=== PATIENT | female | born 1935 | race Caucasian/White ===

== ENCOUNTER 2018-10-27 15:37 | Observation (INO) | payer OTHER ==
[2018-10-27 16:48] LABS: Absolute Lymphocytes (CBC) 2.1 K/uL (0.7-4.9); Absolute Monocytes 0.7 K/uL (0.1-1.3); Basophils % 1.2 % (0-1.3); Hematocrit 40.3 % (36.0-45.0); Lymphocytes % 25.4 % (15.3-44.8); MPV 8.6 fL (7.6-11.3); Monocytes % 8.1 % (3.3-12.3); RBC Red Blood Cell Count 4.39 M/uL (3.86-4.86)
[2018-10-27] MEDS ORDERED: ADENOSINE 6 MG/ 2ML VIAL IV ONE (16:48)
[2018-10-27] MEDS ORDERED: NA CHLORIDE 0.9% 500 ML ONE (16:48)
[2018-10-27 16:49] LABS: Protime INR 1.09
[2018-10-27 17:04] LABS: ALT/SGPT 14 U/L (12-78); AST/SGOT 15 U/L (15-37); Albumin 3.5 g/dL (3.4-5.0); Alkaline Phosphatase 99 U/L (45-117); BUN Blood Urea Nitrogen 15 mg/dL (7-18); Bicarbonate 25 mmol/L (21-32); Bilirubin Direct 0.1 mg/dL (0-0.2); Bilirubin Total 0.4 mg/dL (0.2-1.0); Glucose Level 107 mg/dL (74-106); Magnesium 1.9 mg/dL (1.8-2.4); NT PRO-BNP 5680 pg/mL (<450); Potassium 4.2 mmol/L (3.5-5.1); Protein, Total 7.4 g/dL (6.4-8.2); Sodium Level 141 mmol/L (136-145); Troponin (Emerg Dept Use Only) < 0.02 ng/mL (0.0-0.045)
--- NOTE | 2018-10-27 17:17 | RAD REPORT ---
EXAM DESCRIPTION: RAD - Chest Single View - 10/27/2018 4:55 pm CLINICAL HISTORY: Hypertension, shortness of breath COMPARISON: None. TECHNIQUE: AP portable chest image was obtained 1645 hours . FINDINGS: Prominent interstitial markings are present believed to be baseline fibrosis. No focal mas s or consolidation seen. No failure or volume overload. Granulomatous calcifications is seen in each hilum. Heart and vasculature are normal. No measurable pleural effusion and no pneumothorax. No acute bony abnormality seen. No acute aortic findings suspected. IMPRESSION: No focal pneumonia or acute process seen. Prominence of the interstitial markings favored to be baseline fibrosis.
--- NOTE | 2018-10-27 17:22 | ER ---
Nurse's Notes [facility] Name: Zaynab Cain Age: 83 yrs Sex: Female : 1935 Arrival Date: 10/27/2018 Time: 15:46 Bed 7 Private MD: Diagnosis: Palpitations;Supraventricular tachycardia Presentation: 10/27 15:55 Presenting complaint: Patient states: sent by PCP for high blood pressure. PCP told ss patient and her daughters since her blood pressure was high to come to the ER immediately as she may be at risk for a heart attack or stroke. Transition of care: patient was not received from another setting of care. Onset of symptoms was October 27, 2018. Risk Assessment: Do you want to hurt yourself or someone else? Patient reports no desire to harm self or others. Initial Sepsis Screen: Does the patient meet any 2 criteria? HR > 90 bpm. Does the patient have a suspected source of infection? No. Patient's initial sepsis screen is negative. Care prior to arrival: None. 15:55 Method Of Arrival: Wheelchair ss 15:55 Acuity: AILYN 3 ss 15:55 Acuity: AILYN 2 ss 16:01 Note Pt had shortness of breath this morning and self administered an albuterol ss treatment. Historical: - Allergies: 16:00 No Known Allergies; ss - PMHx: 16:00 Arthritis; Hypertension; ss - PSHx: 16:00 Hysterectomy; Bladder suspension; ss - Immunization history:: Adult Immunizations unknown. - Social history:: Smoking status: Patient/guardian denies using tobacco, but has a distant history of tobacco abuse. - Ebola Screening: : Patient denies exposure to infectious person No symptoms or risks identified at this time. Screenin:10 Abuse screen: Denies threats or abuse. Denies injuries from another. Nutritional sg screening: No deficits noted. Tuberculosis screening: Never had TB. Fall Risk None identified. Assessment: 16:10 General: Appears in no apparent distress. comfortable, well groomed, well developed, sg well nourished, Behavior is calm, cooperative, appropriate for age. Pain: Complains of pain in left subscapular area Quality of pain is described as aching. Neuro: Level of Consciousness is awake, alert, obeys commands, Oriented to person, place, time, situation, Speech is normal, Facial symmetry appears normal. Cardiovascular: Reports palpitations, Capillary refill is brisk in bilateral fingers Patient's skin is warm and dry. Chest pain is denied. Respiratory: Airway is patent Respiratory effort is even, unlabored, Respiratory pattern is regular, symmetrical, Denies cough, shortness of breath. GI: Abdomen is flat, non-distended, Bowel sounds present X 4 quads. : No signs and/or symptoms were reported regarding the genitourinary system. EENT: No signs and/or symptoms were reported regarding the EENT system. Derm: Skin is pale, Skin temperature is warm. Musculoskeletal: No signs and/or symptoms reported regarding the musculoskeletal system. 16:40 Reassessment: and Zack FILM COATER at bedside for administration of Adenosine IVP sg due to pt HR, pt family remains at the bedside at this time, will continue to monitor. 16:55 Reassessment: Patient appears in no apparent distress at this time. Patient and/or sg family updated on plan of care and expected duration. Pain level reassessed. Patient is alert, oriented x 3, equal unlabored respirations, skin warm/dry/pink. Patient denies pain at this time. Patient states feeling better. Cardiovascular: Capillary refill is brisk in bilateral fingers Patient's skin is warm and dry. Derm: Skin is pink, warm \T\ dry. 17:20 Reassessment: Patient appears in no apparent distress at this time. Patient and/or sg family updated on plan of care and expected duration. Pain level reassessed. Patient is alert, oriented x 3, equal unlabored respirations, skin warm/dry/pink. Patient denies pain at this time. Patient states feeling better. 18:20 Reassessment: Patient appears in no apparent distress at this time. Patient and/or sg family updated on plan of care and expected duration. Pain level reassessed. Patient is alert, oriented x 3, equal unlabored respirations, skin warm/dry/pink. reports pain in her Left Upper back at this time, awaiting new orders Patient states feeling better. 19:00 Reassessment: orders received for IVP pain medication, pt medicated see EMAR. sg Vital Signs: 16:00 BP 114 / 80; Pulse 155; Resp 21; Temp 98.0(TE); Pulse Ox 97% on R/A; Height 5 ft. 1 in. ss (154.94 cm); Pain 0/10; 16:54 BP 108 / 92; Pulse 81 MON; Resp 18 S; Pulse Ox 100% on 3 lpm NC; sg 17:18 BP 116 / 99; Pulse 86; Resp 17; Pulse Ox 100% on R/A; Pain 0/10; sg 18:15 BP 118 / 92; Pulse 81; Resp 17; Pulse Ox 97% on 2 lpm NC; tw2 19:00 BP 141 / 91; Pulse 69; Resp 22; Pulse Ox 100% on 2 lpm NC; tw2 16:54 Sinus Rhythm sg Vitals: 16:40 Cardiac Rhythm Assessment SVT. sg 16:55 Cardiac Rhythm Assessment Sinus rhythm. sg ED Course: 15:46 Patient arrived in ED. mr 15:59 Triage completed. ss 16:00 Arm band placed on right wrist. ss 16:02 Skylar Rod[facility]C [facility] kb 16:02 Shola Aelgre MD is Attending Physician. kb 16:10 Initial lab(s) drawn, by me, sent to lab. Inserted saline lock: 20 gauge in right sg antecubital area, using aseptic technique. Blood collected. 16:30 Patient has correct armband on for positive identification. Bed in low position. Call sg light in reach. Side rails up X2. radiation monitor on. Pulse ox on. NIBP on. Warm blanket given. Verbal reassurance given. Head of bed elevated. 16:43 EKG done, by archives technician. reviewed by Shola Alegre MD. at1 16:54 Lawrence Munoz, RN is Primary Nurse. sg 16:56 XRAY Chest (1 view) In Process Unspecified. EDMS 17:21 Mali Sanchez MD is Hospitalizing Provider. kb 18:48 No provider procedures requiring assistance completed. sg 19:06 Report given to MICHELLE Grayson and KimRN. tw2 19:27 Patient admitted, IV remains in place. ak1 Administered Medications: 16:40 Drug: Adenosine 6 mg Route: IVP; Site: right antecubital; sg 16:50 Follow up: Response: No adverse reaction tw2 16:40 Drug: NS 0.9% 500 ml Route: IV; Rate: bolus; Site: right antecubital; sg 19:28 Follow up: IV Status: Completed infusion ak1 16:57 Drug: Metoprolol 25 mg Route: PO; sg 19:28 Follow up: Response: No adverse reaction ak1 19:00 Drug: fentaNYL (PF) 25 mcg Route: IVP; Site: right antecubital; Outcome: 17:21 Decision to Hospitalize by Provider. kb 19:27 Condition: stable ak1 19:27 Instructed on the need for admit. 20:14 Patient left the ED. ak1 Signatures: Dispatcher [employer] EDMS Skylar Rodríguez, FILM COATER-C FILM COATER-CkLawrence Abdullahi, RN Gabriella Jerome mr Tatiana Collins RN RN Zara Olivera, tool grinder EKG Tat1 Renuka Beck RN RN ak1 Nazanin Pittman RN RN tw2
--- NOTE | 2018-10-27 17:22 | EDPHYS ---
Physician Documentation [facility] Name: Zaynab Cain Age: 83 yrs Sex: Female : 1935 Arrival Date: 10/27/2018 Time: 15:46 Bed 7 Private MD: ED Physician Shola Alegre HPI: 10/27 16:59 This 83 yrs old Female presents to ER via Wheelchair with complaints of kb Elevated heart rate. 16:59 The patient presents with a history of heart racing. Context: The symptoms occur at kb rest. Onset: The symptoms/episode began/occurred 2 day(s) ago. Duration: The patient or guardian reports multiple episodes, notices the racing heart feeling at night for the last 2 nights. . Modifying factors: The symptoms are aggravated by nothing. The symptoms are alleviated by nothing. Associated signs and symptoms: Pertinent positives: chest pain. Severity of symptoms: At their worst the symptoms were moderate in the emergency department the symptoms are unchanged. The patient has not experienced similar symptoms in the past. The patient has been recently seen by a physician: the patient's primary care provider, earlier today, with similar presenting complaints, and was sent to the [facility] Emergency Department for further evaluation. Historical: - Allergies: 16:00 No Known Allergies; ss - PMHx: 16:00 Arthritis; Hypertension; ss - PSHx: 16:00 Hysterectomy; Bladder suspension; ss - Immunization history:: Adult Immunizations unknown. - Social history:: Smoking status: Patient/guardian denies using tobacco, but has a distant history of tobacco abuse. - Ebola Screening: : Patient denies exposure to infectious person No symptoms or risks identified at this time. ROS: 16:56 Constitutional: Negative for fever, chills, and weight loss, ENT: Negative for injury, kb pain, and discharge, Neck: Negative for injury, pain, and swelling, Abdomen/GI: Negative for abdominal pain, nausea, vomiting, diarrhea, and constipation, Back: Negative for injury and pain, : Negative for injury, bleeding, discharge, and swelling, MS/Extremity: Negative for injury and deformity, Skin: Negative for injury, rash, and discoloration, Neuro: Negative for headache, weakness, numbness, tingling, and seizure. 16:56 Cardiovascular: Positive for chest pain, of the left lateral posterior chest, palpitations, Negative for chest pain, edema, orthopnea, paroxysmal nocturnal dyspnea. 16:56 Respiratory: Positive for shortness of breath. Exam: 16:56 Constitutional: This is a well developed, well nourished patient who is awake, alert, kb and in no acute distress. Head/Face: Normocephalic, atraumatic. ENT: Nares patent. No nasal discharge, no septal abnormalities noted. Tympanic membranes are normal and external auditory canals are clear. Oropharynx with no redness, swelling, or masses, exudates, or evidence of obstruction, uvula midline. Mucous membranes moist. Neck: Trachea midline, no thyromegaly or masses palpated, and no cervical lymphadenopathy. Supple, full range of motion without nuchal rigidity, or vertebral point tenderness. No Meningismus. Respiratory: Lungs have equal breath sounds bilaterally, clear to auscultation and percussion. No rales, rhonchi or wheezes noted. No increased work of breathing, no retractions or nasal flaring. Abdomen/GI: Soft, non-tender, with normal bowel sounds. No distension or tympany. No guarding or rebound. No evidence of tenderness throughout. Skin: Warm, dry with normal turgor. Normal color with no rashes, no lesions, and no evidence of cellulitis. MS/ Extremity: Pulses equal, no cyanosis. Neurovascular intact. Full, normal range of motion. Neuro: Awake and alert, GCS 15, oriented to person, place, time, and situation. Cranial nerves II-XII grossly intact. Motor strength 5/5 in all extremities. Sensory grossly intact. Cerebellar exam normal. Normal gait. 16:56 Chest/axilla: Inspection: normal, Palpation: tenderness, that is moderate, of the left lateral posterior chest, that totally reproduces the patient's complaints, Axilla: are normal. 16:56 Cardiovascular: Rate: tachycardic, actual rate is 155 bpm, Rhythm: normal, tachycardic, Pulses: no pulse deficits are appreciated, Heart sounds: normal, normal S1and S2. Vital Signs: 16:00 BP 114 / 80; Pulse 155; Resp 21; Temp 98.0(TE); Pulse Ox 97% on R/A; Height 5 ft. 1 in. ss (154.94 cm); Pain 0/10; 16:54 BP 108 / 92; Pulse 81 MON; Resp 18 S; Pulse Ox 100% on 3 lpm NC; sg 17:18 BP 116 / 99; Pulse 86; Resp 17; Pulse Ox 100% on R/A; Pain 0/10; sg 18:15 BP 118 / 92; Pulse 81; Resp 17; Pulse Ox 97% on 2 lpm NC; tw2 19:00 BP 141 / 91; Pulse 69; Resp 22; Pulse Ox 100% on 2 lpm NC; tw2 16:54 Sinus Rhythm sg MDM: 16:02 Patient medically screened. kb 16:55 Data reviewed: vital signs, nurses notes. Data interpreted: Pulse oximetry: on room air kb is 97 %. Interpretation: normal. ED course: HR returned to normal after adenosine 6mg IVP. Pt tolerated procedure well. No distress noted at this time. . 17:20 Counseling: I had a detailed discussion with the patient and/or guardian regarding: the kb historical points, exam findings, and any diagnostic results supporting the discharge/admit diagnosis, lab results, radiology results, the need for further work-up and treatment in the hospital. Physician consultation: Mali Sanchez MD was contacted at 17:20, regarding admission, to the telemetry unit. patient's condition, and will see patient in ED, shortly. 10/27 16:12 Order name: Basic Metabolic Panel; Complete Time: 17:06 kb 10/27 16:12 Order name: CBC with Diff; Complete Time: 17:00 kb 10/27 16:12 Order name: LFT's; Complete Time: 17:06 kb 10/27 16:12 Order name: Magnesium; Complete Time: 17:06 kb 10/27 16:12 Order name: NT PRO-BNP; Complete Time: 17:06 kb 10/27 16:12 Order name: PT-INR; Complete Time: 17:00 kb 10/27 16:12 Order name: Troponin (emerg Dept Use Only); Complete Time: 17:06 kb 10/27 16:12 Order name: XRAY Chest (1 view); Complete Time: 17:19 kb 10/27 16:34 Order name: TSH; Complete Time: 19:24 rn 10/27 16:34 Order name: T4 Free; Complete Time: 19:24 rn 10/27 16:12 Order name: EKG; Complete Time: 16:12 kb 10/27 16:12 Order name: Cardiac monitoring; Complete Time: 17:05 kb 10/27 16:12 Order name: EKG - Nurse/Tech; Complete Time: 17:05 kb 10/27 16:12 Order name: IV Saline Lock; Complete Time: 17:05 kb 10/27 16:12 Order name: Labs collected and sent; Complete Time: 17:05 kb 10/27 16:12 Order name: O2 Per Protocol; Complete Time: 17:05 kb 10/27 16:12 Order name: O2 Sat Monitoring; Complete Time: 17:06 kb 10/27 17:28 Order name: EKG Electrocardiogram EDMS Administered Medications: 16:40 Drug: Adenosine 6 mg Route: IVP; Site: right antecubital; sg 16:50 Follow up: Response: No adverse reaction tw2 16:40 Drug: NS 0.9% 500 ml Route: IV; Rate: bolus; Site: right antecubital; sg 19:28 Follow up: IV Status: Completed infusion ak1 16:57 Drug: Metoprolol 25 mg Route: PO; sg 19:28 Follow up: Response: No adverse reaction ak1 19:00 Drug: fentaNYL (PF) 25 mcg Route: IVP; Site: right antecubital; sg Disposition: 10/28 06:59 Co-signature as Attending Physician, Shola Alegre MD. rn Disposition: 10/27/18 17:21 Hospitalization ordered by Mali Sanchez for Observation. Preliminary diagnosis are Palpitations, Supraventricular tachycardia. - Bed requested for Telemetry/MedSurg (observation). - Status is Observation. ak1 - Condition is Stable. - Problem is new. - Symptoms are resolved. UTI on Admission? No Signatures: Dispatcher [employer] EDMS Skylar Rodríguez, BREAKER UP MACHINE OPERATOR-C BREAKER UP MACHINE OPERATOR-Ckb Lawrence Munoz RN Shola Banerjee MD MD rn Smirch, Shelby, RN RN ss Krenek, Amber, RN RN ak1 Nano Badillo RN RN df Wise, Tara RN tw2 Corrections: (The following items were deleted from the chart) 10/27 16:59 16:56 Cardiovascular: Positive for palpitations, Negative for chest pain, edema, kb orthopnea, paroxysmal nocturnal dyspnea, kb 18:20 17:21 Hospitalization Ordered by Mali Sanchez MD for Observation. Preliminary df diagnosis is Palpitations; Supraventricular tachycardia. Bed requested for Telemetry/MedSurg (observation). Status is Observation. Condition is Stable. Problem is new. Symptoms are resolved. UTI on Admission? No. kb 20:14 18:20 10/27/2018 17:21 Hospitalization Ordered by Mali Sanchez MD for Observation. ak1 Preliminary diagnosis is Palpitations; Supraventricular tachycardia. Bed requested for Telemetry/MedSurg (observation). Status is Observation. Condition is Stable. Problem is new. Symptoms are resolved. UTI on Admission? No. df
[2018-10-27] MEDS ORDERED: METOPROLOL TAR 25 MG TAB ONE (17:57)
[2018-10-27] MEDS ORDERED: NA CHLORIDE 0.9% 1,000 ML IV SCH (18:00)
[2018-10-27] MEDS ORDERED: FENTANYL CITR 100 MCG/2 ML ONE (19:11)
[2018-10-27 19:21] LABS: Thyroid Stimulating Hormone 3.08 uIU/mL (0.360-3.740)
[2018-10-27] MEDS ORDERED: METOPROLOL TAR 25 MG TAB PO ONE (21:09)
[2018-10-27 21:36] VITALS: BMI 19.9
[2018-10-27] MEDS ORDERED: ONDANSETRON 4 MG/2 ML VIAL IV PRN (22:10)
[2018-10-28] MEDS ORDERED: METHYLPREDNISOLONE 40 MG INJ IV ONE (00:19)
[2018-10-28] MEDS ORDERED: ALPRAZOLAM 0.25 MG TABLET PO PRN (02:32)
[2018-10-28 04:41] LABS: Absolute Lymphocytes (CBC) 0.7 K/uL (0.7-4.9); Absolute Monocytes 0.1 K/uL (0.1-1.3); Absolute Neutrophil 8.9 K/uL (1.8-8.0); Basophils % 0.6 % (0-1.3); Eosinophils % 0.1 % (0-4.4); Hematocrit 37.1 % (36.0-45.0); Lymphocytes % 6.7 % (15.3-44.8); MPV 8.7 fL (7.6-11.3); Monocytes % 1.4 % (3.3-12.3); RBC Red Blood Cell Count 3.99 M/uL (3.86-4.86)
[2018-10-28 04:51] LABS: Albumin 3.4 g/dL (3.4-5.0); Bilirubin Total 0.5 mg/dL (0.2-1.0); Magnesium 1.9 mg/dL (1.8-2.4); Phosphorus 3.6 mg/dL (2.5-4.9); Potassium 4.2 mmol/L (3.5-5.1); Protein, Total 6.9 g/dL (6.4-8.2)
[2018-10-28] MEDS: METOPROLOL TAR 25 MG TAB PO SCH ×2 (05:00→16:34)
[2018-10-28 05:52] LABS: Blood Morphology Comment NOTED (NOT SEEN); Burr Cells 1+; Ovalocytes 1+; Platelet Estimate ADEQ
[2018-10-28] MEDS ORDERED: APIXABAN 2.5 MG TABLET PO SCH (09:00)
[2018-10-28] MEDS ORDERED: ASPIRIN 81 MG CHEWABLE TABLET PO SCH (09:00)
--- NOTE | 2018-10-28 09:20 | P.HP ---
Certification for Inpatient Patient admitted to: Observation With expected LOS: <2 Midnights Patient will require the following post-hospital care: None Practitioner: I am a practitioner with admitting privileges, knowledge of patient current condition, hospital course, and medical plan of care. Services: Services provided to patient in accordance with Admission requirements found in Title 42 Section 412.3 of the Code of Federal Regulations Patient History Date of Service: 10/27/18 Reason for admission: SVT History of Present Illness: Patient is an 83-year-old female who came into the hospital with shortness of breath. Patient was tachycardic and found to have SVT. Patient was given adenosine in the ER. Patient converted to a sinus rhythm. Patient was admitted to the floor for further evaluation. Continue with low-dose beta-margarito. Allergies No Known Allergies Allergy (Verified 10/27/18 22:29) Home Medications: Aspirin 81 mg PO DAILY 10/27/18 - Past Medical/Surgical History Has patient received pneumonia vaccine in the past: No Diabetic: No -: Osteoarthritis -: HTN -: hysterectomy -: bladder suspension - Family History Father Family History: Reviewed- Non-Contributory - Social History Smoking Status: Former smoker Alcohol use: No CD- Drugs: No Caffeine use: Yes Place of Residence: Home Review of Systems 10-point ROS is otherwise unremarkable Physical Examination - Vital Signs Temperature: 97.7 F Blood Pressure: 135/68 Pulse: 71 Respirations: 18 Pulse Ox (%): 98 - Physical Exam General: Alert, In no apparent distress, Oriented x3 HEENT: Atraumatic, PERRLA, Mucous membr. moist/pink, EOMI, Sclerae nonicteric Neck: Supple, 2+ carotid pulse no bruit, No LAD, Without JVD or thyroid abnormality Respiratory: Clear to auscultation bilaterally, Normal air movement Cardiovascular: Regular rate/rhythm, Normal S1 S2, No murmurs Gastrointestinal: Normal bowel sounds, Soft and benign, Non-distended, No tenderness Musculoskeletal: No clubbing, No swelling, No tenderness Integumentary: No rashes Neurological: Normal gait, Normal speech, Normal strength at 5/5 x4 extr, Normal tone, Sensation intact, Cranial nerves 3-12 intact, Normal affect Lymphatics: No axilla or inguinal lymphadenopathy - Studies Laboratory Data (last 24 hrs) 10/27/18 16:30: PT 12.8 H, INR 1.09 10/27/18 16:30: WBC 8.1, Hgb 13.7, Hct 40.3, Plt Count 379 10/27/18 16:30: Sodium 141, Potassium 4.2, BUN 15, Creatinine 1.00, Glucose 107 H, Magnesium 1.9, Total Bilirubin 0.4, AST 15, ALT 14, Alkaline Phosphatase 99 Assessment & Plan - Problems (Diagnosis) (1) SVT (supraventricular tachycardia) Current Visit: Yes Status: Acute (2) History of hypertension Current Visit: Yes Status: Acute (3) Osteoarthritis Current Visit: Yes Status: Acute - Plan Plan: 1. Continue low-dose beta-margarito 2. Echocardiogram 3. Cardiology consultation 4. Thyroid studies 5. CT of the chest as patient has questionable fibrosis on x-ray continues to have complaints of dyspnea and wheezing 6. GI and DVT prophylaxis Discharge Plan: Home Plan to discharge in: 48 Hours - Advance Directives Does patient have a Living Will: Yes Does patient have a Durable POA for Healthcare: No - Code Status/Comfort Care Code Status Assessed: Yes Code Status: Full Code Critical Care: No Time Spent Managing PTS Care (In Minutes): 45
--- NOTE | 2018-10-28 09:26 | RAD REPORT ---
EXAM DESCRIPTION: CT - Chest For Pe Angio - 10/28/2018 9:03 am CLINICAL HISTORY: Dyspnea, left upper back pain COMPARISON: Chest film October 27, CT chest August 2013 TECHNIQUE: Dynamically enhanced 3 mm thick images of the chest were obtained during administration o f approximately 150mL Isovue 370 IV contrast. Coronal and oblique MIP reconstruction images were gene rated and reviewed. Exam utilizes a protocol to evaluate the pulmonary arterial tree. All CT scans are performed using dose optimization technique as appropriate and may include automated exposure control or mA/KV adjustment according to patient size. FINDINGS: No pulmonary emboli are identified. Aortic assessment is limited due to the lack of contrast. Aortic calcifications are present. No displ aced calcifications. No aortic aneurysm. No pericardial thickening or effusion. Heart size is normal. Fibrotic lung changes are present with scattered bulla and bleb formation. No acute consolidation. No pleural effusion or pleural thickening. Minimal nodularity is present along the fissure in the left midlung field. This is fractionally larger than on the 2014 study at the superior extent. Area of new nodularity is 10 x 4 mm (image 54/105). Bronchial wall thickening changes are present. Granulomatous calcifications are present at the left hilum. Chronic atelectasis or scarring changes are present in the medial right lung base. No mediastinal or hilar suspicious masses. No chest wall masses or abnormal axillary lymphadenopathy. Moderate-size hiatal hernia is present similar to comparison. IMPRESSION: No pulmonary emboli identified. 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 A 10 x 4 mm area of nodularity along the fissure mid le ft chest is probably all part of scarring. This is slightly more pronounced than 2014. A repeat CT chest study in 6 months could be performed to monitor this area for low likelihood of derek wth. Bronchial wall thickening is present. It is possible the patient could have a viral type infiltrate s uperimposed on the fibrosis.
--- NOTE | 2018-10-28 11:14 | CON ---
Reason For Consult: Heart racing. History Of Present Illness: Mrs. Cain is new to our area. We do not have any old records on her. She and her daughter are good history givers. They say that she has never been diagnosed with any heart rhythm problems before. She has COPD, rheumatoid arthritis, and her only medication she took a t home was aspirin. There is no history of diabetes, hypertension, dyslipidemia, stroke, myocardial infarction, vascular interventions. She does not use tobacco, alcohol, or illegal drugs. She has re cently moved to our area to be closer to family members to assist with her chronic health problems. When she came to the emergency room, she was in atrial flutter. Impression of the emergency room natasha torrez, which was based on the computer EKG, interpretation was that she had SVT, but it is clearly atrial flutter with 2:1 block, and this morning she is in sinus rhythm. The patient has no history of bleeding. She does not have frequent falls. No history of fall and fracture. Her chest x-ray sh ows interstitial pulmonary fibrosis. No old EKGs to compare. Laboratory Data: Reveals a normal hemoglobin, hematocrit, normal coagulation studies. Her creatinin e is 0.92. Physical Examination: Vital Signs: She is 109 pounds or about 49 kilos, 5 feet 2 inches. Her heart rate is 71, blood pres sure 135/68. She received metoprolol last night orally. No intravenous medications were given, and she is in sinu s rhythm now. All of her previous spells, which probably add up to 2 or 3 previous spells were self- limited after 15 to 20 minutes or so. General: She appears to be in no distress now. Lungs: Reveal diffuse Velcro type crackles. Heart: Regular rate and rhythm. No murmur. Abdomen: Soft. Extremities: She has very thick ankles, but I do not think it is edema. I think it is adipose tissu e. Distal pulses are palpable. Musculoskeletal: She has all of the joint findings in her hands of rheumatoid arthritis, also in the feet. Impression: My impression is the patient has paroxysmal atrial flutter. So far, the beta-margarito se em to have worked, I would recommend we continue it, and add Eliquis to the regimen because of her yael dy mass and age. Her Eliquis dose is 2.5 b.i.d. We will start that this morning at 9 a.m., and I be lieve later today if her echo does not look remarkable, she could be discharged taking metoprolol and Eliquis. Thank you very much for your kind referral of Mrs. Cain. I will follow her along with you. FRANK Voice ID: [id number] Report ID: [id number]
[2018-10-28 12:58] LABS: Urine Appearance CLEAR; Urine Bilirubin NEGATIVE (NEG); Urine Blood NEGATIVE (NEG); Urine Color YELLOW; Urine Glucose NEGATIVE (NEG); Urine Microscopic Reflex NO UMIC; Urine Protein NEGATIVE (NEG); Urine Specific Gravity >=1.030 (1.005-1.030); Urine Urobilinogen 0.2 mg/dL (0.2-1.0)
[2018-10-28 16:43] VITALS: TEMP 98.4
--- NOTE | 2018-10-28 18:19 | P.SSS ---
Patient History Date of Service: 10/28/18 Reason for admission: SVT History of Present Illness: Patient is an 83-year-old female who came into the hospital with shortness of breath. Patient was tachycardic and found to have SVT. Patient was given adenosine in the ER. Patient converted to a sinus rhythm. Patient was admitted to the floor for further evaluation. Continue with low-dose beta-margarito. Allergies No Known Allergies Allergy (Verified 10/27/18 22:29) Home Medications: Aspirin 81 mg PO DAILY 10/27/18 Albuterol Neb [Proventil 0.083% Neb Soln] 1 inh NEB Q4HP PRN 10/28/18 Apixaban [Eliquis *] 2.5 mg PO BID #60 tablet 10/28/18 Budesonide/Formoterol Fumarate [Symbicort 80-4.5 Mcg Inhaler] 1 puff IH BID #1 hfa.aer.ad 10/28/18 Metoprolol Tartrate [Lopressor*] 50 mg PO BID 6AM 6PM #60 tab 10/28/18 - Past Medical/Surgical History Has patient received pneumonia vaccine in the past: No Diabetic: No -: Osteoarthritis -: HTN -: hysterectomy -: bladder suspension - Social History Smoking Status: Former smoker Alcohol use: No CD- Drugs: No Caffeine use: Yes Place of Residence: Home Review of Systems 10-point ROS is otherwise unremarkable Physical Examination - Vital Signs Temperature: 98.4 F Blood Pressure: 106/62 Pulse: 60 Respirations: 18 Pulse Ox (%): 96 - Physical Exam General: Alert, In no apparent distress HEENT: Atraumatic, PERRLA, Mucous membr. moist/pink, EOMI, Sclerae nonicteric Neck: Supple, 2+ carotid pulse no bruit, No LAD, Without JVD or thyroid abnormality Respiratory: Clear to auscultation bilaterally, Normal air movement Cardiovascular: Regular rate/rhythm, Normal S1 S2 Gastrointestinal: Normal bowel sounds, No tenderness Musculoskeletal: No tenderness Integumentary: No rashes Neurological: Normal gait, Normal speech, Normal strength at 5/5 x4 extr, Normal tone, Normal affect Lymphatics: No axilla or inguinal lymphadenopathy - Diagnosis (Problem(s)) (1) Atrial flutter Current Visit: Yes Status: Acute Qualifiers: Atrial flutter type: typical Qualified Code(s): I48.3 - Typical atrial flutter (2) History of hypertension Current Visit: Yes Status: Chronic (3) Osteoarthritis Current Visit: Yes Status: Chronic Qualifiers: Osteoarthritis location: unspecified site Osteoarthritis type: primary Qualified Code(s): M19.91 - Primary osteoarthritis, unspecified site Treatment Summary: Overall during the hospital stay patient remained stable Patient was initially admitted to the hospital for palpitations and initially when seen in the ER and was having atrial flutter. In the ER patient was given edema seen initially as it was thought to be SVT. After which patient return back to sinus rhythm. Cardiology was consulted who recommended patient get an echocardiogram done here in the hospital. Patient had an echocardiogram done here in the hospital which was within normal limits. Patient then was recommend to be discharged home on a low-dose beta-margarito along with Eliquis. Patient's atrial flutter was most likely was related to her using albuterol inhaler recently vs intermittent atrial flutter. Patient was asked to follow up with primary care provider along with cardiology in about 1-2 days post discharge. - Disposition Disposition: ROUTINE DISCHARGE Condition: GOOD Patient Discharge Instructions: Please f.u with PCP and Cardiology in 1 to 2 week post discharge. New medication. Metoprolol 50mg BID. Eliquis 2.5mg BID. Symbicort 2puff Diet: Regular Activity: Ad josef
--- NOTE | 2018-10-28 18:21 | ECHO ---
HEIGHT: 5 ft 2 in WEIGHT: 109 lb 1.6 oz DATE OF STUDY: 10/28/[address]: Mali Sanchez MD 2-DIMENSIONAL: YES M.MODE: YES DOPPLER: YES COLOR FLOW: YES TDS: PORTABLE: DEFINITY: BUBBLE STUDY: DIAGNOSIS: ATRIAL FLUTTER CARDIAC HISTORY: CATHERIZATION: NO SURGERY: NO PROSTHETIC VALVE: NO PACEMAKER: NO MEASUREMENTS (cm) DIASTOLIC (NORMALS) SYSTOLIC (NORMALS) LVEF 40-45% 2 DIMENSIONAL ASSESSMENT: RIGHT ATRIUM: NORMAL LEFT ATRIUM: DILATED RIGHT VENTRICLE: NORMAL LEFT VENTRICLE: NORMAL TRICUSPID VALVE: NORMAL MITRAL VALVE: MITRAL ANNULAR CALCIFICATION PULMONIC VALVE: NORMAL AORTIC VALVE: NORMAL PERICARDIAL EFFUSION: NONE AORTIC ROOT: NORMAL LEFT VENTRICULAR WALL MOTION: SEPTAL HYPOKENESIS DOPPLER/COLOR FLOW: MILD MITRAL REGURGITATION AND TRICUSPID REGURGITATION. MILD PULMONARY HYPERTENSION. ESTIMATED RIGHT VENTRICULAR SYSTOLIC PRESSURE 40 mmHg. COMMENTS: MILDLY DEPRESSED LEFT VENTRICULAR EJECTION FRACTION WITH WALL MOTION ABNORMALITY. DILATED LEFT ATRIUM. MITRAL ANNULAR CALCIFICATION. MILD MITRAL REGURGITATION AND TRICUSPID REGURGITATION. MILD PULMONARY HYPERTENSION. NORMAL SINUS RHYTHM. TECHNOLOGIST: RAYMOND BOSWELL
[2018-10-28 22:20] VITALS: O2SAT 97
[2018-10-28 22:28] VITALS: BP 122/68
--- NOTE | 2018-10-30 10:25 | EKG ---
Test Date: 2018-10-27 Test Time: 16:54:56 [employer] Attendant: EVE MEASUREMENT RESULTS: Intervals: Rate: 84 WY: 174 QRSD: 98 QT: 404 QTc: 477 [place]: P: 80 WY: 174 QRS: -29 T: 50 INTERPRETIVE STATEMENTS: Normal sinus rhythm with sinus arrhythmia Right atrial enlargement Borderline ECG Compared to ECG 10/27/2018 16:22:15 Atrial abnormality now present Supraventricular tachycardia no longer present ST (T wave) deviation no longer present Electronically Signed On 10-27-18 21:14:16 CDT by Abdulkadir Walker
--- NOTE | 2018-10-30 10:25 | EKG ---
Test Date: 2018-10-27 Test Time: 16:22:15 Brand Coordinator: WILLIS MEASUREMENT RESULTS: Intervals: Rate: 153 [place]: QRSD: 98 QT: 344 QTc: 549 [place]: P: OK: QRS: -23 T: 89 INTERPRETIVE STATEMENTS: Atrial flutter with 2 to 1 conduction Abnormal ECG Compared to ECG 03/01/2016 11:30:30 Sinus rhythm no longer present Left anterior fascicular block no longer present ST (T wave) deviation still present Electronically Signed On 10-27-18 21:15:27 CDT by Abdulkadir Walker
--- NOTE | 2018-10-30 10:26 | EKG ---
Test Date: 2018-10-28 Test Time: 09:22:08 Ultrasonic Tester: WILLIS MEASUREMENT RESULTS: Intervals: Rate: 68 AL: 172 QRSD: 104 QT: 484 QTc: 514 [place]: P: 76 AL: 172 QRS: -8 T: -24 INTERPRETIVE STATEMENTS: Sinus rhythm Septal infarct, age undetermined Prolonged QT Abnormal ECG Compared to ECG 10/27/2018 16:54:56 Myocardial infarct finding now present Prolonged QT interval now present Electronically Signed On 10-28-18 12:38:28 CDT by Abdulkadir Walker
== END 2018-10-28 20:24 | disposition home or self-care (01) ==
LOC: ER 15:37 → ERHOLD 17:47 → 4TH 19:44
PROVIDERS: ADMIT Family Medicine; ATTEND Hospitalist
DX: I48.3 Typical atrial flutter (principal); I10 Essential (primary) hypertension; M19.91 Primary osteoarthritis, unspecified site; Z79.82 Long term (current) use of aspirin; Z87.891 Personal history of nicotine dependence
CPT/HCPCS: 96361; 93005 ×3; 93306; 85025 ×2; 80048; 36415; 83735 ×2; 84100; 85610; 80076; 84443; 81003; 84484; 84439; 80053; 83880; 71275; 71045; 96375; 96374; 99285; Q9967; J0153; J3010; J2920; G0378 ×2

== ENCOUNTER 2018-11-01 08:16 | Emergency (ER) | payer OTHER ==
[2018-11-01 09:08] LABS: Absolute Lymphocytes (CBC) 1.6 K/uL (0.7-4.9); Absolute Monocytes 0.7 K/uL (0.1-1.3); Absolute Neutrophil 5.3 K/uL (1.8-8.0); Basophils % 0.4 % (0-1.3); Eosinophils % 6.1 % (0-4.4); Hematocrit 41.3 % (36.0-45.0); Lymphocytes % 19.3 % (15.3-44.8); MPV 8.8 fL (7.6-11.3); Monocytes % 8.3 % (3.3-12.3); RBC Red Blood Cell Count 4.49 M/uL (3.86-4.86)
[2018-11-01 09:10] LABS: Protime INR 1.19
[2018-11-01 09:11] LABS: Urine Blood NEGATIVE (NEG); Urine Glucose NEGATIVE (NEG); Urine Protein 1+ (NEG)
[2018-11-01 09:19] LABS: Urine Bacteria <20 /HPF (<20); Urine Culture Reflex Order REFLEXED; Urine RBC <5 /HPF (NONE SEEN)
[2018-11-01 09:22] LABS: BUN Blood Urea Nitrogen 10 mg/dL (7-18); Bicarbonate 32 mmol/L (21-32); Glucose Level 91 mg/dL (74-106); Potassium 3.6 mmol/L (3.5-5.1); Sodium Level 141 mmol/L (136-145); Troponin (Emerg Dept Use Only) < 0.02 ng/mL (0.0-0.045)
--- NOTE | 2018-11-01 11:03 | RAD REPORT ---
EXAM DESCRIPTION: RAD - Chest Pa And Lat (2 Views) - 11/01/2018 9:02 am CLINICAL HISTORY: right chest wall pain Chest pain. COMPARISON: Chest Single View dated 10/27/2018; Chest For Pe Angio dated 10/28/2018 TECHNIQUE: PA and lateral views of the chest were obtained. FINDINGS: The lungs are hyperexpanded compatible with COPD. Blunting of both costophrenic angles is most compatible with pleural thickening. The heart is upper limit of normal in size. No fracture or a ggressive bony process. IMPRESSION: COPD without acute process identified.
--- NOTE | 2018-11-01 11:37 | ER ---
Nurse's Notes [facility] Name: Zaynab Cain Age: 83 yrs Sex: Female : 1935 Arrival Date: 11/01/2018 Time: 08:21 Bed 14 Private MD: Diagnosis: Chest pain, unspecified Presentation: 11/01 08:30 Transition of care: patient was not received from another setting of care. Onset of tw2 symptoms was November 01, 2018. Risk Assessment: Do you want to hurt yourself or someone else? Patient reports desire/thoughts of hurting themselves or someone else. Provider notified. Initial Sepsis Screen: Does the patient meet any 2 criteria? No. Patient's initial sepsis screen is negative. Does the patient have a suspected source of infection? No. Patient's initial sepsis screen is negative. Care prior to arrival: None. 08:30 Acuity: AILYN 3 tw2 08:30 Method Of Arrival: Ambulatory tw2 08:36 Presenting complaint: Patient states: since i left the hospital 2-3 days ago my upper tw2 right chest has been hurting and i feel like im wheezing, pts daughter states she has used her symbicort to help. Triage Assessment: 08:37 General: Appears in no apparent distress. Behavior is calm, cooperative, appropriate tw2 for age. Pain: Complains of pain in right lateral posterior chest and right breast. EENT: No signs and/or symptoms were reported regarding the EENT system. Neuro: Level of Consciousness is awake, alert, obeys commands, Oriented to person, place, situation. Cardiovascular: Reports shortness of breath, Heart tones S1 S2 Patient's skin is warm and dry. Respiratory: Airway is patent Respiratory effort is even, unlabored, Respiratory pattern is regular, symmetrical, Breath sounds are clear bilaterally. GI: No signs and/or symptoms were reported involving the gastrointestinal system. : No signs and/or symptoms were reported regarding the genitourinary system. Derm: No signs and/or symptoms reported regarding the dermatologic system. Musculoskeletal: Circulation, motion, and sensation intact. Range of motion: intact in all extremities, Tenderness present in right lateral posterior chest and right lateral anterior chest. Historical: - Allergies: 08:32 No Known Allergies; tw2 - Home Meds: 08:32 aspirin 81 mg Oral chew 1 tab once daily [Active]; spironolactone 50 mg Oral tab 1 tab tw2 once daily [Active]; 08:40 metoprolol tartrate 25 mg Oral tab 1 tab 2 times per day [Active]; warfarin 3 mg Oral tw2 tab 1 tab once daily [Active]; Symbicort 80-4.5 mcg/actuation inhalation HFAA 2 puffs 2 times per day [Active]; - PMHx: 08:32 Arthritis; Hypertension; tw2 - PSHx: 08:32 Hysterectomy; Bladder suspension; tw2 - Immunization history:: Adult Immunizations. - Social history:: Smoking status: . - Ebola Screening: : Patient denies travel to an Ebola-affected area in the 21 days before illness onset. - Family history:: not pertinent. - Hospitalizations: : The patient was recently seen at [facility]. Screenin:30 Abuse screen: Denies threats or abuse. Nutritional screening: No deficits noted. tw2 Tuberculosis screening: No symptoms or risk factors identified. Fall Risk Secondary diagnosis (15 points) impaired mobility. Assessment: 08:39 Reassessment: see triage assessment. tw2 09:49 Reassessment: Patient appears in no apparent distress at this time. No changes from tw2 previously documented assessment. Patient and/or family updated on plan of care and expected duration. Pain level reassessed. Patient is alert, oriented x 3, equal unlabored respirations, skin warm/dry/pink. 10:47 Reassessment: Patient appears in no apparent distress at this time. No changes from tw2 previously documented assessment. Patient and/or family updated on plan of care and expected duration. Pain level reassessed. Patient is alert, oriented x 3, equal unlabored respirations, skin warm/dry/pink. 11:48 Reassessment: Patient appears in no apparent distress at this time. No changes from tw2 previously documented assessment. Patient and/or family updated on plan of care and expected duration. Pain level reassessed. Patient is alert, oriented x 3, equal unlabored respirations, skin warm/dry/pink. Vital Signs: 08:38 BP 161 / 81; Pulse 64; Resp 17; Temp 97.7(TE); Pulse Ox 97% on R/A; Pain 6/10; tw2 09:49 BP 164 / 82; Pulse 78; Resp 17; Pulse Ox 96% on R/A; tw2 10:46 BP 149 / 71; Pulse 56; Resp 17; Pulse Ox 95% on R/A; tw2 11:46 BP 158 / 88; Pulse 76; Resp 17; Pulse Ox 97% on R/A; tw2 ED Course: 08:21 Patient arrived in ED. mr 08:26 Shola Alegre MD is Attending Physician. rn 08:26 Nazanin Pittman RN is Primary Nurse. tw2 08:30 Inserted saline lock: 22 gauge in left antecubital area, using aseptic technique. Blood tw2 collected. 08:31 Triage completed. tw2 08:31 Arm band placed on. tw2 08:31 Bed in low position. Call light in reach. Adult w/ patient. quality assurance monitor on. Pulse tw2 ox on. NIBP on. 09:00 XRAY Chest Pa And Lat (2 Views) In Process Unspecified. EDMS 11:47 No provider procedures requiring assistance completed. IV discontinued, intact, tw2 bleeding controlled, No redness/swelling at site. Pressure dressing applied. Administered Medications: No medications were administered Outcome: 11:37 Discharge ordered by . rn 11:48 Discharged to home ambulatory, with family. tw2 11:48 Condition: stable 11:48 Discharge instructions given to patient, family, Instructed on discharge instructions, follow up and referral plans. Demonstrated understanding of instructions, follow-up care. 11:48 Patient left the ED. tw2 Signatures: Dispatcher [employer] Gabriella Saleem mr Shola Alegre MD MD rn Nazanin Pittman RN RN tw2
--- NOTE | 2018-11-01 11:37 | EDPHYS ---
Physician Documentation [facility] Name: Zaynab Cain Age: 83 yrs Sex: Female : 1935 Arrival Date: 11/01/2018 Time: 08:21 Bed 14 Private MD: ED Physician Shola Alegre HPI: 11/01 08:45 This 83 yrs old Female presents to ER via Ambulatory with complaints of Flank rn Pain. 08:46 The pain does not radiate. rn 08:46 Onset: The symptoms/episode began/occurred 4 day(s) ago. Modifying factors: The rn symptoms are alleviated by nothing. the symptoms are aggravated by movement, palpation/percussion. Severity of pain: At its worst the pain was moderate in the emergency department the pain is unchanged. The patient has not experienced similar symptoms in the past. REports admitted recently for atrial flutter, was transferring more than normal while in hospital, uses walker, thinks may have strained right chest, hurts to move and touch right chest wall, no sob, no radiation, no hemoptysis.. Historical: - Allergies: 08:32 No Known Allergies; tw2 - Home Meds: 08:32 aspirin 81 mg Oral chew 1 tab once daily [Active]; spironolactone 50 mg Oral tab 1 tab tw2 once daily [Active]; 08:40 metoprolol tartrate 25 mg Oral tab 1 tab 2 times per day [Active]; warfarin 3 mg Oral tw2 tab 1 tab once daily [Active]; Symbicort 80-4.5 mcg/actuation inhalation HFAA 2 puffs 2 times per day [Active]; - PMHx: 08:32 Arthritis; Hypertension; tw2 - PSHx: 08:32 Hysterectomy; Bladder suspension; tw2 - Immunization history:: Adult Immunizations. - Social history:: Smoking status: . - Ebola Screening: : Patient denies travel to an Ebola-affected area in the 21 days before illness onset. - Family history:: not pertinent. - Hospitalizations: : The patient was recently seen at [facility]. ROS: 08:46 Constitutional: Negative for fever, chills, and weight loss, Eyes: Negative for injury, rn pain, redness, and discharge, Neck: Negative for injury, pain, and swelling, Cardiovascular: + right chest wall pain Respiratory: Negative for shortness of breath, wheezing Abdomen/GI: Negative for abdominal pain, nausea, vomiting, diarrhea, and constipation, Back: Negative for injury and pain, MS/Extremity: Negative for injury and deformity, Skin: Negative for injury, rash, and discoloration, Neuro: Negative for headache, weakness, numbness, tingling, and seizure. Exam: 08:46 Constitutional: This is a well developed, well nourished patient who is awake, alert, rn and in no acute distress. Head/Face: Normocephalic, atraumatic. ENT: MMM Chest/axilla: Normal chest wall appearance and motion. MIld tenderness right anterior/lateral chest wall without crepitus. No lesions are appreciated. Cardiovascular: Regular rate and rhythm with a normal S1 and S2. No gallops, murmurs, or rubs. No JVD. No pulse deficits. Respiratory: Lungs have equal breath sounds bilaterally, clear to auscultation and percussion. No rales, rhonchi or wheezes noted. No increased work of breathing, no retractions or nasal flaring. Abdomen/GI: soft, non-tender MS/ Extremity: Pulses equal, no cyanosis. Neurovascular intact. Full, normal range of motion. Equal circumference. Neuro: Awake and alert, GCS 15, oriented to person, place, time, and situation. Cranial nerves II-XII grossly intact. Motor strength 5/5 in all extremities. Sensory grossly intact. 09:14 ECG was reviewed by the Attending Physician. rn Vital Signs: 08:38 BP 161 / 81; Pulse 64; Resp 17; Temp 97.7(TE); Pulse Ox 97% on R/A; Pain 6/10; tw2 09:49 BP 164 / 82; Pulse 78; Resp 17; Pulse Ox 96% on R/A; tw2 10:46 BP 149 / 71; Pulse 56; Resp 17; Pulse Ox 95% on R/A; tw2 11:46 BP 158 / 88; Pulse 76; Resp 17; Pulse Ox 97% on R/A; tw2 MDM: 08:26 Patient medically screened. rn 11:24 Differential diagnosis: UTI, pleurisy, pleural effusion, early zoster, muscle strain of rn chest wall. 11:36 Data reviewed: vital signs, nurses notes, lab test result(s), EKG, radiologic studies, rn plain films, and as a result, I will discharge patient. Counseling: I had a detailed discussion with the patient and/or guardian regarding: the historical points, exam findings, and any diagnostic results supporting the discharge/admit diagnosis, lab results, radiology results, the need for outpatient follow up, to return to the emergency department if symptoms worsen or persist or if there are any questions or concerns that arise at home. Special discussion: I discussed with the patient/guardian in detail that at this point there is no indication for admission to the hospital. It is understood, however, that if the symptoms persist or worsen the patient needs to return immediately for re-evaluation. 11/01 08:44 Order name: CBC with Diff; Complete Time: 11: rn 11/01 08:44 Order name: Basic Metabolic Panel; Complete Time: 11: 11/01 08:44 Order name: Protime (+inr); Complete Time: 11: 11/01 08:44 Order name: Troponin (emerg Dept Use Only); Complete Time: 11: 11/01 08:46 Order name: Urine Microscopic Only; Complete Time: 11: rn 11/01 08:53 Order name: Urine Dipstick--Ancillary (enter results); Complete Time: 11:19 11/01 08:44 Order name: IV Start; Complete Time: 09:05 rn 11/01 08:44 Order name: XRAY Chest Pa And Lat (2 Views); Complete Time: 11:19 rn 11/01 08:44 Order name: EKG; Complete Time: 08:44 rn 11/01 08:44 Order name: EKG - Nurse/Tech; Complete Time: 08:46 rn 11/01 08:45 Order name: Urine Dipstick-Ancillary (obtain specimen); Complete Time: 08:51 rn 11/01 09:20 Order name: Urine Culture EDMS EC:14 Rate is 64 beats/min. Rhythm is regular. QRS [place] is Normal. AL interval is normal. QRS rn interval is normal. QT interval is normal. No Q waves. T waves are Inverted in leads II, III, aVF, V3. No ST changes noted. Clinical impression: NSR w/ Non-specific ST/T Changes. Interpreted by me. Administered Medications: No medications were administered Disposition: 11/01/18 11:37 Discharged to Home. Impression: Chest pain, unspecified. - Condition is Stable. - Discharge Instructions: Nonspecific Chest Pain, Chest Wall Pain, Warfarin Coagulopathy. - Medication Reconciliation Form, Thank You Letter, Antibiotic Education, Prescription Opioid Use form. - Follow up: Private Physician; When: As needed; Reason: Recheck today's complaints, Re-evaluation by your physician. - Problem is an ongoing problem. - Symptoms have improved. Signatures: Dispatcher [employer] EDMS Shola Alegre MD MD rn Wise, Tara, RN RN tw2 Corrections: (The following items were deleted from the chart) 11:48 11:37 11/01/2018 11:37 Discharged to Home. Impression: Chest pain, unspecified. tw2 Condition is Stable. Forms are Medication Reconciliation Form, Thank You Letter, Antibiotic Education, Prescription Opioid Use. Follow up: Private Physician; When: As needed; Reason: Recheck today's complaints, Re-evaluation by your physician. Problem is an ongoing problem. Symptoms have improved. rn
[2018-11-01 11:52] VITALS: TEMP 97.7
[2018-11-01 11:56] VITALS: BP 158/88; O2SAT 97
--- NOTE | 2018-11-02 12:28 | EKG ---
Test Date: 2018-11-01 Test Time: 08:45:09 Operational Assistant: MEASUREMENT RESULTS: Intervals: Rate: 64 TN: 166 QRSD: 94 QT: 444 QTc: 458 [place]: P: 72 TN: 166 QRS: 5 T: -39 INTERPRETIVE STATEMENTS: Normal sinus rhythm Anterior infarct, age undetermined T wave abnormality, consider inferior ischemia Abnormal ECG Compared to ECG 10/28/2018 09:22:08 T-wave abnormality now present Possible ischemia now present Prolonged QT interval no longer present Myocardial infarct finding still present Electronically Signed On 11-02-18 12:24:45 CDT by Pola Zacarias
== END 2018-11-01 11:48 | disposition home or self-care (01) ==
LOC: ER 08:16
DX: R07.9 Chest pain, unspecified (principal); R10.9 Unspecified abdominal pain; I10 Essential (primary) hypertension; Z79.01 Long term (current) use of anticoagulants; Z79.82 Long term (current) use of aspirin
CPT/HCPCS: 36415; 71046; 80048; 81003; 81015; 84484; 85025; 85610; 87086; 87088; 93005; 99284

== ENCOUNTER 2021-09-01 10:24 | Emergency (ER) | payer OTHER ==
--- OUTSIDE RECORDS SUMMARY | 2021-09-01 10:27 | XMS REPORT | Continuity of Care Document ---
:1935 Author Organization [facility] t Address [address] [place] [address] Care Team Providers Name Role Phone MAKEDA Primary Care Physician Unavailable Karen MARTINEZ Attending Clinician Unavailable Arik UREÑA Attending Clinician Unavailable Payers Payer Name Policy Type Policy Number Effective Date Expiration Date S robert [employer] MEDICARE [id number] 2015 2021 ADV 00:00:00 00:00:00 Problems This patient has no known problems. Allergies, Adverse Reactions, Alerts Allergy Allergy Status Severity Reaction(s) Onset Inactive Treating Comm ents Source Name Type Date Date Clinician promethmarisela DA Active SV 2018- [facility] zine 9-14 Clear 00:00: Esquivel 00 [facility] No Known DA Active U 0 [facility] Allergie 9-13 Clear s 00:00: Esquivel 00 [facility] NO KNOWN Drug Active [facility] Medications This patient has no known medications. Procedures This patient has no known procedures. Encounters Start End Encounter Admission Attending Care Care Encounter Source Date/Time Date/Time Type Type Clinicians Facility Department ID 2019-12-18 2019-12-18 Outpatient Mitchel MARTINEZ [facility] [id number] [facility] 10:10:01 23:59:00 NADIR [facility] 2019-12-18 2019-12-18 Outpatient Mitchel MARTINEZ [facility] [id number] [facility] 10:15:00 10:15:00 NADIR [id number] [facility] 2019-11-27 2019-11-27 Outpatient Mitchel UREÑA [facility] [id number] [facility] 10:00:00 10:00:00 MITRA [facility] 2019-11-27 2019-11-27 Outpatient Mitchel UREÑA [facility] [id number] [facility] 10:00:00 10:00:00 MITRA [facility] 2019-11-26 2019-11-26 Outpatient Mitchel UREÑA [facility] [id number] [facility] 09:30:00 09:30:00 [facility] 2019-11-26 2019-11-26 Outpatient Mitchel UREÑA [facility] [id number] Univers 08:15:00 08:15:00 [facility] 2019-11-26 2019-11-26 Outpatient Mitchel MARTINEZ [facility] [id number] Univers 08:00:00 08:00:00 NADIR [id number] [facility] Results Test Description Test Time Test Comments Results Result Comments Source PROTHROMBIN TIME 2019-05-03 06:36:00 Test Item Value Reference Range Interpretation Comme nts PROTHROMBIN TIME PATIENT 30.1 SECONDS 9.3-12.9 H (test code = PTP) INTERNATIONAL NORMAL RATIO 2.7 0.8-1.2 H TARGET INR BY (test code = INR) INDICATION Indication INR1. Prophylax is of venous thrombosis 2.0 - 3.0 (orthopedic s urgery), Prophylaxis of venous thrombosis (oth er than high-risk surgery), Ha atment of Deep Vein Thrombos is/Pulmonary Embolism, Preve ntion of systemic emboli sm - Tissue heart valves, Acute Myocardial Infarction (to prevent systemic emboli sm), Valvular heart disease, Atrial Fibrillation, B ileaflet mechanical va lve in aortic position.2. Mec hanical prosthetic valv es (high risk), 2.5 - 3.5 Pr esence of Lupus Anticoagulant o r Antiphospholipi d Antibodies, Prevention of systemic embolism - Acut e Myocardial Infarction (t o prevent recurrent infar ct). COMMENTS: INR X 10 DAYSPROTHROMBIN [id number] 09:06:00 Test Item Value Reference Range Interpretation Comments PROTHROMBIN TIME 36.1 SECONDS 9.3-12.9 H PATIENT (test code = PTP) INTERNATIONAL NORMAL 3.2 0.8-1.2 H TARGET RATIO (test code = INR BY IN DICATION INR) Indication INR1. Prophyl axis of venous thrombos is 2.0 - 3. 0 (orthopedic zhanna liane), Prophylaxis of venous thrombos is (other than hig h-risk surgery), Danni tment of Deep Vein Thrombosis/Pulm onary Embolism, Preve ntion of systemic emb olism - Tissue heart va lves, Acute Myocardia l Infarction (to prevent systemic embo lism), Valvular heart disease, Atri al Fibrillation, Bileaflet mecha nical valve in aortic position.2. Mec hanical prosthetic valv es (high risk), 2.5 - 3.5 Presence of Lupus Anticoagu lant or Antiphospholi pid Antibodies, Pre vention of systemic e mbolism - Acute Myocard ial Infarction (t o prevent recurre nt infarct). RENAL FUNCTION [id number] 07:50:00 Test Item Value Reference Range Interpretation Comments SODIUM (test code = NA) 136 mEq/L 134-147 N POTASSIUM (test code = 3.9 mEq/L 3.4-5.0 N K) CHLORIDE (test code = 105 mEq/L 100-108 N CL) CARBON DIOXIDE (test 26 mEq/L 21-33 N code = CO2) ANION GAP (test code = 9 0-20 N GAP) GLUCOSE (test code = 82 mg/dL 70-110 N GLU) BLOOD UREA NITROGEN 15 mg/dL 7-18 N (test code = BUN) GLOMERULAR FILTRATION 79.5 70-80 N Units of measure = RATE (test code = GFR) ml/mi n/1.73 m2 CREATININE (test code = 0.7 mg/dL 0.6-1.3 N CREAT) ALBUMIN (test code = 2.90 g/dL 3.4-5.0 L ALB) CALCIUM (test code = CA) 8.6 mg/dL 8.0-10.5 N PHOSPHOROUS (test code = 3.4 MG/DL 2.5-4.9 N PHOS) [id number] 07:50:00 Test Item Value Reference Range Interpretation Comments MAGNESIUM (test code = MAG) 1.70 mg/dL 1.8-2.4 L CBC W/AUTO [id number] 07:18:00 Test Item Value Reference Range Interpretation Comments WHITE BLOOD CELL (test code = 6.97 x10 3/uL 4.5-11.0 N WBC) RED BLOOD CELL (test code = 4.14 x10 6/uL 3.54-5.02 N RBC) HEMOGLOBIN (test code = HGB) 12.7 g/dL 11.0-15.0 N HEMATOCRIT (test code = HCT) 39.4 % 33.0-45.0 N MEAN CELL VOLUME (test code = 95.2 fL 81.0-99.0 N MCV) MEAN CELL HGB (test code = MCH) 30.7 pg 27.0-33.0 N MEAN CELL HGB CONCETRATION 32.2 g/dL 33.0-37.0 L (test code = MCHC) RED CELL DISTRIBUTION WIDTH CV 12.4 % 11.5-14.5 N (test code = RDW) RED CELL DISTRIBUTION WIDTH SD 43.2 fL 37.0-54.0 N (test code = RDW-SD) PLATELET COUNT (test code = 255 x10 3/uL 150-400 N PLT) MEAN PLATELET VOLUME (test code 10.2 fL 7.0-9.0 H = MPV) NEUTROPHIL % (test code = NT%) 61.6 % 56.0-77.0 N IMMATURE GRANULOCYTE % (test 0.4 % 0.0-2.0 N code = IG%) LYMPHOCYTE % (test code = LY%) 24.4 % 14.0-32.0 N MONOCYTE % (test code = MO%) 9.3 % 4.8-9.0 H EOSINOPHIL % (test code = EO%) 3.2 % 0.3-3.7 N BASOPHIL % (test code = BA%) 1.1 % 0.0-2.0 N NUCLEATED RBC % (test code = 0.0 % 0-0 N NRBC%) NEUTROPHIL # (test code = NT#) 4.29 x10 3/uL 2.0-7.6 N IMMATURE GRANULOCYTE # (test 0.03 x10 3/uL 0.00-0.03 N code = IG#) LYMPHOCYTE # (test code = LY#) 1.70 x10 3/uL 1.0-3.8 N MONOCYTE # (test code = MO#) 0.65 x10 3/uL 0.1-0.8 N EOSINOPHIL # (test code = EO#) 0.22 x10 3/uL 0.0-0.2 H BASOPHIL # (test code = BA#) 0.08 x10 3/uL 0.0-0.2 N NUCLEATED RBC # (test code = 0.00 x10 3/uL 0.0-0.1 N NRBC#) MANUAL DIFF REQUIRED (test code NO = MDIFF) - CT ABD PELVIS [id number] 15:24:00 Name: VALERIE SHAW [facility] : 1935 Age/S: 83 / F [address] [place] [address] Unit #: [id number] Loc: [facility] [id number] Phys: Greg Mercer MD Acct: [id number] Dis Date: Status: ADM IN PHONE #: [phone] Exam Date: 05/01/2019 1500 FAX #: [phone] Reason: L1 fracture EXAMS: CPTCODE: [id number] CT ABD PELVIS W/CONT [id number] PROCEDURE: CT ABDOMEN AND PELVIS WITH CONTRAST INDICATION: Patient fell. Severe back pain. L1 compression fracture. COMPARISON: No relevant priors available. TECHNIQUE: Helical imaging was performed diaphragm through the symphysis with multiplanar reconstructions. IV CONTRAST: 100 mL Isovue-300. GI CONTRAST: None CT imaging performed at this location utilizes radiation dose optimization techniques which include one or more of the following: - Automated exposure control -Adjustment of the mA and/or kV according to patient size -Use of iterative reconstruction technique CT Radiation Dose DLP 165.82 mGy-cm FINDINGS: LOWER CHEST: The lung bases are clear. LIVER: Normal. GALLBLADDER: Normal. No bile duct dilatation SPLEEN: Spleen is small with multiple calcified splenic granulomas. PANCREAS: Normal. ADRENALS: Normal. KIDNEYS: There are a few fluid attenuating cysts in each kidney. Largest of these is in the right kidney and measures 2.5 cm in diameter. Kidneys otherwise normal. No stones hydronephrosis or perinephric fluid. BOWEL: Moderate sigmoid diverticulosis. Moderately large fluid-filled hiatal hernia. Large and small bowel are otherwise normal. The appendix is not visualized. PERITONEUM: No free intraperitoneal air or fluid collections. Mesenteric vessels enhance normally. RETROPERITONEUM: Moderate amount of calcified plaque in a normal caliber abdominal aorta. IVC is normal. No adenopathy. PAGE 1 Signed Report (CONTINUED) Name: VALERIE SHAW [facility] : 1935 Age/S: 83 / F [address] [place] [address] Unit #: [id number] Loc: [facility] [address] Phys: Greg Mercer MD Acct: [id number] Dis Date: Status: ADM IN PHONE #: [phone] Exam Date: 05/01/2019 1500 FAX #: [phone] Reason: L1 fracture EXAMS: CPT CODE: [id number] CT ABD PELVIS W/CONT [id number] <Continued> PELVIS: A Malave catheter is in place and the bladder is empty. There is a 12 mm calcific opacity within the urinary bladder lumen consistent with a stone. No pelvic masses or fluid collections. MUSCULOSKELETAL: Approximately 10% compression of the L1 vertebral body. The bones are osteopenic. Skeletal structures otherwise intact. IMPRESSION: 1. Moderatesigmoid diverticulosis. 2. Moderately large fluid-filled hiatal hernia. 3. 12 mm urinary bladder stone. 4. Bilateral renal cysts. 5. 10% compression of the L1 vertebral body which will be further described on today's CT lumbar spine. END IMPRESSION [id number] at 1524 Reported and signed by: Elliot Walker M.D. CC: Charan Velasquez DO; Greg Mercer Technologist:Phyllis Duran RT(R)(CT) CTDI: DLP: Trnscb Date/Time: 05/01/2019 (1524) Timo Orig Print D/T: S: 05/01/2019 (1527) PAGE 2 Signed ReportRENAL FUNCTION [id number] 14:30:00 Test Item Value Reference Range Interpretation Comments SODIUM (test code = NA) 138 mEq/L 134-147 N POTASSIUM (test code = 4.2 mEq/L 3.4-5.0 N K) CHLORIDE (test code = 104 mEq/L 100-108 N CL) CARBON DIOXIDE (test 28 mEq/L 21-33 N code = CO2) ANION GAP (test code = 10 0-20 N GAP) GLUCOSE (test code = 90 mg/dL 70-110 N GLU) BLOOD UREA NITROGEN 17 mg/dL 7-18 N (test code = BUN) GLOMERULAR FILTRATION 79.5 70-80 N Units of measure = RATE (test code = GFR) ml/mi n/1.73 m2 CREATININE (test code = 0.7 mg/dL 0.6-1.3 N CREAT) ALBUMIN (test code = 3.00 g/dL 3.4-5.0 L ALB) CALCIUM (test code = CA) 8.4 mg/dL 8.0-10.5 N PHOSPHOROUS (test code = 3.3 MG/DL 2.5-4.9 N PHOS) RENAL FUNCTION [id number] 14:28:00 Test Item Value Reference Range Interpretation Comments SODIUM (test code = NA) 138 mEq/L 134-147 N POTASSIUM (test code = K) 4.2 mEq/L 3.4-5.0 N CHLORIDE (test code = CL) 104 mEq/L 100-108 N CARBON DIOXIDE (test code = CO2) 28 mEq/L 21-33 N ANION GAP (test code = GAP) 10 0-20 N GLUCOSE (test code = GLU) 90 mg/dL 70-110 N BLOOD UREA NITROGEN (test code = 17 mg/dL 7-18 N BUN) GLOMERULAR FILTRATION RATE (test 70-80 code = GFR) CREATININE (test code = CREAT) mg/dL 0.6-1.3 ALBUMIN (test code = ALB) g/dL 3.4-5.0 CALCIUM (test code = CA) 8.4 mg/dL 8.0-10.5 N PHOSPHOROUS (test code = PHOS) MG/DL 2.5-4.9
--- NOTE | 2021-09-01 12:06 | RAD REPORT ---
EXAM DESCRIPTION: CT - Head Brain Wo Cont - 09/01/2021 11:58 am CLINICAL HISTORY: CONFUSED COMPARISON: Head Brain Wo Cont dated 03/01/2016 TECHNIQUE: All CT scans are performed using dose optimization technique as appropriate and may inclu de automated exposure control or mA/KV adjustment according to patient size. FINDINGS: No intracranial hemorrhage, hydrocephalus or extra-axial fluid collection.No areas of brai n edema or evidence of midline shift. Sequela of remote appearing bilateral basal ganglia and de la rosa radiata infarcts. Remote appearing right posterior frontal lobe infarct. Cerebral atrophy. Chronic sm all vessel ischemic changes. The paranasal sinuses and mastoids are clear. The calvarium is intact. IMPRESSION: No acute intracranial abnormality. Remote lacunar and cortical infarcts. MRI is more se nsitive for acute infarct.
--- NOTE | 2021-09-01 12:48 | RAD REPORT ---
EXAM DESCRIPTION: RAD - Chest Single View - 09/01/2021 12:32 pm CLINICAL HISTORY: Altered mental status COMPARISON: Chest Pa And Lat (2 Views) dated 11/01/2018; Chest Single View dated 10/27/2018 FINDINGS: Lines: None. Lungs: No evidence of edema or pneumonia. Emphysema. Pleural: No significant pleural effusions or pneumothorax. Cardiac: The heart size is within normal limits. Atherosclerosis. Bones: No acute fractures. Other: IMPRESSION: No acute cardiopulmonary disease.
[2021-09-01 12:51] LABS: Urine Blood Negative (Negative); Urine Glucose Negative (Negative); Urine Protein Negative (Negative); Urine Specific Gravity 1.015 (1.005-1.030); Urine pH 5.5 (5.0-7.0)
[2021-09-01 13:30] LABS: Absolute Lymphocytes (CBC) 1.4 K/uL (0.7-4.9); Hematocrit 38.1 % (36.0-45.0); Lymphocytes % 18.4 % (15.3-44.8); RBC Red Blood Cell Count 3.98 M/uL (3.86-4.86)
[2021-09-01 13:52] LABS: Albumin 3.2 g/dL (3.4-5.0); Bilirubin Direct 0.2 mg/dL (0-0.2); Bilirubin Total 0.6 mg/dL (0.2-1.0); Protein, Total 6.9 g/dL (6.4-8.2); Troponin High Sensitivity 15.4 pg/mL (<58.9)
[2021-09-01] MEDS ORDERED: SMZ./TMP. 800/160 MG TABLET ONE (14:01)
--- NOTE | 2021-09-01 14:16 | EDPHYS ---
Physician Documentation [facility] Name: Zaynab Cain Age: 85 yrs Sex: Female : 1935 Arrival Date: 09/01/2021 Time: 10:27 Bed 8 Private MD: ED Physician Mike Fiore HPI: 09/01 17:56 This 85 yrs old Female presents to ER via Wheelchair with complaints of Altered Mental kdr Status. 17:56 The patient presents with confusion. Onset: The symptoms/episode began/occurred this kdr morning. Possible causes: CVA or TIA, sepsis, UTI, stroke. Associated signs and symptoms: The patient has no apparent associated signs or symptoms. Current symptoms: In the emergency department the patient's symptoms are unchanged from the initial presentation. Patient's baseline: Neuro: alert and fully oriented, Motor: no deficits, Ambulation: walks with assist only, Speech: normal for age, The patient has a previous history of TIA. When the patient has had prior UTIs she has presented this patient. The patient has not recently seen a physician. Historical: - Allergies: 10:58 No Known Allergies; vg1 - Home Meds: 10:58 metoprolol tartrate 25 mg Oral tab 1 tab 2 times per day [Active]; Symbicort 80-4.5 vg1 mcg/actuation inhalation HFAA 2 puffs 2 times per day [Active]; Eliquis oral [Active]; Hydrocodone-Acetaminophen Oral [Active]; Hydralazine Oral [Active]; Baclofen Oral [Active]; - PMHx: 10:58 Arthritis; Hypertension; TIA; vg1 - PSHx: 10:58 Hysterectomy; vg1 - Immunization history:: Client reports having NOT received the Covid vaccine. - Social history:: Smoking status: Patient/guardian denies using tobacco. ROS: 17:56 Constitutional: Negative for fever, chills, and weight loss, Eyes: Negative for injury, kdr pain, redness, and discharge, ENT: Negative for injury, pain, and discharge, Neck: Negative for injury, pain, and swelling, Cardiovascular: Negative for chest pain, palpitations, and edema, Respiratory: Negative for shortness of breath, cough, wheezing, and pleuritic chest pain, Abdomen/GI: Negative for abdominal pain, nausea, vomiting, diarrhea, and constipation, Back: Negative for injury and pain, : Negative for injury, bleeding, discharge, and swelling, MS/Extremity: Negative for injury and deformity, Skin: Negative for injury, rash, and discoloration, Psych: Negative for depression, anxiety, suicide ideation, homicidal ideation, and hallucinations, Allergy/Immunology: Negative for hives, rash, and allergies, Endocrine: Negative for neck swelling, polydipsia, polyuria, polyphagia, and marked weight changes, Hematologic/Lymphatic: Negative for swollen nodes, abnormal bleeding, and unusual bruising. 17:56 Neuro: Positive for altered mental status, Negative for dizziness, gait disturbance, hearing loss, loss of consciousness, seizure activity, speech changes, syncope, tinnitus, tremor, visual changes, weakness, acute changes. Exam: 14:28 ECG was reviewed by the Attending Physician. kdr 17:56 Constitutional: This is a well developed, well nourished patient who is awake, alert, kdr and in no acute distress. Head/Face: Normocephalic, atraumatic. Eyes: Pupils equal round and reactive to light, extra-ocular motions intact. Lids and lashes normal. Conjunctiva and sclera are non-icteric and not injected. Cornea within normal limits. Periorbital areas with no swelling, redness, or edema. Neck: Trachea midline, no thyromegaly or masses palpated, and no cervical lymphadenopathy. Supple, full range of motion without nuchal rigidity, or vertebral point tenderness. No Meningismus. Chest/axilla: Normal chest wall appearance and motion. Nontender with no deformity. No lesions are appreciated. Cardiovascular: Regular rate and rhythm with a normal S1 and S2. No gallops, murmurs, or rubs. Normal PMI, no JVD. No pulse deficits. Respiratory: Lungs have equal breath sounds bilaterally, clear to auscultation and percussion. No rales, rhonchi or wheezes noted. No increased work of breathing, no retractions or nasal flaring. Abdomen/GI: Soft, non-tender, with normal bowel sounds. No distension or tympany. No guarding or rebound. No evidence of tenderness throughout. Back: No spinal tenderness. No costovertebral tenderness. Full range of motion. Skin: Warm, dry with normal turgor. Normal color with no rashes, no lesions, and no evidence of cellulitis. MS/ Extremity: Pulses equal, no cyanosis. Neurovascular intact. Full, normal range of motion. Psych: Awake, alert, with orientation to person, place and time. Behavior, mood, and affect are within normal limits. 17:56 Neuro: Orientation: appropriate for stated age, Mentation: appropriate for stated age, slow to respond, confused. Vital Signs: 10:53 BP 186 / 73; Pulse 108; Resp 16; Temp 98.4(O); Pulse Ox 100% ; Weight 47.63 kg; Pain vg1 0/10; 12:00 BP 131 / 109; Pulse 65; Resp 20 S; Pulse Ox 95% on R/A; jg9 13:00 BP 164 / 115; Pulse 64; Resp 17; Pulse Ox 95% on R/A; tw2 14:36 BP 158 / 99; Pulse 57; Resp 17; Pulse Ox 95% on R/A; tw2 Saqib Coma Score: 12:00 Eye Response: spontaneous(4). Verbal Response: confused(4). Motor Response: obeys jg9 commands(6). Total: 14. MDM: 14:15 Patient medically screened. kdr 17:56 Data reviewed: vital signs, nurses notes, lab test result(s), radiologic studies. kdr Counseling: I had a detailed discussion with the patient and/or guardian regarding: the historical points, exam findings, and any diagnostic results supporting the discharge/admit diagnosis, lab results, radiology results, the need for outpatient follow up. 09/01 11:31 Order name: Basic Metabolic Panel; Complete Time: 14: [facility] 09/01 11:31 Order name: CBC with Diff; Complete Time: 14: [facility] 09/01 11:31 Order name: LFT's; Complete Time: 14: [facility] 09/01 11:31 Order name: Magnesium; Complete Time: 14: [facility] 09/01 11:31 Order name: NT PRO-BNP; Complete Time: 14: [facility] 09/01 11:31 Order name: PT-INR [facility] 09/01 11:31 Order name: Troponin HS; Complete Time: 14:07 [facility] 09/01 11:31 Order name: XRAY Chest (1 view); Complete Time: 13:14 [facility] 09/01 11:31 Order name: EKG; Complete Time: 11:32 [facility] 09/01 11:31 Order name: Cardiac monitoring; Complete Time: 12:07 kdr 09/01 11:31 Order name: Urine Culture kdr 09/01 11:31 Order name: CT Head Brain wo Cont; Complete Time: 12:41 kdr 09/01 12:50 Order name: Urine Dipstick-Ancillary; Complete Time: 13:14 EDMS 09/01 11:31 Order name: EKG - Nurse/Tech; Complete Time: 12:07 kdr 09/01 11:31 Order name: IV Saline Lock; Complete Time: 13:28 kdr 09/01 11:31 Order name: Labs collected and sent; Complete Time: 13:28 kdr 09/01 11:31 Order name: O2 Sat Monitoring; Complete Time: 12:07 kdr 09/01 11:31 Order name: Urine Dipstick-Ancillary (obtain specimen); Complete Time: 13:09 kdr 09/01 13:35 Order name: Labs - recollect needed: recollect blue top/ not enough in tube; Complete eb Time: 14:12 EC:28 Rate is 61 beats/min. Rhythm is regular, Sinus arrythmia with No ectopy, PACs. QRS [place] kdr is Normal. NV interval is normal. QRS interval is normal. Clinical impression: Sinus arrythmia. Administered Medications: 14:12 Drug: Bactrim (trimethoprim-sulfamethoxazole) (160 mg-800 mg (DS) 1 tablet Route: PO; jg9 14:35 Follow up: Response: No adverse reaction 9 Disposition Summary: 09/01/21 14:15 Discharge Ordered Location: Home kdr Problem: new kdr Symptoms: have improved kdr Condition: Fair kdr Diagnosis - UTI/ Urinary tract infection, site not specified kdr - Altered mental status, unspecified kdr Followup: kdr - With: Private Physician - When: 2 - 3 days - Reason: If symptoms return, Further diagnostic work-up, Recheck today's complaints, Continuance of care, Re-evaluation by your physician Discharge Instructions: - Discharge Summary Sheet kdr - Urinary Tract Infection, Adult, [id number] kdr Forms: - Medication Reconciliation Form kdr - Thank You Letter kdr - Antibiotic Education kdr Prescriptions: - sulfamethoxazole-trimethoprim 200-40 mg/5 mL Oral suspension - take 20 milliliter by ORAL route 4 times per day; 280 milliliter; Refills: 0, kdr Product Selection Permitted Signatures: Dispatcher [employer] Mike Uribe MD MD kdr Botello, Elizabeth eb Garcia, Victoria, RN RN vg1 Annie Montes RN RN jg9
--- NOTE | 2021-09-01 14:16 | ER ---
Nurse's Notes [facility] Name: Zaynab Cain Age: 85 yrs Sex: Female : 1935 Arrival Date: 09/01/2021 Time: 10:27 Bed 8 Private MD: Diagnosis: UTI/ Urinary tract infection, site not specified;Altered mental status, unspecified Presentation: 09/01 10:53 Chief complaint: Patient's son or daughter states: this morning noticed pt 'wasn't vg1 herself'; pt has been c/o Left flank pain; states has been unable to control urination. States took last amoxicillin today for sinus infection and gave a hydrocodone at 0330. Coronavirus screen: Vaccine status: Patient reports being unvaccinated. Client denies travel out of the [place] in the last 14 days. Ebola Screen: Patient negative for fever greater than or equal to 101.5 degrees Fahrenheit, and additional compatible Ebola Virus Disease symptoms. Initial Sepsis Screen: Does the patient meet any 2 criteria? No. Patient's initial sepsis screen is negative. Does the patient have a suspected source of infection? No. Patient's initial sepsis screen is negative. Risk Assessment: Do you want to hurt yourself or someone else? Patient reports no desire to harm self or others. Onset of symptoms was September 01, 2021. 10:53 Method Of Arrival: Wheelchair vg1 10:53 Acuity: AILYN 3 vg1 Triage Assessment: 10:58 General: Appears in no apparent distress. comfortable, Behavior is calm, cooperative. vg1 Pain: Denies pain. Neuro: Level of Consciousness is awake, alert, obeys commands, Oriented to person, Engineering Mgr are equal bilaterally Moves all extremities. Speech is normal, Facial symmetry appears normal. Historical: - Allergies: 10:58 No Known Allergies; vg1 - Home Meds: 10:58 metoprolol tartrate 25 mg Oral tab 1 tab 2 times per day [Active]; Symbicort 80-4.5 vg1 mcg/actuation inhalation HFAA 2 puffs 2 times per day [Active]; Eliquis oral [Active]; Hydrocodone-Acetaminophen Oral [Active]; Hydralazine Oral [Active]; Baclofen Oral [Active]; - PMHx: 10:58 Arthritis; Hypertension; TIA; vg1 - PSHx: 10:58 Hysterectomy; vg1 - Immunization history:: Client reports having NOT received the Covid vaccine. - Social history:: Smoking status: Patient/guardian denies using tobacco. Screenin:34 Abuse screen: Denies threats or abuse. Nutritional screening: No deficits noted. tw2 Tuberculosis screening: No symptoms or risk factors identified. Fall Risk Secondary diagnosis (15 points) impaired mobility, AMS. Assessment: 12:00 Reassessment: Patient in bed awake, alert, but confused to questions-daughter at 9 bedside reports patient is "not acting herself". Patient last known well \\T\\[id number]-daughter reports giving patient pain medication and muscle relaxer due to ongoing pain in l flank region-patient got up and was sitting in her wheelchair \\T\\8am this morning when a second sister noticed she was repeating herself while calling out the birds she was looking at through the window-family concerned about cva or possible medication interaction-patient received baclofen for 1st time today. Vital Signs: 10:53 BP 186 / 73; Pulse 108; Resp 16; Temp 98.4(O); Pulse Ox 100% ; Weight 47.63 kg; Pain vg1 0/10; 12:00 BP 131 / 109; Pulse 65; Resp 20 S; Pulse Ox 95% on R/A; jg9 13:00 BP 164 / 115; Pulse 64; Resp 17; Pulse Ox 95% on R/A; tw2 14:36 BP 158 / 99; Pulse 57; Resp 17; Pulse Ox 95% on R/A; tw2 Vitals: 12:00 Cardiac Rhythm Assessment Regular Sinus rhythm. jg9 Saqib Coma Score: 12:00 Eye Response: spontaneous(4). Verbal Response: confused(4). Motor Response: obeys jg9 commands(6). Total: 14. ED Course: 10:27 Patient arrived in ED. ds1 10:55 Mike Fiore MD is Attending Physician. kdr 10:58 Triage completed. vg1 10:58 Arm band placed on. vg1 11:05 Bed in low position. Call light in reach. Side rails up X2. personnel monitor on. Pulse tw2 ox on. NIBP on. 11:14 Annie Montes RN is Primary Nurse. jg9 11:57 CT Head Brain wo Cont In Process Unspecified. EDMS 12:31 XRAY Chest (1 view) In Process Unspecified. EDMS 12:45 Inserted saline lock: 22 gauge in right in left. jg9 14:56 No provider procedures requiring assistance completed. jg9 14:57 IV discontinued. jg9 Administered Medications: 14:12 Drug: Bactrim (trimethoprim-sulfamethoxazole) (160 mg-800 mg (DS) 1 tablet Route: PO; jg9 14:35 Follow up: Response: No adverse reaction jg9 Outcome: 14:15 Discharge ordered by . kdr 14:57 Discharged to home via wheelchair, with family. jg9 14:57 Condition: stable 14:57 Discharge instructions given to patient, family, Instructed on discharge instructions, follow up and referral plans. Demonstrated understanding of instructions, follow-up care, Prescriptions given X 1. 14:58 Patient left the ED. jg9 Signatures: Dispatcher [employer] EDMS Mike Fiore MD MD kdr Viviane Sheppard ds1 Nazanin Pittman RN RN tw2 Beatrice Rogers, RN RN vg1 Annie Montes, MICHELLE RN jg9
[2021-09-01 14:26] LABS: Protime INR 1.34
[2021-09-01 15:05] VITALS: TEMP 98.4
[2021-09-01 15:06] VITALS: O2SAT 95
[2021-09-01 15:10] VITALS: BP 158/99
== END 2021-09-01 14:58 | disposition home or self-care (01) ==
LOC: ER 10:24
DX: N39.0 Urinary tract infection, site not specified (principal); I10 Essential (primary) hypertension; Z86.73 Personal history of transient ischemic attack (TIA), and cerebral infarction without residual deficits
CPT/HCPCS: 36415; 70450; 71045; 80048; 80076; 81003; 83735; 83880; 84484; 85025; 85610; 87077; 87086; 87088; 87186; 93005; 99284

== ENCOUNTER 2022-03-19 19:18 | Emergency (ER) | payer OTHER ==
[2022-03-19 20:20] LABS: Urine Blood 3+ (Negative); Urine Glucose Negative (Negative); Urine Protein 1+ (Negative); Urine Specific Gravity 1.025 (1.005-1.030)
[2022-03-19 20:41] LABS: Urine Bacteria 20-50 /HPF (<20)
[2022-03-19] MEDS ORDERED: NA CHLORIDE 0.9% 50 ML ONE (21:22)
[2022-03-19] MEDS ORDERED: CEFTRIAXONE 1000 MG/VIAL ONE (21:22)
[2022-03-19 21:49] LABS: Hematocrit 40.8 % (36.0-45.0); Lymphocytes % 20.1 % (15.3-44.8); MCV 92.1 fL (80-100); MPV 7.4 fL (7.6-11.3); RBC Red Blood Cell Count 4.43 M/uL (3.86-4.86)
[2022-03-19 22:02] LABS: Potassium 4.5 mmol/L (3.5-5.1)
[2022-03-19] MEDS ORDERED: FLUCONAZOLE 100 MG TAB ONE (23:14)
[2022-03-20 02:48] VITALS: TEMP 98.4
[2022-03-20 02:56] VITALS: BP 158/92; O2SAT 97
--- OUTSIDE RECORDS SUMMARY | 2022-03-20 11:15 | XMS REPORT | Continuity of Care Document ---
:1935 Author Organization [facility] t Address [address] [place] [address] Care Team Providers Name Role Phone SEEMA ASHFORD Primary Care Physician UnavailNADIR To Attending Clinician Unavailable MITAR UREÑA Attending Clinician Unavailable Payers Payer Name Policy Type Policy Number Effective Date Expiration Date S robert [employer] MED[employer]ARE [id number] 2015 2021 ADV 00:00:00 00:00:00 Problems This patient has no known problems. Allergies, Adverse Reactions, Alerts Allergy Allergy Status Severity Reaction(s) Onset Inactive Treating Comm ents Source Name Type Date Date Clinician prometha DA Active SV 2018-0 [facility] zine 9-14 Clear 00:00: Esquivel 00 [facility] No Known DA Active U 2018-0 [facility] Allergie 9-13 Clear s 00:00: Esquivel 00 [facility] NO KNOWN Drug Active [facility] Medications This patient has no known medications. Procedures This patient has no known procedures. Encounters Start End Encounter Admission Attending Care Care Encounter Source Date/Time Date/Time Type Type Clinicians Facility Department ID 2019-12-18 2019-12-18 Outpatient Mitchel MARTINEZ [facility] [id number] Univers 10:10:01 23:59:00 NADIR [facility] 2019-12-18 2019-12-18 Outpatient Mitchel MARTINEZ [facility] [id number] [facility] 10:15:00 10:15:00 NADIR [facility] 2019-11-27 2019-11-27 Outpatient Mitchel UREÑA [facility] [id number] Univers 10:00:00 10:00:00 MITRA [facility] 2019-11-27 2019-11-27 Outpatient Mitchel UREÑA [facility] [id number] [facility] 10:00:00 10:00:00 MITRA [facility] 2019-11-26 2019-11-26 Outpatient Mitchel RUEÑA [facility] [id number] Univers 09:30:00 09:30:00 MITRA [facility] 2019-11-26 2019-11-26 Outpatient Mitchel UREÑA [facility] [id number] Univers 08:15:00 08:15:00 [facility] 2019-11-26 2019-11-26 Outpatient Mitchel MARTINEZ [facility] [id number] Univers 08:00:00 08:00:00 NADIR [facility] Results Test Description Test Time Test Comments Results Result Comments Source PROTHROMBIN TIME 2019-05-03 06:36:00 Test Item Value Reference Range Interpretation Comme nts PROTHROMBIN TIME PATIENT 30.1 SECONDS 9.3-12.9 H (test code = PTP) INTERNATIONAL NORMAL RATIO 2.7 0.8-1.2 H TARGET INR BY INDICATION (test code = INR) Indication INR1. Prophylaxis of venous thrombos is 2.0 - 3.0 (orthopedic zhanna liane), Prophylaxis of venous thrombosis (other than hig h-risk surgery), Treatment of De ep Vein Thrombosis/Pulm onary Embolism, Prevention of s ystemic embolism - Tissue heart valves, Acute Myocardial Infa rction (to prevent systemi c embolism), Valvular heart disease, Atrial Fibrillation, B ileaflet mechanical valv e in aortic position.2. Mec hanical prosthetic valv es (high risk), 2.5 - 3.5 Prese nce of Lupus Anticoagulant o r Antiphospholipi d Antibodies, Prevention of s ystemic embolism - Acute Myocard ial Infarction (to prevent rec urrent infarct). COMMENTS: INR X 10 DAYSPROTHROMBIN [id number] 09:06:00 Test Item Value Reference Range Interpretation Comments PROTHROMBIN TIME 36.1 SECONDS 9.3-12.9 H PATIENT (test code = PTP) INTERNATIONAL NORMAL 3.2 0.8-1.2 H TARGET INR BY RATIO (test code = INDICATIO N Indication INR) INR1. Prophylax is of venous thrombos is 2.0 - 3.0 (orthoped ic surgery), Proph ylaxis of venous throm bosis (other than hig h-risk surgery), Treat ment of Deep Vein Thrombosis/Pulm onary Embolism, Preve ntion of systemic emb olism - Tissue heart va lves, Acute Myocardia l Infarction (to prevent systemic emboli sm), Valvular heart disease, Atrial Fibrillation, Bileaflet mecha nical valve in aortic position.2. Mec hanical prosthetic valv es (high risk), 2. 5 - 3.5 Presence of Lup us Anticoagulant o r Antiphospholipi d Antibodies, Pre vention of systemic emb olism - Acute Myocardia l Infarction (to prevent recurrent infar ct). RENAL FUNCTION [id number] 07:50:00 Test Item Value Reference Range Interpretation [...] code = 3.4 MG/DL 2.5-4.9 N PHOS) [id number] 07:50:00 Test Item Value Reference Range Interpretation Comments MAGNESIUM (test code = MAG) 1.70 mg/dL 1.8-2.4 L CBC W/AUTO [id number] 07:18:00 Test Item Value Reference Range Interpretation [...] MANUAL DIFF REQUIRED (test code NO = MARQUITA) - CT ABD PELVIS [id number] 15:24:00 Name: VALERIE SHAW [facility] : 1935 Age/S: 83 / F [address] [place] [address] Unit #: [id number] Loc: [place] [address] Phys: Greg Mercer MD Acct: [id number] Dis Date: Status: ADM IN PHONE #: [phone] Exam Date: 05/01/2019 1500 FAX #: [phone] Reason: L1 fracture EXAMS: CPT CODE: [id number] CT ABD PELVIS W/CONT [id number] PROCEDURE: CT ABDOMEN AND PELVIS WITH CONTRAST INDICATION: Patient fell. Severe back pain. L1 compression fracture. COMPARISON: No relevant priors available. TECHNIQUE: Helical imaging was performed diaphragm through the symphysis with multiplanar reconstructions. IV CONTRAST: 100 mL Isovue-300. GI CONTRAST: None CT imaging performed at this location utilizes radiation dose optimization techniques which include one or more of the following: -Automated exposure control -Adjustment of the mA and/or [...] amount of calcified plaque in a normal caliberabdominal aorta. IVC is normal. No adenopathy. PAGE 1 Signed Report (CONTINUED) Name: VALERIE SHAW [facility] Rod Esquivel : 1935 Age/S: 83 / F [address] [place] [address] Blvd Unit #: [id number] Loc: [place] [address] Phys: Greg Mercer MD Acct: [id number] Dis Date: Status: ADM IN PHONE #: [phone] Exam Date: 05/01/2019 1500 FAX #: [phone] Reason: L1 fracture EXAMS: CPT CODE: [id number] CT ABD PELVIS W/CONT [id number] <Continued> PELVIS: A Malave catheter is in place and the bladder is empty. There is a 12 mm calcific opacity within the urinary bladder lumen consistent with a stone. Nopelvic masses or fluid collections. MUSCULOSKELETAL: Approximately 10% compression of the L1 vertebral body. The bones are osteopenic. Skeletal structures otherwise intact. IMPRESSION: 1. Moderate sigmoid diverticulosis. 2. Moderately large fluid-filled hiatal hernia. 3. 12 mm urinary bladder stone. 4. Bilateral renal cysts. 5. 10% compression of the L1 vertebral body which will be further described on today's CT lumbar spine. END IMPRESSION [id number] at 1524 Reported and signed by: Elliot Walker M.D. CC: Charan Velasquez DO; Greg Mercer Technologist:Phyllis Duran RT(R)(CT) CTDI: DLP: Trnscb Date/Time: 05/01/2019 (1524) tB Orig Print D/T: S: 05/01/2019 (1527) PAGE 2 Signed ReportRENAL FUNCTION [id number] 14:30:00 Test Item Value Reference Range Interpretation [...] 3.3 MG/DL 2.5-4.9 N PHOS) RENAL FUNCTION [id number] 14:28:00 Test Item Value Reference Range Interpretation [...]
--- NOTE | 2022-03-21 09:53 | ER ---
Nurse's Notes [facility] Name: Zaynab Cain Age: 86 yrs Sex: Female : 1935 Arrival Date: 03/19/2022 Time: 19:41 Bed 8 Private MD: Diagnosis: UTI/ Urinary tract infection, site not specified;Candidiasis of vulva and vagina Presentation: 03/19 19:47 Chief complaint: Patient's son or daughter states: pt has urinary incontinence and gets iw very raw and red , her doctor told her she had some medicine to help with the incontinence , is waiting to get in to see the urologist, I brought her because now she s saying her back hurting and she is having a lot of burning pain in her private area. Coronavirus screen: At this time, the client does not indicate any symptoms associated with coronavirus-19. Ebola Screen: Patient negative for fever greater than or equal to 101.5 degrees Fahrenheit, and additional compatible Ebola Virus Disease symptoms Patient denies exposure to infectious person. Patient denies travel to an Ebola-affected area in the 21 days before illness onset. No symptoms or risks identified at this time. Initial Sepsis Screen: Does the patient meet any 2 criteria? No. Patient's initial sepsis screen is negative. Does the patient have a suspected source of infection? No. Patient's initial sepsis screen is negative. Risk Assessment: Do you want to hurt yourself or someone else? Patient reports no desire to harm self or others. Onset of symptoms was March 19, 2022. 19:47 Method Of Arrival: Wheelchair iw 19:47 Acuity: AILYN 3 iw Historical: - Allergies: 19:50 No Known Allergies; iw - Home Meds: 19:50 magnesium oxide 400 mg magnesium Oral tab daily [Active]; Eliquis 2.5 mg oral tab 1 tab iw 2 times per day [Active]; metoprolol tartrate 25 mg Oral tab 1 tab 2 times per day [Active]; mirtazapine 15 mg Oral tab as needed [Active]; tramadol 50 mg Oral tab as needed [Active]; levothyroxine 25 mcg cap 1 cap once daily [Active]; hydralazine 25 mg Oral tab as needed [Active]; Hydrocodone-Acetaminophen Oral as needed [Active]; Symbicort 80-4.5 mcg/actuation inhalation HFAA 2 puffs 2 times per day [Active]; - PMHx: 19:50 Arthritis; Hypertension; TIA; iw Screenin:16 Abuse screen: Denies threats or abuse. Nutritional screening: No deficits noted. kl Tuberculosis screening: Fall Risk Secondary diagnosis (15 points) impaired mobility, Ambulatory Aid- None/Bed Rest/Nurse Assist (0 pts). Assessment: 21:51 General: Appears uncomfortable, slender, well groomed, Behavior is anxious, restless. kl Pain: Complains of pain in groin Pain currently is 10 out of 10 on a pain scale. Neuro: No deficits noted. Wilson Agitation-Sedation Scale (RASS): 0 - Alert and Calm. Cardiovascular: No deficits noted. Respiratory: No deficits noted. Airway is patent Trachea midline Respiratory effort is even, unlabored. GI: No deficits noted. No signs and/or symptoms were reported involving the gastrointestinal system. : Reports burning with urination, incontinence, urinary frequency, vaginal itching, vaginal pain. Derm: Rash noted that is on pelvis. Vital Signs: 19:47 BP 161 / 79; Pulse 62; Resp 16; Temp 98.4; Pulse Ox 96% on R/A; iw 19:53 Weight 49.44 kg; iw 22:01 BP 158 / 92; Pulse 88; Resp 22; Pulse Ox 97% on R/A; Pain 9/10; kl ED Course: 19:41 Patient arrived in ED. bp1 19:50 Triage completed. iw 19:53 Arm band placed on. iw 20:51 Garfield Blankenship PA is PHCP. cp 20:51 Mike Fiore MD is Attending Physician. cp 21:45 Inserted saline lock: 22 gauge in right antecubital area, using aseptic technique. kl 21:50 Procalcitonin Sent. kl 21:50 BMP Sent. kl 21:50 Urine Culture Sent. kl 23:17 Patient has correct armband on for positive identification. kl 23:18 No provider procedures requiring assistance completed. IV discontinued, intact, kl bleeding controlled, No redness/swelling at site. Pressure dressing applied. Administered Medications: 21:50 Drug: Rocephin (cefTRIAXone) 1 grams Route: IV; Rate: calculated rate; Site: right kl antecubital; 22:59 Follow up: Urine output 100 ml kl 23:00 Drug: DiFLUcan (fluconazole) 150 mg Route: PO; kl 23:16 Follow up: Response: No adverse reaction kl Output: 22:59 Urine: 100ml; Total: 100ml. Outcome: 22:52 Discharge ordered by . faye 23:18 Patient left the ED. Signatures: Pam Conrad RN RN kl Williams, Irene, RN RN iw Page, Corey, PA PA cp Paniauga, Brittany bp1
--- NOTE | 2022-03-21 09:53 | EDPHYS ---
Physician Documentation [facility] Name: Zaynab Cain Age: 86 yrs Sex: Female : 1935 Arrival Date: 03/19/2022 Time: 19:41 Bed 8 Private MD: ED Physician Mike Fiore HPI: 03/19 21:15 This 86 yrs old Female presents to ER via Wheelchair with complaints of Urinary cp Incontinence, Pain With Urination. 21:15 The patient presents with urinary symptoms, dysuria, perineal burning and rash. cp 21:15 Onset: The symptoms/episode began/occurred gradually. Associated signs and symptoms: cp Pertinent positives: low back pain, Pertinent negatives: constipation, diarrhea, fever, nausea, vaginal bleeding, vaginal discharge, vomiting. Severity of symptoms: in the emergency department the symptoms are unchanged, despite home interventions. The patient has experienced similar episodes in the past, daughter reports patient with history of frequent urinary tract infections. Historical: - Allergies: 19:50 No Known Allergies; iw - Home Meds: 19:50 magnesium oxide 400 mg magnesium Oral tab daily [Active]; Eliquis 2.5 mg oral tab 1 tab iw 2 times per day [Active]; metoprolol tartrate 25 mg Oral tab 1 tab 2 times per day [Active]; mirtazapine 15 mg Oral tab as needed [Active]; tramadol 50 mg Oral tab as needed [Active]; levothyroxine 25 mcg cap 1 cap once daily [Active]; hydralazine 25 mg Oral tab as needed [Active]; Hydrocodone-Acetaminophen Oral as needed [Active]; Symbicort 80-4.5 mcg/actuation inhalation HFAA 2 puffs 2 times per day [Active]; - PMHx: 19:50 Arthritis; Hypertension; TIA; iw ROS: 21:20 Constitutional: Negative for body aches, chills, fever, poor PO intake. cp 21:20 Eyes: Negative for injury, pain, redness, and discharge. cp 21:20 ENT: Negative for drainage from ear(s), ear pain, sore throat, difficulty swallowing, difficulty handling secretions. 21:20 Cardiovascular: Negative for chest pain, palpitations. 21:20 Respiratory: Negative for cough, shortness of breath, wheezing. 21:20 Abdomen/GI: Negative for abdominal pain, nausea, vomiting, and diarrhea. 21:20 Back: Positive for pain at rest, of the low back. 21:20 : Positive for burning with urination, perineal burning and rash, Negative for vaginal bleeding, vaginal discharge. 21:20 Neuro: Negative for altered mental status, dizziness, headache, syncope, weakness. 21:20 All other systems are negative. Exam: 21:25 Constitutional: The patient appears in no acute distress, alert, awake, comfortable, cp non-diaphoretic, non-toxic, well developed, well nourished. 21:25 Head/Face: Normocephalic, atraumatic. cp 21:25 Eyes: Periorbital structures: appear normal, Conjunctiva: normal, no exudate, no injection, Sclera: no appreciated abnormality, Lids and lashes: appear normal, bilaterally. 21:25 ENT: External ear(s): are unremarkable, Nose: is normal, Mouth: Lips: moist, Oral mucosa: moist, Posterior pharynx: Airway: no evidence of obstruction, patent. 21:25 Chest/axilla: Inspection: normal. 21:25 Cardiovascular: Rate: normal. 21:25 Respiratory: the patient does not display signs of respiratory distress, Respirations: normal, no use of accessory muscles, no retractions, labored breathing, is not present, Breath sounds: are clear throughout, no decreased breath sounds. 21:25 Abdomen/GI: Inspection: abdomen appears normal, Bowel sounds: active, all quadrants, Palpation: abdomen is soft and non-tender, in all quadrants. 21:25 Skin: rash a moderate rash is noted, rash can be described as erythematous, on the vaginal area. 21:25 Neuro: Orientation: to person, place \T\ time. Mentation: is normal. Vital Signs: 19:47 BP 161 / 79; Pulse 62; Resp 16; Temp 98.4; Pulse Ox 96% on R/A; iw 19:53 Weight 49.44 kg; iw 22:01 BP 158 / 92; Pulse 88; Resp 22; Pulse Ox 97% on R/A; Pain 9/10; kl MDM: 21:06 Patient medically screened. cp 22:52 Data reviewed: vital signs, nurses notes, lab test result(s). cp 22:52 Differential diagnosis: christopher infection, urinary tract infection, sepsis, kidney cp stone, pyelonephritis. Counseling: I had a detailed discussion with the patient and/or guardian regarding: the historical points, exam findings, and any diagnostic results supporting the discharge/admit diagnosis, lab results, the need for outpatient follow up, a family practitioner, an canoe maker, to return to the emergency department if symptoms worsen or persist or if there are any questions or concerns that arise at home. Response to treatment: the patient's symptoms have mildly improved after treatment. ED course: VSS. Patient appears non-toxic. Labs reviewed. Will discharge to home for continued monitoring. 03/19 20:14 Order name: Urine Microscopic Only; Complete Time: 21:03 iw 03/19 21:04 Interpretation: Normal except: URBC 5-10; UBACT 20-50. cp 03/19 20:21 Order name: Urine Dipstick-Ancillary; Complete Time: 21:03 [facility] 03/19 22:51 Interpretation: Normal except: UBLD 3+; UPROT 1+; UESTR 1+. cp 03/19 20:43 Order name: Urine Culture [facility] 03/19 21:07 Order name: CBC with Diff; Complete Time: 22:50 cp 03/19 21:07 Order name: BMP; Complete Time: 22:50 cp 03/19 21:07 Order name: Procalcitonin; Complete Time: 22:50 cp 03/19 21:07 Order name: IV; Complete Time: 21:50 cp Administered Medications: 21:50 Drug: Rocephin (cefTRIAXone) 1 grams Route: IV; Rate: calculated rate; Site: right kl antecubital; 22:59 Follow up: Urine output 100 ml kl 23:00 Drug: DiFLUcan (fluconazole) 150 mg Route: PO; kl 23:16 Follow up: Response: No adverse reaction kl Disposition Summary: 03/19/22 22:52 Discharge Ordered Location: Home cp Problem: new cp Symptoms: have improved cp Condition: Stable cp Diagnosis - UTI/ Urinary tract infection, site not specified cp - Candidiasis of vulva and vagina cp Followup: cp - With: Private Physician - When: 2 - 3 days - Reason: Recheck today's complaints Discharge Instructions: - Discharge Summary Sheet cp - Urinary Tract Infection, Adult cp - Vaginal Yeast Infection, Adult cp Forms: - Medication Reconciliation Form cp - Thank You Letter cp - Antibiotic Education cp - Prescription Opioid Use cp Prescriptions: - Diflucan 150 mg Oral Tablet - take 1 tablet by ORAL route as directed .; 1 tablet; Refills: 0, Product cp Selection Permitted - cefpodoxime 200 mg Oral Tablet - take 1 tablet by ORAL route every 12 hours for 7 days with food; 14 tablet; cp Refills: 0, Product Selection Permitted - nystatin 100,000 unit/gram Topical ointment - apply 1 application by TOPICAL route 2-3 times daily; 60 gram; Refills: 0, cp Product Selection Permitted Signatures: Dispatcher [employer] Pam Javier RN RN kl Williams, Irene, RN RN iw Page, Corey, PA PA cp
== END 2022-03-19 23:18 | disposition home or self-care (01) ==
LOC: ER 19:18
DX: N39.0 Urinary tract infection, site not specified (principal); B37.3 Candidiasis of vulva and vagina; I10 Essential (primary) hypertension; Z86.73 Personal history of transient ischemic attack (TIA), and cerebral infarction without residual deficits; Z79.01 Long term (current) use of anticoagulants
CPT/HCPCS: 36415; 80048; 81003; 81015; 84145; 85025; 87086; 87088; 96374; 99283

== ENCOUNTER 2022-07-23 15:09 | Emergency (ER) | payer OTHER ==
--- OUTSIDE RECORDS SUMMARY | 2022-07-23 15:13 | XMS REPORT | Continuity of Care Document ---
:1935 Author Organization Formerly [facility] t Address [address] [place] [address] Care Team Providers Name Role Phone SEEMA ASHFORD Primary Care Physician UnavailMOISES Matias Attending Clinician Unavailable G_Pappas Attending Clinician Unavailable DEONDRE HARDY Attending Clinician Unavailable NADIR MARTINEZ Attending Clinician Unavailable MITRA UREÑA Attending Clinician Unavailable G_Pappas Admitting Clinician Unavailable DEONDRE HARDY Admitting Clinician Unavailable Payers Payer Name Policy Type Policy Number Effective Date Expiration Date S robert AETNA MEDICARE 53 [id number] Common PPO [facility] AETNA (MEDICARE [id number] 2019 REPLACEMENT PPO) 00:00:00 AETNA MEDICARE [id number] 2015 2021 ADV 00:00:00 00:00:00 Problems Condition Condition Condition Status Onset Resolution Last Treating Co mments Source Name Details Category Date Date Treatment Clinician Date 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 Vaginitis 9-15 da 00:00: Medical 00 Group Urge Urge Problem Active [place] incontinen Incontinen 15 da ce of ce of 00:00: Medical urine Urine 00 Group Candidiasi Candidiasi Problem Active M [facility] s of s of 05-03 da vagina Vagina 00:00: Medical 00 Group [id number] Urinary Problem Commo n incontinen [facility] ce, - [facility] un[facility] [id number] Recurrent Problem Com mon UTI [facility] [id number] Foreign Problem Commo n body in [facility] bladder, - [facility] initial [facility] [id number] Acute Problem Common lower UTI [facility] [id number] Acute Problem Common vaginitis [facility] [id number] Cystitis Problem Comm on bacillary, [facility] Allergies, Adverse Reactions, Alerts Allergy Allergy Status Severity Reaction(s) Onset Inactive Treating Comm ents Source Name Type Date Date Clinician prometha DA Active [facility] zine 9-14 Clear 00:00: Esquivel 00 [facility] No Known DA Active [facility] Allergie 9-13 Clear s 00:00: Esquivel 00 [facility] NO KNOWN Drug Active Univers ALLERGIE Class ity of S [facility]ly [facility] Social History Social Habit Start Date Stop Date Quantity Comments Source History of Tobacco Use Co mmon [facility] Sex Assigned At Com [facility] Smoking Status Start Date Stop Date Source Former Smoker [facility] Never Smoker [facility] Medications Ordered Filled Start Stop Current Ordering Indication Dosage Frequency Signature Comments Components Source Medication Medication Date Date Medication? Clinician (SIG) Name Name Nystatin-Tr Nystatin-Tr 2021-08- No 1{appli BID Nystatin-T iamcinolone iamcinolone 09-10 cation} riamcinolo [id number] [id number] 00:00: 00:00 ne UNIT/GM UNIT/GM 00 :00 [id number] UNIT/GM Fluconazole Fluconazole 2021-08- No 1{table Fluconazol 150 MG 150 MG 09-1024 t} e 150 MG 00:00: 00:00 00 :00 Sulfamethox Sulfamethox 2021-08- No QD Sulfametho azole-Trime azole-Trime 0-30 11-20 xazole-Tri thoprim thoprim 00:00: 00:00 methoprim 800-160 MG 800-160 MG 00 :00 800-160 MG Sulfamethox Sulfamethox 2021-08- No 1{table BID Sulfametho azole-Trime azole-Trime 0-27 11-01 t} xazole-Tri thoprim thoprim 00:00: 00:00 methoprim 400-80 MG 400-80 MG 00 :00 400-80 MG Metoprolol Metoprolol No 1{table BID Metoprolol Tartrate 25 Tartrate 25 t_with_ Tartrate MG MG food} 25 MG oxybutynin oxybutynin No 1 BID oxybutynin [place] chloride 5 chloride 5 chloride 5 da mg tablet mg tablet mg tablet Medical Take 1 Take 1 Take 1 Group tablet tablet tablet twice a day twice a day twice a by oral by oral day by route. route. oral route. Magnesium Magnesium No QD Magnesium 400 MG 400 MG 400 MG prednisone prednisone No prednisone [place] 10 mg 10 mg 10 mg da tablet tablet tablet Medical Group Albuterol Albuterol No 3{ml_as QID Albuterol Sulfate Sulfate _needed Sulfate (2.5 (2.5 } (2.5 MG/3ML) MG/3ML) MG/3ML) 0.083% 0.083% 0.083% hydrALAZINE hydrALAZINE No 1{table hydrALAZIN HCl 25 MG HCl 25 MG t_with_ E HCl 25 food} MG Symbicort Symbicort No Symbicort [place] 160 mcg-4.5 160 mcg-4.5 160 d a mcg/actuati mcg/actuati mcg-4.5 Medical on HFA on HFA mcg/actuat Group aerosol aerosol ion HFA inhaler inhaler aerosol INHALE 1 INHALE 1 inhaler PUFF BY PUFF BY INHALE 1 MOUTH TWICE MOUTH TWICE PUFF BY DAILY. DAILY. MOUTH RINSE MOUTH RINSE MOUTH TWICE AFTER USE AFTER USE DAILY. RINSE MOUTH AFTER USE Baclofen 10 Baclofen 10 No 1{table BID Baclofen MG MG t_as_ne 10 MG eded} Eliquis 2.5 Eliquis 2.5 No Eliquis mg 2.5 mg mg 2.5 mg 2.5 mg 2.5 mg tramadol 50 tramadol 50 No tramadol [place] mg tablet mg tablet 50 mg da tablet Medical Group HYDROcodone HYDROcodone No HYDROcodon -Acetaminop -Acetaminop e-Acetamin hen hen ophen albuterol albuterol No albuterol [place] sulfate HFA sulfate HFA sulfate da 90 90 HFA 90 Medical mcg/actuati mcg/actuati mcg/actuat Group on aerosol on aerosol ion inhaler inhaler aerosol INHALE 2 INHALE 2 inhaler PUFFS BY PUFFS BY INHALE 2 MOUTH EVERY MOUTH EVERY PUFFS BY 6 HOURS FOR 6 HOURS FOR MOUTH 14 DAYS 14 DAYS EVERY 6 NEEDED FOR NEEDED FOR HOURS FOR WHEEZING WHEEZING 14 DAYS NEEDED FOR WHEEZING Arthritis Arthritis No Arthritis Pain Pain Pain Medicine Medicine Medicine azithromyci azithromyci No azithromyc [place] n 250 mg n 250 mg in 250 mg da tablet TAKE tablet TAKE tablet Medical 2 TABLETS 2 TABLETS TAKE 2 Alexandra up BY MOUTH BY MOUTH TABLETS BY FOR 1 DAY FOR 1 DAY MOUTH FOR THEN TAKE 1 THEN TAKE 1 1 DAY THEN TABLET BY TABLET BY TAKE 1 MOUTH DAILY MOUTH DAILY TABLET BY FOR 4 DAYS FOR 4 DAYS MOUTH DAILY FOR 4 DAYS Symbicort Symbicort No 2{puffs BID Symbicort 160-4.5 160-4.5 } 160-4.5 MCG/ACT MCG/ACT MCG/ACT HYDROcodone HYDROcodone No HYDROcodon -Acetaminop -Acetaminop e-Acetamin [facility] baclofen 10 baclofen 10 No baclofen [place] mg tablet mg tablet 10 mg da tablet Medical Group cefpodoxime cefpodoxime No cefpodoxim [place] 200 mg 200 mg e 200 mg da tablet TAKE tablet TAKE tablet Medical 1 TABLET BY 1 TABLET BY TAKE 1 Group MOUTH EVERY MOUTH EVERY TABLET BY 12 HOURS 12 HOURS MOUTH WITH FOOD WITH FOOD EVERY 12 FOR 7 DAYS FOR 7 DAYS HOURS WITH FOOD FOR 7 DAYS cefuroxime cefuroxime No cefuroxime [place] axetil 250 axetil 250 axetil 250 da mg tablet mg tablet mg tablet Medical TAKE 1 TAKE 1 TAKE 1 Group TABLET BY TABLET BY TABLET BY MOUTH TWICE MOUTH TWICE MOUTH DAILY FOR 3 DAILY FOR 3 TWICE DAYS DAYS DAILY FOR 3 DAYS Eliquis 2.5 Eliquis 2.5 No Eliquis [place] mg tablet mg tablet 2.5 mg da TAKE 1 TAKE 1 tablet Medical TABLET BY TABLET BY TAKE 1 Alexandra up MOUTH TWICE MOUTH TWICE TABLET BY DAILY DAILY MOUTH TWICE DAILY estradiol estradiol No estradiol [place] 0.01% (0.1 0.01% (0.1 0.01% (0.1 da mg/gram) mg/gram) mg/gram) Med ical vaginal vaginal vaginal Group cream cream cream Insert 0.5 Insert 0.5 Insert 0.5 applicators applicators applicator ful 3 times ful 3 times sful 3 a week by a week by times a vaginal vaginal week by route. route. vaginal route. Baclofen 10 Baclofen 10 No 1{table BID Baclofen MG MG t_as_ne 10 MG eded} fluconazole fluconazole No fluconazol [place] 100 mg 100 mg e 100 mg da tablet TAKE tablet TAKE tablet Medical 1 TABLET BY 1 TABLET BY TAKE 1 Group MOUTH ONCE MOUTH ONCE TABLET BY DAILY FOR 3 DAILY FOR 3 MOUTH ONCE DAYS DAYS DAILY FOR 3 DAYS Symbicort Symbicort No 2{puffs BID Symbicort 160-4.5 160-4.5 } 160-4.5 MCG/ACT MCG/ACT MCG/ACT fluconazole fluconazole No fluconazol [place] 150 mg 150 mg e 150 mg da tablet TAKE tablet TAKE tablet Medical 1 TABLET BY 1 TABLET BY TAKE 1 Group MOUTH MOUTH TABLET BY DIRECTED DIRECTED MOUTH DIRECTED predniSONE predniSONE No 1{table QD predniSONE 10 MG 10 MG t} 10 MG Arthritis Arthritis No Arthritis Pain Pain Pain Medicine Medicine Medicine hydralazine hydralazine No hydralazin [place] 25 mg 25 mg e 25 mg da tablet TAKE tablet TAKE tablet Medical 1 TABLET BY 1 TABLET BY TAKE 1 Group MOUTH EVERY MOUTH EVERY TABLET BY 8 HOURS 8 HOURS MOUTH NEEDED IF NEEDED IF EVERY 8 SYSTOLIC SYSTOLIC HOURS BLOOD BLOOD NEEDED IF PRESSURE IS PRESSURE IS SYSTOLIC HIGHER THAN HIGHER THAN BLOOD 160 160 PRESSURE IS HIGHER THAN 160 Estradiol Estradiol No Estradiol hydrocodone hydrocodone No hydrocodon [place] 5 5 e 5 da mg-acetamin mg-acetamin mg-acetami Medical ophen 325 ophen 325 nophen 325 Group mg tablet mg tablet mg tablet TAKE 1 TAKE 1 TAKE 1 TABLET BY TABLET BY TABLET BY MOUTH TWICE MOUTH TWICE MOUTH DAILY DAILY TWICE DAILY Metoprolol Metoprolol No 1{table BID Metoprolol Tartrate 25 Tartrate 25 t_with_ Tartrate MG MG food} 25 MG levothyroxi levothyroxi No levothyrox [place] ne 25 mcg ne 25 mcg ine 25 mcg da tablet TAKE tablet TAKE tablet Medical 1 TABLET BY 1 TABLET BY TAKE 1 Group MOUTH EVERY MOUTH EVERY TABLET BY MORNING ON MORNING ON MOUTH AN EMPTY AN EMPTY EVERY STOMACH STOMACH MORNING ON AN EMPTY STOMACH Oxybutynin Oxybutynin No 1{table BID Oxybutynin Chloride 5 Chloride 5 t} Chloride 5 MG MG MG metoprolol metoprolol No metoprolol [place] tartrate 25 tartrate 25 tartrate da mg tablet mg tablet 25 mg Medi lawanda TAKE 1 TAKE 1 tablet Group TABLET BY TABLET BY TAKE 1 MOUTH TWICE MOUTH TWICE TABLET BY DAILY DAILY MOUTH TWICE DAILY Myrbetriq Myrbetriq No 1{table QD Myrbetriq 25 MG 25 MG t} 25 MG mirtazapine mirtazapine No mirtazapin [place] 15 mg 15 mg e 15 mg da tablet tablet tablet Medical Group Eliquis 2.5 Eliquis 2.5 No Eliquis mg 2.5 mg mg 2.5 mg 2.5 mg 2.5 mg Levothyroxi Levothyroxi No QD Levothyrox ne Sodium ne Sodium ine Sodium 25 MCG 25 MCG 25 MCG nystatin nystatin No nystatin [facility] 100,000 100,000 100,000 da unit/gram unit/gram unit/gram Medical topical topical topical Group ointment ointment ointment Albuterol Albuterol No 3{ml_as QID Albuterol Sulfate Sulfate _needed Sulfate (2.5 (2.5 } (2.5 MG/3ML) MG/3ML) MG/3ML) 0.083% 0.083% 0.083% Nystop Nystop No Nystop [place] 100,000 100,000 100,000 da unit/gram unit/gram unit/gram Medical topical topical topical Group powder powder powder APPLY APPLY APPLY TOPICALLY TOPICALLY TOPICALLY TO THE TO THE TO THE AFFECTED AFFECTED AFFECTED AREA FOUR AREA FOUR AREA FOUR TIMES DAILY TIMES DAILY TIMES FOR 10 FOR 10 DAILY FOR DAYS. DAYS. 10 DAYS. Mirtazapine Mirtazapine No 1{table QD Mirtazapin 15 MG 15 MG t_at_be e 15 MG dtime} oxybutynin oxybutynin No 1 BID oxybutynin [place] chloride 5 chloride 5 chloride 5 da mg tablet mg tablet mg tablet Medical Take 1 Take 1 Take 1 Group tablet tablet tablet twice a day twice a day twice a by oral by oral day by route. route. oral route. hydrALAZINE hydrALAZINE No 1{table hydrALAZIN HCl 25 MG HCl 25 MG t_with_ E HCl 25 food} MG prednisone prednisone No prednisone [place] 10 mg 10 mg 10 mg da tablet tablet tablet Medical Group traMADol traMADol No 1{table QD traMADol HCl 50 MG HCl 50 MG t_as_ne HCl 50 MG eded} Symbicort Symbicort No Symbicort [place] 160 mcg-4.5 160 mcg-4.5 160 d a mcg/actuati mcg/actuati mcg-4.5 Medical on HFA on HFA mcg/actuat Group aerosol aerosol ion HFA inhaler inhaler aerosol INHALE 1 INHALE 1 inhaler PUFF BY PUFF BY INHALE 1 MOUTH TWICE MOUTH TWICE PUFF BY DAILY. DAILY. MOUTH RINSE MOUTH RINSE MOUTH TWICE AFTER USE AFTER USE DAILY. RINSE MOUTH AFTER USE Boudreauxs Boudreauxs No Boudreauxs Butt Paste Butt Paste Butt Paste 16 % 16 % 16 % Magnesium Magnesium No QD Magnesium 400 MG 400 MG 400 MG tramadol 50 tramadol 50 No tramadol [place] mg tablet mg tablet 50 mg da tablet Medical Group Magnesium Magnesium No QD Magnesium 400 MG 400 MG 400 MG Albuterol Albuterol No 3{ml_as QID Albuterol Sulfate Sulfate _needed Sulfate (2.5 (2.5 } (2.5 MG/3ML) MG/3ML) MG/3ML) 0.083% 0.083% 0.083% Baclofen 10 Baclofen 10 No 1{table BID Baclofen MG MG t_as_ne 10 MG eded} Eliquis 2.5 Eliquis 2.5 No Eliquis mg 2.5 mg mg 2.5 mg 2.5 mg 2.5 mg HYDROcodone HYDROcodone No HYDROcodon -Acetaminop -Acetaminop e-Acetamin hen hen ophen Arthritis Arthritis No Arthritis Pain Pain Pain Medicine Medicine Medicine Levothyroxi Levothyroxi No QD Levothyrox ne Sodium ne Sodium ine Sodium 25 MCG 25 MCG 25 MCG Mirtazapine Mirtazapine No 1{table QD Mirtazapin 15 MG 15 MG t_at_be e 15 MG dtime} Metoprolol Metoprolol No 1{table BID Metoprolol Tartrate 25 Tartrate 25 t_with_ Tartrate MG MG food} 25 MG Estradiol Estradiol No Estradiol Myrbetriq Myrbetriq No 1{table QD Myrbetriq 25 MG 25 MG t} 25 MG traMADol traMADol No 1{table QD traMADol HCl 50 MG HCl 50 MG t_as_ne HCl 50 MG eded} Symbicort Symbicort No 2{puffs BID Symbicort 160-4.5 160-4.5 } 160-4.5 MCG/ACT MCG/ACT MCG/ACT Oxybutynin Oxybutynin No 1{table BID Oxybutynin Chloride 5 Chloride 5 t} Chloride 5 MG MG MG Boudreauxs Boudreauxs No Boudreauxs Butt Paste Butt Paste Butt Paste 16 % 16 % 16 % hydrALAZINE hydrALAZINE No 1{table hydrALAZIN HCl 25 MG HCl 25 MG t_with_ E HCl 25 food} MG predniSONE predniSONE No 1{table QD predniSONE 10 MG 10 MG t} 10 MG Magnesium Magnesium No QD Magnesium 400 MG 400 MG 400 MG Albuterol Albuterol No 3{ml_as QID Albuterol Sulfate Sulfate _needed Sulfate (2.5 (2.5 } (2.5 MG/3ML) MG/3ML) MG/3ML) 0.083% 0.083% 0.083% Baclofen 10 Baclofen 10 No 1{table BID Baclofen MG MG t_as_ne 10 MG eded} Estradiol Estradiol No Estradiol HYDROcodone HYDROcodone No HYDROcodon -Acetaminop -Acetaminop e-Acetamin hen hen ophen Myrbetriq Myrbetriq No 1{table QD Myrbetriq 25 MG 25 MG t} 25 MG Arthritis Arthritis No Arthritis Pain Pain Pain Medicine Medicine Medicine Levothyroxi Levothyroxi No QD Levothyrox ne Sodium ne Sodium ine Sodium 25 MCG 25 MCG 25 MCG Mirtazapine Mirtazapine No 1{table QD Mirtazapin 15 MG 15 MG t_at_be e 15 MG dtime} Oxybutynin Oxybutynin No 1{table BID Oxybutynin Chloride 5 Chloride 5 t} Chloride 5 MG MG MG Metoprolol Metoprolol No 1{table BID Metoprolol Tartrate 25 Tartrate 25 t_with_ Tartrate MG MG food} 25 MG hydrALAZINE hydrALAZINE No 1{table hydrALAZIN HCl 25 MG HCl 25 MG t_with_ E HCl 25 food} MG Eliquis 2.5 Eliquis 2.5 No Eliquis mg 2.5 mg mg 2.5 mg 2.5 mg 2.5 mg traMADol traMADol No 1{table QD traMADol HCl 50 MG HCl 50 MG t_as_ne HCl 50 MG eded} Boudreauxs Boudreauxs No Boudreauxs Butt Paste Butt Paste Butt Paste 16 % 16 % 16 % Symbicort Symbicort No 2{puffs BID Symbicort 160-4.5 160-4.5 } 160-4.5 MCG/ACT MCG/ACT MCG/ACT predniSONE predniSONE No 1{table QD predniSONE 10 MG 10 MG t} 10 MG traMADol traMADol No 1{table QD traMADol HCl 50 MG HCl 50 MG t_as_ne HCl 50 MG eded} Oxybutynin Oxybutynin No 1{table BID Oxybutynin Chloride 5 Chloride 5 t} Chloride 5 MG MG MG Mirtazapine Mirtazapine No 1{table QD Mirtazapin 15 MG 15 MG t_at_be e 15 MG dtime} predniSONE predniSONE No 1{table QD predniSONE 10 MG 10 MG t} 10 MG albuterol albuterol No albuterol [place] sulfate HFA sulfate HFA sulfate da 90 90 HFA 90 Medical mcg/actuati mcg/actuati mcg/actuat Group on aerosol on aerosol ion inhaler inhaler aerosol INHALE 2 INHALE 2 inhaler PUFFS BY PUFFS BY INHALE 2 MOUTH EVERY MOUTH EVERY PUFFS BY 6 HOURS FOR 6 HOURS FOR MOUTH 14 DAYS 14 DAYS EVERY 6 NEEDED FOR NEEDED FOR HOURS FOR WHEEZING WHEEZING 14 DAYS NEEDED FOR WHEEZING azithromyci azithromyci No azithromyc [place] n 250 mg n 250 mg in 250 mg da tablet TAKE tablet TAKE tablet Medical 2 TABLETS 2 TABLETS TAKE 2 Alexandra up BY MOUTH BY MOUTH TABLETS BY FOR 1 DAY FOR 1 DAY MOUTH FOR THEN TAKE 1 THEN TAKE 1 1 DAY THEN TABLET BY TABLET BY TAKE 1 MOUTH DAILY MOUTH DAILY TABLET BY FOR 4 DAYS FOR 4 DAYS MOUTH DAILY FOR 4 DAYS cefpodoxime cefpodoxime No cefpodoxim [place] 200 mg 200 mg e 200 mg da tablet TAKE tablet TAKE tablet Medical 1 TABLET BY 1 TABLET BY TAKE 1 Group MOUTH EVERY MOUTH EVERY TABLET BY 12 HOURS 12 HOURS MOUTH WITH FOOD WITH FOOD EVERY 12 FOR 7 DAYS FOR 7 DAYS HOURS WITH FOOD FOR 7 DAYS cefuroxime cefuroxime No 1 BID cefuroxime [place] axetil 250 axetil 250 axetil 250 da mg tablet mg tablet mg tablet Medical Take 1 Take 1 Take 1 Group tablet tablet tablet twice a day twice a day twice a by oral by oral day by route for 3 route for 3 oral route days. days. for 3 days. Eliquis 2.5 Eliquis 2.5 No Eliquis [place] mg tablet mg tablet 2.5 mg da TAKE 1 TAKE 1 tablet Medical TABLET BY TABLET BY TAKE 1 Alexandra up MOUTH TWICE MOUTH TWICE TABLET BY DAILY DAILY MOUTH TWICE DAILY estradiol estradiol No .5appli Q56H estradiol [place] 0.01% (0.1 0.01% (0.1 cator(s 0.01% (0.1 da mg/gram) mg/gram) )ful mg/gram) Med ical vaginal vaginal vaginal Group cream cream cream Insert 0.5 Insert 0.5 Insert 0.5 applicators applicators applicator ful 3 times ful 3 times sful 3 a week by a week by times a vaginal vaginal week by route. route. vaginal route. fluconazole fluconazole No 1 Q1D fluconazol [place] 100 mg 100 mg e 100 mg da tablet Take tablet Take tablet Medical 1 tablet 1 tablet Take 1 Group every day every day tablet by oral by oral every day route for 3 route for 3 by oral days. days. route for 3 days. fluconazole fluconazole No fluconazol [place] 150 mg 150 mg e 150 mg da tablet TAKE tablet TAKE tablet Medical 1 TABLET BY 1 TABLET BY TAKE 1 Group MOUTH MOUTH TABLET BY DIRECTED DIRECTED MOUTH DIRECTED hydralazine hydralazine No hydralazin [place] 25 mg 25 mg e 25 mg da tablet TAKE tablet TAKE tablet Medical 1 TABLET BY 1 TABLET BY TAKE 1 Group MOUTH EVERY MOUTH EVERY TABLET BY 8 HOURS 8 HOURS MOUTH NEEDED IF NEEDED IF EVERY 8 SYSTOLIC SYSTOLIC HOURS BLOOD BLOOD NEEDED IF PRESSURE IS PRESSURE IS SYSTOLIC HIGHER THAN HIGHER THAN BLOOD 160 160 PRESSURE IS HIGHER THAN 160 hydrocodone hydrocodone No hydrocodon [place] 5 5 e 5 da mg-acetamin mg-acetamin mg-acetami Medical ophen 325 ophen 325 nophen 325 Group mg tablet mg tablet mg tablet TAKE 1 TAKE 1 TAKE 1 TABLET BY TABLET BY TABLET BY MOUTH TWICE MOUTH TWICE MOUTH DAILY DAILY TWICE DAILY levothyroxi levothyroxi No levothyrox [place] ne 25 mcg ne 25 mcg ine 25 mcg da tablet TAKE tablet TAKE tablet Medical 1 TABLET BY 1 TABLET BY TAKE 1 Group MOUTH EVERY MOUTH EVERY TABLET BY MORNING ON MORNING ON MOUTH AN EMPTY AN EMPTY EVERY STOMACH STOMACH MORNING ON AN EMPTY STOMACH Boudreauxs Boudreauxs No Boudreauxs Butt Paste Butt Paste Butt Paste 16 % 16 % 16 % metoprolol metoprolol No metoprolol [place] tartrate 25 tartrate 25 tartrate da mg tablet mg tablet 25 mg Medi lawanda TAKE 1 TAKE 1 tablet Group TABLET BY TABLET BY TAKE 1 MOUTH TWICE MOUTH TWICE TABLET BY DAILY DAILY MOUTH TWICE DAILY Myrbetriq Myrbetriq No 1{table QD Myrbetriq 25 MG 25 MG t} 25 MG mirtazapine mirtazapine No mirtazapin [place] 15 mg 15 mg e 15 mg da tablet tablet tablet Medical Group Levothyroxi Levothyroxi No QD Levothyrox ne Sodium ne Sodium ine Sodium 25 MCG 25 MCG 25 MCG nystatin nystatin No nystatin [facility] 100,000 100,000 100,000 da unit/gram unit/gram unit/gram Medical topical topical topical Group ointment ointment ointment Estradiol Estradiol No Estradiol Nystop Nystop No Nystop [place] 100,000 100,000 100,000 da unit/gram unit/gram unit/gram Medical topical topical topical Group powder powder powder APPLY APPLY APPLY TOPICALLY TOPICALLY TOPICALLY TO THE TO THE TO THE AFFECTED AFFECTED AFFECTED AREA FOUR AREA FOUR AREA FOUR TIMES DAILY TIMES DAILY TIMES FOR 10 FOR 10 DAILY FOR DAYS. DAYS. 10 DAYS. Vital Signs Vital Name Observation Time Observation Value Comments Source height 2022-07-11 16:15:00 60 [in_i] [facility] weight 2022-07-11 16:15:00 106 [lb_av] [facility] temperature 2022-07-11 16:15:00 98.6 [degF] Common S pirit [facility] bmi 2022-07-11 16:15:00 20.7 kg/m2 [facility] oximetry 2022-07-11 16:15:00 99 % [facility] respiratory rate 2022-07-11 16:15:00 16 /min Comm on [facility] blood pressure 2022-07-11 16:15:00 131 mm[Hg] Common [facility] - systolic [facility] blood pressure 2022-07-11 16:15:00 68 mm[Hg] Common [facility] - diastolic [facility] height 2022-06-14 17:00:00 60 [in_i] Common [facility] weight 2022-06-14 17:00:00 107 [lb_av] [facility] temperature 2022-06-14 17:00:00 98.4 [degF] [facility] bmi 2022-06-14 17:00:00 20.89 kg/m2 [facility] oximetry 2022-06-14 17:00:00 99 % [facility] respiratory rate 2022-06-14 17:00:00 18 /min Comm on [facility] blood pressure 2022-06-14 17:00:00 146 mm[Hg] Common [facility] - systolic [facility] blood pressure 2022-06-14 17:00:00 88 mm[Hg] [facility] - [facility] height 2022-05-30 13:30:00 60 [in_i] Common [facility] weight 2022-05-30 13:30:00 107 [lb_av] [facility] temperature 2022-05-30 13:30:00 98.1 [degF] Common [facility] bmi 2022-05-30 13:30:00 20.89 kg/m2 Common [facility] oximetry 2022-05-30 13:30:00 96 % Common S pirit - [facility] respiratory rate 2022-05-30 13:30:00 16 /min Comm on [facility] - [facility] blood pressure 2022-05-30 13:30:00 145 mm[Hg] [facility] - systolic [facility] blood pressure 2022-05-30 13:30:00 70 mm[Hg] [facility] - diastolic [facility] BP Diastolic 2022-05-24 00:00:00 72 mm[Hg] [facility] Height 2022-05-24 00:00:00 60 [in_i] [facility] BMI (Body Mass 2022-05-24 00:00:00 21 kg/m2 [facility] Medical Index) Group BP Systolic 2022-05-24 00:00:00 155 mm[Hg] [facility] Body Weight 2022-05-24 00:00:00 107.6 [lb_av] [facility] BP Diastolic 2022-05-03 00:00:00 77 mm[Hg] [facility] Height 2022-05-03 00:00:00 60 [in_i] [facility] BMI (Body Mass 2022-05-03 00:00:00 21[facility]6 [facility] BP Systolic 2022-05-03 00:00:00 157 mm[Hg] [facility] Body Weight 2022-05-03 00:00:00 110.4 [lb_av] [facility] Procedures This patient has no known procedures. Plan of Care Planned Activity Planned Date Details Comments Source Diagnostic Test 2022-05-24 urinalysis, [place] [facility] P[facility] 00:00:00 dipstick [code = Group urinalysis, dipstick] Diagnostic Test 2022-05-24 culture, urine [place] [facility] Pending 00:00:00 [code = culture, Group urine] Instructions [facility] Encounters Start End Encounter Admission Attending Care Care Encounter Source Date/Time Date/Time Type Type Clinicians Facility Department ID 2022-05-30 [facility] [id number] Common 12:59:03 MOISES [id number] [facility] 2022-07-11 2022-07-11 OFFICE STLMLC ST[facility]C [id number] Co mmon 00:00:00 00:00:00 VISIT EST Spir it PT LEVEL 3 [facility] 2022-07-04 2022-07-04 Outpatient [facility] 2021 [place] 00:00:00 00:00:00 1116 Medical [facility] 2022-06-17 2022-06-17 Outpatient [facility] 2021 [place] 00:00:00 00:00:00 1030 [facility] 2022-06-17 2022-06-17 (TEL) STLMLC STLMLC [id number] Co mmon 00:00:00 00:00:00 [facility] 2022-06-14 2022-06-14 NO CHARGE STLMLC STLMLC [id number] Common 00:00:00 00:00:00 [facility] 2022-05-30 2022-05-30 OFFICE STLMLC STLMLC [id number] Co mmon 00:00:00 00:00:00 VISIT NEW Spir it PT LEVEL 3 [facility] 2022-05-24 2022-05-24 Outpatient [facility] [id number] [place] 14:52:00 14:52:00 DEONDRE [id number] adrienne [facility] 2022-05-24 2022-05-24 Outpatient [facility] 2021 [place] 00:00:00 00:00:00 1006 [facility] 2022-05-24 2022-05-24 Deondre DAVILAG [place] - [id number] M [facility] 00:00:00 00:00:00 [facility] adrienne Hardy MD: [address] [place] [id number] , Ph. [phone] 2022-05-13 2022-05-13 Outpatient [facility] 2021 [place] 00:00:00 00:00:00 0925 [facility] Group 2022-05-03 2022-05-03 Outpatient G_[facility]appas [facility] [id number] [place] 00:00:00 00:00:00 0915 [facility] 2022-05-03 2022-05-03 Deondre [facility] [place] - [id number] M [place] 00:00:00 00:00:00 Discovery adrienne Hardy MD: [address] [facility] [address], [place] [address] , Ph. [phone] 2022-03-28 2022-03-28 Outpatient [facility] [id number] [place] 00:00:00 00:00:00 0810 [facility] 2019-12-18 2019-12-18 Outpatient Mitchel MARTINEZ [facility] [id number] Univers 10:10:01 23:59:00 NADIR [facility] 2019-11-27 2019-11-27 [facility] [id number] Univers 10:00:00 10:00:00 [facility] 2019-11-26 2019-11-26 [facility] [id number] Univers 09:30:00 09:30:00 [facility] 2019-11-26 2019-11-26 [facility] [id number] Univers 08:15:00 08:15:00 [facility] 2013-07-08 2013-07-09 [facility] [id number] [place] 05:14:00 18:45:00 DEONDRE [id number] [facility] 2012-08-27 2012-08-28 Outpatient [facility] [id number] [place] 05:51:00 11:03:00 DEONDRE [id number] [facility] Results Test Description Test Time Test Comments Results Result Comments Source Urinalysis macro (dipstick) panel - Urine 2022-05-24 09:16:0 8 Test Item Value Reference Range Interpretation Comme nts Leukocytes (test code = Leukocytes) Large Nitrite (test code = Nitrite) positive Urobilinogen (test code = Urobilinogen) .2 Protein (test code = Protein) Negative pH (test code = pH) 7.0 Blood (test code = Blood) Moderate Specific Fenton (test code = Specific Fenton) 1.020 Ketone (test code = Ketone) Negative Bilirubin (test code = Bilirubin) Negative Glucose (test code = Glucose) Negative Appearance (test code = Appearance) Clear Color (test code = Color) Yellow [facility] [Identifier] in Vaginal fluid by Wet [id number] 10:59:15 Test Item Value Reference Range Interpretation Comments Clue Cells (test code = Clue Cells) negative WBCs (test code = WBCs) positive Trichomonads (test code = negative Trichomonads) Epithelial cells (test code = abnormal Epithelial cells) RBCs (test code = RBCs) negative [facility] Vaginal [facility] by Wet [id number] 10:59:15 Test Item Value Reference Range Interpretation Comments Clue Cells (test code = Clue Cells) negative WBCs (test code = WBCs) positive Trichomonads (test code = negative Trichomonads) Epithelial cells (test code = abnormal Epithelial cells) RBCs (test code = RBCs) negative [facility] [id number] 06:36:00 Test Item Value Reference Range Interpretation Comments PROTHROMBIN TIME 30.1 SECONDS 9.3-12.9 H PATIENT (test code = PTP) INTERNATIONAL NORMAL 2.7 0.8-1.2 H TARGE T INR BY RATIO (test code = INDICATIO [...] l Infarction (to prevent recurrent infar ct). COMMENTS: INR X 10 DAYSPROTHROMBIN [id number] 09:06:00 Test Item Value Reference Range Interpretation [...] (to prevent recurrent infar ct). RENAL FUNCTION [id number] 07:50:00 Test Item Value Reference Range Interpretation [...] code = 3.4 MG/DL 2.5-4.9 N PHOS) [id number] 07:50:00 Test Item Value Reference Range Interpretation Comments MAGNESIUM (test code = MAG) 1.70 mg/dL 1.8-2.4 L CBC W/AUTO [id number] 07:18:00 Test Item Value Reference Range Interpretation [...] NO = MDIFF) - CT ABD PELVIS [id number] 15:24:00 Name: [facility] : 1935 Age/S: 83 / F [address] [place] [address] Unit #: [id number] Loc: [place] [address] Phys: Greg Mercer MD Acct: [id number] Dis Date: Status: ADMIN PHONE #: [phone] Exam Date: 05/01/2019 1500 FAX #: [phone] Reason: L1 fracture EXAMS: CPT CODE: [id number] CT ABD PELVIS W/CONT [id number] PROCEDURE: CT ABDOMEN AND PELVIS WITH CONTRAST [...] hernia. Large and small bowel are otherwise normal.The appendix is not visualized. PERITONEUM: No free intraperitoneal air or fluid collections. Mesenteric vessels enhance normally. RETROPERITONEUM: Moderate amount of calcified plaque in a normal caliber abdominal aorta. IVC is normal. No adenopathy. PAGE 1 Signed Report (CONTINUED) Name: [facility] : 1935 Age/S: 83 / F [address] [place], [place] [address] Unit #: [id number] Loc: [place] [address] Phys: Greg Mercer MD Acct: [id number] Dis Date: Status: ADM IN PHONE #: [phone] Exam Date: 05/01/2019 1500 FAX #: [phone] Reason: L1 fracture EXAMS: CPT CODE: [id number] ABD PELVIS W/CONT [id number] (Continued) PELVIS: A Malave catheter is in place [...] body which will be further described on to day's CT lumbar spine. END IMPRESSION [id number] at 1524 Reported and signed by: Elliot Walker M.D. CC: Charan Mercer Technologist:Phyllis Duran RT(R)(CT) CTDI: DLP: Trnscb Date/Time: 05/01/2019 (1524) Timo Orig Print D/T: S: 05/01/2019 (1527) PAGE 2 Signed ReportRENAL FUNCTION [id number] 14:30:00 Test Item Value Reference Range Interpretation [...] 3.3 MG/DL 2.5-4.9 N PHOS) RENAL FUNCTION [id number] 14:28:00 Test Item Value Reference Range Interpretation [...]
--- NOTE | 2022-07-23 15:51 | ER ---
[facility] Name: Zaynab Cain Age: 86 yrs Sex: Female : 1935 Arrival Date: 07/23/2022 Time: 15:11 Bed IW4 Private MD: Diagnosis: Dysuria Presentation: 07/23 15:32 Chief complaint: Patient's son or daughter states: Dx with UTI on Saturday, Dr. Hair jl7 has not called anything in yet and his office told me to bring her to the ER because Dr. Hair is in surgery and they can't call her any UTI medications in. Coronavirus screen: At this time, the client does not indicate any symptoms associated with coronavirus-19. Ebola Screen: No symptoms or risks identified at this time. Initial Sepsis Screen: Does the patient meet any 2 criteria? No. Patient's initial sepsis screen is negative. Does the patient have a suspected source of infection? No. Patient's initial sepsis screen is negative. Risk Assessment: Do you want to hurt yourself or someone else? Patient reports no desire to harm self or others. Onset of symptoms was July 20, 2022. 15:32 Method Of Arrival: Ambulatory [facility] 15:32 Acuity: AILYN 3 jl7 Triage Assessment: 15:34 General: Appears in no apparent distress. uncomfortable, Behavior is calm, cooperative, jl7 appropriate for age. Pain: Denies pain. Historical: - Allergies: 15:34 No Known Allergies; jl7 - Home Meds: 15:34 metoprolol tartrate 25 mg Oral tab 1 tab 2 times per day [Active]; jl7 Hydrocodone-Acetaminophen Oral as needed [Active]; levothyroxine 25 mcg cap 1 cap once daily [Active]; mirtazapine 15 mg Oral tab as needed [Active]; hydralazine 25 mg Oral tab as needed [Active]; Eliquis 2.5 mg Oral tab 1 tab 2 times per day [Active]; magnesium oxide 400 mg magnesium Oral tab daily [Active]; - PMHx: 15:34 Arthritis; Hypertension; TIA; Hypothyroidism; jl7 - PSHx: 15:34 hysterectomy; jl7 - Immunization history:: Adult Immunizations unknown. - Social history:: Smoking status: Patient denies any tobacco usage or history of. Screenin:45 Abuse screen: Denies threats or abuse. Denies injuries from another. Nutritional jl7 screening: No deficits noted. Tuberculosis screening: No symptoms or risk factors identified. Fall Risk Total Luis Fall Scale indicates High Risk Score (45 or more points). Fall prevention measures have been instituted. Side Rails Up X 2 Placed Close to Nursing Station. Assessment: 15:45 Reassessment: Daughter reports Dr. Hair office just notified them they will call [facility] something in. Vital Signs: 15:32 BP 152 / 70; Pulse 64; Resp 17; Temp 97; Pulse Ox 94% ; Weight 48.08 kg; Height 5 ft. 0 jl7 in. (152.40 cm); 15:32 Body Mass Index 20.70 (48.08 kg, 152.40 cm) jl7 ED Course: 15:11 Patient arrived in ED. am2 15:11 Garfield Blankenship PA is PHCP. cp 15:12 Mike Fiore MD is Attending Physician. cp 15:34 Triage completed. jl7 15:34 Arm band placed on right wrist. jl7 15:45 Patient has correct armband on for positive identification. jl7 15:50 Ede Hair MD is Referral Physician. cp 16:08 Nam Orta RN is Primary Nurse. jl7 16:09 No provider procedures requiring assistance completed. Patient did not have IV access jl7 during this emergency room visit. Administered Medications: No medications were administered Medication: 15:45 VIS not applicable for this client. jl7 Outcome: 15:51 Discharge ordered by MD. cp 16:09 Discharged to home via wheelchair, with family. jl7 16:09 Condition: stable 16:09 Discharge instructions given to patient, family, Instructed on discharge instructions, follow up and referral plans. Demonstrated understanding of instructions, follow-up care. 16:10 Patient left the ED. jl7 16:26 Patient left the ED. Signatures: Tatiana Collins RN RN Garfield Blankenship PA PA cp Leal, Jahala, RN RN Zara Brooks am2 Corrections: (The following items were deleted from the chart) 15:37 15:34 Home Meds: Eliquis Oral; jl7 jl7 15:37 15:34 Home Meds: aspirin 81 mg Oral chew 1 tab once daily; capri7 venessa 15:37 15:34 Home Meds: Hydralazine Oral; jl7 jl7 37 15:34 Immunization history: Client reports receiving the 2nd dose of the Covid vaccine, jl7 jl7
--- NOTE | 2022-07-23 15:51 | EDPHYS ---
Physician Documentation [facility] Name: Zaynab Cain Age: 86 yrs Sex: Female : 1935 Arrival Date: 07/23/2022 Time: 15:11 Bed IW4 Private MD: ED Physician Mike Fiore HPI: 07/23 15:44 This 86 yrs old Female presents to ER via Ambulatory with complaints of Abnormal Lab cp Results, Hair-UTI. 15:44 The patient presents with urinary symptoms, dysuria. Onset: The symptoms/episode cp began/occurred this past weekend. Associated signs and symptoms: Pertinent negatives: diarrhea, fever, vomiting, back pain, AMS. Severity of symptoms: in the emergency department the symptoms are unchanged, despite home interventions. Daughter reports patient gave urine sample for pre-op physical for DR Hair that showed concern for infection. Has been having difficulty getting RX for antibiotics all day from office of DR Hair so she came to ED. Historical: - Allergies: 15:34 No Known Allergies; jl7 - Home Meds: 15:34 metoprolol tartrate 25 mg Oral tab 1 tab 2 times per day [Active]; jl7 Hydrocodone-Acetaminophen Oral as needed [Active]; levothyroxine 25 mcg cap 1 cap once daily [Active]; mirtazapine 15 mg Oral tab as needed [Active]; hydralazine 25 mg Oral tab as needed [Active]; Eliquis 2.5 mg Oral tab 1 tab 2 times per day [Active]; magnesium oxide 400 mg magnesium Oral tab daily [Active]; - PMHx: 15:34 Arthritis; Hypertension; TIA; Hypothyroidism; jl7 - PSHx: 15:34 hysterectomy; jl7 - Immunization history:: Adult Immunizations unknown. - Social history:: Smoking status: Patient denies any tobacco usage or history of. ROS: 15:47 Constitutional: Negative for body aches, chills, fever, poor PO intake. cp 15:47 Respiratory: Negative for cough, shortness of breath, wheezing. 15:47 Abdomen/GI: Negative for abdominal pain, vomiting, diarrhea, constipation. 15:47 Back: Negative for pain at rest, pain with movement. 15:47 : Positive for burning with urination. 15:47 Neuro: Negative for altered mental status, headache. 15:47 All other systems are negative. Exam: 15:48 Head/Face: Normocephalic, atraumatic. cp 15:48 Constitutional: The patient appears in no acute distress, alert, awake, comfortable, non-toxic, well developed, well nourished. 15:48 Chest/axilla: Inspection: normal. 15:48 Cardiovascular: Rate: normal. 15:48 Respiratory: the patient does not display signs of respiratory distress, Respirations: normal, no use of accessory muscles, no retractions, labored breathing, is not present. 15:48 Abdomen/GI: Inspection: abdomen appears normal, Palpation: abdomen is soft and non-tender, in all quadrants. 15:48 Back: pain, is absent, ROM is normal. 15:48 Neuro: Orientation: to person, place \T\ time. Mentation: is normal. Vital Signs: 15:32 BP 152 / 70; Pulse 64; Resp 17; Temp 97; Pulse Ox 94% ; Weight 48.08 kg; Height 5 ft. 0 jl7 in. (152.40 cm); 15:32 Body Mass Index 20.70 (48.08 kg, 152.40 cm) jl7 MDM: 15:49 Data reviewed: vital signs, nurses notes. ED course: Daughter reports she got response cp from office of DR Hair concerning uti and antibiotics have been called to pharmacy. Declines any treatment at this time. 15:51 Patient medically screened. cp Administered Medications: No medications were administered Disposition: 17:15 Co-signature as Attending Physician, Mike Fiore MD I agree with the assessment and kdr plan of care. Disposition Summary: 07/23/22 15:51 Discharge Ordered Location: Home cp Problem: an ongoing problem cp Symptoms: are unchanged cp Condition: Stable cp Diagnosis - Dysuria cp Followup: cp - With: Ede Hair MD - When: 2 - 3 days - Reason: Recheck today's complaints Discharge Instructions: - Discharge Summary Sheet cp - Dysuria cp Forms: - Medication Reconciliation Form cp - Thank You Letter cp - Antibiotic Education cp - Prescription Opioid Use cp Signatures: Mike Fiore MD MD kdr Page, Corey, PA PA cp Nam Orta RN RN jl7 Corrections: (The following items were deleted from the chart) 15:37 15:34 Home Meds: Eliquis Oral; jl7 jl7 15:37 15:34 Home Meds: aspirin 81 mg Oral chew 1 tab once daily; jl7 jl7 15:34 Home Meds: Hydralazine Oral; jl7 jl7 15:34 Immunization history: Client reports receiving the 2nd dose of the Covid vaccine, jl7 jl7
[2022-07-23 17:14] VITALS: BP 152/70; TEMP 97; O2SAT 94
== END 2022-07-23 16:26 | disposition home or self-care (01) ==
LOC: ER 15:09
DX: R30.0 Dysuria (principal); I10 Essential (primary) hypertension; E03.9 Hypothyroidism, unspecified
CPT/HCPCS: 99281

== ENCOUNTER 2022-07-31 08:32 | Day surgery (SDC) | payer OTHER ==
--- NOTE | 2022-07-19 11:36 | RAD REPORT ---
EXAM DESCRIPTION: Patti Carrasquillo And Viviana (2 Views)07/19/2022 11:14 am CLINICAL HISTORY: Preop for lithotripsy COMPARISON: August 2021 FINDINGS: Lungs are hyperaerated. Lungs appear clear of acute infiltrate. Moderate to marked compression deformities involve several thoracic vertebral bodies. These have deve loped since 2019. Heart is normal size. Moderate to large hiatal hernia
[2022-07-19 12:00] LABS: Absolute Lymphocytes (CBC) 2.3 K/uL (0.7-4.9); Hematocrit 42.4 % (36.0-45.0); Lymphocytes % 21.4 % (15.3-44.8); MCV 93.7 fL (80-100); MPV 7.5 fL (7.6-11.3); RBC Red Blood Cell Count 4.52 M/uL (3.86-4.86)
[2022-07-19 12:02] LABS: Protime INR 1.41
[2022-07-19 12:16] LABS: Potassium 4.3 mmol/L (3.5-5.1)
--- NOTE | 2022-07-20 07:53 | EKG ---
Test Date: 2022-07-19 Test Time: 11:21:04 Clinical Trainer: JEANE MEASUREMENT RESULTS: Intervals: Rate: 60 ME: QRSD: 104 QT: 446 QTc: 446 [place]: P: ME: QRS: -7 T: 105 INTERPRETIVE STATEMENTS: Atrial fibrillation Incomplete right bundle branch block Minimal voltage criteria for LVH, may be normal variant Septal infarct, age undetermined T wave abnormality, consider lateral ischemia or digitalis effect Abnormal ECG Compared to ECG 09/01/2021 11:50:35 Incomplete right bundle-branch block now present T-wave abnormality now present Possible ischemia now present Junctional rhythm no longer present Left-axis deviation no longer present Early repolarization no longer present Myocardial infarct finding still present Electronically Signed On 07-20-22 07:49:12 SOFTWARE INSTALLER by Pola Zacarias
[~2022-07-31 08:32] MED LIST: Gentamicin Inj 120 MG in NA CHLORIDE 0.9% 100 ML IV SCH
[2022-07-31] MEDS ORDERED: AMPICILLIN SODIUM 2 GM/VIAL VIAL ONE (09:17)
[2022-07-31] MEDS ORDERED: Ringers Lactate 1,000 ML IV ONE (09:17)
[2022-07-31] MEDS ORDERED: FENTANYL CITR 100 MCG/2 ML ONE (10:47)
[2022-07-31] MEDS ORDERED: ROCURONIUM 50 MG/5 ML VIAL IV ONE (10:47)
[2022-07-31] MEDS ORDERED: propofoL 200 MG/20 ML VIAL IV ONE ×2 (10:47→11:00)
[2022-07-31] MEDS ORDERED: LIDOCAINE 1% MPF 5 ML VIAL ONE (10:47)
[2022-07-31] MEDS ORDERED: MEPERIDINE HCL 25 MG/ML SYR ONE (10:57)
[2022-07-31] MEDS ORDERED: ONDANSETRON 4 MG/2 ML VIAL ONE ×2 (11:22→11:56)
[2022-07-31] MEDS ORDERED: GLYCOPYRROLATE 0.2 MG/ML SYR ONE (11:27)
[2022-07-31] MEDS ORDERED: NEOSTIGMINE 1 MG/ML -5 ML ONE (11:28)
[2022-07-31] MEDS ORDERED: PROMETHAZINE INJ 25 MG/ML AMP ONE (12:05)
[2022-07-31] MEDS ORDERED: PHENAZOPYRIDINE 100MG TAB PO ONE ×2 (12:16→13:31)
[2022-07-31] MEDS ORDERED: CODEINE 30MG/APAP 300MG TAB PO PRN (12:16)
--- NOTE | 2022-07-31 12:54 | OP ---
Surgeon: PORTILLO CLEMONS Preoperative Diagnoses: Foreign body in bladder/bladder calculus 2.5 cm x 1 cm, history of bladder s ling. Postoperative Diagnoses: Foreign body in bladder/bladder calculus 2.5 cm x 1 cm, history of bladder sling. Principal Procedures: 1.Cystolitholapaxy using thulium laser. 2.Removal of bladder calculi/foreign body from bladder. Indication For Procedure: Ms. Cain is an 86-year-old woman, who presented to the Urology Clinic w ith bothersome urinary symptoms and recurrent urinary tract infections. She underwent evaluation cys toscopically revealing the presence of a linear calcified structure within her bladder emanating from the mucosa in the region of the bladder neck to the left. The structure was approximately 2.5 cm in length by 1 cm likely consistent with calcified mesh from prior suburethral sling placement. As a r esult, she was treated with antimicrobial and placed on prophylactic therapy pending surgical managem ent and removal. Procedure In Detail: The patient was consented in the preoperative holding area before being transfe rred to operative suite where general anesthesia was induced. She was given ampicillin 2 g and genta micin 120 mg IV antimicrobial prophylaxis and pneumo boots were provided for DVT prophylaxis. She wa s placed in the lithotomy position, padded and secured to the table appropriately. Her genitalia wer e prepped with Hibiclens and she was draped in standard fashion. The case was begun using a 22-Frenc h rigid cystoscope to traverse the urethra into the bladder with ease. The bladder was surveyed, and as had been previously noted within the left bladder neck region, there was this linear calcified st ructure. As a result, using a 365 nm thulium laser fiber at power setting of 1 joule and 20 hertz, I targeted the base of the calcified structure and excised it from within the mucosa and in fact deep to the mucosa approximately 0.25 to 0.5 cm in order to completely excise all visible mesh and related material. The remainder of the calcified structure that was now freed and floating within the bladd er was then fragmented by dividing it into 3 pieces using the thulium laser fiber before using the st one parts cleaner device to further breakdown the substance enough to remove it from her bladder directly o r using an Brain Sentry evacuator. In the end, the entirety of the stone/foreign body material was removed from her bladder, and I placed an 18-[place] catheter. A 15 cc of sterile water was placed in the bal loon, and the patient was taken out of the lithotomy position before being transferred to a stretcher and then transferred to the recovery room in good condition. Complications: None. Discharge Disposition: I would like for to keep the catheter for 2-3 days to allow healing of the mu cosa from which the foreign body was excised. Meanwhile, she should continue on the Augmentin prescr ibed. Subsequent followup should be established in the Urology Clinic in about a month's time interv al assessment with urine culture to assess for persistence or recurrence of infection now that the fo reign body has been removed. ADIN/NEREIDA Voice ID: [id number] Report ID: [id number]
[2022-07-31] MEDS ORDERED: CODEINE 30MG/APAP 300MG TAB ONE (13:31)
[2022-07-31 15:06] VITALS: BP 171/89; TEMP 96.4; O2SAT 99
== END 2022-07-31 14:07 | disposition home or self-care (01) ==
LOC: OR 08:32
PROVIDERS: ATTEND Urology
PROC: 0TCB8ZZ Extirpation of Matter from Bladder, Via Natural or Artificial Opening Endoscopic (ICD-10-PCS; principal; 2022-07-31 10:30)
DX: N21.0 Calculus in bladder (principal); T19.1XXA Foreign body in bladder, initial encounter; Z87.440 Personal history of urinary (tract) infections
CPT/HCPCS: 93005; 87088; 85025; 87086; 80048; 36415; 85610; 87077 ×2; 87186 ×2; 71046; 52317; J2704; J2550; J2001; J1580; J2175; J2710; J7120; J2405 ×2; J0290; J3010

== ENCOUNTER 2023-01-20 13:41 | Emergency (ER) | payer OTHER ==
--- OUTSIDE RECORDS SUMMARY | 2023-01-20 13:45 | XMS REPORT | Continuity of Care Document ---
:1935 Author Organization [facility] t Address [address] [place] [address] Care Team Providers Name Role Phone SEEMA ASHFORD Primary Care Physician UnavailMOISES Matias Attending Clinician Unavailable G_Pappas Attending Clinician Unavailable DEONDRE ASHBY Attending Clinician Unavailable NADIR MARTINEZ Attending Clinician Unavailable MITRA UREÑA Attending Clinician Unavailable [facility] Admitting Clinician Unavailable DEONDRE ASHBY Admitting Clinician Unavailable Payers Payer Name Policy Type Policy Number Effective Date Expiration Date S robert AETNA MEDICARE 53 [id number] Common PPO [facility] AETNA (MEDICARE [id number] 2019 REPLACEMENT PPO) 00:00:00 AETNA MEDICARE [id number] 2015 2021 ADV 00:00:00 00:00:00 Problems Condition Condition Condition Status Onset Resolution Last Treating Co mments Source Name Details Category Date Date Treatment Clinician Date 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 Vaginitis 9-15 da 00:00: Medical 00 Group Urge Urge Problem Active [facility] incontinen Incontinen 05-03 da ce of ce of 00:00: Medical urine Urine 00 Group Candidiasi Candidiasi Problem Active M [facility] s of s of 05-03 da vagina Vagina 00:00: Medical 00 Group Bladder Bladder Problem Common calculus calculus [facility] [id number] Urinary Problem Commo n incontinen [facility], - [facility] unspecifie [facility] [id number] Recurrent Problem Com mon UTI [facility] [id number] Foreign Problem Commo n body in [facility], [facility] initial [facility] [id number] Acute Problem Common lower UTI [facility] [id number] Acute Problem Common vaginitis [facility] [id number] Cystitis Problem Comm on bacillary, [facility] Allergies, Adverse Reactions, Alerts Allergy Allergy Status Severity Reaction(s) Onset Inactive Treating Comm ents Source Name Type Date Date Clinician prometha DA Active [facility] zine 14 Clear 00:00: Esquivel 00 [facility] No Known DA Active U [facility] Allergie 05-01 Clear s 00:00: Esquivel 00 [facility] NO KNOWN Drug Active Univers ALLERGIE Class ity of S [facility] Social History Social Habit Start Date Stop Date Quantity Comments Source History of Tobacco Use Co mmon [facility] Sex Assigned At Com [facility] Smoking Status Start Date Stop Date Source Former Smoker [facility] Never Smoker Common [facility] Medications Ordered Filled Start Stop Current Ordering Indication Dosage Frequency Signature Comments Components Source Medication Medication Date Date Medication? Clinician (SIG) Name Name Clotrimazol Clotrimazol 2021-08- No BID Clotrimazo e 1 % e 1 % 09-23 le 1 % 00:00: :00 00 :00 Clotrimazol Clotrimazol 2021-08- No BID Clotrimazo e 1 % e 1 % 09-23 le 1 % 00:00: :00 00 :00 Clotrimazol Clotrimazol 2021-08- No BID Clotrimazo e 1 % e 1 % 09-23 le 1 % 00:00: 00:00 00 :00 Amoxicillin Amoxicillin 2021-08- No 1{table BID Amoxicilli -Pot -Pot 09-23 t} n-Pot Clavulanate Clavulanate 00:00: 00:00 Clavulanat 875-125 MG 875-125 MG 00 :00 e 875-125 MG Amoxicillin Amoxicillin 2021-08- No 1{table BID Amoxicilli -Pot -Pot 09-23 t} n-Pot Clavulanate Clavulanate 00:00: 00:00 Clavulanat 875-125 MG 875-125 MG 00 :00 e 875-125 MG Nystatin-Tr Nystatin-Tr 2021-08- No 1{appli BID Nystatin-T iamcinolone iamcinolone 09-10 cation} riamcinolo 115217-5.1 [id number] 00:00: 00:00 ne UNIT/GM UNIT/GM 00 :00 [id number] UNIT/GM Nystatin-Tr Nystatin-Tr 2021-08- No 1{appli BID Nystatin-T iamcinolone iamcinolone 09-10 cation} riamcinolo [id number] 00:00: 00:00 ne UNIT/GM UNIT/GM 00 :00 [id number] UNIT/GM Fluconazole Fluconazole 2021-08- No 1{table Fluconazol 150 MG 150 MG 09-1024 t} e 150 MG 00:00: 00:00 00 :00 Sulfamethox Sulfamethox 2021-08- No QD Sulfametho azole-Trime azole-Trime 0-30 11-20 xazole-Tri thoprim thoprim 00:00: 00:00 methoprim 800-160 MG 800-160 MG 00 :00 800-160 MG Sulfamethox Sulfamethox 2021-08- No 1{table BID Sulfametho azole-Trime azole-Trime 027 11- t} xazole-Tri thoprim thoprim 00:00: 00:00 methoprim 400-80 MG 400-80 MG 00 :00 400-80 MG estradiol estradiol No estradiol [facility] 0.01% (0.1 0.01% (0.1 0.01% (0.1 da mg/gram) mg/gram) mg/gram) Med ical vaginal vaginal vaginal Group cream cream cream Insert 0.5 Insert 0.5 Insert 0.5 applicators applicators applicator ful 3 times ful 3 times sful 3 a week by a week by times a vaginal vaginal week by route. route. vaginal route. fluconazole fluconazole No fluconazol [facility] 100 mg 100 mg e 100 mg da tablet TAKE tablet TAKE tablet Medical 1 TABLET BY 1 TABLET BY TAKE 1 Group MOUTH ONCE MOUTH ONCE TABLET BY DAILY FOR 3 DAILY FOR 3 MOUTH ONCE DAYS DAYS DAILY FOR 3 DAYS fluconazole fluconazole No fluconazol [facility] 150 mg [...] STOMACH STOMACH MORNING ON AN EMPTY STOMACH metoprolol metoprolol No metoprolol [facility] tartrate 25 tartrate 25 tartrate da mg tablet mg tablet 25 mg Medi lawanda TAKE 1 TAKE 1 tablet Group TABLET BY TABLET BY TAKE 1 MOUTH TWICE MOUTH TWICE TABLET BY DAILY DAILY MOUTH TWICE DAILY mirtazapine mirtazapine No mirtazapin [facility] 15 mg 15 mg e 15 mg da tablet tablet tablet Medical Group nystatin nystatin No nystatin [facility] 100,000 100,000 100,000 da unit/gram unit/gram unit/gram Medical topical topical topical Group ointment ointment ointment Nystop Nystop No Nystop [facility] 100,000 100,000 100,000 da unit/gram unit/gram unit/gram Medical topical topical topical Group powder powder powder APPLY APPLY APPLY TOPICALLY TOPICALLY TOPICALLY TO THE TO THE TO THE AFFECTED AFFECTED AFFECTED AREA FOUR AREA FOUR AREA FOUR TIMES DAILY TIMES DAILY TIMES FOR 10 FOR 10 DAILY FOR DAYS. DAYS. 10 DAYS. oxybutynin oxybutynin No 1 BID oxybutynin [facility] chloride 5 chloride 5 chloride 5 da mg tablet mg tablet mg tablet Medical Take 1 Take 1 Take 1 Group tablet tablet tablet twice a day twice a day twice a by oral by oral day by route. route. oral route. prednisone prednisone No prednisone [facility] 10 mg 10 mg 10 mg da tablet tablet tablet Medical Group Symbicort Symbicort No Symbicort [facility] 160 mcg-4.5 160 mcg-4.5 160 d a mcg/actuati mcg/actuati mcg-4.5 Medical on HFA on HFA mcg/actuat Group aerosol aerosol ion HFA inhaler inhaler aerosol INHALE 1 INHALE 1 inhaler PUFF BY PUFF BY INHALE 1 MOUTH TWICE MOUTH TWICE PUFF BY DAILY. DAILY. MOUTH RINSE MOUTH RINSE MOUTH TWICE AFTER USE AFTER USE DAILY. RINSE MOUTH AFTER USE tramadol 50 tramadol 50 No tramadol [facility] mg tablet mg tablet 50 mg da tablet Medical Group Boudreauxs Boudreauxs No Boudreauxs Butt Paste Butt Paste Butt Paste 16 % 16 % 16 % Myrbetriq Myrbetriq No 1{table QD Myrbetriq 25 MG 25 MG t} 25 MG Levothyroxi Levothyroxi No QD Levothyrox ne Sodium ne Sodium ine Sodium 25 MCG 25 MCG 25 MCG Estradiol Estradiol No Estradiol Metoprolol Metoprolol No 1{table BID Metoprolol Tartrate 25 Tartrate 25 t_with_ Tartrate MG MG food} 25 MG Magnesium Magnesium No QD Magnesium 400 MG 400 MG 400 MG Albuterol Albuterol No 3{ml_as QID Albuterol Sulfate Sulfate _needed Sulfate (2.5 (2.5 } (2.5 MG/3ML) MG/3ML) MG/3ML) 0.083% 0.083% 0.083% hydrALAZINE hydrALAZINE No 1{table hydrALAZIN HCl 25 MG HCl 25 MG t_with_ E HCl 25 food} MG Baclofen 10 Baclofen 10 No 1{table BID Baclofen MG MG t_as_ne 10 MG eded} Eliquis 2.5 Eliquis 2.5 No Eliquis mg 2.5 mg mg 2.5 mg 2.5 mg 2.5 mg HYDROcodone HYDROcodone No HYDROcodon -Acetaminop -Acetaminop e-Acetamin hen hen ophen Arthritis Arthritis No Arthritis Pain Pain Pain Medicine Medicine Medicine Symbicort Symbicort No 2{puffs BID Symbicort 160-4.5 160-4.5 } 160-4.5 MCG/ACT MCG/ACT MCG/ACT HYDROcodone HYDROcodone No HYDROcodon -Acetaminop -Acetaminop e-Acetamin hen hen ophen traMADol traMADol No 1{table QD traMADol HCl 50 MG HCl 50 MG t_as_ne HCl 50 MG eded} Oxybutynin Oxybutynin No 1{table BID Oxybutynin Chloride 5 Chloride 5 t} Chloride 5 MG MG MG Boudreauxs Boudreauxs No Boudreauxs Butt Paste Butt Paste Butt Paste 16 % 16 % 16 % Eliquis 2.5 Eliquis 2.5 No Eliquis mg 2.5 mg mg 2.5 mg 2.5 mg 2.5 mg Baclofen 10 Baclofen 10 No 1{table BID Baclofen MG MG t_as_ne 10 MG eded} Mirtazapine Mirtazapine No 1{table QD Mirtazapin 15 MG 15 MG t_at_be e 15 MG dtime} Estradiol Estradiol No Estradiol Metoprolol Metoprolol No 1{table BID Metoprolol Tartrate 25 Tartrate 25 t_with_ Tartrate MG MG food} 25 MG Albuterol Albuterol No 3{ml_as QID Albuterol Sulfate Sulfate _needed Sulfate (2.5 (2.5 } (2.5 MG/3ML) MG/3ML) MG/3ML) 0.083% 0.083% 0.083% predniSONE predniSONE No 1{table QD predniSONE 10 MG 10 MG t} 10 MG Myrbetriq Myrbetriq No 1{table QD Myrbetriq 25 MG 25 MG t} 25 MG HYDROcodone HYDROcodone No HYDROcodon -Acetaminop -Acetaminop e-Acetamin hen hen ophen Symbicort Symbicort No 2{puffs BID Symbicort 160-4.5 160-4.5 } 160-4.5 MCG/ACT MCG/ACT MCG/ACT Symbicort Symbicort No 2{puffs BID Symbicort 160-4.5 160-4.5 } 160-4.5 MCG/ACT MCG/ACT MCG/ACT Magnesium Magnesium No QD Magnesium 400 MG 400 MG 400 MG Levothyroxi Levothyroxi No QD Levothyrox ne Sodium ne Sodium ine Sodium 25 MCG 25 MCG 25 MCG Arthritis Arthritis No Arthritis Pain Pain Pain Medicine Medicine Medicine hydrALAZINE hydrALAZINE No 1{table hydrALAZIN HCl 25 MG HCl 25 MG t_with_ E HCl 25 food} MG Baclofen 10 Baclofen 10 No 1{table BID Baclofen MG MG t_as_ne 10 MG eded} Metoprolol Metoprolol No 1{table BID Metoprolol Tartrate 25 Tartrate 25 t_with_ Tartrate MG MG food} 25 MG Estradiol Estradiol No Estradiol traMADol traMADol No 1{table QD traMADol HCl 50 MG HCl 50 MG t_as_ne HCl 50 MG eded} predniSONE predniSONE No 1{table QD predniSONE 10 MG 10 MG t} 10 MG Baclofen 10 Baclofen 10 No 1{table BID Baclofen MG MG t_as_ne 10 MG eded} Arthritis Arthritis No Arthritis Pain Pain Pain Medicine Medicine Medicine Levothyroxi Levothyroxi No QD Levothyrox ne Sodium ne Sodium ine Sodium 25 MCG 25 MCG 25 MCG Oxybutynin Oxybutynin No 1{table BID Oxybutynin Chloride 5 Chloride 5 t} Chloride 5 MG MG MG Myrbetriq Myrbetriq No 1{table QD Myrbetriq 25 MG 25 MG t} 25 MG hydrALAZINE hydrALAZINE No 1{table hydrALAZIN HCl 25 MG HCl 25 MG t_with_ E HCl 25 food} MG Eliquis 2.5 Eliquis 2.5 No Eliquis mg 2.5 mg mg 2.5 mg 2.5 mg 2.5 mg Albuterol Albuterol No 3{ml_as QID Albuterol Sulfate Sulfate _needed Sulfate (2.5 (2.5 } (2.5 MG/3ML) MG/3ML) MG/3ML) 0.083% 0.083% 0.083% HYDROcodone HYDROcodone No HYDROcodon -Acetaminop -Acetaminop e-Acetamin hen hen ophen Boudreauxs Boudreauxs No Boudreauxs Butt Paste Butt Paste Butt Paste 16 % 16 % 16 % Arthritis Arthritis No Arthritis Pain Pain Pain Medicine Medicine Medicine Magnesium Magnesium No QD Magnesium 400 MG 400 MG 400 MG Symbicort Symbicort No 2{puffs BID Symbicort 160-4.5 160-4.5 } 160-4.5 MCG/ACT MCG/ACT MCG/ACT Mirtazapine Mirtazapine No 1{table QD Mirtazapin 15 MG 15 MG t_at_be e 15 MG dtime} predniSONE predniSONE No 1{table QD predniSONE 10 MG 10 MG t} 10 MG Arthritis Arthritis No Arthritis Pain Pain Pain Medicine Medicine Medicine Estradiol Estradiol No Estradiol Metoprolol Metoprolol No 1{table BID Metoprolol Tartrate 25 Tartrate 25 t_with_ Tartrate MG MG food} 25 MG Oxybutynin Oxybutynin No 1{table BID Oxybutynin Chloride 5 Chloride 5 t} Chloride 5 MG MG MG Baclofen 10 Baclofen 10 No 1{table BID Baclofen MG MG t_as_ne 10 MG eded} traMADol traMADol No 1{table QD traMADol HCl 50 MG HCl 50 MG t_as_ne HCl 50 MG eded} Levothyroxi Levothyroxi No QD Levothyrox ne Sodium ne Sodium ine Sodium 25 MCG 25 MCG 25 MCG Myrbetriq Myrbetriq No 1{table QD Myrbetriq 25 MG 25 MG t} 25 MG hydrALAZINE hydrALAZINE No 1{table hydrALAZIN HCl 25 MG HCl 25 MG t_with_ E HCl 25 food} MG Eliquis 2.5 Eliquis 2.5 No Eliquis mg 2.5 mg mg 2.5 mg 2.5 mg 2.5 mg Albuterol Albuterol No 3{ml_as QID Albuterol Sulfate Sulfate _needed Sulfate (2.5 (2.5 } (2.5 MG/3ML) MG/3ML) MG/3ML) 0.083% 0.083% 0.083% HYDROcodone HYDROcodone No HYDROcodon -Acetaminop -Acetaminop e-Acetamin hen hen ophen Metoprolol Metoprolol No 1{table BID Metoprolol Tartrate 25 Tartrate 25 t_with_ Tartrate MG MG food} 25 MG Boudreauxs Boudreauxs No Boudreauxs Butt Paste Butt Paste Butt Paste 16 % 16 % 16 % predniSONE predniSONE No 1{table QD predniSONE 10 MG 10 MG t} 10 MG Magnesium Magnesium No QD Magnesium 400 MG 400 MG 400 MG Symbicort Symbicort No 2{puffs BID Symbicort 160-4.5 160-4.5 } 160-4.5 MCG/ACT MCG/ACT MCG/ACT Mirtazapine Mirtazapine No 1{table QD Mirtazapin 15 MG 15 MG t_at_be e 15 MG dtime} Estradiol Estradiol No Estradiol Oxybutynin Oxybutynin No 1{table BID Oxybutynin Chloride 5 Chloride 5 t} Chloride 5 MG MG MG Myrbetriq Myrbetriq No 1{table QD Myrbetriq 25 MG 25 MG t} 25 MG Eliquis 2.5 Eliquis 2.5 No Eliquis mg 2.5 mg mg 2.5 mg 2.5 mg 2.5 mg Levothyroxi Levothyroxi No QD Levothyrox ne Sodium ne Sodium ine Sodium 25 MCG 25 MCG 25 MCG Albuterol Albuterol No 3{ml_as QID Albuterol Sulfate Sulfate _needed Sulfate (2.5 (2.5 } (2.5 MG/3ML) MG/3ML) MG/3ML) 0.083% 0.083% 0.083% Mirtazapine Mirtazapine No 1{table QD Mirtazapin 15 MG 15 MG t_at_be e 15 MG dtime} hydrALAZINE hydrALAZINE No 1{table hydrALAZIN HCl 25 MG HCl 25 MG t_with_ E HCl 25 food} MG traMADol traMADol No 1{table QD traMADol HCl 50 MG HCl 50 MG t_as_ne HCl 50 MG eded} Boudreauxs Boudreauxs No Boudreauxs Butt Paste Butt Paste Butt Paste 16 % 16 % 16 % Magnesium Magnesium No QD Magnesium 400 MG 400 MG 400 MG Magnesium Magnesium No QD Magnesium 400 [...] STOMACH STOMACH MORNING ON AN EMPTY STOMACH metoprolol metoprolol No metoprolol [facility] tartrate 25 tartrate 25 tartrate da mg tablet mg tablet 25 mg Medi lawanda TAKE 1 TAKE 1 tablet Group TABLET BY TABLET BY TAKE 1 MOUTH TWICE MOUTH TWICE TABLET BY DAILY DAILY MOUTH TWICE DAILY mirtazapine mirtazapine No mirtazapin [facility] 15 mg 15 mg e 15 mg da tablet tablet tablet Medical Group nystatin nystatin No nystatin [facility] 100,000 100,000 100,000 da unit/gram unit/gram unit/gram Medical topical topical topical Group ointment ointment ointment Nystop Nystop No Nystop [facility] 100,000 100,000 100,000 da unit/gram unit/gram unit/gram Medical topical topical topical Group powder powder powder APPLY APPLY APPLY TOPICALLY TOPICALLY TOPICALLY TO THE TO THE TO THE AFFECTED AFFECTED AFFECTED AREA FOUR AREA FOUR AREA FOUR TIMES DAILY TIMES DAILY TIMES FOR 10 FOR 10 DAILY FOR DAYS. DAYS. 10 DAYS. oxybutynin oxybutynin No 1 BID oxybutynin [facility] chloride 5 chloride 5 chloride 5 da mg tablet mg tablet mg tablet Medical Take 1 Take 1 Take 1 Group tablet tablet tablet twice a day twice a day twice a by oral by oral day by route. route. oral route. prednisone prednisone No prednisone [facility] 10 mg 10 mg 10 mg da tablet tablet tablet Medical Group Symbicort Symbicort No Symbicort [facility] 160 mcg-4.5 160 mcg-4.5 160 d a mcg/actuati mcg/actuati mcg-4.5 Medical on HFA on HFA mcg/actuat Group aerosol aerosol ion HFA inhaler inhaler aerosol INHALE 1 INHALE 1 inhaler PUFF BY PUFF BY INHALE 1 MOUTH TWICE MOUTH TWICE PUFF BY DAILY. DAILY. MOUTH RINSE MOUTH RINSE MOUTH TWICE AFTER USE AFTER USE DAILY. RINSE MOUTH AFTER USE tramadol 50 tramadol 50 No tramadol [facility] mg tablet mg tablet 50 mg da tablet Medical Group albuterol albuterol No albuterol [facility] sulfate HFA [...] 4 DAYS MOUTH DAILY FOR 4 DAYS baclofen 10 baclofen 10 No baclofen [facility] [...] TABLET BY DAILY DAILY MOUTH TWICE DAILY Vital Signs Vital Name Observation Time Observation Value Comments Source height 2022-07-11 16:15:00 60 [in_i] [facility] weight 2022-07-11 16:15:00 106 [lb_av] [facility] temperature 2022-07-11 16:15:00 98.6 [degF] [facility] bmi 2022-07-11 16:15:00 20.7 kg/m2 [facility] oximetry 2022-07-11 16:15:00 99 % [facility] respiratory rate 2022-07-11 16:15:00 16 /min Comm on [facility] blood pressure 2022-07-11 16:15:00 131 mm[Hg] Common [facility] - systolic [facility] blood pressure 2022-07-11 16:15:00 68 mm[Hg] Common [facility] - diastolic [facility] height 2022-06-14 17:00:00 60 [in_i] [facility] weight 2022-06-14 17:00:00 107 [lb_av] [facility] temperature 2022-06-14 17:00:00 98.4 [degF] [facility] bmi 2022-06-14 17:00:00 20.89 kg/m2 [facility] oximetry 2022-06-14 17:00:00 99 % [facility] respiratory rate 2022-06-14 17:00:00 18 /min Comm on [facility] blood pressure 2022-06-14 17:00:00 146 mm[Hg] Common [facility] - systolic [facility] blood pressure 2022-06-14 17:00:00 88 mm[Hg] Common [facility] - diastolic [facility] height 2022-05-30 13:30:00 60 [in_i] [facility] weight 2022-05-30 13:30:00 107 [lb_av] [facility] temperature 2022-05-30 13:30:00 98.1 [degF] [facility] bmi 2022-05-30 13:30:00 20.89 kg/m2 [facility] oximetry 2022-05-30 13:30:00 96 % [facility] respiratory rate 2022-05-30 13:30:00 16 /min Comm on [facility] blood pressure 2022-05-30 13:30:00 145 mm[Hg] Common [facility] - systolic [facility] blood pressure 2022-05-30 13:30:00 70 mm[Hg] Common [facility] - diastolic [facility] BP Diastolic 2022-05-24 00:00:00 72 mm[Hg] [facility] Height 2022-05-24 00:00:00 60 [in_i] [facility] BMI (Body Mass 2022-05-24 00:00:00 21 kg/m2 [facility] BP Systolic 2022-05-24 00:00:00 155 mm[Hg] [facility] Body Weight 2022-05-24 00:00:00 107.6 [lb_av] [facility] BP Diastolic 2022-05-03 00:00:00 77 mm[Hg] [facility] Height 2022-05-03 00:00:00 60 [in_i] [facility] BMI (Body Mass 2022-05-03 00:00:00 21.6 kg/m2 [facility] BP Systolic 2022-05-03 00:00:00 157 mm[Hg] [facility] Body Weight 2022-05-03 00:00:00 110.4 [lb_av] [facility] Procedures This patient has no known procedures. Plan of Care Planned Activity Planned Date Details Comments Source Diagnostic Test 2022-05-24 urinalysis, [facility] Pending 00:00:00 dipstick [code = Group urinalysis, dipstick] Diagnostic Test 2022-05-24 culture, urine [facility] Pending 00:00:00 [code = culture, Group urine] Instructions [facility] Encounters Start End Encounter Admission Attending Care Care Encounter Source Date/Time Date/Time Type Type Clinicians Facility Department ID 2022-09-10 Outpatient KEANE, STLMLC STLMLC [id number] Common 08:17:02 MOISES [id number] [facility] 2022-05-30 Outpatient KEANE, STLMLC STLMLC [id number] Common 12:59:03 MOISES [id number] [facility] 2022-08-08 2022-08-08 (TEL) STLMLC STLMLC [id number] Co mmon 00:00:00 00:00:00 [facility] 2022-07-25 2022-07-25 (TEL) STLMLC STLMLC [id number] Co mmon 00:00:00 00:00:00 [facility] 2022-07-23 2022-07-23 (TEL) STLMLC STLMLC [id number] Co mmon 00:00:00 00:00:00 [facility] 2022-07-11 2022-07-11 OFFICE STLMLC STLMLC [id number] Co mmon 00:00:00 00:00:00 VISIT EST Spir it PT LEVEL 3 [facility] 2022-07-04 2022-07-04 Outpatient G_Pappas MMG MMG [id number] [facility] 00:00:00 00:00:00 1116 [facility] 2022-06-17 2022-06-17 Outpatient G_Pappas MMG MMG 2021 [place] 00:00:00 00:00:00 1030 [facility] 2022-06-17 2022-06-17 (TEL) STLMLC STLMLC [id number] Co mmon 00:00:00 00:00:00 [facility] 2022-06-14 2022-06-14 NO CHARGE STLMLC STLMLC [id number] Common 00:00:00 00:00:00 [facility] 2022-05-30 2022-05-30 OFFICE STLMLC STLMLC [id number] Co mmon 00:00:00 00:00:00 VISIT [facility] PT LEVEL [address] [place] [address] 2022-05-24 2022-05-24 Outpatient EL ANTONY, [facility] [id number] [facility] 14:52:00 14:52:00 DEONDRE -[id number] [facility] 2022-05-24 2022-05-24 Outpatient G_Pappas MMG MMG 2021 [place] 00:00:00 00:00:00 1006 [facility] 2022-05-24 2022-05-24 Deondre DAVILA [place] - [id number] M atagor 00:00:00 00:00:00 Discovery adrienne Ashby MD: 600 [facility] [address] [address] , Ph. [phone] 2022-05-13 2022-05-13 Outpatient G_Pappas MMG MMG 2021 [place] 00:00:00 00:00:00 0925 [facility] 2022-05-03 2022-05-03 Outpatient G_Pappas MMG MMG [id number] [place] 00:00:00 00:00:00 0915 Medical Group 2022-05-03 2022-05-03 [facility] [place] [facility] [id number] M at[facility]or 00:00:00 00:00:00 Discovery adrienne Ashby MD: 600 [facility] - [address], [place] [address] , Ph. [phone] 2022-03-28 2022-03-28 [facility] [id number] [place] 00:00:00 00:00:00 0810 [facility] 2019-12-18 2019-12-18 [facility] [id number] Univers 10:10:01 23:59:00 NADIR [facility] 2019-11-27 2019-11-27 Outpatient Mitchel [facility] [id number] Univers 10:00:00 10:00:00 [facility] 2019-11-26 2019-11-26 [facility] [id number] Univers 09:30:00 09:30:00 [facility] 2019-11-26 2019-11-26 Outpatient [facility]chel [facility] [id number] Univers 08:15:00 08:15:00 [facility] 2013-07-08 2013-07-09 Inpatient LUBNA ASHBY [facility] [id number] [place] 05:14:00 18:45:00 DEONDRE [id number] [facility] 2012-08-27 2012-08-28 Outpatient LUBNA ASHBY [facility] [id number] [place] 05:51:00 11:03:00 DEONDRE [id number] [facility] Results Test Description Test Time Test Comments [...] Blood (test code = Blood) Moderate Specific Wisner (test code = Specific Wisner) 1.020 Ketone (test code = Ketone) Negative Bilirubin (test code = Bilirubin) Negative Glucose (test code = Glucose) Negative Appearance (test code = Appearance) Clear Color (test code = Color) Yellow [facility] Vaginal fluid by Wet [id number] 10:59:15 Test Item Value Reference Range Interpretation Comments Clue Cells (test code = Clue Cells) negative WBCs (test code = WBCs) positive Trichomonads (test code = negative Trichomonads) Epithelial cells (test code = abnormal Epithelial cells) RBCs (test code = RBCs) negative [facility]Identifier[facility] in Vaginal fluid by Wet [id number] 10:59:15 Test Item Value Reference Range Interpretation Comments Clue Cells (test code = Clue Cells) negative WBCs (test code = WBCs) positive Trichomonads (test code = negative Trichomonads) Epithelial cells (test code = abnormal Epithelial cells) RBCs (test code = RBCs) negative [facility] [id number] 06:36:00 Test Item Value Reference Range Interpretation Comments PROTHROMBIN TIME 30.1 SECONDS 9.3-12.9 H PATIENT (test code = PTP) INTERNATIONAL NORMAL 2.7 0.8-1.2 H TARGET INR BY RATIO (test [...] infar ct). COMMENTS: INR X 10 DAYSPROTHROMBIN [id number] 09:06:00 Test Item Value Reference Range Interpretation [...] prevent systemic emboli sm), Valvular heart disease, Atria l Fibrillation, Bileaflet mecha nical valve in aortic position.2. Mec hanical prosthetic valv es (high risk), 2. 5 - 3.5 Presence of Lup us Anticoagulant o r Antiphospholipi d Antibodies, Pre vention of systemic emb olism - Acute Myocardia l Infarction (to prevent recurrent infar ct). RENAL FUNCTION [id number] 07:50:00 Test Item Value Reference Range Interpretation [...] code = 3.4 MG/DL 2.5-4.9 N PHOS) [id number] 07:50:00 Test Item Value Reference Range Interpretation Comments MAGNESIUM (test code = MAG) 1.70 mg/dL 1.8-2.4 L CBC W/AUTO [id number] 07:18:00 Test Item Value Reference Range Interpretation [...] NO = MDIFF) - CT ABD PELVIS [id number] 15:24:00 Name: ZAYNAB SHAW [facility] : 1935 Age/S: 83 / F [address] [place] [address] Unit #: [id number] Loc: [place] [address] Phys: Greg Mercer MD Acct: [id number] Dis Date: Status: ADM IN PHONE #: [phone] Exam Date: 05/01/2019 1500 FAX #: [phone] Reason: L1 fracture EXAMS: CPT CODE: [id number] CT ABD PELVIS W/CONT 75816 PROCEDURE: CT ABDOMEN AND PELVIS WITH CONTRAST [...] 1 Signed Report (CONTINUED) Name: ZAYNAB SHAW [facility] : 1935 Age/S: 83 / F [address] [place] [address] Blvd Unit #: [id number] Loc: [place] [address] Phys: Greg Mercer MD Acct: [id number] Dis Date: Status: ADM IN PHONE #: [phone] Exam Date: 05/01/2019 1500 FAX #: [phone] Reason: L1 fracture EXAMS: CPT CODE: [id number] CT ABD PELVIS W/CONT 58321 (Continued) PELVIS: A Malave catheter is in [...] on today's CT lumbar spine. END IMPRESSION [id number] at 1524 Reported and signed by: Elliot Walker M.D. CC: Charan Velasquez DO; Greg Mercer Technologist:Phyllis Duran RT(R)(CT) CTDI: DLP: Trnscb Date/Time: 05/01/2019 (1524) [id number] Orig Print D/T: S: 05/01/2019 (1527) PAGE 2 Signed ReportRENAL FUNCTION [id number] 14:30:00 Test Item Value Reference Range Interpretation [...] 3.3 MG/DL 2.5-4.9 N PHOS) RENAL FUNCTION [id number] 14:28:00 Test Item Value Reference Range Interpretation [...] PHOSPHOROUS (test code = PHOS) MG/DL 2.5-4.9 Notes Date/Time Note Provider Source 2019-05-03 14:26:00-00:00 [facility] ([facility]) Discharge Summary REPORT#:[id number] REPORT STATUS: Signed DATE:05/03/19 TIME: 1425 PATIENT: ZAYNAB SHAW UNIT #: [id number] ROOM/BED: [place] [address] : 33 AGE: 83 SEX: F ATTEND: Greg Mercer MD ADM AUTHOR: Daly Jones AGACN P * ALL edits or amendments must be made on the el 3scaleronic/computer document * PCP PCP PCP: PCP: No Primary or Family Physician Discharge to: home General Information Problem List/A P: 1. Compression fracture of L1 vertebra 2. Fall from slip, trip, or stumble Date of admission: Observation Start Date: Date of admission: 05/01/19 Date of discharge: 05/03/19 Admission diagnosis: Fall, L1 compression fracture Discharge diagnosis: Fall, L1 compression fracture Hospital course: 83yo woman with PMH significant for paroxysmal a trial fibrillation, anticoagulant use, hypertens ion, COPD, bunions who had a mechanical fall hitting herself against a door knob resulting in: 1. L1 fracture 05/02/19: Tertiary trauma survey completed and ne gathenry 05/02/19: SBIRT: CAGE negative. Completed Neurosurgery recommended non operative managemen t and f/u as outpatient. Cardiology was consulted for afib and isaias lobo recommended for a watchman procedure with outpatient cardiology f ollow up. Coumadin was resumed upon discharge home. Upon discharge the patient s VS were stable, afebrile, tolerating a regular diet , pain was controlled with oral pain medications , voiding w/o problems, was ambulatory with a rolling dc lker and she was medically stable for d/c home with outpatient follow up. A tertiary trauma survey w as completed and negative for missed or occult injury. Consultants: cardiology, internal medicine, neur osurgery Pt. condition on discharge: improved, stable Allergies: Allergies: promethazine (From PHENERGAN) (Coded, Severe, [facility], 05/02/19) SBIRT: completed Med Rec PCP PCP: PCP: No Primary or Family Physician Med Rec Discharge meds: Continue taking these medications: WARFARIN (COUMADIN) 2.5 MG TAB 2.5 MILLIGRAM ORAL DAILY. Start taking the following new medications: METOPROLOL TARTRATE (LOPRESSOR) 25 MG TAB 12.5 MILLIGRAM ORAL EVERY 12 HOURS. Days = 30 No Refills HYDROcodone/APAP (NORCO 7.5/325) 1 TAB TAB 1 TABLET ORAL EVERY 6 HOURS NEEDED. as neede d for PAIN SCALE 7-10 Qty = 30 No Refills Objective VS/I O Last Documented: Result Date Time Pulse Ox 92 05/03 1144 B/P 136/59 05/03 1144 B/P Mean 84.7 05/03 1144 O2 Delivery Room air 05/03 114 Temp 98.2 05/03 1144 Pulse 56 05/03 1144 Resp 14 05/03 1144 O2 Flow Rate 0.212770 05/01 1600 Patient Weight Weight (lb): Weight (oz): Weight (kg): 52.273 Treatments Procedures Lab: Laboratory Tests Test Result Date Time Chemistry Sodium (134 - 147 mEq/L) 136 05/02 0650 Potassium (3.4 - 5.0 mEq/L) 3.9 05/02 0650 Chloride (100 - 108 mEq/L) 105 05/02 0650 Carbon Dioxide (21 - 33 mEq/L) 26 05/02 0650 Anion Gap (0 - 20) 9 05/02 0650 BUN (7 - 18 mg/dL) 15 05/02 0650 Creatinine (0.6 - 1.3 mg/dL) 0.7 05/02 0650 Glomerular Filtr Rate (70 - 80) 79.5 05/02 0650 Glucose (70 - 110 mg/dL) 82 05/02 0650 Calcium (8.0 - 10.5 mg/dL) 8.6 05/02 0650 Phosphorus (2.5 - 4.9 MG/DL) 3.4 05/02 0650 Magnesium (1.8 - 2.4 mg/dL) 1.70 L 05/02 0650 Albumin (3.4 - 5.0 g/dL) 2.90 L 05/02 0650 Coagulation INR (0.8 - 1.2) 2.7 H 05/03 0500 PT Patient/Control Mix (9.3 - 12.9 SECONDS) 30. 1 H 05/03 0500 Hematology WBC (4.5 - 11.0 x10 3/uL) 6.97 05/02 0650 RBC (3.54 - 5.02 x10 6/uL) 4.14 05/02 0650 Hgb (11.0 - 15.0 g/dL) 12.7 05/02 0650 Hct (33.0 - 45.0 %) 39.4 05/02 0650 MCV (81.0 - 99.0 fL) 95.2 05/02 0650 MCH (27.0 - 33.0 pg) 30.7 05/02 0650 MCHC (33.0 - 37.0 g/dL) 32.2 L 05/02 0650 RDW (11.5 - 14.5 %) 12.4 05/02 0650 Plt Count (150 - 400 x10 3/uL) 255 05/02 0650 MPV (7.0 - 9.0 fL) 10.2 H 05/02 0650 Neut % (Auto) (56.0 - 77.0 %) 61.6 / 0650 Lymph % (Auto) (14.0 - 32.0 %) 24.4 / 0650 Elliott % (Auto) (4.8 - 9.0 %) 9.3 H 05/02 0650 Eos % (Auto) (0.3 - 3.7 %) 3.2 / 0650 Baso % (Auto) (0.0 - 2.0 %) 1.1 / 0650 Neut # (Auto) (2.0 - 7.6 x10 3/uL) 4.29 05/02 0650 Lymph # (Auto) (1.0 - 3.8 x10 3/uL) 1.70 / 0650 Elliott # (Auto) (0.1 - 0.8 x10 3/uL) 0.65 / 0650 Eos # (Auto) (0.0 - 0.2 x10 3/uL) 0.22 H 05/02 0650 Baso # (Auto) (0.0 - 0.2 x10 3/uL) 0.08 / 0 650 Abs Immat Gran (auto) (0.00 - 0.03 x10 3/uL) 0. 03 05/02 0650 Add Manual Diff NO 05/02 0650 Immature Gran % (0.0 - 2.0 %) 0.4 / 0650 Nucleated RBC % (0 - 0 %) 0.0 05/02 0650 Nucleated RBCs # (Man) (0.0 - 0.1 x10 3/uL) 0.0 0 05/02 0650 Imaging: L1 fracture from outside hospital imaging Discharge Instructions Diet: regular Activity: as tolerated, non-strenuous Wound/dressing care: na Equipment/supplies: [facility] F/U labs/procedures/tests: f/u for coumadin testing, call for appt tomorrow in am f/u with pcp and cardiology this week. call for appt Notify provider of these s/s: fever, weakness in extremities Additional instructions: do not drink alcohol or drive while taking pain meds Prescriptions: on chart Return to work/school: na Discharge management: less than 30 mins, face to face encounter Time spent: Time spent with patient (minutes): 15 Follow-up Appointments PCP: PCP: No Primary or Family Physician Follow up timeframe: tomorrow Special instructions: call for appt at 1340 RPT #:[id number] END OF REPORT 2019-05-03 12:22:00-00:00 [facility] ([facility] Cardiology Progress Note REPORT#:[id number] REPORT STATUS: Signed DATE:05/03/19 TIME: 1222 PATIENT: ZAYNAB SHAW UNIT #: [id number] ROOM/BED: [place] [address] : 33 AGE: 83 SEX: F ATTEND: Greg Mercer MD ADM AUTHOR: Erendira Leone NP * ALL edits or amendments must be made on the eMar/[employer] document * Subjective Chief Complaint: Pt without complaints of CP, SOB, or palpitation s. She states she is able to ambulate to the bathroom without presyncopal sym ptoms. Objective General VS/I O: 24 hour I O ending at 0700: 05/03 0700 05/02 1900 Intake Total Output Total Balance Number Voids 2 Vital Signs: Date Time Temp Pulse Resp B/P B/P Pulse O2 O2 F low FiO2 Mean Ox Delivery Rate 05/03 1144 36.8 56 14 136/59 84.7 92 Room air 05/03 0731 36.7 59 14 114/66 82.1 93 Room air 05/03 0424 36.7 55 16 164/75 104 92 Room air 05/02 2303 36.7 66 18 119/61 80.1 92 Room air 05/02 1610 36.6 62 14 177/79 111.8 90 Room air 05/02 1227 36.5 57 14 134/70 91.3 92 Room air Patient Weight Weight (lb): Weight (oz): Weight (kg): 52.273 Physical Exam General appearance: frail, alert, awake, oriente d, no acute distress Head/Eyes: atraumatic, EOMI, normocephalic Cardiovascular: CV assessment: regular rate and rhythm Respiratory: clear to auscultation, no distress Abdomen: soft, non-tender Lower extremity: LE assessment: no edema Neuro/LUG BREAKER AND WIRE PULLER: alert, oriented X 3, normal speech Psychiatry: normal affect, normal judgment/insig ht, normal mood Results Findings/Data: Laboratory Tests 05/03 0500 Coagulation INR (0.8 - 1.2) 2.7 H PT Patient/Control Mix (9.3 - 12.9 SECONDS) 30. 1 H Diagnosis, Assessment Plan Free Text DxA P Notes Free Text DxA P Notes: This is an 83 year old female with a past medica l history of paroxsymal Afib currently on Coumadin, HTN, COPD, TIA, and RA wh o presented to the ER after sustaining a fall today. Car diology was consulted for consideration of Watchman procedure. 1. Paroxsymal Afib - Currently with regular rhythm, no EKG for revi ew at this time. Will place orders for EKG. - hold Coumadin in case surgical procedure will be warranted - CHADsVASc score 5 - initiate Lovenox bridge - Pt and family recommended to follow up as outpt for consideration of Watchman Procedure. Procedure describ ed to them and they state they will think about it. 2. HTN - Pt and family unsure of metoprolol dosing, shama l start low at 12.5mg BID and monitor response 3. Mechanical fall with lumbar compression fract ure - per Neurosurgery 05/02: Overall stable cardiac status. stable ry thm. No surgical intervention planned. AT this time, plan is to go with PT and pain control. Need to resume coumadin. Family wish to take time for now before making decisoin on LAAO procedure which is reasonable. WE will fu as an oupt and come ba ck to this 05/03: Stable HR and BP tren d with beta margarito, currently not feeling syncopal. Coumadin resumed, INR acceptable at 2.7. Plan fo r Pt to dc home today. Pt has appointment with established hosted services analyst in a c ouple of weeks. She has been given our office information if she decides LAAO procedure is desired. Electronically Signed by Erendira Leone NP on at 1225 RPT #:[id number] END OF REPORT 2019-05-03 12:22:00-00:00 [facility] ([facility]) Cardiology Progress Note REPORT#:[id number] REPORT STATUS: Signed DATE:05/03/19 TIME: 1222 PATIENT: ZAYNAB SHAW UNIT #: [id number] ROOM/BED: [place] [address] : 33 AGE: 83 SEX: F ATTEND: Greg Mercer MD ADM AUTHOR: Erendira Leone NP * ALL edits or amendments must be made on the eMar/computer document * Subjective Chief Complaint: Pt without complaints of CP, SOB, or palpitation s. She states she is able to ambulate to the bathroom without presyncopal sym ptoms. Objective General VS/I O: 24 hour I O ending at 0700: 05/03 0700 05/02 1900 Intake Total Output Total Balance Number Voids 2 Vital Signs: Date Time Temp Pulse Resp B/P B/P Pulse O2 O2 F low FiO2 Mean Ox Delivery Rate 05/03 1144 36.8 56 14 136/59 84.7 92 Room air 05/03 0731 36.7 59 14 114/66 82.1 93 Room air 05/03 0424 36.7 55 16 164/75 104 92 Room air 05/02 2303 36.7 66 18 119/61 80.1 92 Room air 05/02 1610 36.6 62 14 177/79 111.8 90 Room air 05/02 1227 36.5 57 14 134/70 91.3 92 Room air Patient Weight Weight (lb): Weight (oz): Weight (kg): 52.273 Physical Exam General appearance: frail, alert, awake, oriente d, no acute distress Head/Eyes: atraumatic, EOMI, normocephalic Cardiovascular: CV assessment: regular rate and rhythm Respiratory: clear to auscultation, no distress Abdomen: soft, non-tender Lower extremity: LE assessment: no edema Neuro/LUG BREAKER AND WIRE PULLER: alert, oriented X 3, normal speech Psychiatry: normal affect, normal judgment/insig ht, normal mood Results Findings/Data: Laboratory Tests 05/03 0500 Coagulation INR (0.8 - 1.2) 2.7 H PT Patient/Control Mix (9.3 - 12.9 SECONDS) 30. 1 H Diagnosis, Assessment Plan Free Text DxA P Notes Free Text DxA P Notes: This is an 83 year old female with a past medica l history of paroxsymal Afib currently on Coumadin, HTN, COPD, TIA, and RA wh o presented to the ER after sustaining a fall today. Car diology was consulted for consideration of Watchman procedure. 1. Paroxsymal Afib - Currently with regular rhythm, no EKG for revi ew at this time. Will place orders for EKG. - hold Coumadin in case surgical procedure will be warranted - CHADsVASc score 5 - initiate Lovenox bridge - Pt and family recommended to follow up as outpt for consideration of Watchman Procedure. Procedure describ ed to them and they state they will think about it. 2. HTN - Pt and family unsure of metoprolol dosing, shama l start low at 12.5mg BID and monitor response 3. Mechanical fall with lumbar compression fract ure - per Neurosurgery 05/02: Overall stable cardiac status. stable ry thm. No surgical intervention planned. AT this time, plan is to go with PT and pain control. Need to resume coumadin. Family wish to take time for now before making decisoin on LAAO procedure which is reasonable. WE will fu as an oupt and come ba ck to this 05/03: Stable HR and BP tren d with beta margarito, currently not feeling syncopal. Coumadin resumed, INR acceptable at 2.7. Plan fo r Pt to dc home today. Pt has appointment with established hosted services analyst in a c ouple of weeks. She has been given our office information if she decides LAAO procedure is desired. Electronically Signed by Erendira Leone NP on at 1228 Electronically Signed by El Moreno MD on 05/06 at 8921 RPT #:[id number] END OF REPORT 2019-05-03 11:40:00-00:00 [facility] ([facility]) Pharmacy Prog.Note-Anticoag REPORT#:[id number] REPORT STATUS: Signed DATE:05/03/19 TIME: 1140 PATIENT: ZAYNAB SHAW UNIT #: [id number] ROOM/BED: [facility] : 33 AGE: 83 SEX: F ATTEND: Greg Mercer MD ADM AUTHOR: Latoya Lr [facility] * ALL edits or amendments must be made on the eMar/computer document * Anticoagulation Anticoagulation Medication therapy: warfarin Goal INR: 2 - 3 INR/med table: INR Date/Time INR Warfarin Dose Interactions/No sherry 05/02 3.2 HOLD 05/03 2.7 2.5 MG Indication for treatment: atrial fibrillation Current therapy: Home dose: warfarin 2.5mg PO daily Vital signs: 24 hours ending at 0700 05/03 0700 05/02 2300 05/02 1500 Intake Total Output Total Balance Number Voids 1 1 24 Hour I O Total 05/03 0700 Intake Total Output Total Balance Vital Signs Date Temp Pulse Resp B/P B/P Mean Pulse Ox FiO2 05/02-05/03 97.7-98.1 55-66 14-18 114-177/61-79 80.1-111.8 90-93 Labs: Laboratory Tests: 05/02 05/01 0650 1330 Chemistry Albumin (3.4 - 5.0 g/dL) 2.90 L 3.00 L Hematology Hgb (11.0 - 15.0 g/dL) 12.7 Hct (33.0 - 45.0 %) 39.4 Plt Count (150 - 400 x10 3/uL) 255 PT/INR 72 Hr Trend: 05/03 05/02 0500 0830 Coagulation INR (0.8 - 1.2) 2.7 H 3.2 H Treatment plan: consult, change regimen Regimen: 83 yo F with 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 She was in the bathroom when she stumbled o johnny her feet and fell backwards and hit the doorknob with her back. She had no loss of consciousness, headstrike, nor other trauma elsewhere. She has no pain elsewhere. She report s the pain in the back is moderate, does not radiate, worse with palpation and movement. It is improved with pain medications. The pain is a bony sensat ion. She was transferred here for a higher level of care. No surgical interven tions per neurosurgery, neuro intact to all extremities. Pharmacy cons ulted to manage pt's warfarin therapy. Of note, pt was recommended to get a watchman pr ocedure with outpatient hosted services analyst once discharge. Goal INR: 2-3 Home dose: warfarin 2.5mg PO daily Potential DDI: enoxaparin 50mg sq q12h (d/c'ed ) A/P 05/03: * INR 2.7 down and therapeutic. * H/H/Plt 12.7/39.4/255 (05/02) no reported s/s b leeding. * Resume warfarin 2.5 mg PO daily at this time ( home dose). Dose carefully as high fall risk. * Daily INR ordered through 05/10. Pharmacy will continue to monitor Electronically Signed by Latoya Lr [facility] on at 1143 RPT #:[id number] END OF REPORT 2019-05-03 08:32:00-00:00 [facility] REPORT#:[id number] REPORT STATUS: Signed DATE:05/03/19 TIME: 08 PATIENT: ZAYNAB SHAW UNIT #: [id number] ROOM/BED: [place] [address] : 33 AGE: 83 SEX: F ATTEND: Greg Mercer MD ADM AUTHOR: Dhara Sam Jr DO * ALL edits or amendments must be made on the el 3scaleronic/computer document * Subjective Chief Complaint: pt seen/examined. f/u for L1 fx. no new issues/c omplaints. Objective General VS/I O: Vital Signs: Date Time Temp Pulse Resp B/P B/P Pulse O2 O2 F low FiO2 Mean Ox Delivery Rate 05/03 0731 36.7 59 14 114/66 82.1 93 Room air 05/03 0424 36.7 55 16 164/75 104 92 Room air 05/02 2303 36.7 66 18 119/61 80.1 92 Room air 05/02 1610 36.6 62 14 177/79 111.8 90 Room air 05/02 1227 36.5 57 14 134/70 91.3 92 Room air 24 hour I O ending at 0700: 05/03 0700 05/02 1900 Intake Total Output Total Balance Number Voids 2 Patient Weight Weight (lb): Weight (oz): Weight (kg): 52.273 Physical Exam General appearance: awake Head/Eyes: atraumatic, normocephalic ENT: moist mucosal membranes Neck: supple/no meningismus Cardiovascular: normal heart sounds, regular rat e rhythm Respiratory: aerating well, clear to auscultatio n Abdomen: non-tender, soft Extremities: no clubbing, no cyanosis Neuro/LUG BREAKER AND WIRE PULLER: oriented X 3, CNII-XII intact Psychiatry: normal affect, normal judgment/insig ht Results Findings/Data: Laboratory Tests 05/03 0500 Coagulation INR (0.8 - 1.2) 2.7 H PT Patient/Control Mix (9.3 - 12.9 SECONDS) 30 .1 H Diagnosis, Assessment Plan Free Text DxA P Notes Free Text DxA P Notes: IMPRESSION: This is an 83-year-old female, who i s here with: 1. Status post fall. 2. L1 fracture. 3. Atrial fibrillation. 4. Hypertension. 5. Chronic obstructive pulmonary disease. PLAN: - pain control - anticoag - inr therapeutic - dc planning Electronically Signed by Dhara Sam Jr, DO on at 0834 RPT #:[id number] END OF REPORT 2019-05-03 07:53:00-00:00 [facility] ([facility]) Trauma Progress Note REPORT#:[id number] REPORT STATUS: Signed DATE:05/03/19 TIME: 0753 PATIENT: ZAYNAB SHAW UNIT #: [id number] ROOM/BED: [facility] : 33 AGE: 83 SEX: F ATTEND: Greg Mercer MD ADM AUTHOR: Karen,Daly ASSISTANT AT SURGERY AGACN P * ALL edits or amendments must be made on the eMar/computer document * Subjective Chief Complaint: 05/01/19: Fall, L1 compression fracture Pain better controlled with [place] Ambulating to the bathroom w/o problems Daughter (caregiver) at bedside Objective General Ambulation status: ambulating, self (prior to ad mission) Physical Exam VS/I O: Vital Signs: Date Time Temp Pulse Resp B/P B/P Pulse O2 O2 F low FiO2 Mean Ox Delivery Rate 05/03 1144 98.2 56 14 136/59 84.7 92 Room air 05/03 0731 98.1 59 14 114/66 82.1 93 Room air 05/03 0424 98.0 55 16 164/75 104 92 Room air 05/02 2303 98.1 66 18 119/61 80.1 92 Room air 05/02 1610 97.9 62 14 177/79 111.8 90 Room air 24 hour I O ending at 0700: 05/03 0700 05/02 1900 Intake Total Output Total Balance Number Voids 2 Patient Weight Weight (lb): Weight (oz): Weight (kg): 52.273 Medications: Active Meds + DC'd Last 24 Hrs Warfarin Sodium 2.5 MG DAILY 1700 PO Hydralazine HCl 10 MG Q4H PRN PRN PO Miscellaneous Information 1 EACH ASDIR IV Polyethylene Glycol 17 GM DAILY PO Metoprolol Tartrate 12.5 MG Q12HR PO Acetaminophen 650 MG Q6H PRN PRN PO Hydrocodone Bitart/Acetaminophen 1 TAB Q4H PRN P RN PO Morphine Sulfate 4 MG Q4H PRN PRN IV Ondansetron HCl 4 MG Q4H PRN PRN IV Tramadol HCl 50 MG Q4H PRN PRN PO General appearance: alert, awake, oriented, no a cute distress, pleasant, conversational, mental status normal, no respira tory distress Fracture: L1 fracture Head/Eyes: atraumatic, normocephalic, PERRL ENT: atraumatic, no malocclusion Neck: atraumatic, full range of motion, non-tend er Cardiovascular: normal heart sounds, regular rat e rhythm Respiratory/Chest: aerating well, atraum atic, clear to auscultation, symmetric expansion, no distress Abdomen: soft, non-tender, n o guarding, no rebound, no distention, normal bowel sounds Back/spine: Back: midline spine tenderness (L1 region) Pelvis: atraumatic, pelvis stable Extremities: dry, moves all, normal movement/sen sation, Severe bunions/ arthritis noted to feet and hands. Neuro/LUG BREAKER AND WIRE PULLER: alert, oriented X 3 Skin: dry, normal temperature Psychiatry: normal affect, normal judgment/insig ht, normal mood Results Findings/Data: Laboratory Tests 05/03 0500 Coagulation INR (0.8 - 1.2) 2.7 H PT Patient/Control Mix (9.3 - 12.9 SECONDS) 30. 1 H Results: #labs reviewed, #vital signs stable, cu rrent med profile rev'd Diagnosis, Assessment Plan Problem List/A P: 1. Compression fracture of L1 vertebra 2. Fall from slip, trip, or stumble Free Text A P: 05/01/19 admit of a 83yo woman with PMH significa nt for paroxsymal atrial fibrillation, anticoagulant use, hypertension, C OPD, bunions who had a mechanical fall hitting herself against a door k nob resulting in: 1. L1 fracture 05/02/19: Tertiary trauma survey completed and ne gative 05/02/19: SBIRT: CAGE negative. Completed Neuro: Appreciate neurosurgery input. -Neuro intact to all extremities. -Non operative management, f/u as outpatient. -No need for TLSO brace CV: Appreciate Cardiology input -Recommend Watchman procedure with outpatient Ca rdiologist -Metoprolol low dose -On full dose Lovenox -EKG (05/02/19) with sinus bradycardia -Resume coumadin, pharmacy consulted for dosing. INR 2.7 today. GI: Stable -Tolerating regular diet -CT abd/pelvis negative for intra-abdominal proc ess. : voiding w/o problems MS: Severe bunions, chronic. No signs of other i njuries. -PT/OT to evaluate and mobilize Prophylaxis: SCDs. Already anticoagulated with C oumadin and today's INR 2.7 SBIRT: CAGE negative. Process completed Dispo: Home today with daughter. Discussed at [facility] f/u with cardiology this week for coumadin testing. She will make appt in the am. Orders: Procedure Date/time Status Discharge Order With Parameter 05/03 1426 Activ e Consultants: cardiology, neurosurgery, pharmacy Plan discussed with: patient, daughter (caregive r at bedside) at 1441 RPT #:[id number] END OF REPORT 2019-05-03 07:53:00-00:00 [facility] ([facility]) Trauma Progress Note REPORT#:[id number] REPORT STATUS: Signed DATE:05/03/19 TIME: 0753 PATIENT: ZAYNAB SHAW UNIT #: [id number] ROOM/BED: [place] [address] : 33 AGE: 83 SEX: F ATTEND: Greg Mercer MD ADM AUTHOR: Daly Jones * ALL edits or amendments must be made on the [employer]Mar[employer] document * See Addendum Subjective Chief Complaint: 05/01/19: Fall, L1 compression fracture Pain better controlled with [place] Ambulating to the bathroom w/o problems Daughter (caregiver) at bedside Objective General Ambulation status: ambulating, self (prior to ad mission) Physical Exam VS/I O: Vital Signs: Date Time Temp Pulse Resp B/P B/P Pulse O2 O2 F low FiO2 Mean Ox Delivery Rate 05/03 1144 98.2 56 14 136/59 84.7 92 Room air 05/03 0731 98.1 59 14 114/66 82.1 93 Room air 05/03 0424 98.0 55 16 164/75 104 92 Room air 05/02 2303 98.1 66 18 119/61 80.1 92 Room air 05/02 1610 97.9 62 14 177/79 111.8 90 Room air 24 hour I O ending at 0700: 05/03 0700 05/02 1900 Intake Total Output Total Balance Number Voids 2 Patient Weight Weight (lb): Weight (oz): Weight (kg): 52.273 Medications: Active Meds + DC'd Last 24 Hrs Warfarin Sodium 2.5 MG DAILY 1700 PO Hydralazine HCl 10 MG Q4H PRN PRN PO Miscellaneous Information 1 EACH ASDIR IV Polyethylene Glycol 17 GM DAILY PO Metoprolol Tartrate 12.5 MG Q12HR PO Acetaminophen 650 MG Q6H PRN PRN PO Hydrocodone Bitart/Acetaminophen 1 TAB Q4H PRN P RN PO Morphine Sulfate 4 MG Q4H PRN PRN IV Ondansetron HCl 4 MG Q4H PRN PRN IV Tramadol HCl 50 MG Q4H PRN PRN PO General appearance: alert, awake, oriented, no a cute distress, pleasant, conversational, mental status normal, no respira tory distress Fracture: L1 fracture Head/Eyes: atraumatic, normocephalic, PERRL ENT: atraumatic, no malocclusion Neck: atraumatic, full range of motion, non-tend er Cardiovascular: normal heart sounds, regular rat e rhythm Respiratory/Chest: aerating well, atraum atic, clear to auscultation, symmetric expansion, no distress Abdomen: soft, non-tender, n o guarding, no rebound, no distention, normal bowel sounds Back/spine: Back: midline spine tenderness (L1 region) Pelvis: atraumatic, pelvis stable Extremities: dry, moves all, normal movement/sen sation, Severe bunions/ arthritis noted to feet and hands. Neuro/LUG BREAKER AND WIRE PULLER: alert, oriented X 3 Skin: dry, normal temperature Psychiatry: normal affect, normal judgment/insig ht, normal mood Results Findings/Data: Laboratory Tests 05/03 0500 Coagulation INR (0.8 - 1.2) 2.7 H PT Patient/Control Mix (9.3 - 12.9 SECONDS) 30 .1 H Results: #labs reviewed, #vital signs stable, cu rrent med profile rev'd Diagnosis, Assessment Plan Problem List/A P: 1. Compression fracture of L1 vertebra 2. Fall from slip, trip, or stumble Free Text A P: 05/01/19 admit of a 83yo woman with PMH significa nt for paroxsymal atrial fibrillation, anticoagulant use, hypertension, C OPD, bunions who had a mechanical fall hitting herself against a door k nob resulting in: 1. L1 fracture 05/02/19: Tertiary trauma survey completed and ne gative 05/02/19: SBIRT: CAGE negative. Completed Neuro: Appreciate neurosurgery input. -Neuro intact to all extremities. -Non operative management, f/u as outpatient. -No need for TLSO brace CV: Appreciate Cardiology input -Recommend Watchman procedure with outpatient Ca rdiologist -Metoprolol low dose -On full dose Lovenox -EKG (05/02/19) with sinus bradycardia -Resume coumadin, pharmacy consulted for dosing. INR 2.7 today. GI: Stable -Tolerating regular diet -CT abd/pelvis negative for intra-abdominal proc ess. : voiding w/o problems MS: Severe bunions, chronic. No signs of other i njuries. -PT/OT to evaluate and mobilize Prophylaxis: SCDs. Already anticoagulated with Coumadin and today's INR 2.7 SBIRT: CAGE negative. Process completed Dispo: Home today with daughter. Discussed at [facility] f/u with cardiology this week for coumadin testing. She will make appt in the am. Orders: Procedure Date/time Status Discharge Order With Parameter 05/03 1426 Activ e Consultants: cardiology, neurosurgery, pharmacy Plan discussed with: patient, daughter (caregive r at bedside) at 1441 Addendum 1: 05/03/19 1515 by Greg Mercer MD Agree with above, pain better controlled. Home w ith daughter. Outpatient INR followup with cardiology. at 1516 RPT #:[id number] END OF REPORT 2019-05-02 17:07:00-00:00 [facility]L [facility] ([facility]) Cardiology Progress Note REPORT#:[id number] REPORT STATUS: Signed DATE:05/02/19 TIME: 1706 PATIENT: ZAYNAB SHAW UNIT #: [id number] ROOM/BED: [place] [address] : 33 AGE: 83 SEX: F ATTEND: Greg Mercer MD ADM AUTHOR: El Moreno MD * ALL edits or amendments must be made on the el 3scaleronic/computer document * Subjective Comments: Patient examined. Overall doing ok. D/w family. Pain control is the main issue here. No surgery is planned Objective General VS/I O: 24 hour I O ending at 0700: 05/02 0700 05/01 1900 Intake Total 480 Output Total 675 Balance -195 Intake, Oral 480 Output, Urine 675 Patient 52.273 kg Weight Weight Estimated Measurement Method Vital Signs: Date Time Temp Pulse Resp B/P B/P Pulse O2 O2 F low FiO2 Mean Ox Delivery Rate 05/02 1610 97.9 62 14 177/79 111.8 90 Room air 05/02 1227 97.7 57 14 134/70 91.3 92 Room air 05/02 0723 97.9 63 16 169/79 108.8 92 Room air 05/02 0344 97.7 60 16 157/66 96.2 95 Room air 05/02 0008 97.7 56 16 131/63 85.5 05/01 1928 97.7 60 16 169/72 104.4 95 Room air 05/01 1807 98.1 63 18 146/73 97 100 Room air Patient Weight Weight (lb): Weight (oz): Weight (kg): 52.273 Medications: Active Meds + DC'd Last 24 Hrs Hydralazine HCl 10 MG Q4H PRN PRN PO (UNV) Magnesium Oxide 400 MG ONCE ONE PO (DC) Miscellaneous Information 1 EACH ASDIR IV Polyethylene Glycol 17 GM DAILY PO Metoprolol Tartrate 12.5 MG Q12HR PO Enoxaparin Sodium 50 MG Q12H SUBQ (DC) Acetaminophen 650 MG Q6H PRN PRN PO Hydrocodone Bitart/Acetaminophen 1 TAB Q4H PRN P RN PO Morphine Sulfate 4 MG Q4H PRN PRN IV Ondansetron HCl 4 MG Q4H PRN PRN IV Tramadol HCl 50 MG Q4H PRN PRN PO Physical Exam General appearance: chronically ill appearing, f rail Diagnosis, Assessment Plan Free Text DxA P Notes Free Text DxA P Notes: This is an 83 year old female with a past medica l history of paroxsymal Afib currently on Coumadin, HTN, COPD, TIA, and RA wh o presented to the ER after sustaining a fall today. Car diology was consulted for consideration of Watchman procedure. 1. Paroxsymal Afib - Currently with regular rhythm, no EKG for revi ew at this time. Will place orders for EKG. - hold Coumadin in case surgical procedure will be warranted - CHADsVASc score 5 - initiate Lovenox bridge - Pt and family recommended to follow up as outpt for consideration of Watchman Procedure. Procedure describ ed to them and they state they will think about it. 2. HTN - Pt and family unsure of metoprolol dosing, shama l start low at 12.5mg BID and monitor response 3. Mechanical fall with lumbar compression fract ure - per Neurosurgery 05/02: Overall stable cardiac status. stable ry thm. No surgical intervention planned. AT this time, plan is to go with PT and pain control. Need to resume coumadin. Family wish to take time for now before making decisoin on LAAO procedure which is reasonable. WE will fu as an oupt and come ba ck to this Electronically Signed by El Moreno MD on 05/02 at 1712 RPT #:[id number] END OF REPORT 2019-05-02 13:07:00-00:00 HCACL [facility] Prog.Note-Anticoag REPORT#:[id number] REPORT STATUS: Signed DATE:05/02/19 TIME: 1307 PATIENT: ZAYNAB SHAW UNIT #: [id number] ROOM/BED: [place] [address] : 33 AGE: 83 SEX: F ATTEND: Greg Mercer MD ADM AUTHOR: Latoya Lr [facility] * ALL edits or amendments must be made on the eMar/computer document * Anticoagulation Anticoagulation Medication therapy: warfarin Goal INR: 2 - 3 INR/med table: INR Date/Time INR Warfarin Dose Interactions/No sherry 05/02 3.2 HOLD Indication for treatment: atrial fibrillation Current therapy: Home dose: warfarin 2.5mg PO daily Vital signs: 24 hours ending at 0700 05/02 0700 05/01 2300 05/01 1500 Intake Total 240 240 Output Total 375 300 Balance -135 -60 Intake, Oral 240 240 Output, Urine 375 300 Patient 52.273 kg Weight Weight Estimated Measurement Method 24 Hour I O Total 05/02 0700 Intake Total 480 Output Total 675 Balance -195 Vital Signs Date Temp Pulse Resp B/P B/P Mean Pulse Ox FiO2 05/01-09/14 97.7-98.4 56-63 14-18 131-169/63-79 85.5-108.8 92-100 Labs: Laboratory Tests: 05/02 05/01 0650 1330 Chemistry Albumin (3.4 - 5.0 g/dL) 2.90 L 3.00 L Hematology Hgb (11.0 - 15.0 g/dL) 12.7 Hct (33.0 - 45.0 %) 39.4 Plt Count (150 - 400 x10 3/uL) 255 PT/INR 72 Hr Trend: 05/02 0830 Coagulation INR (0.8 - 1.2) 3.2 H Treatment plan: consult, change regimen Regimen: 83 yo F with 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 She was in the bathroom when she stumbled o johnny her feet and fell backwards and hit the doorknob with her back. She had no loss of consciousness, headstrike, nor other trauma elsewhere. She has no pain elsewhere. She report s the pain in the back is moderate, does not radiate, worse with palpation and movement. It is improved with pain medications. The pain is a bony sensat ion. She was transferred here for a higher level of care. No surgical interven tions per neurosurgery, neuro intact to all extremities. Pharmacy cons ulted to manage pt's warfarin therapy. Of note, pt was recommended to get a watchman pr ocedure with outpatient hosted services analyst once discharge. Goal INR: 2-3 Home dose: warfarin 2.5mg PO daily Potential DDI: enoxaparin 50mg sq q12h (d/c'ed ) A/P 05/02: * INR 3.2, supratherapeutic. * H/H/Plt 12.7/39.4/255 no reported s/s bleeding . * Per d/w Daly d/bull lovenox and hold warfarin today. Trend INR and resume warfarin once INR <3 * Daily INR ordered through 05/10. Pharmacy will continue to monitor Thank you Daly Jones for this consult Electronically Signed by Latoya Lr [facility] on at 1412 RPT #:[id number] END OF REPORT 2019-05-02 12:40:00-00:00 [id number] [address] PATIENT NAME: ZAYNAB SHAW ADMIT DATE: 9 ACCOUNT NO: [id number] ROOM NO: [facility] AGE: 83 REPORT TYPE: CONSULTATION REPORT SEX: F ADMITTING PHYSICIAN:Greg Mercer MD ATTENDING PHYSICIAN:Greg Mercer MD CONSULTATION DATE: CONSULTING PHYSICIAN: Dhara Bruno REASON FOR CONSULTATION: Medical management. HISTORY OF PRESENT ILLNESS: An 83-year-old femal e with a history of AFib and hypertension, who was seen i n the Emergency Department per EMS, transferred from [facility] for Trauma Surgery cons [facility]. The patient stated she was in the restroom and was opened the door and lost her ba jaden and fell on her back. X-ray was done that showed an inferior L1 endpla te fracture. The patient was given some pain medicine and sent here f or further evaluation. The patient has since been seen by trauma. PAST MEDICAL HISTORY: AFib, COPD, hypertension, history of TIA, on anticoagulant. PAST SURGICAL HISTORY: Bladder suspension, foot surgery. SOCIAL HISTORY: No tobacco or alcohol use. FAMILY HISTORY: Noncontributory. MEDICATIONS: See medication reconciliation. ALLERGIES: ALLERGIC TO PROMETHAZINE. REVIEW OF SYSTEMS: Pertinent for stated above in the HPI. PERTINENT LABORATORY DATA: CBC within normal ramirez its. Sodium 136, potassium 3.9, chloride 105, CO2 26, B UN 15, creatinine 0.7, and glucose 82. PT 36.1, INR 3.2. PHYSICAL EXAMINATION: VITAL SIGNS: Blood pressure is 134/70, pulse 57, respiratory rate 14, and temperature 36.5 Celsius. GENERAL: This is an 83-year-old female, in no ac tonto apache distress, alert and oriented x3. HEENT: Normocephalic and atraumatic. Pupils equ al and reactive to light. Extraocular muscles intact. NECK: Supple. No JVD. No bruits. CARDIOVASCULAR: Heart is regular rate and rhythm without murmur or gallops. LUNGS: Clear to auscultation bilaterally without rales, rhonchi, or wheezes. ABDOMEN: Soft, nontender, and nondistended. No g uarding. No rebound. EXTREMITIES: No clubbing, edema, or cyanosis. NEUROLOGICAL: Grossly intact without any motor o r sensory deficit. IMPRESSION: This is an 83-year-old female, who i s here with: 1. Status post fall. 2. L1 fracture. 3. Atrial fibrillation. 4. Hypertension. 5. Chronic obstructive pulmonary disease. PLAN: The patient has been seen and eval uated by Cardiology as well as Trauma. PATIENT NAME: ZAYNAB SHAW 1740 [id number] [place] [id number] PATIENT NAME: ZAYNAB SHAW ADMIT DATE: 9 ACCOUNT NO: [id number] ROOM NO: G.417 AGE: 83 REPORT TYPE: CONSULTATION REPORT SEX: F ADMITTING PHYSICIAN:Greg Mercer MD ATTENDING PHYSICIAN:Greg Mercer MD We will hold her Coumadin at this time. We will continue to monitor closely. Pain control. Better BP control. The patient may be discharged later on today once cleared by Trauma. Dictated By: Dhara Bruno WT: CON:JEMIMA/YANI/GM Conf#: [id number]/CHARLIE#: [id number] Authenticated by Dhara Sam DO On 05/05/2019 02:36: 27 PM Electronically Signed by Dhara Sam Jr, DO on 04/19 03/06 at 1436 PATIENT NAME: ZAYNAB SHAW 1740 2019-05-02 08:22:00-00:00 [phone] [place] [address] PATIENT NAME: ZAYNAB SHAW ADMIT DATE: 9 ACCOUNT NO: [id number] ROOM NO: G.417 AGE: 83 REPORT TYPE: eELECTROCARDIOGRAM REPORT SEX: F ADMITTING PHYSICIAN:Greg Mercer MD ATTENDING PHYSICIAN:Greg Mercer MD Order: [id number] Test Reason : Afib Test Date/Time Stamp: SatMay 02 2019 08:22:26 Blood Pressure : / mmHG Vent. Rate : 058 BPM Atrial Rate : 058 BPM P-R Int : 162 ms QRS Dur : 104 ms QT Int : 478 ms P-R-T Axes : 068 -34 078 degre es QTc Int : 469 ms Sinus bradycardia with sinus arrhythmia Left anterior fascicular block Abnormal ECG No previous ECGs available Confirmed by JOANN MORENO ([id number]) on 06/03/2019 1 1:33:39 AM Referred By: Self Referred Confirmed by:JOANN NÚÑEZ Electronically Signed by Joann Moreno MD on at 1133 PATIENT NAME: ZAYNAB SHAW [id number] 2019-05-02 07:55:00-00:00 [facility]L [facility] Trauma Progress Note REPORT#:[id number] REPORT STATUS: Signed DATE:05/02/19 TIME: 0755 PATIENT: ZAYNAB SHAW UNIT #: [id number] ROOM/BED: [place] [address] : 33 AGE: 83 SEX: F ATTEND: Greg Mercer MD ADM AUTHOR: Daly Jones AGACN P * ALL edits or amendments must be made on the [employer]Mar[employer] document * Subjective Chief Complaint: 05/01/19: Fall, L1 compression fracture c/o pain in the right hip and lower back control led with pain meds Has not been OOB yet with physical therapy Daughter at the bedside Objective General Ambulation status: ambulating, self (prior to ad mission) Physical Exam VS/I O: Vital Signs: Date Time Temp Pulse Resp B/P B/P Pulse O2 O2 F low FiO2 Mean Ox Delivery Rate 05/02 1227 97.7 57 14 134/70 91.3 92 Room air 05/02 0723 97.9 63 16 169/79 108.8 92 Room air 05/02 0344 97.7 60 16 157/66 96.2 95 Room air 05/02 0008 97.7 56 16 131/63 85.5 05/01 1928 97.7 60 16 169/72 104.4 95 Room air 05/01 1807 98.1 63 18 146/73 97 100 Room air 05/01 1600 97.9 60 18 139/74 95 100 Room air 0. 129822 05/01 1330 98.4 60 18 138/72 94 100 Room air 24 hour I O ending at 0700: 05/02 0700 05/01 1900 Intake Total 480 Output Total 675 Balance -195 Intake, Oral 480 Output, Urine 675 Patient 52.273 kg Weight Weight Estimated Measurement Method Patient Weight Weight (lb): Weight (oz): Weight (kg): 52.273 Medications: Active Meds + DC'd Last 24 Hrs Polyethylene Glycol 17 GM DAILY PO Metoprolol Tartrate 12.5 MG Q12HR PO Enoxaparin Sodium 50 MG Q12H SUBQ Iopamidol 100 ML .STK-MED ONE IV (DC) Acetaminophen 650 MG Q6H PRN PRN PO Hydrocodone Bitart/Acetaminophen 1 TAB Q4H PRN P RN PO Morphine Sulfate 4 MG Q4H PRN PRN IV Ondansetron HCl 4 MG Q4H PRN PRN IV Tramadol HCl 50 MG Q4H PRN PRN PO General appearance: alert, awake, oriented, no a cute distress, pleasant, conversational, mental status normal, no respira tory distress Fracture: L1 fracture Head/Eyes: atraumatic, normocephalic, PERRL ENT: atraumatic, no malocclusion Neck: atraumatic, full range of motion, non-tend er Cardiovascular: normal heart sounds, regular rat e rhythm Respiratory/Chest: aerating well, atraum atic, clear to auscultation, symmetric expansion, no distress Abdomen: soft, non-tender, n o guarding, no rebound, no distention, normal bowel sounds Back/spine: Back: midline spine tenderness (L1 region) Pelvis: atraumatic, pelvis stable Extremities: dry, moves all, normal movement/sen sation, Severe bunions/ arthritis noted to feet and hands. Neuro/LUG BREAKER AND WIRE PULLER: alert, oriented X 3 [place] Coma Score: [place] Coma Score: Response Value Saqib eyes: eyes open spontaneously 4 Saqib speech: oriented 5 Saqib motor: obeys commands 6 Total 15 Skin: dry, normal temperature Psychiatry: normal affect, normal judgment/insig ht, normal mood Results Findings/Data: Laboratory Tests 05/02 05/01 0650 1330 Chemistry Sodium (134 - 147 mEq/L) 136 138 Potassium (3.4 - 5.0 mEq/L) 3.9 4.2 Chloride (100 - 108 mEq/L) 105 104 Carbon Dioxide (21 - 33 mEq/L) 26 28 Anion Gap (0 - 20) 9 10 BUN (7 - 18 mg/dL) 15 17 Creatinine (0.6 - 1.3 mg/dL) 0.7 0.7 Glomerular Filtr Rate (70 - 80) 79.5 79.5 Glucose (70 - 110 mg/dL) 82 90 Calcium (8.0 - 10.5 mg/dL) 8.6 8.4 Phosphorus (2.5 - 4.9 MG/DL) 3.4 3.3 Magnesium (1.8 - 2.4 mg/dL) 1.70 L Albumin (3.4 - 5.0 g/dL) 2.90 L 3.00 L Laboratory Tests 05/02 0830 Coagulation INR (0.8 - 1.2) 3.2 H PT Patient/Control Mix (9.3 - 12.9 SECONDS) 36. 1 H Laboratory Tests 05/02 0650 Hematology WBC (4.5 - 11.0 x10 3/uL) 6.97 RBC (3.54 - 5.02 x10 6/uL) 4.14 Hgb (11.0 - 15.0 g/dL) 12.7 Hct (33.0 - 45.0 %) 39.4 MCV (81.0 - 99.0 fL) 95.2 MCH (27.0 - 33.0 pg) 30.7 MCHC (33.0 - 37.0 g/dL) 32.2 L RDW (11.5 - 14.5 %) 12.4 Plt Count (150 - 400 x10 3/uL) 255 MPV (7.0 - 9.0 fL) 10.2 H Neut % (Auto) (56.0 - 77.0 %) 61.6 Lymph % (Auto) (14.0 - 32.0 %) 24.4 Elliott % (Auto) (4.8 - 9.0 %) 9.3 H Eos % (Auto) (0.3 - 3.7 %) 3.2 Baso % (Auto) (0.0 - 2.0 %) 1.1 Neut # (Auto) (2.0 - 7.6 x10 3/uL) 4.29 Lymph # (Auto) (1.0 - 3.8 x10 3/uL) 1.70 Elliott # (Auto) (0.1 - 0.8 x10 3/uL) 0.65 Eos # (Auto) (0.0 - 0.2 x10 3/uL) 0.22 H Baso # (Auto) (0.0 - 0.2 x10 3/uL) 0.08 Abs Immat Gran (auto) (0.00 - 0.03 x10 3/uL) 0. 03 Add Manual Diff NO Immature Gran % (0.0 - 2.0 %) 0.4 Nucleated RBC % (0 - 0 %) 0.0 Nucleated RBCs # (Man) (0.0 - 0.1 x10 3/uL) 0.0 0 Radiology data: Recent Impressions: CAT SCAN - CT ABD PELVIS W/CONT 05/01 1500 Report Impression - Status: SIGNED Entered: 05/01/2019 1527 IMPRESSION: 1. Moderate sigmoid diverticulosis. 2. Moderately large fluid-filled hiatal hernia. 3. 12 mm urinary bladder stone. 4. Bilateral renal cysts. 5. 10% compression of the L1 vertebral body whic h will be further described on today's CT lumbar spine. END IMPRESSION [id number] Impression By: AnuelRTB - Elliot Walker M.D. Results: #labs reviewed, #vi hailey signs stable, x-ray personally reviewed, current med profile rev'd, tertiary exam performed (nega tive) Diagnosis, Assessment Plan Problem List/A P: 1. Compression fracture of L1 vertebra 2. Fall from slip, trip, or stumble Free Text A P: 05/01/19 admit of a 83yo woman with PMH significa nt for paroxsymal atrial fibrillation, anticoagulant use, hypertension, C OPD, bunions who had a mechanical fall hitting herself against a door k nob resulting in: 1. L1 fracture 05/02/19: Tertiary trauma survey completed and ne gative 05/02/19: SBIRT: CAGE negative. Completed Neuro: Appreciate neurosurgery input. -Neuro intact to all extremities. -Non operative management, f/u as outpatient. -No need for TLSO brace CV: Appreciate Cardiology input -Recommend Watchman procedure with outpatient Ca rdiologist -Metoprolol low dose -On full dose Lovenox -EKG (05/02/19) with sinus bradycardia -Resume coumadin, pharmacy consulted for dosing GI: Stable -Tolerating regular diet -CT abd/pelvis negative for intra-abdominal proc ess. MS: Severe bunions, chronic. No signs of other i njuries. -PT/OT to evaluate and mobilize Prophylaxis: SCDs. Already anticoagulated with C oumadin and today's INR 2.49 SBIRT: Does not drink, but CAGE questionnaire pe nding. Dispo: Anticipate discharge home when clears phy sical therapy. d/w daughter ( caregiver) at bedside, hopefully today or in am. Orders: Procedure Date/time Status PROTHROMBIN TIME 05/10 1254 Active PROTHROMBIN TIME 05/09 1254 Active PROTHROMBIN TIME 05/08 1254 Active PROTHROMBIN TIME 05/07 1254 Active PROTHROMBIN TIME 05/06 1254 Active PROTHROMBIN TIME 05/05 1254 Active PROTHROMBIN TIME 05/04 1254 Active PROTHROMBIN TIME 05/03 1254 Active PROTHROMBIN TIME 05/02 1254 Active PHARMACY CONSULT 05/02 1254 Active Discontinue Cath/Malave 05/02 1017 Active Consultants: cardiology, neurosurgery, pharmacy Plan discussed with: patient, daughter (at [facility]) at 1257 RPT #:[id number] END OF REPORT 2019-05-02 07:55:00-00:00 [facility]L [facility] ([facility]) Trauma Progress Note REPORT#:[id number] REPORT STATUS: Signed DATE:05/02/19 TIME: 0755 PATIENT: ZAYNAB SHAW UNIT #: [id number] ROOM/BED: [facility]-1 : 33 AGE: 83 SEX: F ATTEND: Greg Mercer MD ADM AUTHOR: Daly Jones P * ALL edits or amendments must be made on the [employer]Mar[employer] document * See Addendum Subjective Chief Complaint: 05/01/19: Fall, L1 compression fracture c/o pain in the right hip and lower back control led with pain meds Has not been OOB yet with physical therapy Daughter at the bedside Objective General Ambulation status: ambulating, self (prior to ad mission) Physical Exam VS/I O: Vital Signs: Date Time Temp Pulse Resp B/P B/P Pulse O2 O2 F low FiO2 Mean Ox Delivery Rate 05/02 1227 97.7 57 14 134/70 91.3 92 Room air 05/02 0723 97.9 63 16 169/79 108.8 92 Room air 05/02 0344 97.7 60 16 157/66 96.2 95 Room air 05/02 0008 97.7 56 16 131/63 85.5 05/01 1928 97.7 60 16 169/72 104.4 95 Room air 05/01 1807 98.1 63 18 146/73 97 100 Room air 05/01 1600 97.9 60 18 139/74 95 100 Room air 0. [id number] 05/01 1330 98.4 60 18 138/72 94 100 Room air 24 hour I O ending at 0700: 05/02 0700 05/01 1900 Intake Total 480 Output Total 675 Balance -195 Intake, Oral 480 Output, Urine 675 Patient 52.273 kg Weight Weight Estimated Measurement Method Patient Weight Weight (lb): Weight (oz): Weight (kg): 52.273 Medications: Active Meds + DC'd Last 24 Hrs Polyethylene Glycol 17 GM DAILY PO Metoprolol Tartrate 12.5 MG Q12HR PO Enoxaparin Sodium 50 MG Q12H SUBQ Iopamidol 100 ML .STK-MED ONE IV (DC) Acetaminophen 650 MG Q6H PRN PRN PO Hydrocodone Bitart/Acetaminophen 1 TAB Q4H PRN P RN PO Morphine Sulfate 4 MG Q4H PRN PRN IV Ondansetron HCl 4 MG Q4H PRN PRN IV Tramadol HCl 50 MG Q4H PRN PRN PO General appearance: alert, awake, oriented, no a cute distress, pleasant, conversational, mental status normal, no respira tory distress Fracture: L1 fracture Head/Eyes: atraumatic, normocephalic, PERRL ENT: atraumatic, no malocclusion Neck: atraumatic, full range of motion, non-tend er Cardiovascular: normal heart sounds, regular rat e rhythm Respiratory/Chest: aerating well, atraum atic, clear to auscultation, symmetric expansion, no distress Abdomen: soft, non-tender, n o guarding, no rebound, no distention, normal bowel sounds Back/spine: Back: midline spine tenderness (L1 region) Pelvis: atraumatic, pelvis stable Extremities: dry, moves all, normal movement/sen sation, Severe bunions/ arthritis noted to feet and hands. Neuro/LUG BREAKER AND WIRE PULLER: alert, oriented X 3 Saqib Coma Score: Saqib Coma Score: Response Value [place] eyes: eyes open spontaneously 4 Saqib speech: oriented 5 Saqib motor: obeys commands 6 Total 15 Skin: dry, normal temperature Psychiatry: normal affect, normal judgment/insig ht, normal mood Results Findings/Data: Laboratory Tests 05/02 05/01 0650 1330 Chemistry Sodium (134 - 147 mEq/L) 136 138 Potassium (3.4 - 5.0 mEq/L) 3.9 4.2 Chloride (100 - 108 mEq/L) 105 104 Carbon Dioxide (21 - 33 mEq/L) 26 28 Anion Gap (0 - 20) 9 10 BUN (7 - 18 mg/dL) 15 17 Creatinine (0.6 - 1.3 mg/dL) 0.7 0.7 Glomerular Filtr Rate (70 - 80) 79.5 79.5 Glucose (70 - 110 mg/dL) 82 90 Calcium (8.0 - 10.5 mg/dL) 8.6 8.4 Phosphorus (2.5 - 4.9 MG/DL) 3.4 3.3 Magnesium (1.8 - 2.4 mg/dL) 1.70 L Albumin (3.4 - 5.0 g/dL) 2.90 L 3.00 L Laboratory Tests 05/02 0830 Coagulation INR (0.8 - 1.2) 3.2 H PT Patient/Control Mix (9.3 - 12.9 SECONDS) 36 .1 H Laboratory Tests 05/02 0650 Hematology WBC (4.5 - 11.0 x10 3/uL) 6.97 RBC (3.54 - 5.02 x10 6/uL) 4.14 Hgb (11.0 - 15.0 g/dL) 12.7 Hct (33.0 - 45.0 %) 39.4 MCV (81.0 - 99.0 fL) 95.2 MCH (27.0 - 33.0 pg) 30.7 MCHC (33.0 - 37.0 g/dL) 32.2 L RDW (11.5 - 14.5 %) 12.4 Plt Count (150 - 400 x10 3/uL) 255 MPV (7.0 - 9.0 fL) 10.2 H Neut % (Auto) (56.0 - 77.0 %) 61.6 Lymph % (Auto) (14.0 - 32.0 %) 24.4 Elliott % (Auto) (4.8 - 9.0 %) 9.3 H Eos % (Auto) (0.3 - 3.7 %) 3.2 Baso % (Auto) (0.0 - 2.0 %) 1.1 Neut # (Auto) (2.0 - 7.6 x10 3/uL) 4.29 Lymph # (Auto) (1.0 - 3.8 x10 3/uL) 1.70 Elliott # (Auto) (0.1 - 0.8 x10 3/uL) 0.65 Eos # (Auto) (0.0 - 0.2 x10 3/uL) 0.22 H Baso # (Auto) (0.0 - 0.2 x10 3/uL) 0.08 Abs Immat Gran (auto) (0.00 - 0.03 x10 3/uL) 0. 03 Add Manual Diff NO Immature Gran % (0.0 - 2.0 %) 0.4 Nucleated RBC % (0 - 0 %) 0.0 Nucleated RBCs # (Man) (0.0 - 0.1 x10 3/uL) 0.0 0 Radiology data: Recent Impressions: CAT SCAN - CT ABD PELVIS W/CONT 05/01 1500 Report Impression - Status: SIGNED Entered: 05/01/2019 7537 IMPRESSION: 1. Moderate sigmoid diverticulosis. 2. Moderately large fluid-filled hiatal hernia. 3. 12 mm urinary bladder stone. 4. Bilateral renal cysts. 5. 10% compression of the L1 vertebral body whic h will be further described on today's CT lumbar spine. END IMPRESSION [id number] Impression By: Elie.RTB - Elliot Walker M.D. Results: #labs reviewed, #vi hailey signs stable, x-ray personally reviewed, current med profile rev'd, tertiary exam performed (nega tive) Diagnosis, Assessment Plan Problem List/A P: 1. Compression fracture of L1 vertebra 2. Fall from slip, trip, or stumble Free Text A P: 05/01/19 admit of a 83yo woman with PMH significa nt for paroxsymal atrial fibrillation, anticoagulant use, hypertension, C OPD, bunions who had a mechanical fall hitting herself against a door k nob resulting in: 1. L1 fracture 05/02/19: Tertiary trauma survey completed and ne gative 05/02/19: SBIRT: CAGE negative. Completed Neuro: Appreciate neurosurgery input. -Neuro intact to all extremities. -Non operative management, f/u as outpatient. -No need for TLSO brace CV: Appreciate Cardiology input -Recommend Watchman procedure with outpatient Ca rdiologist -Metoprolol low dose -On full dose Lovenox -EKG (05/02/19) with sinus bradycardia -Resume coumadin, pharmacy consulted for dosing GI: Stable -Tolerating regular diet -CT abd/pelvis negative for intra-abdominal proc ess. MS: Severe bunions, chronic. No signs of other i njuries. -PT/OT to evaluate and mobilize Prophylaxis: SCDs. Already anticoagulated with C oumadin and today's INR 2.49 SBIRT: Does not drink, but CAGE questionnaire pe nding. Dispo: Anticipate discharge home when clears phy sical therapy. d/w daughter ( caregiver) at bedside, hopefully today or in am. Orders: Procedure Date/time Status PROTHROMBIN TIME 05/10 1254 Active PROTHROMBIN TIME 05/09 1254 Active PROTHROMBIN TIME 05/08 1254 Active PROTHROMBIN TIME 05/07 1254 Active PROTHROMBIN TIME 05/06 1254 Active PROTHROMBIN TIME 05/05 1254 Active PROTHROMBIN TIME 05/04 1254 Active PROTHROMBIN TIME 05/03 1254 Active PROTHROMBIN TIME 05/02 1254 Active PHARMACY CONSULT 05/02 1254 Active Discontinue Cath/Malave 05/02 1017 Active Consultants: cardiology, neurosurgery, pharmacy Plan discussed with: patient, daughter (at bedsi de) at 1257 Addendum 1: 05/02/19 1648 by Greg Mercer MD Agree with above, seen and examined. Overall doi ng better, home once pain controlled. Watchman maybe as an outpatient. at 1649 RPT #:[id number] END OF REPORT 2019-05-01 18:01:00-00:00 [facility] Cardiology Consultation REPORT#:[id number] REPORT STATUS: Signed DATE:05/01/19 TIME: 180 PATIENT: ZAYNAB SHAW UNIT #: [id number] ROOM/BED: [place] [address] : 33 AGE: 83 SEX: F ATTEND: Greg Mercer MD ADM AUTHOR: Erendira Leone TEST AND TURN UP TECHNICIAN * ALL edits or amendments must be made on the [employer] document * History of Present Illness HPI Requesting Clinician: Dr. Mercer Reason for consult: Afib Chief complaint: Fall HPI: This is an 83 year old female with a past medica l history of paroxsymal Afib currently on Coumadin, HTN, COPD, TIA, and RA wh o presented to the ER after sustaining a fall today. Car diology was consulted for consideration of Watchman procedure. Pt currently denies any CP, SOB, palp itations, dizziness, or lightheadedness. Pt states s he has had paroxsymal Afib for some time. She states few breakthrough episodes, t he last of which occurred 2 months ago when she was diagnosed with a UTI. She wa s resumed on metoprolol at that time. She states she was previously taken off met oprolol because it caused hypotension with resultant syncope. She denies any sync ope since restarting metoprolol. She states today's fall occured because of gait imbalance. Her last follow up with her Refrigerator Crater , Dr. Walker in [place], was 2 months ago w [facility] plans for follow up next month. She states her last appointment was for a Coumadin check and her hosted services analyst had no other concerns. History - Adult longitudinal Past medical history: Reports: Atrial fib/flutter, COPD, Hypertension, Transient ischemic attack, Anticoagulant therapy. Additional medical history: rheumatoid arthritis, osteoarthritis, bunions Additional surgical history: Bladder suspension, feet surgery Additional family history: not pertinent to current admission Alcohol use: Denies EtOH use Drug use: Denies recreational drugs Smoking status for patients 13 years old or olde r: Never Smoker Other social history: Good social support, Lives with daughter Medications: Home Medications: Medication Dose/Rte/Freq Days Qty Entered Last Max Daily Dose Reviewed WARFARIN (COUMADIN) 2.5 MG PO DAILY 05/01/19 Strength: 2.5 MG TAB 1806 Current Hospital Medications: Central Nervous System Agents Sig/Maggy Start time Last Medication Dose Route Stop Time Status Admin Acetaminophen 650 MG Q6H PRN PRN 05/01 1300 AC (TYLENOL) PO 05/31 1259 Hydrocodone Bitart/ 1 TAB Q4H PRN PRN 05/01 130 0 AC Acetaminophen PO 05/31 1259 (NORCO 7.5/325 TABLET) Morphine Sulfate 4 MG Q4H PRN PRN 05/01 1300 AC 05/01 (morphine SULFATE) IV 05/15 1259 1327 Tramadol HCl 50 MG Q4H PRN PRN 05/01 1300 AC (ULTRAM) PO 05/31 1259 Hydrocodone Bitart/ 1 TAB X1ED STA 05/01 1122 D C Acetaminophen PO 05/01 1123 (NORCO 5/325) Diagnostic Agents Sig/Maggy Start time Last Medication Dose Route Stop Time Status Admin Iopamidol 100 ML .STK-MED ONE 05/01 1511 DC (ISOVUE-300 100ML) IV 05/01 1512 1511 Gastrointestinal Drugs Sig/Maggy Start time Last Medication Dose Route Stop Time Status Admin Polyethylene Glycol 17 GM DAILY 05/02 0900 AC (MIRALAX) PO 06/01 0859 Ondansetron HCl 4 MG Q4H PRN PRN 05/01 1300 AC 05/01 (ZOFRAN) IV 05/31 1259 1327 Allergies: Coded Allergies: No Known Allergies (05/01/19) Occupation: Retired Ambulatory status: Independent Review of Systems Additional notes: 14 point ROS obtained and negative excep t for what is stated above in the HPI. Objective Physical Exam VS/I O: Vital Signs: Date Time Temp Pulse Resp B/P B/P Pulse O2 O2 F low FiO2 Mean Ox Delivery Rate 05/01 1107 36.7 62 20 158/70 99 94 Room air Patient Weight Weight (lb): Weight (oz): Weight (kg): 52.273 General appearance: alert, awake, oriented, no a cute distress, mental status normal, no respiratory distress Head/Eyes: atraumatic, EOMI, normocephalic ENT: moist mucosal membranes Cardiovascular: CV assessment: regular rate and rhythm Respiratory: clear to auscultation, no distress Abdomen: soft, non-tender, normal bowel sounds Lower extremity: LE assessment: no edema Musculoskeletal: decreased ROM (RUE) Neuro/LUG BREAKER AND WIRE PULLER: alert, oriented X 3, normal speech Skin: dry Psychiatry: normal affect, normal judgment/insig ht, normal mood Results Findings/Data: Laboratory Tests 05/01 1330 Chemistry Sodium (134 - 147 mEq/L) 138 Potassium (3.4 - 5.0 mEq/L) 4.2 Chloride (100 - 108 mEq/L) 104 Carbon Dioxide (21 - 33 mEq/L) 28 Anion Gap (0 - 20) 10 BUN (7 - 18 mg/dL) 17 Creatinine (0.6 - 1.3 mg/dL) 0.7 Glomerular Filtr Rate (70 - 80) 79.5 Glucose (70 - 110 mg/dL) 90 Calcium (8.0 - 10.5 mg/dL) 8.4 Phosphorus (2.5 - 4.9 MG/DL) 3.3 Albumin (3.4 - 5.0 g/dL) 3.00 L Radiology Data: Recent Impressions: CAT SCAN - CT ABD PELVIS W/CONT 05/01 1500 Report Impression - Status: SIGNED Entered: 05/01/2019 1527 IMPRESSION: 1. Moderate sigmoid diverticulosis. 2. Moderately large fluid-filled hiatal hernia. 3. 12 mm urinary bladder stone. 4. Bilateral renal cysts. 5. 10% compression of the L1 vertebral body whic h will be further described on today's CT lumbar spine. END IMPRESSION [id number] Impression By: AnuelRTB - Elliot Walker M.D. Diagnosis, Assessment Plan CHADs2-VASc Score: CHADs2-VASc Score: Response Value CHF: No 0 HTN: Yes 1 age greater than 75 years: Yes 2 age between 65 and 74 yrs: No 0 hx stroke, TIA, or TE: Yes 2 vascular disease: No 0 diabetes mellitus: No 0 female: Yes 1 Total 6 Free Text DxA P Notes Free Text DxA P Notes: This is an 83 year old female with a past medica l history of paroxsymal Afib currently on Coumadin, HTN, COPD, TIA, and RA wh o presented to the ER after sustaining a fall today. Car diology was consulted for consideration of Watchman procedure. 1. Paroxsymal Afib - Currently with regular rhythm, no EKG for revi ew at this time. Will place orders for EKG. - hold Coumadin in case surgical procedure will be warranted - CHADsVASc score 5 - initiate Lovenox bridge - Pt and family recommended to follow up as outpt for consideration of Watchman Procedure. Procedure describ ed to them and they state they will think about it. 2. HTN - Pt and family unsure of metoprolol dosing, shama l start low at 12.5mg BID and monitor response 3. Mechanical fall with lumbar compression fract ure - per Neurosurgery Electronically Signed by Erendira Leone NP on at 1818 RPT #:[id number] END OF REPORT 2019-05-01 18:01:00-00:00 [facility] Cardiology Consultation REPORT#:[id number] REPORT STATUS: Signed DATE:05/01/19 TIME: 1801 PATIENT: ZAYNAB SHAW UNIT #: [id number] ROOM/BED: [place] [address] : 33 AGE: 83 SEX: F ATTEND: Greg Mercer MD ADM AUTHOR: Erendira Leone NP * ALL edits or amendments must be made on the el 3scaleronic/computer document * History of Present Illness HPI Requesting Clinician: Dr. Mercer Reason for consult: Afib Chief complaint: Fall HPI: This is an 83 year old female with a past medica l history of paroxsymal Afib currently on Coumadin, HTN, COPD, TIA, and RA wh o presented to the ER after sustaining a fall today. Car diology was consulted for consideration of Watchman procedure. Pt currently denies any CP, SOB, palp itations, dizziness, or lightheadedness. Pt states s he has had paroxsymal Afib for some time. She states few breakthrough episodes, t he last of which occurred 2 months ago when she was diagnosed with a UTI. She wa s resumed on metoprolol at that time. She states she was previously taken off met oprolol because it caused hypotension with resultant syncope. She denies any sync ope since restarting metoprolol. She states today's fall occured because of gait imbalance. Her last follow up with her Ref[employer]igerator [employer]ater , Dr. Walker in [place], was 2 months ago w dharmesh plans for follow up next month. She states her last appointment was for a Coumadin check and her hosted services analyst had no other concerns. History - Adult longitudinal Past medical history: Reports: Atrial fib/flutter, COPD, Hypertension, Transient ischemic attack, Anticoagulant therapy. Additional medical history: rheumatoid arthritis, osteoarthritis, bunions Additional surgical history: Bladder suspension, feet surgery Additional family history: not pertinent to current admission Alcohol use: Denies EtOH use Drug use: Denies recreational drugs Smoking status for patients 13 years old or olde r: Never Smoker Other social history: Good social support, Lives with daughter Medications: Home Medications: Medication Dose/Rte/Freq Days Qty Entered Last Max Daily Dose Reviewed WARFARIN (COUMADIN) 2.5 MG PO DAILY 05/01/19 Strength: 2.5 MG TAB 1806 Current Hospital Medications: Central Nervous System Agents Sig/Maggy Start time Last Medication Dose Route Stop Time Status Admin Acetaminophen 650 MG Q6H PRN PRN 05/01 1300 AC (TYLENOL) PO 05/31 1259 Hydrocodone Bitart/ 1 TAB Q4H PRN PRN 05/01 13 00 AC Acetaminophen PO 05/31 1259 (NORCO 7.5/325 TABLET) Morphine Sulfate 4 MG Q4H PRN PRN 05/01 1300 A C 05/01 (morphine SULFATE) IV 05/15 1259 1327 Tramadol HCl 50 MG Q4H PRN PRN 05/01 1300 AC (ULTRAM) PO 05/31 1259 Hydrocodone Bitart/ 1 TAB X1ED STA 05/01 1122 D C Acetaminophen PO 05/01 1123 (NORCO 5/325) Diagnostic Agents Sig/Maggy Start time Last Medication Dose Route Stop Time Status Admin Iopamidol 100 ML .STK-MED ONE 05/01 1511 DC (ISOVUE-300 100ML) IV 05/01 1512 1511 Gastrointestinal Drugs Sig/Maggy Start time Last Medication Dose Route Stop Time Status Admin Polyethylene Glycol 17 GM DAILY 05/02 0900 AC (MIRALAX) PO 06/01 0859 Ondansetron HCl 4 MG Q4H PRN PRN 05/01 1300 AC 05/01 (ZOFRAN) IV 05/31 1259 1327 Allergies: Coded Allergies: No Known Allergies (05/01/19) Occupation: Retired Ambulatory status: Independent Review of Systems Additional notes: 14 point ROS obtained and negative excep t for what is stated above in the HPI. Objective Physical Exam VS/I O: Vital Signs: Date Time Temp Pulse Resp B/P B/P Pulse O2 O2 F low FiO2 Mean Ox Delivery Rate 05/01 1107 36.7 62 20 158/70 99 94 Room air Patient Weight Weight (lb): Weight (oz): Weight (kg): 52.273 General appearance: alert, awake, oriented, no a cute distress, mental status normal, no respiratory distress Head/Eyes: atraumatic, EOMI, normocephalic ENT: moist mucosal membranes Cardiovascular: CV assessment: regular rate and rhythm Respiratory: clear to auscultation, no distress Abdomen: soft, non-tender, normal bowel sounds Lower extremity: LE assessment: no edema Musculoskeletal: decreased ROM (RUE) Neuro/LUG BREAKER AND WIRE PULLER: alert, oriented X 3, normal speech Skin: dry Psychiatry: normal affect, normal judgment/insig ht, normal mood Results Findings/Data: Laboratory Tests 05/01 1330 Chemistry Sodium (134 - 147 mEq/L) 138 Potassium (3.4 - 5.0 mEq/L) 4.2 Chloride (100 - 108 mEq/L) 104 Carbon Dioxide (21 - 33 mEq/L) 28 Anion Gap (0 - 20) 10 BUN (7 - 18 mg/dL) 17 Creatinine (0.6 - 1.3 mg/dL) 0.7 Glomerular Filtr Rate (70 - 80) 79.5 Glucose (70 - 110 mg/dL) 90 Calcium (8.0 - 10.5 mg/dL) 8.4 Phosphorus (2.5 - 4.9 MG/DL) 3.3 Albumin (3.4 - 5.0 g/dL) 3.00 L Radiology Data: Recent Impressions: CAT SCAN - CT ABD PELVIS W/CONT 05/01 1500 Report Impression - Status: SIGNED Entered: 05/01/2019 1527 IMPRESSION: 1. Moderate sigmoid diverticulosis. 2. Moderately large fluid-filled hiatal hernia. 3. 12 mm urinary bladder stone. 4. Bilateral renal cysts. 5. 10% compression of the L1 vertebral body whic h will be further described on today's CT lumbar spine. END IMPRESSION [id number] Impression By: AnuelRTB - Elliot Walker M.D. Diagnosis, Assessment Plan CHADs2-VASc Score: CHADs2-VASc Score: Response Value CHF: No 0 HTN: Yes 1 age greater than 75 years: Yes 2 age between 65 and 74 yrs: No 0 hx stroke, TIA, or TE: Yes 2 vascular disease: No 0 diabetes mellitus: No 0 female: Yes 1 Total 6 Free Text DxA P Notes Free Text DxA P Notes: This is an 83 year old female with a past medica l history of paroxsymal Afib currently on Coumadin, HTN, COPD, TIA, and RA wh o presented to the ER after sustaining a fall today. Car diology was consulted for consideration of Watchman procedure. 1. Paroxsymal Afib - Currently with regular rhythm, no EKG for revi ew at this time. Will place orders for EKG. - hold Coumadin in case surgical procedure will be warranted - CHADsVASc score 5 - initiate Lovenox bridge - Pt and family recommended to follow up as outpt for consideration of Watchman Procedure. Procedure describ ed to them and they state they will think about it. 2. HTN - Pt and family unsure of metoprolol dosing, shama l start low at 12.5mg BID and monitor response 3. Mechanical fall with lumbar compression fract ure - per Neurosurgery Electronically Signed by Erendira Leone NP on at 1818 Electronically Signed by El Moreno MD on 05/31 at 1739 RPT #:[id number] END OF REPORT 2019-05-01 12:52:00-00:00 [facility] ([facility]) Trauma - History Physical REPORT#:[id number] REPORT STATUS: Signed DATE:05/01/19 TIME: 1252 PATIENT: ZAYNAB SHAW UNIT #: [id number] ROOM/BED: [place] : 33 AGE: 83 SEX: F ATTEND: Greg Mercer MD ADM AUTHOR: Greg Mercer MD * ALL edits or amendments must be made on the [employer] document * History of Present Illness HPI Chief complaint: 05/01/19 Fall, L1 fracture HPI: Ms. Shaw is a 83 yo woman with multiple medical problems as listed below who comes in as a transfer from [place], [place] after a mechanical fall today and L1 fracture. She was in the bathroom when she stumb led over her feet and fell backwards and hit the doorkn ob with her back. She had no loss of consciousness, headstrike, nor other trauma elsewhere. She has no pain elsewhere. She reports the pain in the back is moderate, does not radia te, worse with palpation and movement. It is improved with pain medications. The pain is a bony sensation. She was transferred here for a higher level of care, I saw her within 45 minutes of notification of her arrival. History Past medical history: Reports: Atrial fib/flutter, COPD, Hypertension, Transient ischemic attack, Anticoagulant therapy. Additional medical history: rheumatoid arthritis, osteoarthritis, bunions Additional surgical history: Bladder suspension, feet surgery Additional family history: not pertinent to current admission Alcohol use: Denies EtOH use Drug use: Denies recreational drugs Smoking status for patients 13 years old or olde r: Never Smoker Other social history: Good social support, Lives with daughter Medication/Allergy-Vaccine Hx Medications: Home Medications: Warfarin 2.5mg daily Symbicort PRN Albuterol PRN Metoprolol 25 BID Baclofen 10mg daily Allergies: Coded Allergies: No Known Allergies (05/01/19) Occupation: Retired Ambulatory status: Independent Review of Systems Constitutional: Reports: generalized weakness. Denies: chills, f atigue, fever, lethargy, malaise, recent wt loss, other. Skin: Reports: bruising. Denies: abrasion, contusion, diaphoresis, ecchymosis, itching, laceration, rash, swelling, other. Allergy/Immun: Denies: allergic reaction, anaphylaxis, hives, i tching, rhinorrhea, sneezing, other. Eyes: Denies: redness, discharge, visual loss/blurred, itching, diplopia, eye pain, photophobia, swelling, other. ENT: Denies: ear drainage, ear ringing, earache, hear ing loss, mouth pain, nasal congestion, nose bleeding, sinus problem, sore t hroat, throat pain, throat swelling, tongue pain, tongue swelling, toothach e, voice change, other. Respiratory: Denies: BROOKE (dyspnea on exertion), hemoptysis, n on productive cough, parox nocturnal dyspnea, pleurisy, pleuritic pain, pneumonia, productive cough (sputum ), SOB, wheezing, other. Cardiovascular: Reports: BROOKE (dyspnea on exertion). Denies: ches t pain, edema, orthopnea, palpitations, parox nocturnal dyspnea, other. GI: Denies: abdominal pain, anorexia, constipation, diarrhea, dysphagia, GERD, hematemesis, hematochezia, h iatal hernia, melena, nausea, rectal pain, vomiting, other. : Denies: dysuria, flank pain, frequency, hematuri a, nocturia, pelvic pain, , urgency, urinary retention, vaginal bl eeding, vaginal discharge, other. Musculoskeletal: Other musculoskeletal: Reports: lumbar pain. Heme: Denies: adenopathy, bleeding, bruising, petechia e, other. Endocrine: Denies: cold intolerance, heat intolerance, poly dipsia, polyphagia, polyuria, weight gain, weight loss, other. Neuro: Denies: bladder dysfunction, bowel dysfunction, change in LOC, confusion, dizziness, focal weakness, gait problem, headach e, lightheaded, numbness, seizure, slurred speech, spinning sensation, syn cope, unable to speak, vision change, weakness, other. Psych: Denies: agitation, anxiety, auditory hallucinati on, change in mental status, confusion, delusional, depre ssion, homicidal ideation, hostile, insomnia, stress , suicidal ideation, visual hallucination, other . Physical Exam VS/I O Last Documented: Result Date Time Pulse Ox 94 05/01 110 B/P 158/70 05/01 1107 B/P Mean 99 05/01 110 O2 Delivery Room air 05/01 1107 Temp 98.1 05/01 1107 Pulse 62 05/01 110 Resp 20 05/01 110 Patient Weight Weight (lb): Weight (oz): Weight (kg): 52.273 General appearance: alert, awake, oriented, no a cute distress, mental status normal, no respiratory distress Fracture: L1 fracture Head/Eyes: atraumatic, normocephalic, PERRL ENT: atraumatic, no malocclusion Neck: atraumatic, full range of motion, non-tend er Cardiovascular: normal heart sounds, regular rat e rhythm Respiratory/chest: aerating well, atraum atic, clear to auscultation, symmetric expansion, no distress Abdomen: soft, non-tender, n o guarding, no rebound, no distention, normal bowel sounds Back/Spine: Back: midline spine tenderness (L1 region) Pelvis: atraumatic, pelvis stable Extremities: dry, moves all, normal movement/sen sation, Severe bunions/ arthritis noted to feet and hands. Neuro/LUG BREAKER AND WIRE PULLER: alert, oriented X 3 Saqib Coma Score: [place] Coma Score: Response Value Patient intubated? no Saqib eyes: eyes open spontaneously 4 [place] speech: oriented 5 [place] motor: obeys commands 6 Total 15 Diagnosis, Assessment Plan Problem List/A P: 1. Compression fracture of L1 vertebra 2. Fall from slip, trip, or stumble Free Text DxA P Notes Free Text DxA P Notes: 05/01/19 admit of a 83yo woman with PMH significa nt for atrial fibrillation, anticoagulant use, hypertens ion, COPD, bunions who had a mechanical fall hitting herself against a door knob resulting in: 1. L1 fracture Plan: Admit to trauma service to surgical vargas Neuro: Neurosurgery consult for the L1 fracture. Images not available but shows 15-20% inferior endplate fracture. Check C T scan here. CV: Patient on coumadin for atrial fibrillation but she has a history of recent falls. Will consult cardiology to consider Watch man procedure. -- She is also on metoprolol for rate control an d hypertension but her BP fluctuates. Will consult medicine as well as car diology. GI: Mild abdominal pain per report from patient but benign exam. Will CT abd/ pelvis with L spine to evalu ate for injury especially since patient on Coumadin. MS: Severe bunions, chronic. No signs of other i njuries. Prophylaxis: SCDs. Already anticoagulated with C oumadin and today's INR 2.49 SBIRT: Does not drink, but CAGE questionnaire pe nding. Dispo: Anticipate discharge home. at 1309 RPT #:[id number] END OF REPORT 2019-05-01 12:32:00-00:00 [facility] ([facility] Neurosurgical Consultation REPORT#:[id number] REPORT STATUS: Signed DATE:05/01/19 TIME: 1232 PATIENT: ZAYNAB SHAW UNIT #: [id number] ROOM/BED: [place] [address] : 33 AGE: 83 SEX: F ATTEND: Greg Mercer MD ADM AUTHOR: Yoanna Barker TEST AND TURN UP TECHNICIAN * ALL edits or amendments must be made on the eMar/computer document * Yoanna Barker 05/01/19 1232: History of Present Illness Requesting clinician: Greg Mercer MD Reason for consult: L1 fracture Chief complaint: Back pain HPI: This is an 83-year-old female with PMH o f a-fib (on warfarin), COPD, HTN, TIA, rheumatoid arthritis, presen marley to OSH s/p fall and found to have an L1 fracture on CT L spine OSH imaging. Patient state d that she fell backwards while in the bathroom. Per daughter, she was not able to get up or ambulate at the scene. Reports back pain radiating laterally, aggravated by movement, relieved by rest and medication. Denies radia tion of pain to BLE, numbness or paresthesia. CT abd /pelivis showed 10% compression of L1 VB. Neuros urgery consulted. History - Adult longitudinal Past medical history: Reports: Atrial fib/flutter, Hypertension, Trans ient ischemic attack. Additional surgical history: Bladder suspension Alcohol use: Denies EtOH use Smoking status for patients 13 years old or mary r: Never Smoker Other social history: Good social support, Lives with daughter Medications: Current Hospital Medications: Central Nervous System Agents Sig/Maggy Start time Last Medication Dose Route Stop Time Status Admin Hydrocodone Bitart/ 1 TAB X1ED STA 05/01 1122 D C Acetaminophen PO 05/01 1123 (NORCO 5/325) Allergies: Coded Allergies: No Known Allergies (05/01/19) Ambulatory status: Independent Review of Systems ROS Additional notes: 12 systems reviewed negative except HPI Objective VS/I O: Last Documented: Result Date Time Pulse Ox 94 05/01 110 B/P 158/70 05/01 110 B/P Mean 99 05/01 110 O2 Delivery Room air 05/01 1107 Temp 36.7 05/01 110 Pulse 62 05/01 110 Resp 20 05/01 110 Patient Weight Weight (lb): Weight (oz): Weight (kg): 52.273 General appearance: alert, awake, oriented Head/Eyes: normocephalic Neck: non-tender, no lymphadenopathy Cardiovascular: normal capillary refill, irregul evelin irregular Respiratory: no distress, symmetric expansion Abdomen: non-tender, soft Genitourinary: deferred Extremities: edema (BLE), moves all, normal temp erature Neuro/LUG BREAKER AND WIRE PULLER: alert, oriented X 3, normal speech, n o sensory deficits, lifts BLE antigravity, slightly limited movement LLE d/t p ain, Results Findings/Data: Allergies: No Known Allergies (Coded, 05/01/19) Laboratory Tests: 05/01 1330 Chemistry Sodium (134 - 147 mEq/L) 138 Potassium (3.4 - 5.0 mEq/L) 4.2 Chloride (100 - 108 mEq/L) 104 Carbon Dioxide (21 - 33 mEq/L) 28 Anion Gap (0 - 20) 10 BUN (7 - 18 mg/dL) 17 Creatinine (0.6 - 1.3 mg/dL) 0.7 Glomerular Filtr Rate (70 - 80) 79.5 Glucose (70 - 110 mg/dL) 90 Calcium (8.0 - 10.5 mg/dL) 8.4 Phosphorus (2.5 - 4.9 MG/DL) 3.3 Albumin (3.4 - 5.0 g/dL) 3.00 L Recent Impressions: CAT SCAN - CT ABD PELVIS W/CONT 05/01 1500 Report Impression - Status: SIGNED Entered: 05/01/2019 1527 IMPRESSION: 1. Moderate sigmoid diverticulosis. 2. Moderately large fluid-filled hiatal hernia. 3. 12 mm urinary bladder stone. 4. Bilateral renal cysts. 5. 10% compression of the L1 vertebral body whic h will be further described on today's CT lumbar spine. END IMPRESSION [id number] Impression By: AnuelRTB - Elliot Walker M.D. Diagnosis, Assessment Plan Problem List/A P: 1. Compression fracture of L1 vertebra 2. Fall from slip, trip, or stumble Free Text A P: Patient seen by me at 1206hr. Patient exam and imaging reviewed with Dr. Jami meredith at 1221hr. 83-year-old female admitted for L1 fracture. Rep orts back pain radiating laterally, aggravated by movement, relieved by r est and medication. Denies radiation of pain to BLE, numbness or paresthesi a. CT abd/pelvis-10% compression of L1 VB. 05/01: 1407- Dr. Valderrama d/w patient/daughter radi ologic imaging and treatment plan including NO surgical i ntervention required or brace needed and outpatient f/u with PCP. -no neurosurgical intervention -recommend conservative management -PT/OT eval -pain control -NO BRACE needed -neur checks q4hrs -follow-up with PCP in 1-2 weeks -NO NSGY f/u needed -please call NSGY on-call for any neurological c oncerns- will sign off Plan discussed with: patient, daughter LavelleJoyce puentesda 05/01/19 1821: Diagnosis, Assessment Plan Free Text A P: agree with above patient seen and examined at 2pm in the ED. monty ent's family at bedside. neurologically stable Lumbar spine CT reviewed by me personally. 5-10% compression fx of L1. good alignment follow up with PCP in 1-2 weeks recommend conservative management. recommend pain management if needed no n/s intervention n/s signing off Electronically Signed by Maricruz Valderrama DO on 05/01 at 1825 RPT #:[id number] END OF REPORT 2019-05-01 12:32:00-00:00 [facility] ([facility]) Neurosurgical Consultation REPORT#:[id number] REPORT STATUS: Signed DATE:05/01/19 TIME: 1232 PATIENT: ZAYNAB SHAW UNIT #: [id number] ROOM/BED: [place] [address] : 33 AGE: 83 SEX: F ATTEND: Greg Mercer MD ADM AUTHOR: Yoanna Barker TEST AND TURN UP TECHNICIAN * ALL edits or amendments must be made on the [employer] document * See Addendum Yoanna Barker 05/01/19 1232: History of Present Illness Requesting clinician: Greg Mercer MD Reason for consult: L1 fracture Chief complaint: Back pain HPI: This is an 83-year-old female with PMH o f a-fib (on warfarin), COPD, HTN, TIA, rheumatoid arthritis, presen marley to OSH s/p fall and found to have an L1 fracture on CT L spine OSH imaging. Patient state d that she fell backwards while in the bathroom. Per daughter, she was not able to get up or ambulate at the scene. Reports back pain radiating laterally, aggravated by movement, relieved by rest and medication. Denies radia tion of pain to BLE, numbness or paresthesia. CT abd /pelivis showed 10% compression of L1 VB. Neuros urgery consulted. History - Adult longitudinal Past medical history: Reports: Atrial fib/flutter, Hypertension, Trans ient ischemic attack. Additional surgical history: Bladder suspension Alcohol use: Denies EtOH use Smoking status for patients 13 years old or olde r: Never Smoker Other social history: Good social support, Lives with daughter Medications: Current Hospital Medications: Central Nervous System Agents Sig/Maggy Start time Last Medication Dose Route Stop Time Status Admin Hydrocodone Bitart/ 1 TAB X1ED STA 05/01 1122 D C Acetaminophen PO 05/01 1123 (NORCO 5/325) Allergies: Coded Allergies: No Known Allergies (05/01/19) Ambulatory status: Independent Review of Systems ROS Additional notes: 12 systems reviewed negative except HPI Objective VS/I O: Last Documented: Result Date Time Pulse Ox 94 05/01 1107 B/P 158/70 05/01 1107 B/P Mean 99 05/01 1107 O2 Delivery Room air 05/01 1107 Temp 36.7 05/01 1107 Pulse 62 05/01 1107 Resp 20 05/01 1107 Patient Weight Weight (lb): Weight (oz): Weight (kg): 52.273 General appearance: alert, awake, oriented Head/Eyes: normocephalic Neck: non-tender, no lymphadenopathy Cardiovascular: normal capillary refill, irregul evelin irregular Respiratory: no distress, symmetric expansion Abdomen: non-tender, soft Genitourinary: deferred Extremities: edema (BLE), moves all, normal temp erature Neuro/LUG BREAKER AND WIRE PULLER: alert, oriented X 3, normal speech, n o sensory deficits, lifts BLE antigravity, slightly limited movement LLE d/t p ain, Results Findings/Data: Allergies: No Known Allergies (Coded, 05/01/19) Laboratory Tests: 05/01 1330 Chemistry Sodium (134 - 147 mEq/L) 138 Potassium (3.4 - 5.0 mEq/L) 4.2 Chloride (100 - 108 mEq/L) 104 Carbon Dioxide (21 - 33 mEq/L) 28 Anion Gap (0 - 20) 10 BUN (7 - 18 mg/dL) 17 Creatinine (0.6 - 1.3 mg/dL) 0.7 Glomerular Filtr Rate (70 - 80) 79.5 Glucose (70 - 110 mg/dL) 90 Calcium (8.0 - 10.5 mg/dL) 8.4 Phosphorus (2.5 - 4.9 MG/DL) 3.3 Albumin (3.4 - 5.0 g/dL) 3.00 L Recent Impressions: CAT SCAN - CT ABD PELVIS W/CONT 05/01 1500 Report Impression - Status: SIGNED Entered: 05/01/2019 1527 IMPRESSION: 1. Moderate sigmoid diverticulosis. 2. Moderately large fluid-filled hiatal hernia. 3. 12 mm urinary bladder stone. 4. Bilateral renal cysts. 5. 10% compression of the L1 vertebral body whic h will be further described on today's CT lumbar spine. END IMPRESSION [id number] Impression By: AnuelRTB - Elliot T. Brown, M.D. Diagnosis, Assessment Plan Problem List/A P: 1. Compression fracture of L1 vertebra 2. Fall from slip, trip, or stumble Free Text A P: Patient seen by me at 1206hr. Patient exam and imaging reviewed with Dr. Jami meredith at 1221hr. 83-year-old female admitted for L1 fracture. Rep orts back pain radiating laterally, aggravated by movement, relieved by r est and medication. Denies radiation of pain to BLE, numbness or paresthesi a. CT abd/pelvis-10% compression of L1 VB. 05/01: 1407- Dr. Valderrama d/w patient/daughter radi ologic imaging and treatment plan including NO surgical i ntervention required or brace needed and outpatient f/u with PCP. -no neurosurgical intervention -recommend conservative management -PT/OT eval -pain control -NO BRACE needed -neur checks q4hrs -follow-up with PCP in 1-2 weeks -NO NSGY f/u needed -please call NSGY on-call for any neurological c oncerns- will sign off Plan discussed with: patient, daughter Lavelle,Maricruz 05/01/19 1821: Diagnosis, Assessment Plan Free Text A P: agree with above patient seen and examined at 2pm in the ED. monty ent's family at bedside. neurologically stable Lumbar spine CT reviewed by me personally. 5-10% compression fx of L1. good alignment follow up with PCP in 1-2 weeks recommend conservative management. recommend pain management if needed no n/s intervention n/s signing off Electronically Signed by Maricruz Valderrama DO on 05/01 at 1825 Addendum 1: 05/01/19 1834 by Maricruz Valderrama DO total face to face time spent with patie nt and family greater than 30 minutes. greater than 50% spent on counseling on bone hea ling and osteoporosis and coordinating care. Electronically Signed by Maricruz Valderrama DO on 05/01 at 1837 RPT #:[id number] END OF REPORT 2019-05-01 12:32:00-00:00 [facility] ([facility]) Neurosurgical Consultation REPORT#:[id number] REPORT STATUS: Signed DATE:05/01/19 TIME: 1232 PATIENT: ZAYNAB SHAW UNIT #: [id number] ROOM/BED: [place] [address] : 33 AGE: 83 SEX: F ATTEND: Greg Mercer MD ADM AUTHOR: Yoanna Barker TEST AND TURN UP TECHNICIAN * ALL edits or amendments must be made on the eMar/computer document * See Addendum Yoanna Barker 05/01/19 1232: History of Present Illness Requesting clinician: Greg Mercer MD Reason for consult: L1 fracture Chief complaint: Back pain HPI: This is an 83-year-old female with PMH o f a-fib (on warfarin), COPD, HTN, TIA, rheumatoid arthritis, presen marley to OSH s/p fall and found to have an L1 fracture on CT L spine OSH imaging. Patient state d that she fell backwards while in the bathroom. Per daughter, she was not able to get up or ambulate at the scene. Reports back pain radiating laterally, aggravated by movement, relieved by rest and medication. Denies radia tion of pain to BLE, numbness or paresthesia. CT abd /pelvis showed 10% compression of L1 VB. Neurosu rgery consulted. History - Adult longitudinal Past medical history: Reports: Atrial fib/flutter, Hypertension, Trans ient ischemic attack. Additional surgical history: Bladder suspension Alcohol use: Denies EtOH use Smoking status for patients 13 years old or olde r: Never Smoker Other social history: Good social support, Lives with daughter Medications: Current Hospital Medications: Central Nervous System Agents Sig/Maggy Start time Last Medication Dose Route Stop Time Status Admin Hydrocodone Bitart/ 1 TAB X1ED STA 05/01 1122 D C Acetaminophen PO 05/01 1123 (NORCO 5/325) Allergies: Coded Allergies: promethazine (From PHENERGAN) (Severe, VOMITING 05/02/19) Ambulatory status: Independent Review of Systems ROS Additional notes: 12 systems reviewed negative except HPI Objective VS/I O: Last Documented: Result Date Time Pulse Ox 94 05/01 1107 B/P 158/70 05/01 1107 B/P Mean 99 05/01 1107 O2 Delivery Room air 05/01 1107 Temp 36.7 05/01 1107 Pulse 62 05/01 1107 Resp 20 05/01 1107 Patient Weight Weight (lb): Weight (oz): Weight (kg): 52.273 General appearance: alert, awake, oriented Head/Eyes: normocephalic Neck: non-tender, no lymphadenopathy Cardiovascular: normal capillary refill, irregul evelin irregular Respiratory: no distress, symmetric expansion Abdomen: non-tender, soft Genitourinary: deferred Extremities: edema (BLE), moves all, normal temp erature Neuro/LUG BREAKER AND WIRE PULLER: alert, oriented X 3, normal speech, n o sensory deficits, lifts BLE antigravity, slightly limited movement LLE d/t p ain, Results Findings/Data: Allergies: No Known Allergies (Coded, 05/01/19) Laboratory Tests: 05/01 1330 Chemistry Sodium (134 - 147 mEq/L) 138 Potassium (3.4 - 5.0 mEq/L) 4.2 Chloride (100 - 108 mEq/L) 104 Carbon Dioxide (21 - 33 mEq/L) 28 Anion Gap (0 - 20) 10 BUN (7 - 18 mg/dL) 17 Creatinine (0.6 - 1.3 mg/dL) 0.7 Glomerular Filtr Rate (70 - 80) 79.5 Glucose (70 - 110 mg/dL) 90 Calcium (8.0 - 10.5 mg/dL) 8.4 Phosphorus (2.5 - 4.9 MG/DL) 3.3 Albumin (3.4 - 5.0 g/dL) 3.00 L Recent Impressions: CAT SCAN - CT ABD PELVIS W/CONT 05/01 1500 Report Impression - Status: SIGNED Entered: 05/01/2019 1527 IMPRESSION: 1. Moderate sigmoid diverticulosis. 2. Moderately large fluid-filled hiatal hernia. 3. 12 mm urinary bladder stone. 4. Bilateral renal cysts. 5. 10% compression of the L1 vertebral body whic h will be further described on today's CT lumbar spine. END IMPRESSION [id number] Impression By: AnuelRTB - Elliot Walker M.D. Diagnosis, Assessment Plan Problem List/A P: 1. Compression fracture of L1 vertebra 2. Fall from slip, trip, or stumble Free Text A P: Patient seen by me at 1206hr. Patient exam and imaging reviewed with Dr. Jami meredith at 1221hr. 83-year-old female admitted for L1 fracture. Rep orts back pain radiating laterally, aggravated by movement, relieved by r est and medication. Denies radiation of pain to BLE, numbness or paresthesi a. CT abd/pelvis-10% compression of L1 VB. 05/01: 1407- Dr. Valderrama d/w patient/daughter radi ologic imaging and treatment plan including NO surgical i ntervention required or brace needed and outpatient f/u with PCP. -no neurosurgical intervention -recommend conservative management -PT/OT eval -pain control -NO BRACE needed -neur checks q4hrs -follow-up with PCP in 1-2 weeks -NO NSGY f/u needed -please call NSGY on-call for any neurological c oncerns- will sign off Plan discussed with: patient, daughter LavelleMaricruz 05/01/19 1821: Diagnosis, Assessment Plan Free Text A P: agree with above patient seen and examined at 2pm in the ED. monty ent's family at bedside. neurologically stable Lumbar spine CT reviewed by me personally. 5-10% compression fx of L1. good alignment follow up with PCP in 1-2 weeks recommend conservative management. recommend pain management if needed no n/s intervention n/s signing off Electronically Signed by Maricruz Valderrama DO on 05/01 at 1825 Addendum 1: 05/01/19 1834 by Maricruz Valderrama DO total face to face time spent with patie nt and family greater than 30 minutes. greater than 50% spent on counseling on bone hea ling and osteoporosis and coordinating care. Electronically Signed by Maricruz Valderrama DO on 05/01 at 1837 RPT #:[id number] END OF REPORT 2019-05-01 12:32:00-00:00 [facility] ([facility]) Neurosurgical Consultation REPORT#:[id number] REPORT STATUS: Signed DATE:05/01/19 TIME: 1232 PATIENT: ZAYNAB SHAW UNIT #: [id number] ROOM/BED: [place] [address] : 33 AGE: 83 SEX: F ATTEND: Greg Mercer MD ADM AUTHOR: Yoanna Barker TEST AND TURN UP TECHNICIAN * ALL edits or amendments must be made on the [employer] document * See Addendum Yoanna Barker 05/01/19 1232: History of Present Illness Requesting clinician: Greg Mercer MD Reason for consult: L1 fracture Chief complaint: Back pain HPI: This is an 83-year-old female with PMH o f a-fib (on warfarin), COPD, HTN, TIA, rheumatoid arthritis, presen marley to OSH s/p fall and found to have an L1 fracture on CT L spine OSH imaging. Patient state d that she fell backwards while in the bathroom. Per daughter, she was not able to get up or ambulate at the scene. Reports back pain radiating laterally, aggravated by movement, relieved by rest and medication. Denies radia tion of pain to BLE, numbness or paresthesia. CT abd /pelvis showed 10% compression of L1 VB. Neurosu rgery consulted. History - Adult longitudinal Past medical history: Reports: Atrial fib/flutter, Hypertension, Trans ient ischemic attack. Additional surgical history: Bladder suspension Alcohol use: Denies EtOH use Smoking status for patients 13 years old or olde r: Never Smoker Other social history: Good social support, Lives with daughter Medications: Current Hospital Medications: Central Nervous System Agents Sig/Maggy Start time Last Medication Dose Route Stop Time Status Admin Hydrocodone Bitart/ 1 TAB X1ED STA 05/01 1122 D C Acetaminophen PO 05/01 1123 (NORCO 5/325) Allergies: Coded Allergies: promethazine (From PHENERGAN) (Severe, VOMITING 05/02/19) Ambulatory status: Independent Review of Systems ROS Additional notes: 12 systems reviewed negative except HPI Objective VS/I O: Last Documented: Result Date Time Pulse Ox 94 05/01 1107 B/P 158/70 05/01 1107 B/P Mean 99 05/01 1107 O2 Delivery Room air 05/01 1107 Temp 36.7 05/01 1107 Pulse 62 05/01 1107 Resp 20 05/01 1107 Patient Weight Weight (lb): Weight (oz): Weight (kg): 52.273 General appearance: alert, awake, oriented Head/Eyes: normocephalic Neck: non-tender, no lymphadenopathy Cardiovascular: normal capillary refill, irregul evelin irregular Respiratory: no distress, symmetric expansion Abdomen: non-tender, soft Genitourinary: deferred Extremities: edema (BLE), moves all, normal temp erature Neuro/LUG BREAKER AND WIRE PULLER: alert, oriented X 3, normal speech, n o sensory deficits, lifts BLE antigravity, slightly limited movement LLE d/t p ain, Results Findings/Data: Allergies: No Known Allergies (Coded, 05/01/19) Laboratory Tests: 05/01 1330 Chemistry Sodium (134 - 147 mEq/L) 138 Potassium (3.4 - 5.0 mEq/L) 4.2 Chloride (100 - 108 mEq/L) 104 Carbon Dioxide (21 - 33 mEq/L) 28 Anion Gap (0 - 20) 10 BUN (7 - 18 mg/dL) 17 Creatinine (0.6 - 1.3 mg/dL) 0.7 Glomerular Filtr Rate (70 - 80) 79.5 Glucose (70 - 110 mg/dL) 90 Calcium (8.0 - 10.5 mg/dL) 8.4 Phosphorus (2.5 - 4.9 MG/DL) 3.3 Albumin (3.4 - 5.0 g/dL) 3.00 L Recent Impressions: CAT SCAN - CT ABD PELVIS W/CONT 05/01 1500 Report Impression - Status: SIGNED Entered: 05/01/2019 1527 IMPRESSION: 1. Moderate sigmoid diverticulosis. 2. Moderately large fluid-filled hiatal hernia. 3. 12 mm urinary bladder stone. 4. Bilateral renal cysts. 5. 10% compression of the L1 vertebral body whic h will be further described on today's CT lumbar spine. END IMPRESSION [id number] Impression By: AnuelRTB - Elliot Walker M.D. Diagnosis, Assessment Plan Problem List/A P: 1. Compression fracture of L1 vertebra 2. Fall from slip, trip, or stumble Free Text A P: Patient seen by me at 1206hr. Patient exam and imaging reviewed with Dr. Jami meredith at 1221hr. 83-year-old female admitted for L1 fracture. Rep orts back pain radiating laterally, aggravated by movement, relieved by r est and medication. Denies radiation of pain to BLE, numbness or paresthesi a. CT abd/pelvis-10% compression of L1 VB. 05/01: 1407- Dr. Valderrama d/w patient/daughter radi ologic imaging and treatment plan including NO surgical i ntervention required or brace needed and outpatient f/u with PCP. -no neurosurgical intervention -recommend conservative management -PT/OT eval -pain control -NO BRACE needed -follow-up with PCP in 1-2 weeks -NO NSGY f/u needed -please call NSGY on-call for any neurological c oncerns- will sign off Plan discussed with: patient, daughter Joyce Valderramada 05/01/19 1821: Diagnosis, Assessment Plan Free Text A P: agree with above patient seen and examined at 2pm in the ED. monty ent's family at bedside. neurologically stable Lumbar spine CT reviewed by me personally. 5-10% compression fx of L1. good alignment follow up with PCP in 1-2 weeks recommend conservative management. recommend pain management if needed no n/s intervention n/s signing off Electronically Signed by Maricruz Valderrama DO on 05/01 at 1825 Addendum 1: 05/01/19 1834 by Maricruz Valderrama DO total face to face time spent with patie nt and family greater than 30 minutes. greater than 50% spent on counseling on bone hea ling and osteoporosis and coordinating care. Electronically Signed by Maricruz Valderrama DO on 05/01 at 1837 RPT #:[id number] END OF REPORT 2019-05-01 12:32:00-00:00 [facility]) Neurosurgical Consultation REPORT#:[id number] REPORT STATUS: Signed DATE:05/01/19 TIME: 1232 PATIENT: ZAYNAB SHAW UNIT #: [id number] ROOM/BED: [place] [address] : 33 AGE: 83 SEX: F ATTEND: Greg Mercer MD ADM AUTHOR: Yoanna Barker TEST AND TURN UP TECHNICIAN * ALL edits or amendments must be made on the el [employer]/computer document * See Addendum Yoanna Barker 05/01/19 1232: History of Present Illness Requesting clinician: Greg Mercer MD Reason for consult: L1 fracture Chief complaint: Back pain HPI: This is an 83-year-old female with PMH o f a-fib (on warfarin), COPD, HTN, TIA, rheumatoid arthritis, presen amrley to OSH s/p fall and found to have an L1 fracture on CT L spine OSH imaging. Patient state d that she fell backwards while in the bathroom. Per daughter, she was not able to get up or ambulate at the scene. Reports back pain radiating laterally, aggravated by movement, relieved by rest and medication. Denies radia tion of pain to BLE, numbness or paresthesia. CT abd /pelvis showed 10% compression of L1 VB. Neurosu rgery consulted. History - Adult longitudinal Past medical history: Reports: Atrial fib/flutter, Hypertension, Trans ient ischemic attack. Additional surgical history: Bladder suspension Alcohol use: Denies EtOH use Smoking status for patients 13 years old or olde r: Never Smoker Other social history: Good social support, Lives with daughter Medications: Current Hospital Medications: Central Nervous System Agents Sig/Maggy Start time Last Medication Dose Route Stop Time Status Admin Hydrocodone Bitart/ 1 TAB X1ED STA 05/01 1122 DC Acetaminophen PO 05/01 1123 (NORCO 5/325) Allergies: Coded Allergies: promethazine (From PHENERGAN) (Severe, VOMITING 05/02/19) Ambulatory status: Independent Review of Systems ROS Additional notes: 12 systems reviewed negative except HPI Objective VS/I O: Last Documented: Result Date Time Pulse Ox 94 05/01 1107 B/P 158/70 05/01 1107 B/P Mean 99 05/01 1107 O2 Delivery Room air 05/01 1107 Temp 36.7 05/01 1107 Pulse 62 05/01 1107 Resp 20 05/01 1107 Patient Weight Weight (lb): Weight (oz): Weight (kg): 52.273 General appearance: alert, awake, oriented Head/Eyes: normocephalic Neck: non-tender, no lymphadenopathy Cardiovascular: normal capillary refill, irregul evelin irregular Respiratory: no distress, symmetric expansion Abdomen: non-tender, soft Genitourinary: deferred Extremities: edema (BLE), moves all, normal temp erature Neuro/LUG BREAKER AND WIRE PULLER: alert, oriented X 3, normal speech, n o sensory deficits, lifts BLE antigravity, slightly limited movement LLE d/t p ain, Results Findings/Data: Allergies: No Known Allergies (Coded, 05/01/19) Laboratory Tests: 05/01 1330 Chemistry Sodium (134 - 147 mEq/L) 138 Potassium (3.4 - 5.0 mEq/L) 4.2 Chloride (100 - 108 mEq/L) 104 Carbon Dioxide (21 - 33 mEq/L) 28 Anion Gap (0 - 20) 10 BUN (7 - 18 mg/dL) 17 Creatinine (0.6 - 1.3 mg/dL) 0.7 Glomerular Filtr Rate (70 - 80) 79.5 Glucose (70 - 110 mg/dL) 90 Calcium (8.0 - 10.5 mg/dL) 8.4 Phosphorus (2.5 - 4.9 MG/DL) 3.3 Albumin (3.4 - 5.0 g/dL) 3.00 L Recent Impressions: CAT SCAN - CT ABD PELVIS W/CONT 05/01 1500 Report Impression - Status: SIGNED Entered: 05/01/2019 1527 IMPRESSION: 1. Moderate sigmoid diverticulosis. 2. Moderately large fluid-filled hiatal hernia. 3. 12 mm urinary bladder stone. 4. Bilateral renal cysts. 5. 10% compression of the L1 vertebral body whic h will be further described on today's CT lumbar spine. END IMPRESSION [id number] Impression By: AnuelRTB - Elliot Walker M.D. Diagnosis, Assessment Plan Problem List/A P: 1. Compression fracture of L1 vertebra 2. Fall from slip, trip, or stumble Free Text A P: Patient seen by me at 1206hr. Patient exam and imaging reviewed with Dr. Jami meredith at 1221hr. 83-year-old female admitted for L1 fracture. Rep orts back pain radiating laterally, aggravated by movement, relieved by r est and medication. Denies radiation of pain to BLE, numbness or paresthesi a. CT abd/pelvis-10% compression of L1 VB. 05/01: 1407- Dr. Valderrama d/w patient/daughter radi ologic imaging and treatment plan including NO surgical i ntervention required or brace needed and outpatient f/u with PCP. -no neurosurgical intervention -recommend conservative management -PT/OT eval -pain control -NO BRACE needed -follow-up with PCP in 1-2 weeks -NO NSGY f/u needed -please call NSGY on-call for any neurological c oncerns- will sign off Plan discussed with: patient, daughter Maricruz Valderrama 05/01/19 1821: Diagnosis, Assessment Plan Free Text A P: agree with above patient seen and examined at 2pm in the ED. monty ent's family at bedside. neurologically stable Lumbar spine CT reviewed by me personally. 5-10% compression fx of L1. good alignment follow up with PCP in 1-2 weeks recommend conservative management. recommend pain management if needed no n/s intervention n/s signing off Electronically Signed by Maricruz Valderrama DO on 05/01 at 1825 at 1036 Addendum 1: 05/01/19 1834 by Maricruz Valderrama DO total face to face time spent with patie nt and family greater than 30 minutes. greater than 50% spent on counseling on bone hea ling and osteoporosis and coordinating care. Electronically Signed by Maricruz Valderrama DO on 05/01 at 1837 [facility] #:[id number] END OF REPORT 2019-05-01 11:22:00-00:00 [facility] EMERGENCY PROVIDER REPORT REPORT#:[id number] REPORT STATUS: Signed DATE:05/01/19 TIME: 112 PATIENT: ZAYNAB SHAW UNIT #: [id number] [facility] A[facility] 83 SEX: F PCP PHYS: No Primary or Family Ph ysician SERVICE AUTHOR: Charan Velasquez DO * ALL edits or amendments must be made on the eMar/computer document * HPI-Back Pain 40 and Over General Confirmed Patient Yes Initial Greet Date/Time 05/01/19 1102 Presentation Chief Complaint Pain, back Hx Obtained From Coding Advisor Sudden in Onset? No Onset Occurred Yesterday Symptom Duration Since onset Progression since Onset Unchanged Free Text HPI Notes Free Text HPI Notes 83 y/o F with PMHx of Afib, HTN and TIA presents to the ED per EMS. Per EMS, pt is a transfer from [facility] for trauma s urgery consult. EMS states pt was in the restroom was open ing the door, lost balance and fell on her back and came to the ER d/t pain. The hospital pe rformed XR which showed acute inferior L1 inplate fracture, 15-20% loss of height. Labs and review shows INR-2.5 and urine negative for UTI, was given norco for the pain and pain is in control currently. Of note, pt is currently on coumadin. Portions of this section were scribed by Raman Sanchez on 05/01/19 at 1130 Risk-Back Pain 40 and Over Risk Stratification )( Abdominal Aortic Aneurysm Risk factors review ed )( Thoracic Aortic Dissection Risk factors revie wed Portions of this section were scribed by Raman Sanchez on 05/01/19 at 1130 Past Medical History - Adult Stated Complaint LUMBAR FRACTURE - TRANSFER Allergies Coded Allergies: No Known Allergies (05/01/19) Past Medical History: Reports: Atrial fib/flutter, Hypertension, Trans ient ischemic attack. Portions of this section were scribed by Raman Sanchez on 05/01/19 at 1130 Physical Exam Vital Signs Vital Signs First Documented: Result Date Time Pulse Ox 94 05/01 1107 B/P 158/70 05/01 1107 B/P Mean 99 05/01 1107 O2 Delivery Room air 05/01 1107 Temp 36.7 05/01 1107 Pulse 62 05/01 1107 Resp 20 05/01 1107 Last Documented: Result Date Time Pulse Ox 94 05/01 1107 B/P 158/70 05/01 1107 B/P Mean 99 05/01 1107 O2 Delivery Room air 05/01 1107 Temp 36.7 05/01 1107 Pulse 62 05/01 1107 Resp 20 05/01 1107 Review of Vital Signs Reviewed Focused PE General/Const General/Const Awake, Alert, Well developed, Medical Associate perative MS Neck Neck Supple, Full range of motion Resp/Chest Respiratory/Chest Breath sounds NL, No respirat ory distress, No rales, No rhonchi, No wheezing, No retractions Cardiovascular Cardiovascular Heart rate NL, Regular rhythm, H eart sounds NL Abdomen/GI Abdomen/GI Soft, Non-tender, No guarding, No re bound, No distention MS Back Text/Dict Notes Midline L-spine tenderness MS Lower Extrem Lower Ext/Pelvis/MS No swelling, Non-tender Skin Skin Warm, Dry, Intact Neurologic Neurologic Oriented X3, Speech NL, No m otor deficits, No sensory deficits, CN II - XII intact Text/Dict Notes 5/5 strength to BL lower extremities Additional PE MS Head Head Atraumatic, Normocephalic Eyes Eyes EOMI, No scleral icterus, Conjunctiva NL Ears/Nose/Throat Ears/Nose/Throat Airway patent, Mucous membrane s moist Psychiatric Psychiatric Affect NL, Mood NL Portions of this section were scribed by Ramna Sanchez on 05/01/19 at 1130 Interpretation Diagnostics Point of Care Testing Pulse Oximetry Pulse Ox % 94 On: Room air Interpretation Interpreted by me, Pulse oximetr y normal Time 1107 Portions of this section were scribed by Raman Sanchez on 05/01/19 at 1130 Re-Evaluation MDM Free Text MDM Notes Free Text MDM Notes 83F with atrial fib on eliqu is presents as transfer for admission s/p fall, CT L spine at outside facility confirms L1 anterior e ndplate fracture Pt arrives awake and alert, GCS 15, normal strength ROM and sensory to b/l lower extremities Pt lives alone, unable to ambulate safely, will admit to trauma service, Dr Valderrama Neurosurgery aware Re-Evaluation/Progress #1 Text/Dict Note Discussed the results and Dx and recomended admi ssion. Pt agrees with plan. Time of Re-Eval 1122 Re-Eval Status Unchanged ED Course Medication(s) Ordered Medication(s) Ordered: Central Nervous System Agents Sig/Maggy Start time Last Medication Dose Route Stop Time Status Admin Acetaminophen 650 MG Q6H PRN PRN 05/01 1300 AC PO 05/31 1259 Hydrocodone Bitart/ 1 TAB Q4H PRN PRN 05/01 130 0 AC Acetaminophen PO 05/31 1259 Morphine Sulfate 4 MG Q4H PRN PRN 05/01 1300 AC 05/01 IV 05/15 1259 1327 Tramadol HCl 50 MG Q4H PRN PRN 05/01 1300 AC PO 05/31 1259 Hydrocodone Bitart/ 1 TAB X1ED STA 05/01 1122 D C Acetaminophen PO 05/01 1123 Gastrointestinal Drugs Sig/Maggy Start time Last Medication Dose Route Stop Time Status Admin Polyethylene Glycol 17 GM DAILY 05/02 0900 AC PO 06/01 0859 Ondansetron HCl 4 MG Q4H PRN PRN 05/01 1300 AC 05/01 IV 05/31 1259 1327 Consultation Consultation Referral/Consult Name LavelleMaricruz DO Electric Shipyard Operator Called Neurology Requested Call Time 1122 Requested Call Date 05/01/19 Call Returned Call returned Call Returned Time 1122 Call Returned Date 05/01/19 Electric Shipyard Operator Will see patient Portions of this section were scribed by Raman Sanchez on 05/01/19 at 1130 Patient Discharge Departure Vital Signs/Condition Vital Signs First Documented: Result Date Time Pulse Ox 94 05/01 1107 B/P 158/70 05/01 1107 B/P Mean 99 05/01 1107 O2 Delivery Room air 05/01 1107 Temp 36.7 05/01 1107 Pulse 62 05/01 1107 Resp 20 05/01 1107 Last Documented: Result Date Time Pulse Ox 94 05/01 1107 B/P 158/70 05/01 1107 B/P Mean 99 05/01 1107 O2 Delivery Room air 05/01 1107 Temp 36.7 05/01 1107 Pulse 62 05/01 1107 Resp 20 05/01 1107 All vital signs available at the time of this en try have been reviewed. Condition Guarded Clinical Impression Clinical Impression Primary Impression: Compression fracture of L1 v ertebra Disposition Decision Admit Admit Physician Name Greg Mercer MD Admit Physician Trauma Surgeon Request Time 1123 Request Date 05/01/19 )( Admission Accepts Yes )( Accepted Time 1123 )( Accepted Date 05/01/19 Call Information will see patient Discharge/Care Plan Counseled Regarding Diagnosis, Need for admissio n Supervising Physician Note Scribe Statement Daern Sanchez, 05/01/19 112, scribing f or and in the presence of [Dr. Velasquez]. Signed By: Daren Sanchez, 05/01/19 112 Provider Scribed Statement I personally performed the s ervices described in this documentation and reviewed the documentation that was dictated to the scrib e(s) in my presence, and it accurately records my words and actions. Yassine Velasquez, 05/01/19 Portions of this section were scribed by Raman Sanchez on 05/01/19 at 1122 Electronically Signed by Charan Velasquez DO on at 1434 RPT #:[id number] END OF REPORT
[2023-01-20 14:24] LABS: Absolute Lymphocytes (CBC) 1.9 K/uL (0.7-4.9); Hematocrit 38.8 % (36.0-45.0); Lymphocytes % 25.8 % (15.3-44.8); MCV 94.5 fL (80-100); MPV 7.9 fL (7.6-11.3); RBC Red Blood Cell Count 4.11 M/uL (3.86-4.86)
[2023-01-20] MEDS ORDERED: NYSTATIN 100MU/GM CREAM 15GM TOP ONE (14:34)
[2023-01-20] MEDS ORDERED: NA CHLORIDE 0.9% 1,000 ML ONE (15:06)
[2023-01-20] MEDS ORDERED: CEFTRIAXONE 1000 MG/VIAL ONE (15:06)
[2023-01-20] MEDS ORDERED: NA CHLORIDE 0.9% 50 ML ONE (15:07)
[2023-01-20 15:10] LABS: Specific Gravity 1.022 (1.005-1.030); Urine Bacteria 20-50 /HPF (<20); Urine Bilirubin NEGATIVE (Negative); Urine Blood Trace (Negative); Urine Clarity Clear (Clear); Urine Color Yellow (Yellow); Urine Glucose NEGATIVE (Negative); Urine Mucus Slight /HPF (None Seen); Urine Protein NEGATIVE (Negative); Urine Urobilinogen 1+ (Normal)
[2023-01-20 15:22] LABS: Albumin 3.3 g/dL (3.4-5.0); Bilirubin Total 0.4 mg/dL (0.2-1.0); Protein, Total 7.3 g/dL (6.4-8.2)
[2023-01-20] MEDS ORDERED: FLUCONAZOLE 200mg IVPB 200 MG/100 ML BAG IV ONE (16:00)
--- NOTE | 2023-01-20 16:50 | EDPHYS ---
Physician Documentation [facility] Name: Zaynab Cain Age: 87 yrs Sex: Female : 1935 Arrival Date: 01/20/2023 Time: 13:41 Bed 8 Private MD: ED Physician Jacques Lima HPI: 01/20 14:10 This 87 yrs old Female presents to ER via Wheelchair with complaints of Urinary Problem.snw 14:10 The patient presents with urinary symptoms, dysuria, incontinence, urgency. Onset: The snw symptoms/episode began/occurred acutely. Associated signs and symptoms: Pertinent positives: dysuria. The patient has experienced similar episodes in the past, chronically, just finished augmentin. Historical: - Allergies: 14:05 No Known Allergies; jl7 - Home Meds: 14:05 Eliquis 2.5 mg Oral tab 1 tab 2 times per day [Active]; hydralazine 25 mg Oral tab as jl7 needed [Active]; levothyroxine 25 mcg cap 1 cap once daily [Active]; metoprolol tartrate 25 mg Oral tab 1 tab 2 times per day [Active]; Furosemide Oral [Active]; - PMHx: 14:05 Arthritis; Hypertension; Hypothyroidism; TIA; Atrial fibrillation; jl7 - Immunization history:: Adult Immunizations unknown. - Social history:: Smoking status: Patient denies any tobacco usage or history of. ROS: 14:10 Constitutional: Negative for fever, chills, and weight loss, Eyes: Negative for injury, snw pain, redness, and discharge, ENT: Negative for injury, pain, and discharge, Neck: Negative for injury, pain, and swelling, Cardiovascular: Negative for chest pain, palpitations, and edema, Respiratory: Negative for shortness of breath, cough, wheezing, and pleuritic chest pain, Abdomen/GI: Negative for abdominal pain, nausea, vomiting, diarrhea, and constipation, Back: Negative for injury and pain, MS/Extremity: Negative for injury and deformity, Skin: Negative for injury, rash, and discoloration, Neuro: Negative for headache, weakness, numbness, tingling, and seizure, Psych: Negative for depression, anxiety, suicide ideation, homicidal ideation, and hallucinations. 14:10 : Positive for urinary symptoms, burning with urination. Exam: 14:08 Constitutional: This is a well developed, well nourished patient who is awake, alert, snw and in no acute distress. Head/Face: Normocephalic, atraumatic. Eyes: Pupils equal round and reactive to light, extra-ocular motions intact. Lids and lashes normal. Conjunctiva and sclera are non-icteric and not injected. Cornea within normal limits. Periorbital areas with no swelling, redness, or edema. ENT: Nares patent. No nasal discharge, no septal abnormalities noted. Tympanic membranes are normal and external auditory canals are clear. Oropharynx with no redness, swelling, or masses, exudates, or evidence of obstruction, uvula midline. Mucous membranes moist. Neck: Trachea midline, no thyromegaly or masses palpated, and no cervical lymphadenopathy. Supple, full range of motion without nuchal rigidity, or vertebral point tenderness. No Meningismus. Chest/axilla: Normal chest wall appearance and motion. Nontender with no deformity. No lesions are appreciated. Cardiovascular: Regular rate and rhythm with a normal S1 and S2. No gallops, murmurs, or rubs. Normal PMI, no JVD. No pulse deficits. mild lower ext edema Respiratory: Lungs have equal breath sounds bilaterally, clear to auscultation and percussion. No rales, rhonchi or wheezes noted. No increased work of breathing, no retractions or nasal flaring. Abdomen/GI: Soft, non-tender, with normal bowel sounds. No distension or tympany. No guarding or rebound. No evidence of tenderness throughout. Back: No spinal tenderness. No costovertebral tenderness. Full range of motion. Female : Normal external genitalia with excoriation and beefy redness over labia MS/ Extremity: Pulses equal, no cyanosis. Neurovascular intact. Full, normal range of motion. Neuro: Awake and alert, GCS 15, oriented to person, place, time, and situation. Cranial nerves II-XII grossly intact. Motor strength 5/5 in all extremities. Sensory grossly intact. Cerebellar exam normal. Normal gait. 14:08 : Bladder: tenderness. Vital Signs: 14:03 BP 206 / 86; Pulse 59; Resp 17; Temp 97.9; Pulse Ox 99% ; Weight 48.08 kg; jl7 14:16 BP 206 / 86; Pulse 59; Resp 17; Pulse Ox 100% on R/A; ll1 15:16 BP 203 / 72; Pulse 59; Pulse Ox 100% on R/A; ll1 15:38 BP 171 / 76; Pulse 58; Pulse Ox 100% on R/A; ll1 16:24 BP 180 / 69; Pulse 55; ll1 16:29 BP 180 / 69; Pulse 54; Resp 18; Pulse Ox 98% on R/A; ld1 17:22 BP 189 / 97; Pulse 60; Resp 16; Pulse Ox 98% on R/A; ll1 MDM: 13:49 Patient medically screened. snw 16:53 Differential diagnosis: vaginosis, vulvar excoriation. Data reviewed: vital signs, snw nurses notes, lab test result(s). I considered the following discharge prescriptions or medication management in the emergency department Medications were administered in the Emergency Department. See MAR. Historians other than the Patient: Daughter/Son: Daughter. Counseling: I had a detailed discussion with the patient and/or guardian regarding: the historical points, exam findings, and any diagnostic results supporting the discharge/admit diagnosis, the presence of at least one elevated blood pressure reading (>120/80) during this emergency department visit, lab results, the need for outpatient follow up, to return to the emergency department if symptoms worsen or persist or if there are any questions or concerns that arise at home. Response to treatment: the patient's symptoms have mildly improved after treatment, the patient's symptoms have markedly improved after treatment. Special discussion: Based on the patient's Hx, exam, and Dx evaluation, there is no indication for emergent surgery or inpatient Tx. It is understood by the patient/guardian that if the Sx's persist or worsen they need to return immediately for re-evaluation. I discussed in detail with the patient the higher chance of wound infection based on his presenting history. Based on the history and exam findings, there is no indication for further emergent testing or inpatient evaluation. I discussed with the patient/guardian the need to see the primary care provider for further evaluation of the symptoms. I discussed with the patient/guardian the need to see the urologist for further evaluation of the symptoms. 01/20 13:57 Order name: CBC with Diff; Complete Time: 14:25 snw 01/20 13:57 Order name: CMP; Complete Time: 15:27 snw 01/20 13:57 Order name: Blood Culture Adult (2) snw 01/20 13:57 Order name: Urine W/Microscopic (UAM); Complete Time: 15:19 snw 01/20 13:57 Order name: Misc. Order: daxa-area cleanse, nystatin and then vaseline; Complete Time: snw 14:43 01/20 13:57 Order name: Malave; Complete Time: 14:43 snw 01/20 14:30 Order name: Labs - recollect needed: recollect chemistries hemolyzed per Lamar; eb Complete Time: 14:55 01/20 14:55 Order name: IV Start; Complete Time: 15:15 ll1 Administered Medications: 14:43 Drug: nystatin Topical Cream 1 application Route: Topical; Site: affected area; ll1 17:24 Follow up: Response: No adverse reaction ll1 15:15 Drug: NS 0.9% IV 1000 ml Route: IV; Rate: 75 ml/hr; Site: left wrist; ll1 17:24 Follow up: Response: No adverse reaction; IV Status: Order to discontinue infusion; IV ll1 Intake: 150ml 15:15 Drug: Rocephin IV 1 grams Route: IV; Rate: calculated rate; Site: left wrist; ll1 15:43 Follow up: Response: No adverse reaction; IV Status: Completed infusion; IV Intake: [id number] 15:43 Drug: Fluconazole IVPB 200 mg Volume: 100 ml; Route: IVPB; Infused Over: 60 mins; Site: ll1 left wrist; 16:43 Follow up: Response: No adverse reaction; IV Status: Completed infusion; IV Intake: ll1 100ml Disposition Summary: 01/20/23 16:50 Discharge Ordered Location: Home snw Condition: Stable snw Diagnosis - Pelvic and perineal pain - excoriation snw - UTI/ Urinary tract infection, site not specified snw Followup: snw - With: Emergency Department - When: As needed - Reason: Worsening of condition Followup: snw - With: Private Physician - When: 2 - 3 days - Reason: Recheck today's complaints, Continuance of care, Re-evaluation by your physician Discharge Instructions: - Discharge Summary Sheet snw - Dysuria snw - Pelvic Pain, Female snw - Urinary Tract Infection, Adult snw - Indwelling Urinary Catheter Insertion, Care After snw Forms: - Medication Reconciliation Form snw - Thank You Letter snw - Antibiotic Education snw - Prescription Opioid Use snw Prescriptions: - sulfamethoxazole-trimethoprim 200-40 mg/5 mL Oral Suspension - take 19 milliliters by ORAL route every 12 hours for 10 days; 400 milliliter; snw Refills: 0, Product Selection Permitted Signatures: Dispatcher [employer] EDMS Farheen Trujillo, LAVONNE-C PARKING METER COLLECTOR-Csnw Nam Orta RN RN jl7 Nohelia Lin Lynsay, RN RN ll1 Corrections: (The following items were deleted from the chart) 14:10 14:08 Constitutional: This is a well developed, well nourished patient who is awake, snw alert, and in no acute distress. Head/Face: Normocephalic, atraumatic. Eyes: Pupils equal round and reactive to light, extra-ocular motions intact. Lids and lashes normal. Conjunctiva and sclera are non-icteric and not injected. Cornea within normal limits. Periorbital areas with no swelling, redness, or edema. ENT: Nares patent. No nasal discharge, no septal abnormalities noted. Tympanic membranes are normal and external auditory canals are clear. Oropharynx with no redness, swelling, or masses, exudates, or evidence of obstruction, uvula midline. Mucous membranes moist. Neck: Trachea midline, no thyromegaly or masses palpated, and no cervical lymphadenopathy. Supple, full range of motion without nuchal rigidity, or vertebral point tenderness. No Meningismus. Chest/axilla: Normal chest wall appearance and motion. Nontender with no deformity. No lesions are appreciated. Cardiovascular: Regular rate and rhythm with a normal S1 and S2. No gallops, murmurs, or rubs. Normal PMI, no JVD. No pulse deficits. mild lower ext edema Respiratory: Lungs have equal breath sounds bilaterally, clear to auscultation and percussion. No rales, rhonchi or wheezes noted. No increased work of breathing, no retractions or nasal flaring. Abdomen/GI: Soft, non-tender, with normal bowel sounds. No distension or tympany. No guarding or rebound. No evidence of tenderness throughout. Back: No spinal tenderness. No costovertebral tenderness. Full range of motion. MS/ Extremity: Pulses equal, no cyanosis. Neurovascular intact. Full, normal range of motion. Neuro: Awake and alert, GCS 15, oriented to person, place, time, and situation. Cranial nerves II-XII grossly intact. Motor strength 5/5 in all extremities. Sensory grossly intact. Cerebellar exam normal. Normal gait. snw
--- NOTE | 2023-01-20 16:50 | ER ---
Nurse's Notes [facility] Name: Zaynab Cain Age: 87 yrs Sex: Female : 1935 Arrival Date: 01/20/2023 Time: 13:41 Bed 8 Private MD: Diagnosis: Pelvic and perineal pain-excoriation;UTI/ Urinary tract infection, site not specified Presentation: 01/20 14:03 Chief complaint: Patient states: Burning and redness around labia major x1 week, jl7 possible diarrhea, chronic UTI, sees Dr. Hair. Coronavirus screen: At this time, the client does not indicate any symptoms associated with coronavirus-19. Ebola Screen: No symptoms or risks identified at this time. Initial Sepsis Screen: Does the patient meet any 2 criteria? No. Patient's initial sepsis screen is negative. Does the patient have a suspected source of infection? No. Patient's initial sepsis screen is negative. Risk Assessment: Do you want to hurt yourself or someone else? Patient reports no desire to harm self or others. Onset of symptoms was January 13, 2023. 14:03 Method Of Arrival: Wheelchair jl7 14:03 Acuity: AILYN 3 jl7 Triage Assessment: 14:05 General: Appears in no apparent distress. uncomfortable, Behavior is calm, cooperative, jl7 appropriate for age. Pain: Complains of pain in right labia majora and left labia majora. Neuro: Level of Consciousness is awake, alert, obeys commands, Oriented to person, place, time, situation. Cardiovascular: Patient's skin is warm and dry. Respiratory: Airway is patent Respiratory effort is even, unlabored, Respiratory pattern is regular, symmetrical. Derm: Skin is pink, warm \T\ dry. Historical: - Allergies: 14:05 No Known Allergies; jl7 - Home Meds: 14:05 Eliquis 2.5 mg Oral tab 1 tab 2 times per day [Active]; hydralazine 25 mg Oral tab as jl7 needed [Active]; levothyroxine 25 mcg cap 1 cap once daily [Active]; metoprolol tartrate 25 mg Oral tab 1 tab 2 times per day [Active]; Furosemide Oral [Active]; - PMHx: 14:05 Arthritis; Hypertension; Hypothyroidism; TIA; Atrial fibrillation; jl7 - Immunization history:: Adult Immunizations unknown. - Social history:: Smoking status: Patient denies any tobacco usage or history of. Screenin:16 [facility] ED Fall Risk Assessment (Adult) Confusion or Disorientation Yes (5 pts) ll1 Impaired Gait Yes (1 pt) Mobility Assist Device Used Yes (1 pt) Altered Elimination Yes (1 pt) Score/Fall Risk Level 3 or more points = High Risk Oriented to surroundings, Maintained a safe environment, Educated pt \T\ family on fall prevention, incl call for assistance when getting out of bed, Hourly rounding (assess needs \T\ fall precautionary measures) done, Used gait belt as appropriate Remained with patient while ambulating. Abuse screen: Denies threats or abuse. Nutritional screening: No deficits noted. Tuberculosis screening: No symptoms or risk factors identified. Assessment: 14:17 Reassessment: No changes from previously documented assessment. Patient and/or family ll1 updated on plan of care and expected duration. Pain level reassessed. 15:16 Reassessment: No changes from previously documented assessment. Patient and/or family ll1 updated on plan of care and expected duration. Pain level reassessed. 17:23 Reassessment: No changes from previously documented assessment. Patient and/or family ll1 updated on plan of care and expected duration. Pain level reassessed. Patient is alert, oriented x 3, equal unlabored respirations, skin warm/dry/pink. Vital Signs: 14:03 BP 206 / 86; Pulse 59; Resp 17; Temp 97.9; Pulse Ox 99% ; Weight 48.08 kg; jl7 14:16 BP 206 / 86; Pulse 59; Resp 17; Pulse Ox 100% on R/A; ll1 15:16 BP 203 / 72; Pulse 59; Pulse Ox 100% on R/A; ll1 15:38 BP 171 / 76; Pulse 58; Pulse Ox 100% on R/A; ll1 16:24 BP 180 / 69; Pulse 55; ll1 16:29 BP 180 / 69; Pulse 54; Resp 18; Pulse Ox 98% on R/A; ld1 17:22 BP 189 / 97; Pulse 60; Resp 16; Pulse Ox 98% on R/A; ll1 ED Course: 13:44 Patient arrived in ED. mr 13:44 Farheen Trujillo, [facility] snw 13:44 Jacques Lima MD is Attending Physician. snw 14:05 Triage completed. jl7 14:05 Arm band placed on right wrist. jl7 14:15 Initial lab(s) drawn, by me, sent to lab. Missed attempt(s): 22 gauge in left ll1 antecubital area. Bleeding controlled, band aid applied, catheter tip intact. 14:30 Sofia Conrad, MICHELLE is Primary Nurse. ll1 14:50 Inserted saline lock: 22 gauge in left wrist, using aseptic technique. Blood collected. ll1 14:52 Malave cath inserted, using sterile technique, 16 Fr., by me, balloon inflated, to ll1 gravity drainage, urine specimen collected. 15:16 Patient has correct armband on for positive identification. Bed in low position. Call ll1 light in reach. Client placed on continuous cardiac and pulse oximetry monitoring. NIBP monitoring applied. patient monitor on. 17:22 No provider procedures requiring assistance completed. IV discontinued, intact, ll1 bleeding controlled, No redness/swelling at site. Pressure dressing applied. Administered Medications: 14:43 Drug: nystatin Topical Cream 1 application Route: Topical; Site: affected area; ll1 17:24 Follow up: Response: No adverse reaction ll1 15:15 Drug: NS 0.9% IV 1000 ml Route: IV; Rate: 75 ml/hr; Site: left wrist; ll1 17:24 Follow up: Response: No adverse reaction; IV Status: Order to discontinue infusion; IV ll1 Intake: 150ml 15:15 Drug: Rocephin IV 1 grams Route: IV; Rate: calculated rate; Site: left wrist; ll1 15:43 Follow up: Response: No adverse reaction; IV Status: Completed infusion; IV Intake: [id number] 15:43 Drug: Fluconazole IVPB 200 mg Volume: 100 ml; Route: IVPB; Infused Over: 60 mins; Site: ll1 left wrist; 16:43 Follow up: Response: No adverse reaction; IV Status: Completed infusion; IV Intake: ll1 100ml Medication: 15:16 VIS not applicable for this client. ll1 Intake: 15:43 IV: 50ml; Total: 50ml. ll1 16:43 IV: 100ml; Total: 150ml. ll1 17:24 IV: 150ml; Total: 300ml. ll1 Outcome: 16:50 Discharge ordered by . snw 17:22 Discharged to home ambulatory. ll1 17:22 Condition: stable 17:22 Discharge instructions given to patient, family, Instructed on discharge instructions, follow up and referral plans. medication usage, Malave cath care/leg bag application Demonstrated understanding of instructions, follow-up care, medications, Malave cath care Prescriptions given X 1. 17:24 Patient left the ED. ll1 Signatures: Farheen Trujillo, ANTC WAITER/WAITRESS [employer]-CsnGabriella Godfrey Jahala RN RN jl7 Sofia Conrad RN RN ll1 Cecily Hedrick RN RN ld1
[2023-01-20 17:29] VITALS: TEMP 97.9
[2023-01-20 17:37] VITALS: O2SAT 98
[2023-01-20 17:40] VITALS: BP 189/97
== END 2023-01-20 17:24 | disposition home or self-care (01) ==
LOC: ER 13:41
DX: N39.0 Urinary tract infection, site not specified (principal); R10.2 Pelvic and perineal pain; I10 Essential (primary) hypertension; I48.91 Unspecified atrial fibrillation; Z79.01 Long term (current) use of anticoagulants
CPT/HCPCS: 96365; 96367; 96361; 87040 ×2; 85025; 81001; 36415; 87205; 80053; 51702; 99285; J7030; J1450; J0696

== ENCOUNTER 2023-01-23 16:09 | Emergency (ER) | payer OTHER ==
--- OUTSIDE RECORDS SUMMARY | 2023-01-23 16:14 | XMS REPORT | Continuity of Care Document ---
:1935 Author Organization [facility] t Address [address] [facility] [address] [place] [address] Care Team Providers Name Role Phone SEEMA ASHFORD Primary Care Physician UnavailMOISES Matias Attending Clinician Unavailable G_Pappas Attending Clinician Unavailable DEONDRE ASHBY Attending Clinician Unavailable NADIR MARTINEZ Attending Clinician Unavailable MITRA UREÑA Attending Clinician Unavailable G_Pappas Admitting Clinician Unavailable DEONDRE ASHBY Admitting Clinician Unavailable Payers Payer Name Policy Type Policy Number Effective Date Expiration Date S robert AETNA MEDICARE 53 [id number] Common PPO [facility] AETNA (MEDICARE [id number] 2019 REPLACEMENT PPO) 00:00:00 AETNA MEDICARE [id number] 2015 2021 ADV 00:00:00 00:00:00 Problems Condition [...] Group Bladder Bladder Problem Common calculus calculus [facility] [id number] Urinary Problem Commo n incontinen [facility], - [facility] unspecifie [facility] [id number] Recurrent Problem Com mon UTI [facility] [id number] Foreign Problem Commo n body in [facility] initial [facility] [id number] Acute Problem Common lower UTI [facility] [id number] Acute Problem Common vaginitis [facility] [id number] Cystitis Problem Comm on bacillary[facility] Allergies, Adverse Reactions, Alerts Allergy Allergy Status Severity Reaction(s) Onset Inactive Treating Comm ents Source Name Type Date Date Clinician prometha DA Active [facility] zine 14 Clear 00:00: Esquivel 00 [facility] No Known DA Active [facility] Allergie 05-01 Clear s 00:00: Esquivel 00 [facility] NO KNOWN Drug Active Univers ALLERGIE Class ity of S [facility] Social History Social Habit Start Date Stop Date Quantity Comments Source History of Tobacco Use Co mmon [facility] Sex Assigned At Com [facility] Smoking Status Start Date Stop Date Source Former Smoker [facility] Never Smoker Common [facility] Medications Ordered Filled Start Stop Current [...] BID Nystatin-T iamcinolone iamcinolone 09-10 cation} riamcinolo 628317-7.1 686081-3.1 00:00: 00:00 ne UNIT/GM UNIT/GM 00 :00 521678-6.1 UNIT/GM Nystatin-Tr Nystatin-Tr 2021-08- No 1{appli BID Nystatin-T iamcinolone iamcinolone 09-10 cation} riamcinolo 783911-2.1 728498-8.1 00:00: 00:00 ne UNIT/GM UNIT/GM 00 :00 779199-2.1 UNIT/GM Fluconazole Fluconazole 2021-08- No 1{table Fluconazol [...] MG 400-80 MG 00 :00 400-80 MG hydrocodone hydrocodone No hydrocodon [place] [facility] 5 [...] HYDROcodone No HYDROcodon -Acetaminop -Acetaminop e-Acetamin hen [facility] ophen Arthritis Arthritis No Arthritis Pain Pain Pain Medicine Medicine Medicine Symbicort Symbicort No 2{puffs BID Symbicort 160-4.5 160-4.5 } 160-4.5 MCG/ACT MCG/ACT MCG/ACT HYDROcodone HYDROcodone No HYDROcodon -Acetaminop -Acetaminop e-Acetamin hen [facility] ophen traMADol traMADol No 1{table QD traMADol [...] 160 160 PRESSURE IS HIGHER THAN 160 Vital Signs Vital Name Observation Time Observation Value Comments Source height 2022-07-11 16:15:00 60 [in_i] [facility] weight 2022-07-11 16:15:00 106 [lb_av] [facility] temperature 2022-07-11 16:15:00 98.6 [degF] [facility] bmi 2022-07-11 16:15:00 20.7 kg/m2 [facility] oximetry 2022-07-11 16:15:00 99 % [facility] respiratory rate 2022-07-11 16:15:00 16 /min Comm on [facility] blood pressure 2022-07-11 16:15:00 131 mm[Hg] Common [facility] - systolic [facility] blood pressure 2022-07-11 16:15:00 68 mm[Hg] Common [facility] - diastolic [facility] height 2022-06-14 17:00:00 60 [in_i] [facility] weight 2022-06-14 17:00:00 107 [lb_av] [facility] temperature 2022-06-14 17:00:00 98.4 [degF] [facility] bmi 2022-06-14 17:00:00 20.89 kg/m2 [facility] oximetry 2022-06-14 17:00:00 99 % [facility] respiratory rate 2022-06-14 17:00:00 18 /min Comm on [facility] blood pressure 2022-06-14 17:00:00 146 mm[Hg] Common [facility] - systolic [facility] blood pressure 2022-06-14 17:00:00 88 mm[Hg] Common [facility] - diastolic [facility] height 2022-05-30 13:30:00 60 [in_i] [facility] weight 2022-05-30 13:30:00 107 [lb_av] [facility] temperature 2022-05-30 13:30:00 98.1 [degF] [facility] bmi 2022-05-30 13:30:00 20.89 kg/m2 [facility] oximetry 2022-05-30 13:30:00 96 % [facility] respiratory rate 2022-05-30 13:30:00 16 /min Comm on [facility] blood pressure 2022-05-30 13:30:00 145 mm[Hg] Common [facility] - systolic [facility] blood pressure 2022-05-30 13:30:00 70 mm[Hg] Common [facility] - diastolic [facility] BP Diastolic 2022-05-24 00:00:00 72 mm[Hg] [facility] Height 2022-05-24 00:00:00 60 [in_i] [facility] BMI (Body Mass 2022-05-24 00:00:00 21 kg/m2 [facility] BP Systolic 2022-05-24 00:00:00 155 mm[Hg] [facility] Body Weight 2022-05-24 00:00:00 107.6 [lb_av] [facility] BP Diastolic 2022-05-03 00:00:00 77 mm[Hg] [facility] Height 2022-05-03 00:00:00 60 [in_i] [facility] BMI (Body Mass 2022-05-03 00:00:00 21.6 kg/m2 [facility] BP Systolic 2022-05-03 00:00:00 157 mm[Hg] [facility] Body Weight 2022-05-03 00:00:00 110.4 [lb_av] [facility] Procedures This patient has no known procedures. Plan of Care Planned Activity Planned Date Details Comments Source Diagnostic Test 2022-05-24 urinalysis, [facility] 00:00:00 dipstick [code = Group urinalysis, dipstick] Diagnostic Test 2022-05-24 culture, urine [facility] Pending 00:00:00 [code = culture, Group urine] Instructions [facility] Encounters Start End Encounter Admission Attending Care Care Encounter Source Date/Time Date/Time Type Type Clinicians Facility Department ID 2022-09-10 Outpatient KEANE, STLMLC STLMLC [id number] Common 08:17:02 MOISES [id number] [facility] 2022-05-30 Outpatient KEANE, STLMLC STLMLC [id number] Common 12:59:03 MOISES [id number] [facility] 2022-08-08 2022-08-08 (TEL) STLMLC STLMLC [id number] Co mmon 00:00:00 00:00:00 [facility] 2022-07-25 2022-07-25 (TEL) STLMLC STLMLC [id number] Co mmon 00:00:00 00:00:00 [facility] 2022-07-23 2022-07-23 (TEL) STLMLC STLMLC [id number] Co mmon 00:00:00 00:00:00 [facility] 2022-07-11 2022-07-11 OFFICE STLMLC STLMLC [id number] Co mmon 00:00:00 00:00:00 VISIT EST Spir it PT LEVEL 3 [facility] 2022-07-04 2022-07-04 Outpatient G_Pappas MMG MMG [id number] [place] 00:00:00 00:00:00 1116 [facility] 2022-06-17 2022-06-17 Outpatient G_Pappas MMG MMG 2021 [place] 00:00:00 00:00:00 1030 [facility] 2022-06-17 2022-06-17 (TEL) STLMLC STLMLC [id number] Co mmon 00:00:00 00:00:00 [facility] 2022-06-14 2022-06-14 NO CHARGE STLMLC STLMLC [id number] Common 00:00:00 00:00:00 [facility] 2022-05-30 2022-05-30 OFFICE STLMLC STLMLC [id number] Co mmon 00:00:00 00:00:00 VISIT [facility] PT LEVEL [address] [place] [address] 2022-05-24 2022-05-24 Outpatient EL ANTONY, [facility] [id number] [place] 14:52:00 14:52:00 DEONDRE -[id number] [facility] 2022-05-24 2022-05-24 Outpatient G_Pappas MMG MMG 2021 [place] 00:00:00 00:00:00 1006 [facility] 2022-05-24 2022-05-24 Deondre DAVILA [place] - [id number] M atagor 00:00:00 00:00:00 Discovery adrienne Ashby MD: 600 [facility] [address] [address] , Ph. [phone] 2022-05-13 2022-05-13 Outpatient G_Pappas MMG MMG 2021 [place] 00:00:00 00:00:00 0925 [facility] 2022-05-03 2022-05-03 Outpatient G_Pappas MMG MMG [id number] [place] 00:00:00 00:00:00 0915 Medical Group 2022-05-03 2022-05-03 Deondre [facility] [place] - [id number] M atagor 00:00:00 00:00:00 Discovery adrienne Ashby MD: 600 [facility] [place] [facility] [address], [place] [address] , Ph. [phone] 2022-03-28 2022-03-28 [facility] [id number] [place] 00:00:00 00:00:00 0810 [facility] 2019-12-18 2019-12-18 [facility] [id number] Univers 10:10:01 23:59:00 NADIR [facility] 2019-11-27 2019-11-27 Outpatient Mitchel NIRANJAN [facility] [id number] Univers 10:00:00 10:00:00 [facility] 2019-11-26 2019-11-26 [facility] [id number] Univers 09:30:00 09:30:00 [facility] 2019-11-26 2019-11-26 [facility] [id number] Univers 08:15:00 08:15:00 [facility] 2013-07-08 2013-07-09 Inpatient LUBNA ASHBY [facility] [id number] [place] 05:14:00 18:45:00 DEONDRE [id number] [facility] 2012-08-27 2012-08-28 Outpatient LUBNA ASHBY [facility] [id number] [place] 05:51:00 11:03:00 DEONDRE [id number] [facility] Results Test Description Test Time Test Comments [...] Blood (test code = Blood) Moderate Specific Enfield (test code = Specific Enfield) 1.020 Ketone (test code = Ketone) Negative Bilirubin (test code = Bilirubin) Negative Glucose (test code = Glucose) Negative Appearance (test code = Appearance) Clear Color (test code = Color) Yellow [facility]Identifier] in Vaginal fluid by Wet [id number] 10:59:15 Test Item Value Reference Range Interpretation Comments Clue Cells (test code = Clue Cells) negative WBCs (test code = WBCs) positive Trichomonads (test code = negative Trichomonads) Epithelial cells (test code = abnormal Epithelial cells) RBCs (test code = RBCs) negative [facility] [Identifier] in Vaginal fluid by Wet [id number] 10:59:15 Test Item Value Reference Range Interpretation Comments Clue Cells (test code = Clue Cells) negative WBCs (test code = WBCs) positive Trichomonads (test code = negative Trichomonads) Epithelial cells (test code = abnormal Epithelial cells) RBCs (test code = RBCs) negative [facility]HROM[facility] [id number] 06:36:00 Test Item Value Reference Range Interpretation [...] infar ct). COMMENTS: INR X 10 DAYSPROTHROMBIN [id number] 09:06:00 Test Item Value Reference Range Interpretation [...] (to prevent recurrent infar ct). RENAL FUNCTION [id number] 07:50:00 Test Item Value Reference Range Interpretation [...] code = 3.4 MG/DL 2.5-4.9 N PHOS) [id number] 07:50:00 Test Item Value Reference Range Interpretation Comments MAGNESIUM (test code = MAG) 1.70 mg/dL 1.8-2.4 L CBC W/AUTO [id number] 07:18:00 Test Item Value Reference Range Interpretation [...] NO = MDIFF) - CT ABD PELVIS [id number] 15:24:00 Name: ZAYNAB SHAW [facility] : 1935 Age/S: 83 / F [address] [place] [address] Unit #: [id number] Loc: [place] [address] Phys: Greg Mercer MD Acct: [id number] Dis Date: Status: ADM IN PHONE #: [phone] Exam Date: 05/01/2019 1500 FAX #: [phone] Reason: L1 fracture EXAMS: CPT CODE: [id number] CT ABD PELVIS W/CONT 72764 PROCEDURE: CT ABDOMEN AND PELVIS WITH CONTRAST [...] 1 Signed Report (CONTINUED) Name: ZAYNAB SHAW [facility] : 1935 Age/S: 83 / F [address] [place] [address] Blvd Unit #: [id number] Loc: [place] [address] Phys: Greg Mercer MD Acct: [id number] Dis Date: Status: ADM IN PHONE #: [phone] Exam Date: 05/01/2019 1500 FAX #: [phone] Reason: L1 fracture EXAMS: CPT CODE: [id number] CT ABD PELVIS W/CONT 37090 (Continued) PELVIS: A Malave catheter is in [...] on today's CT lumbar spine. END IMPRESSION [id number] at 1524 Reported and signed by: Elliot Walker M.D. CC: Charan Velasquez DO; Greg Mercer Technologist:Phyllis Duran RT(R)(CT) CTDI: DLP: Trnscb Date/Time: 05/01/2019 (1524) [id number] Orig Print D/T: S: 05/01/2019 (1527) PAGE 2 Signed ReportRENAL FUNCTION [id number] 14:30:00 Test Item Value Reference Range Interpretation [...] 3.3 MG/DL 2.5-4.9 N PHOS) RENAL FUNCTION [id number] 14:28:00 Test Item Value Reference Range Interpretation [...] Note Provider Source 2019-05-03 14:26:00-00:00 HCACL [facility] ([facility]) Discharge Summary REPORT#:[id number] REPORT STATUS: Signed DATE:05/03/19 TIME: 1425 PATIENT: ZAYNAB SHAW UNIT #: [id number] ROOM/BED: [place] [address] : 33 AGE: 83 SEX: F ATTEND: Greg Mercer MD ADM AUTHOR: Daly Jones AGACN P * ALL edits or amendments must be made on the el [employer]/computer document * PCP PCP PCP: PCP: No [...] w/o problems, was ambulatory with a rolling tx lker and she was medically stable for d/c home with outpatient follow up. A tertiary trauma survey w as completed and negative for missed or occult injury. Consultants: cardiology, internal medicine, neur osurgery Pt. condition on discharge: improved, stable Allergies: Allergies: promethazine (From PHENERGAN) (Coded, Severe, [facility], 05/02/19) SBIRT: completed Med Rec PCP PCP: [...] Resp 14 05/03 1144 O2 Flow Rate 0.915107 05/01 1600 Patient Weight Weight (lb): Weight [...] (14.0 - 32.0 %) 24.4 / 0650 [place] % (Auto) (4.8 - 9.0 %) 9.3 H 05/02 0650 Eos % (Auto) (0.3 - 3.7 %) 3.2 / 0650 Baso % (Auto) (0.0 - 2.0 %) 1.1 / 0650 Neut # (Auto) (2.0 - 7.6 x10 3/uL) 4.29 05/02 0650 Lymph # (Auto) (1.0 - 3.8 x10 3/uL) 1.70 / 0650 [place] # (Auto) (0.1 - 0.8 x10 3/uL) [...] instructions: call for appt at 1340 RPT #:[id number] END OF REPORT 2019-05-03 12:22:00-00:00 HCACL [facility] ([facility] Cardiology Progress Note REPORT#:[id number] REPORT STATUS: Signed DATE:05/03/19 TIME: 1222 PATIENT: ZAYNAB SHAW UNIT #: [id number] ROOM/BED: [place] [address] : 33 AGE: 83 SEX: F ATTEND: Greg Mercer MD ADM AUTHOR: Erendira Leone NP * ALL edits or amendments must be made on the [employer]/DrAvailable document * Subjective Chief Complaint: Pt without [...] non-tender Lower extremity: LE assessment: no edema Neuro/PAGEANT DIRECTOR: alert, oriented X 3, normal speech Psychiatry: [...] home today. Pt has appointment with established junior engineer in a c ouple of weeks. She has been given our office information if she decides LAAO procedure is desired. Electronically Signed by Erendira Leone NP on at 1225 RPT #:[id number] END OF REPORT 2019-05-03 12:22:00-00:00 HCACL [facility] ([facility]) Cardiology Progress Note REPORT#:[id number] REPORT STATUS: Signed DATE:05/03/19 TIME: 1222 PATIENT: ZAYNAB SHAW UNIT #: [id number] ROOM/BED: [place] [address] : 33 AGE: 83 SEX: F ATTEND: Greg Mercer MD ADM AUTHOR: Erendira Leone NP * ALL edits or amendments must be made on the [employer]/computer document * Subjective Chief Complaint: Pt without [...] non-tender Lower extremity: LE assessment: no edema Neuro/PAGEANT DIRECTOR: alert, oriented X 3, normal speech Psychiatry: [...] home today. Pt has appointment with established junior engineer in a c ouple of weeks. She has been given our office information if she decides LAAO procedure is desired. Electronically Signed by Erendira Leone NP on at 1228 Electronically Signed by El Moreno MD on 05/06 at 5531 RPT #:[id number] END OF REPORT 2019-05-03 11:40:00-00:00 HCACL [facility] ([facility]) Pharmacy Prog.Note-Anticoag REPORT#:[id number] REPORT STATUS: Signed DATE:05/03/19 TIME: 1140 PATIENT: ZAYNAB SHAW UNIT #: [id number] ROOM/BED: [facility] : 33 AGE: 83 SEX: F ATTEND: Greg Mercer MD ADM AUTHOR: Latoya Lr [facility] * ALL edits or amendments must be made on the [employer]/computer document * Anticoagulation Anticoagulation Medication therapy: warfarin [...] yo F with w/PMH afib on warfarin, 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 Goal INR: 2-3 Home dose: [...] to monitor Electronically Signed by Latoya Lr [facility] on at 1143 RPT #:[id number] END OF REPORT 2019-05-03 08:32:00-00:[address] [facility] REPORT#:[id number] REPORT STATUS: Signed DATE:05/03/19 TIME: 08 PATIENT: ZAYNAB SHAW UNIT #: [id number] ROOM/BED: [place] [address] : 33 AGE: 83 SEX: F ATTEND: Greg Mercer MD ADM AUTHOR: Dhara Sam Jr DO * ALL edits or amendments must be made on the el [employer]/computer document * Subjective Chief Complaint: pt seen/examined. [...] non-tender, soft Extremities: no clubbing, no cyanosis Neuro/PAGEANT DIRECTOR: oriented X 3, CNII-XII intact Psychiatry: normal [...] Sam Jr, DO on at 0834 RPT #:[id number] END OF REPORT 2019-05-03 07:53:00-00:00 HCACL [facility] ([facility]) Trauma Progress Note REPORT#:[id number] REPORT STATUS: Signed DATE:05/03/19 TIME: 0753 PATIENT: ZAYNAB SHAW UNIT #: [id number] ROOM/BED: [facility] : 33 AGE: 83 SEX: F ATTEND: Greg Mercer MD ADM AUTHOR: Karen,Daly MEDICATION AID AGACN P * ALL edits or amendments must be made on the [employer]/computer document * Subjective Chief Complaint: 05/01/19: Fall, L1 compression fracture Pain better controlled with [place] Ambulating to the bathroom w/o problems Daughter [...] bunions/ arthritis noted to feet and hands. Neuro/PAGEANT DIRECTOR: alert, oriented X 3 Skin: dry, normal [...] Dispo: Home today with daughter. [facility]iscuss[facility] f/u with cardiology this week for coumadin testing. She will make appt in the am. Orders: Procedure Date/time Status Discharge Order With Parameter 05/03 1426 Activ e Consultants: cardiology, neurosurgery, pharmacy Plan discussed with: patient, daughter (caregive r at bedside) at 1441 RPT #:[id number] END OF REPORT 2019-05-03 07:53:00-00:00 HCACL [facility] ([facility]) Trauma Progress Note REPORT#:[id number] REPORT STATUS: Signed DATE:05/03/19 TIME: 0753 PATIENT: ZAYNAB SHAW UNIT #: [id number] ROOM/BED: [place] [address] : 33 AGE: 83 SEX: F ATTEND: Greg Mercer MD ADM AUTHOR: Daly Jones * ALL edits or amendments must be made on the [employer]/DrAvailable document * See Addendum Subjective Chief Complaint: 05/01/19: Fall, L1 compression fracture Pain better controlled with [place] Ambulating to the bathroom w/o problems Daughter [...] bunions/ arthritis noted to feet and hands. Neuro/PAGEANT DIRECTOR: alert, oriented X 3 Skin: dry, normal [...] Dispo: Home today with daughter. Discussed at [facility] f/u with cardiology this week for coumadin [...] INR followup with cardiology. at 1516 RPT #:[id number] END OF REPORT 2019-05-02 17:07:00-00:00 HCACL [facility] ([facility]) Cardiology Progress Note REPORT#:[id number] REPORT STATUS: Signed DATE:05/02/19 TIME: 1706 PATIENT: ZAYNAB SHAW UNIT #: [id number] ROOM/BED: [place] [address] : 33 AGE: 83 SEX: F ATTEND: Greg Mercer MD ADM AUTHOR: El Moreno MD * ALL edits or amendments must be made on the el [employer]/computer document * Subjective Comments: Patient examined. Overall [...] Moreno MD on 05/02 at 1712 RPT #:[id number] END OF REPORT 2019-05-02 13:07:00-00:[address] 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 Goal INR: 2-3 Home dose: [...] this consult Electronically Signed by Latoya Lr [facility] on at 1412 RPT #:[id number] END OF REPORT 2019-05-02 12:40:00-00:00 1503-[address] [address] PATIENT NAME: ZAYNAB SHAW ADMIT DATE: 9 ACCOUNT NO: [id number] ROOM NO: [facility] AGE: 83 REPORT TYPE: CONSULTATION REPORT SEX: F ADMITTING PHYSICIAN:Greg Mercer MD ATTENDING PHYSICIAN:Greg Mercer MD CONSULTATION DATE: CONSULTING PHYSICIAN: Dhara Bruno REASON FOR CONSULTATION: Medical management. HISTORY OF PRESENT ILLNESS: An 83-year-old femal e with a history of AFib and hypertension, who was seen i n the Emergency Department per EMS, transferred from [facility]. The patient stated she was in the [...] is an 83-year-old female, in no ac assinibo[place] and sioux distress, alert and oriented x3. HEENT: Normocephalic [...] as Trauma. PATIENT NAME: ZAYNAB SHAW [phone] [place] [address] PATIENT NAME: ZAYNAB SHAW ADMIT DATE: 9 ACCOUNT NO: [id number] ROOM NO: G.417 AGE: 83 REPORT TYPE: CONSULTATION REPORT SEX: F ADMITTING PHYSICIAN:Greg Mercer MD ATTENDING PHYSICIAN:Greg Mercer MD We will hold her Coumadin at this time. We will continue to monitor closely. Pain control. Better BP control. The patient may be discharged later on today once cleared by Trauma. Dictated By: Dhara Bruno WT: CON:JEMIMA/YANI/GM Conf#: [id number]/CHARLIE#: [id number] Authenticated by Dhara Sam DO On 05/05/2019 02:36: 27 PM Electronically Signed by Dhara Sam Jr, DO on 04/19 03/06 at 1436 PATIENT NAME: ZAYNAB SHAW 1740 2019-05-02 08:22:00-00:00 [id number] [place] [address] PATIENT NAME: ZAYNAB SHAW ADMIT DATE: 9 ACCOUNT NO: [id number] ROOM NO: G.417 AGE: 83 REPORT TYPE: eELECTROCARDIOGRAM REPORT SEX: F ADMITTING PHYSICIAN:Greg Mercer MD ATTENDING PHYSICIAN:Greg Mercer MD Order: [id number] Test Reason : Afib Test Date/Time Stamp: [...] on at 1133 PATIENT NAME: ZAYNAB SHAW [id number] 2019-05-02 07:55:00-00:[address] [facility] Trauma Progress Note REPORT#:[id number] REPORT STATUS: Signed DATE:05/02/19 TIME: 0755 PATIENT: ZAYNAB SHAW UNIT #: [id number] ROOM/BED: [place] [address] : 33 AGE: 83 SEX: F ATTEND: Greg Mercer MD ADM AUTHOR: Daly Jones AGACN P * ALL edits or amendments must be made on the [employer]/DrAvailable document * Subjective Chief Complaint: 05/01/19: Fall, [...] 18 139/74 95 100 Room air 0. [id number] 05/01 1330 98.4 60 18 138/72 94 [...] bunions/ arthritis noted to feet and hands. Neuro/PAGEANT DIRECTOR: alert, oriented X 3 [place] Coma Score: [place] Coma Score: Response Value Saqib eyes: eyes [...] % (Auto) (14.0 - 32.0 %) 24.4 [place] % (Auto) (4.8 - 9.0 %) 9.3 H Eos % (Auto) (0.3 - 3.7 %) 3.2 Baso % (Auto) (0.0 - 2.0 %) 1.1 Neut # (Auto) (2.0 - 7.6 x10 3/uL) 4.29 Lymph # (Auto) (1.0 - 3.8 x10 3/uL) 1.70 [place] # (Auto) (0.1 - 0.8 x10 3/uL) [...] on today's CT lumbar spine. END IMPRESSION [id number] Impression By: AnuelRTB - Elliot Walker M.D. [...] pharmacy Plan discussed with: patient, daughter (at [facility]) at 1257 RPT #:[id number] END OF REPORT 2019-05-02 07:55:00-00:00 HCACL [facility] ([facility]) Trauma Progress Note REPORT#:[id number] REPORT STATUS: Signed DATE:05/02/19 TIME: 0755 PATIENT: ZAYNAB SHAW UNIT #: [id number] ROOM/BED: [facility] : 33 AGE: 83 SEX: F ATTEND: Greg Mercer MD ADM AUTHOR: Daly Jones P * ALL edits or amendments must be made on the [employer]/DrAvailable document * See Addendum Subjective Chief Complaint: [...] 18 139/74 95 100 Room air 0. [id number] 05/01 1330 98.4 60 18 138/72 94 [...] bunions/ arthritis noted to feet and hands. Neuro/PAGEANT DIRECTOR: alert, oriented X 3 Saqib Coma Score: Saqib Coma Score: Response Value [place] eyes: eyes open spontaneously 4 Saqib speech: [...] % (Auto) (14.0 - 32.0 %) 24.4 [place] % (Auto) (4.8 - 9.0 %) 9.3 H Eos % (Auto) (0.3 - 3.7 %) 3.2 Baso % (Auto) (0.0 - 2.0 %) 1.1 Neut # (Auto) (2.0 - 7.6 x10 3/uL) 4.29 Lymph # (Auto) (1.0 - 3.8 x10 3/uL) 1.70 [place] # (Auto) (0.1 - 0.8 x10 3/uL) [...] Report Impression - Status: SIGNED Entered: 05/01/2019 2017 IMPRESSION: 1. Moderate sigmoid diverticulosis. 2. Moderately large fluid-filled hiatal hernia. 3. 12 mm urinary bladder stone. 4. Bilateral renal cysts. 5. 10% compression of the L1 vertebral body whic h will be further described on today's CT lumbar spine. END IMPRESSION [id number] Impression By: Elie.RTB - Elliot Walker M.D. [...] maybe as an outpatient. at 1649 RPT #:[id number] END OF REPORT 2019-05-01 18:01:00-00:00 [facility] Cardiology Consultation REPORT#:[id number] REPORT STATUS: Signed DATE:05/01/19 TIME: 180 PATIENT: ZAYNAB SHAW UNIT #: [id number] ROOM/BED: [place] [address] : 33 AGE: 83 SEX: F ATTEND: Greg Mercer MD ADM AUTHOR: Erendira Leone COACH PROFESSIONAL ATHLETES * ALL edits or amendments must be made on the [employer]/DrAvailable document * History of Present Illness HPI [...] imbalance. Her last follow up with her Body Component Engineer , Dr. Walker in [place], was 2 months ago w [facility] plans for follow up next month. She states her last appointment was for a Coumadin check and her junior engineer had no other concerns. History - Adult [...] assessment: no edema Musculoskeletal: decreased ROM (RUE) Neuro/PAGEANT DIRECTOR: alert, oriented X 3, normal speech Skin: [...] on today's CT lumbar spine. END IMPRESSION [id number] Impression By: AnuelRTB - Elliot Walker M.D. [...] Erendira Leone NP on at 1818 RPT #:[id number] END OF REPORT 2019-05-01 18:01:00-00:00 [facility]) Cardiology Consultation REPORT#:[id number] REPORT STATUS: Signed DATE:05/01/19 TIME: 1801 PATIENT: ZAYNAB SHAW UNIT #: [id number] ROOM/BED: [place] [address] : 33 AGE: 83 SEX: F ATTEND: Greg Mercer MD ADM AUTHOR: Erendira Leone NP * ALL edits or amendments must be made on the el [employer]/computer document * History of Present Illness HPI [...] imbalance. Her last follow up with her Body Component Engineer , Dr. Walker in [place], was 2 months ago w [facility] plans for follow up next month. She states her last appointment was for a Coumadin check and her junior engineer had no other concerns. History - Adult [...] assessment: no edema Musculoskeletal: decreased ROM (RUE) Neuro/PAGEANT DIRECTOR: alert, oriented X 3, normal speech Skin: [...] on today's CT lumbar spine. END IMPRESSION [id number] Impression By: AnuelRTB - Elliot Walker M.D. [...] Moreno MD on 05/31 at 1739 RPT #:[id number] END OF REPORT 2019-05-01 12:52:00-00:00 [facility]L [facility] ([facility]) Trauma - History Physical REPORT#:[id number] REPORT STATUS: Signed DATE:05/01/19 TIME: 1252 PATIENT: ZAYNAB SHAW UNIT #: [id number] ROOM/BED: [facility] : 33 AGE: 83 SEX: F ATTEND: Greg Mercer MD ADM AUTHOR: Greg Mercer MD * ALL edits or amendments must be made on the [employer]/DrAvailable document * History of Present Illness HPI Chief complaint: 05/01/19 Fall, L1 fracture HPI: Ms. Shaw is a 83 yo woman with multiple medical problems as listed below who comes in as a transfer from [place], [place] after a mechanical fall today and [...] bunions/ arthritis noted to feet and hands. Neuro/PAGEANT DIRECTOR: alert, oriented X 3 Saqib Coma Score: [place] Coma Score: Response Value Patient intubated? no Saqib eyes: eyes open spontaneously 4 [place] speech: oriented 5 [place] motor: obeys commands 6 Total 15 Diagnosis, [...] Dispo: Anticipate discharge home. at 1309 RPT #:[id number] END OF REPORT 2019-05-01 12:32:00-00:00 HCACL [facility] ([facility] Neurosurgical Consultation REPORT#:[id number] REPORT STATUS: Signed DATE:05/01/19 TIME: 1232 PATIENT: ZAYNAB SHAW UNIT #: [id number] ROOM/BED: [place] [address] : 33 AGE: 83 SEX: F ATTEND: Greg Mercer MD ADM AUTHOR: Yoanna Barker COACH PROFESSIONAL ATHLETES * ALL edits or amendments must be made on the [employer]/computer document * Yoanna Barker 05/01/19 1232: History [...] edema (BLE), moves all, normal temp erature Neuro/PAGEANT DIRECTOR: alert, oriented X 3, normal speech, n [...] on today's CT lumbar spine. END IMPRESSION [id number] Impression By: AnuelRTB - Elliot Walker M.D. [...] Valderrama DO on 05/01 at 1825 RPT #:[id number] END OF REPORT 2019-05-01 12:32:00-00:00 HCACL [facility] ([facility]) Neurosurgical Consultation REPORT#:[id number] REPORT STATUS: Signed DATE:05/01/19 TIME: 1232 PATIENT: ZAYNAB SHAW UNIT #: [id number] ROOM/BED: [place] [address] : 33 AGE: 83 SEX: F ATTEND: Greg Mercer MD ADM AUTHOR: Yoanna Barker COACH PROFESSIONAL ATHLETES * ALL edits or amendments must be made on the [employer]/DrAvailable document * See Addendum Yoanna Barker 05/01/19 [...] edema (BLE), moves all, normal temp erature Neuro/PAGEANT DIRECTOR: alert, oriented X 3, normal speech, n [...] on today's CT lumbar spine. END IMPRESSION [id number] Impression By: AnuelRTB - Elliot T. Brown, [...] Valderrama DO on 05/01 at 1837 RPT #:[id number] END OF REPORT 2019-05-01 12:32:00-00:00 [facility]ACL [facility] ([facility]) Neurosurgical Consultation REPORT#:[id number] REPORT STATUS: Signed DATE:05/01/19 TIME: 1232 PATIENT: ZAYNAB SHAW UNIT #: [id number] ROOM/BED: [place] [address] : 33 AGE: 83 SEX: F ATTEND: Greg Mercer MD ADM AUTHOR: Yoanna Barker COACH PROFESSIONAL ATHLETES * ALL edits or amendments must be made on the [employer]/computer document * See Addendum Yoanna Barker 05/01/19 [...] edema (BLE), moves all, normal temp erature Neuro/PAGEANT DIRECTOR: alert, oriented X 3, normal speech, n [...] on today's CT lumbar spine. END IMPRESSION [id number] Impression By: AnuelRTB - Elliot Walker M.D. [...] Valderrama DO on 05/01 at 1837 RPT #:[id number] END OF REPORT 2019-05-01 12:32:00-00:00 [facility]L [facility] ([facility]) Neurosurgical Consultation REPORT#:[id number] REPORT STATUS: Signed DATE:05/01/19 TIME: 1232 PATIENT: ZAYNAB SHAW UNIT #: [id number] ROOM/BED: [place] [address] : 33 AGE: 83 SEX: F ATTEND: Greg Mercer MD ADM AUTHOR: Yoanna Barker COACH PROFESSIONAL ATHLETES * ALL edits or amendments must be made on the [employer]/DrAvailable document * See Addendum Yoanna Barker 05/01/19 [...] edema (BLE), moves all, normal temp erature Neuro/PAGEANT DIRECTOR: alert, oriented X 3, normal speech, n [...] on today's CT lumbar spine. END IMPRESSION [id number] Impression By: AnuelRTB - Elliot Walker M.D. [...] Valderrama DO on 05/01 at 1837 RPT #:[id number] END OF REPORT 2019-05-01 12:32:00-00:00 [facility]) Neurosurgical Consultation REPORT#:[id number] REPORT STATUS: Signed DATE:05/01/19 TIME: 1232 PATIENT: ZAYNAB SHAW UNIT #: [id number] ROOM/BED: [place] [address] : 33 AGE: 83 SEX: F ATTEND: Greg Mercer MD ADM AUTHOR: Yoanna Barker COACH PROFESSIONAL ATHLETES * ALL edits or amendments must be made on the el [employer]/computer document * See Addendum Yoanna Barker 05/01/19 [...] edema (BLE), moves all, normal temp erature Neuro/PAGEANT DIRECTOR: alert, oriented X 3, normal speech, n [...] on today's CT lumbar spine. END IMPRESSION [id number] Impression By: AnuelRTB - Elliot Walker M.D. [...] Maricruz Valderrama DO on 05/01 at 1837 [facility] #:[id number] END OF REPORT 2019-05-01 11:22:00-00:[address] [facility] EMERGENCY PROVIDER REPORT REPORT#:[id number] REPORT STATUS: Signed DATE:05/01/19 TIME: 112 PATIENT: ZAYNAB SHAW UNIT #: [id number] [facility] 83 SEX: F PCP PHYS: No Primary or Family Ph ysician SERVICE AUTHOR: Charan Velasquez DO * ALL edits or amendments must be made on the [employer]/computer document * HPI-Back Pain 40 and Over General Confirmed Patient Yes Initial Greet Date/Time 05/01/19 1102 Presentation Chief Complaint Pain, back Hx Obtained From Regulator Operator Sudden in Onset? No Onset Occurred Yesterday Symptom Duration Since onset Progression since Onset Unchanged Free Text HPI Notes Free Text HPI Notes 83 y/o F with PMHx of Afib, HTN and TIA presents to the ED per EMS. Per EMS, pt is a transfer from [facility] for trauma s urgery consult. EMS states [...] PE General/Const General/Const Awake, Alert, Well developed, [employer] perative MS Neck Neck Supple, Full range [...] by Raman Sanchez on 05/01/19 at 1130 Interpretation Diagnostics [...] 1327 Consultation Consultation Referral/Consult Name LavelleMaricruz DO Esl Professor Called Neurology Requested Call Time 1122 Requested Call Date 05/01/19 Call Returned Call returned Call Returned Time 1122 Call Returned Date 05/01/19 Esl Professor Will see patient Portions of this section [...] admissio n Supervising Physician Note Scribe Statement Daren Sanchez, 05/01/19 112, scribing f or and [...] Charan Velasquez DO on at 1434 RPT #:[id number] END OF REPORT
--- NOTE | 2023-01-23 18:19 | ER ---
Nurse's Notes [facility] Name: Zaynab Cain Age: 87 yrs Sex: Female : 1935 Arrival Date: 01/23/2023 Time: 16:09 Bed 16 Private MD: Diagnosis: Malave Catheter Removal;Elevated blood-pressure reading, without diagnosis of hypertension Presentation: 01/23 16:15 Chief complaint: Malave catheter put in Saturday, here for removal. Coronavirus screen: At iw this time, the client does not indicate any symptoms associated with coronavirus-19. Ebola Screen: No symptoms or risks identified at this time. Initial Sepsis Screen: Does the patient meet any 2 criteria? No. Patient's initial sepsis screen is negative. Does the patient have a suspected source of infection? No. Patient's initial sepsis screen is negative. Risk Assessment: Do you want to hurt yourself or someone else? Patient reports no desire to harm self or others. Onset of symptoms was January 23, 2023. 16:15 Method Of Arrival: Wheelchair iw 16:15 Acuity: AILYN 4 iw Historical: - Allergies: 16:19 fentanyl; iw - PMHx: 16:19 Arthritis; Hypertension; Atrial fibrillation; Hypothyroidism; TIA; iw - PSHx: 16:19 hysterectomy; iw - Immunization history:: Adult Immunizations up to date. - Social history:: Smoking status: Patient denies any tobacco usage or history of. Screenin:36 [facility] ED Fall Risk Assessment (Adult) History of falling in the last 3 months, ld1 including since admission No falls in past 3 months (0 pts). Abuse screen: Denies threats or abuse. Denies injuries from another. Nutritional screening: No deficits noted. Tuberculosis screening: No symptoms or risk factors identified. Assessment: 18:34 Reassessment: See triage assessment. General: Appears in no apparent distress. ld1 uncomfortable, Behavior is calm, cooperative, appropriate for age. Pain: Denies pain. Neuro: Level of Consciousness is awake, alert, obeys commands, Oriented to person, place, time, situation. Cardiovascular: Capillary refill < 3 seconds Patient's skin is warm and dry. Respiratory: Airway is patent Respiratory effort is even, unlabored. : Reports discomfort due to catheter. Vital Signs: 16:15 BP 171 / 106; Pulse 74; Resp 16; Temp 98.3; Pulse Ox 100% on R/A; Weight 48.08 kg; iw Height 4 ft. 11 in. ; Pain 0/10; 18:36 BP 165 / 99; Pulse 72; Resp 18; Pulse Ox 100% on R/A; ld1 16:15 Body Mass Index 21.41 (48.08 kg, 149.86 cm) iw 16:15 Pain Scale: Adult iw ED Course: 16:10 Patient arrived in ED. ts1 16:11 Kartik Hedrick DO is Attending Physician. ms3 16:19 Triage completed. iw 16:20 Arm band placed on. iw 18:18 Ede Hair MD is Referral Physician. ms3 18:34 Cecily Hedrick, RN is Primary Nurse. ld1 18:35 No provider procedures requiring assistance completed. Malave cath removed intact, ld1 balloon deflated. 18:36 Patient has correct armband on for positive identification. Placed in gown. Bed in low ld1 position. Call light in reach. Side rails up X2. compliance monitor on. Pulse ox on. NIBP on. Door closed. Noise minimized. Warm blanket given. 18:36 No provider procedures requiring assistance completed. Patient did not have IV access ld1 during this emergency room visit. Administered Medications: No medications were administered Medication: 18:36 VIS not applicable for this client. ld1 Outcome: 18:19 Discharge ordered by . ms3 18:36 Discharged to home via wheelchair, with family. ld1 18:36 Condition: stable 18:36 Discharge instructions given to patient, family, Instructed on discharge instructions, follow up and referral plans. Demonstrated understanding of instructions, follow-up care. 18:37 Patient left the ED. ld1 Signatures: Eri Campbell, RN RN Kartik Hedrick DO DO ms3 Cecily Hedrick RN RN ld1 Bonnie Mukherjee PAS PAS ts1
--- NOTE | 2023-01-23 18:19 | EDPHYS ---
Physician Documentation [facility] Name: Zaynab Cain Age: 87 yrs Sex: Female : 1935 Arrival Date: 01/23/2023 Time: 16:09 Bed 16 Private MD: ED Physician Kartik Hedrick HPI: 01/23 16:19 This 87 yrs old Female presents to ER via Unassigned with complaints of Problem With ms3 Urinary Catheter. 16:19 Patient's daughter states patient was seen on Saturday and diagnosed with urinary tract ms3 infection and had local skin irritation and a Dotson catheter was placed. Patient was instructed to have catheter removed in 3 days. Patient's daughter states she attempted to call Dr. Hair office and did not receive a call back. Patient's daughter called their primary care physician's office and they stated they do not remove Dotson catheters. Patient's daughter states they would like the Dotson catheter removed. Patient is without complaints today. Historical: - Allergies: 16:19 fentanyl; iw - PMHx: 16:19 Arthritis; Hypertension; Atrial fibrillation; Hypothyroidism; TIA; iw - PSHx: 16:19 hysterectomy; iw - Immunization history:: Adult Immunizations up to date. - Social history:: Smoking status: Patient denies any tobacco usage or history of. ROS: 16:19 Positive for Dotson Catheter . ms3 16:19 Constitutional: Negative for fever, and chills. Neck: Negative for injury, pain, and swelling, Cardiovascular: Negative for chest pain, and palpitations. Respiratory: Negative for shortness of breath, cough, wheezing, and pleuritic chest pain, Abdomen/GI: Negative for abdominal pain, nausea, vomiting, diarrhea, and constipation, Back: Negative for injury and pain, Skin: Negative for injury, rash, and discoloration. 16:19 All other systems are negative. Exam: 16:19 Constitutional: This is a well developed, well nourished patient who is awake, alert, ms3 and in no acute distress. Head/Face: Normocephalic, atraumatic. Chest/axilla: Normal chest wall appearance and motion. Nontender with no deformity. Cardiovascular: Regular rate and rhythm with a normal S1 and S2. No gallops, murmurs, or rubs. Normal PMI, no JVD. No pulse deficits. Respiratory: Lungs have equal breath sounds bilaterally, clear to auscultation and percussion. No rales, rhonchi or wheezes noted. No increased work of breathing, no retractions or nasal flaring. Abdomen/GI: Soft, non-tender, with normal bowel sounds. No distension or tympany. No guarding or rebound. No evidence of tenderness throughout. Skin: Warm, dry with normal turgor. Normal color with no rashes, no lesions, and no evidence of cellulitis. MS/ Extremity: Pulses equal, no cyanosis. Neurovascular intact. Full, normal range of motion. 16:19 : a dotson is noted. Vital Signs: 16:15 BP 171 / 106; Pulse 74; Resp 16; Temp 98.3; Pulse Ox 100% on R/A; Weight 48.08 kg; iw Height 4 ft. 11 in. ; Pain 0/10; 18:36 BP 165 / 99; Pulse 72; Resp 18; Pulse Ox 100% on R/A; ld1 16:15 Body Mass Index 21.41 (48.08 kg, 149.86 cm) iw 16:15 Pain Scale: Adult iw MDM: 16:18 Patient medically screened. ms3 16:19 Differential diagnosis: urinary tract infection, Dotson Catheter in place. ms3 18:20 Data reviewed: vital signs, nurses notes, and as a result, I will discharge patient. ms3 Historians other than the Patient: Daughter/Son: . Care significantly affected by the following chronic conditions: Hypertension. Counseling: I had a detailed discussion with the patient and/or guardian regarding: the historical points, exam findings, and any diagnostic results supporting the discharge/admit diagnosis, the need for outpatient follow up, to return to the emergency department if symptoms worsen or persist or if there are any questions or concerns that arise at home. ED course: Dotson catheter removed without complications. Patient and her daughter states they would like to be discharged and will return if patient is unable to urinate. Patient to follow-up with Dr. Hair in 2 to 3 days. Patient and her daughter understand and agree with plan. All questions were answered. Return precautions discussed include worsening symptoms, urinary retention, or any other concerns. 01/23 16:24 Order name: [facility]. Order: Remove Dotson and notify after patient is able to urinate; ms3 Complete Time: 18:17 Administered Medications: No medications were administered Disposition Summary: 01/23/23 18:19 Discharge Ordered Location: Home ms3 Condition: Stable ms3 Diagnosis - Dotson Catheter Removal ms3 - Elevated blood-pressure reading, without diagnosis of hypertension ms3 Followup: ms3 - With: Ede Hair MD - When: 2 - 3 days - Reason: Recheck today's complaints Discharge Instructions: - Discharge Summary Sheet ms3 - Hypertension, Adult ms3 - Indwelling Urinary Catheter Removal at Home, Female ms3 Forms: - Medication Reconciliation Form ms3 - Thank You Letter ms3 - Antibiotic Education ms3 - Prescription Opioid Use ms3 Signatures: Eri Campbell RN RN iw Kartik Hedrick DO DO ms3
[2023-01-23 19:33] VITALS: TEMP 98.3
[2023-01-23 19:43] VITALS: BP 132/76; O2SAT 98
== END 2023-01-23 18:37 | disposition home or self-care (01) ==
LOC: ER 16:09
DX: Z46.6 Encounter for fitting and adjustment of urinary device (principal); R03.0 Elevated blood-pressure reading, without diagnosis of hypertension; N39.0 Urinary tract infection, site not specified
CPT/HCPCS: 99284

== ENCOUNTER 2023-03-18 11:16 | Emergency (ER) | payer OTHER ==
--- OUTSIDE RECORDS SUMMARY | 2023-03-18 11:45 | XMS REPORT | Continuity of Care Document ---
:1935 Author Organization [facility] t Address [address] [facility] [address] [place] [address] Care Team Providers Name Role Phone SEEMA ASHFORD Primary Care Physician UnavailMOISES Matias Attending Clinician Unavailable G_Pappas Attending Clinician Unavailable DEONDRE ASHBY Attending Clinician Unavailable NADIR MARTINEZ Attending Clinician Unavailable MITRA UREÑA Attending Clinician Unavailable G_Pappas Admitting Clinician Unavailable DEONDRE ASHBY Admitting Clinician Unavailable Payers Payer Name Policy Type Policy Number Effective Date Expiration Date S robert AETNA MEDICARE 53 [id number] Common PPO [facility] AETNA (MEDICARE [id number] 2019 REPLACEMENT PPO) 00:00:00 AETNA MEDICARE [id number] 2015 2021 ADV 00:00:00 00:00:00 Problems Condition [...] Group Bladder Bladder Problem Common calculus calculus [facility] [id number] Urinary Problem Commo n incontinen [facility], - [facility] unspecifie [facility] [id number] Recurrent Problem Com mon UTI [facility] [id number] Foreign Problem Commo n body in [facility] initial [facility] [id number] Acute Problem Common lower UTI [facility] [id number] Acute Problem Common vaginitis [facility] [id number] Cystitis Problem Comm on bacillary, [facility] Allergies, Adverse Reactions, Alerts Allergy Allergy Status Severity Reaction(s) Onset Inactive Treating Comm ents Source Name Type Date Date Clinician prometha DA Active SV [facility] zine 14 Clear 00:00: Esquivel 00 [facility] No Known DA Active U [facility] Allergie 05-01 Clear s 00:00: Esquivel 00 [facility] NO KNOWN Drug Active Univers ALLERGIE Class ity of S [facility] Social History Social Habit Start Date Stop Date Quantity Comments Source History of Tobacco Use Co mmon [facility] Sex Assigned At Com [facility] Smoking Status Start Date Stop Date Source Former Smoker [facility] Never Smoker Common [facility] Medications Ordered Filled Start Stop Current Ordering [...] BID Nystatin-T iamcinolone iamcinolone 09-10 cation} riamcinolo 629352-0.1 737147-1.1 00:00: 00:00 ne UNIT/GM UNIT/GM 00 :00 166408-8.1 UNIT/GM Nystatin-Tr Nystatin-Tr 2021-08- No 1{appli BID Nystatin-T iamcinolone iamcinolone 09-10 cation} riamcinolo 501389-5.1 809717-5.1 00:00: 00:00 ne UNIT/GM UNIT/GM 00 :00 716061-9.1 UNIT/GM Fluconazole Fluconazole 2021-08- No 1{table Fluconazol [...] MG 400-80 MG 00 :00 400-80 MG Boudreauxs Boudreauxs No Boudreauxs Butt Paste [...] tablet 50 mg da tablet Medical Group Vital Signs Vital Name Observation Time Observation Value Comments Source height 2022-07-11 16:15:00 60 [in_i] [facility] weight 2022-07-11 16:15:00 106 [lb_av] [facility] temperature 2022-07-11 16:15:00 98.6 [degF] [facility] bmi 2022-07-11 16:15:00 20.7 kg/m2 [facility] oximetry 2022-07-11 16:15:00 99 % [facility] respiratory rate 2022-07-11 16:15:00 16 /min Comm on [facility] blood pressure 2022-07-11 16:15:00 131 mm[Hg] Common [facility] systolic [facility] blood pressure 2022-07-11 16:15:00 68 mm[Hg] Common [facility] - diastolic [facility] height 2022-06-14 17:00:00 60 [in_i] [facility] weight 2022-06-14 17:00:00 107 [lb_av] [facility] temperature 2022-06-14 17:00:00 98.4 [degF] [facility] bmi 2022-06-14 17:00:00 20.89 kg/m2 [facility] oximetry 2022-06-14 17:00:00 99 % [facility] respiratory rate 2022-06-14 17:00:00 18 /min Comm on [facility] blood pressure 2022-06-14 17:00:00 146 mm[Hg] Common [facility] - systolic [facility] blood pressure 2022-06-14 17:00:00 88 mm[Hg] Common [facility] - diastolic [facility] height 2022-05-30 13:30:00 60 [in_i] [facility] weight 2022-05-30 13:30:00 107 [lb_av] [facility] temperature 2022-05-30 13:30:00 98.1 [degF] [facility] bmi 2022-05-30 13:30:00 20.89 kg/m2 [facility] oximetry 2022-05-30 13:30:00 96 % [facility] respiratory rate 2022-05-30 13:30:00 16 /min Comm on [facility] blood pressure 2022-05-30 13:30:00 145 mm[Hg] Common [facility] - systolic [facility] blood pressure 2022-05-30 13:30:00 70 mm[Hg] Common [facility] - diastolic [facility] BP Diastolic 2022-05-24 00:00:00 72 mm[Hg] [facility] Height 2022-05-24 00:00:00 60 [in_i] [facility] BMI (Body Mass 2022-05-24 00:00:00 21 kg/m2 [facility] BP Systolic 2022-05-24 00:00:00 155 mm[Hg] [facility] Body Weight 2022-05-24 00:00:00 107.6 [lb_av] [facility] BP Diastolic 2022-05-03 00:00:00 77 mm[Hg] [facility] Height 2022-05-03 00:00:00 60 [in_i] [facility] BMI (Body Mass 2022-05-03 00:00:00 21.6 kg/m2 [facility] BP Systolic 2022-05-03 00:00:00 157 mm[Hg] [facility] Body Weight 2022-05-03 00:00:00 110.4 [lb_av] [facility] Procedures This patient has no known procedures. Plan of Care Planned Activity Planned Date Details Comments Source Diagnostic Test 2022-05-24 urinalysis, [facility] 00:00:00 dipstick [code = Group urinalysis, dipstick] Diagnostic Test 2022-05-24 culture, urine [facility] Pending 00:00:00 [code = culture, Group urine] Instructions [facility] Encounters Start End Encounter Admission Attending Care Care Encounter Source Date/Time Date/Time Type Type Clinicians Facility Department ID 2022-09-10 Outpatient KEANE, STLMLC STLMLC [id number] Common 08:17:02 MOISES [id number] [facility] 2022-05-30 Outpatient KEANE, STLMLC STLMLC [id number] Common 12:59:03 MOISES 07256 [facility] 2022-08-08 2022-08-08 (TEL) STLMLC STLMLC [id number] Co mmon 00:00:00 00:00:00 [facility] 2022-07-25 2022-07-25 (TEL) STLMLC STLMLC [id number] Co mmon 00:00:00 00:00:00 [facility] 2022-07-23 2022-07-23 (TEL) STLMLC STLMLC [id number] Co mmon 00:00:00 00:00:00 [facility] 2022-07-11 2022-07-11 OFFICE STLMLC STLMLC [id number] Co mmon 00:00:00 00:00:00 VISIT EST Spir it PT LEVEL 3 [facility] 2022-07-04 2022-07-04 Outpatient G_Pappas MMG MMG [id number] [facility] 00:00:00 00:00:00 1116 [facility] 2022-06-17 2022-06-17 Outpatient G_Pappas MMG MMG 2021 [place] 00:00:00 00:00:00 1030 [facility] 2022-06-17 2022-06-17 (TEL) STLMLC STLMLC [id number] Co mmon 00:00:00 00:00:00 [facility] 2022-06-14 2022-06-14 NO CHARGE STLMLC STLMLC [id number] Common 00:00:00 00:00:00 [facility] 2022-05-30 2022-05-30 OFFICE STLMLC STLMLC [id number] Co mmon 00:00:00 00:00:00 VISIT [facility] PT LEVEL [address] [place] [address] 2022-05-24 2022-05-24 Outpatient EL ANTONY, [facility] [id number] [place] 14:52:00 14:52:00 DEONDRE -[id number] [facility] 2022-05-24 2022-05-24 Outpatient G_Pappas MMG MMG 2021 [place] 00:00:00 00:00:00 1006 [facility] 2022-05-24 2022-05-24 Deondre DAVILA [place] - [id number] M atagor 00:00:00 00:00:00 Discovery adrienne Ashby MD: 600 [facility] [address] [address] , Ph. [phone] 2022-05-13 2022-05-13 Outpatient G_Pappas MMG MMG 2021 [place] 00:00:00 00:00:00 0925 [facility] 2022-05-03 2022-05-03 Outpatient G_Pappas MMG MMG [id number] [place] 00:00:00 00:00:00 0915 Medical Group 2022-05-03 2022-05-03 [facility] [place] [facility] [id number] M atagor 00:00:00 00:00:00 Discovery adrienne Ashby MD: [address] [facility] [address], [place] [address] , Ph. [phone] 2022-03-28 2022-03-28 [facility] [id number] [place] 00:00:00 00:00:00 0810 [facility] 2019-12-18 2019-12-18 [facility] [id number] Univers 10:10:01 23:59:00 NADIR [facility] 2019-11-27 2019-11-27 Outpatient Mitchel NIRANJAN [facility] [id number] Univers 10:00:00 10:00:00 [facility] 2019-11-26 2019-11-26 [facility] [id number] Univers 09:30:00 09:30:00 [facility] 2019-11-26 2019-11-26 [facility] [id number] Univers 08:15:00 08:15:00 [facility] 2013-07-08 2013-07-09 Inpatient [facility]UBNA [facility] [id number] [place] 05:14:00 18:45:00 DEONDRE [id number] [facility] 2012-08-27 2012-08-28 Outpatient LUBNA ASHBY [facility] [id number] [place] 05:51:00 11:03:00 DEONDRE [id number] [facility] Results Test Description Test [...] Blood (test code = Blood) Moderate Specific Crosby (test code = Specific Crosby) 1.020 Ketone (test code = Ketone) Negative Bilirubin (test code = Bilirubin) Negative Glucose (test code = Glucose) Negative Appearance (test code = Appearance) Clear Color (test code = Color) Yellow [facility] [Identifier] in Vaginal fluid by Wet [id number] 10:59:15 Test Item Value Reference Range Interpretation Comments Clue Cells (test code = Clue Cells) negative WBCs (test code = WBCs) positive Trichomonads (test code = negative Trichomonads) Epithelial cells (test code = abnormal Epithelial cells) RBCs (test code = RBCs) negative [facility] observation [Identifier] in Vaginal fluid by Wet [id number] 10:59:15 Test Item Value Reference Range Interpretation Comments Clue Cells (test code = Clue Cells) negative WBCs (test code = WBCs) positive Trichomonads (test code = negative Trichomonads) Epithelial cells (test code = abnormal Epithelial cells) RBCs (test code = RBCs) negative [facility] CountyPROTHROMBIN [id number] 06:36:00 Test Item Value Reference Range Interpretation [...] infar ct). COMMENTS: INR X 10 DAYSPROTHROMBIN [id number] 09:06:00 Test Item Value Reference Range Interpretation [...] (to prevent recurrent infar ct). RENAL FUNCTION [id number] 07:50:00 Test Item Value Reference Range Interpretation [...] code = 3.4 MG/DL 2.5-4.9 N PHOS) [id number] 07:50:00 Test Item Value Reference Range Interpretation Comments MAGNESIUM (test code = MAG) 1.70 mg/dL 1.8-2.4 L CBC W/AUTO [id number] 07:18:00 Test Item Value Reference Range Interpretation [...] NO = MDIFF) - CT ABD PELVIS [id number] 15:24:00 Name: ZAYNAB SHAW [facility] : 1935 Age/S: 83 / F [address] [place] [address] Unit #: [id number] Loc: [place] [address] Phys: Greg Mercer MD Acct: [id number] Dis Date: Status: ADM IN PHONE #: [phone] Exam Date: 05/01/2019 1500 FAX #: [phone] Reason: L1 fracture EXAMS: CPT CODE: [id number] CT ABD PELVIS W/CONT 22620 PROCEDURE: CT ABDOMEN AND PELVIS WITH CONTRAST [...] 1 Signed Report (CONTINUED) Name: ZAYNAB SHAW [facility] : 1935 Age/S: 83 / F [address] [place] [address] Blvd Unit #: [id number] Loc: [place] [address] Phys: Greg Mercer MD Acct: [id number] Dis Date: Status: ADM IN PHONE #: [phone] Exam Date: 05/01/2019 1500 FAX #: [phone] Reason: L1 fracture EXAMS: CPT CODE: [id number] CT ABD PELVIS W/CONT 48816 (Continued) PELVIS: A Malave catheter is in [...] on today's CT lumbar spine. END IMPRESSION [id number] at 1524 Reported and signed by: Elliot Walker M.D. CC: Charan Velasquez DO; Greg Mercer Technologist:Phyllis Duran RT(R)(CT) CTDI: DLP: Trnscb Date/Time: 05/01/2019 (1524) [id number] Orig Print D/T: S: 05/01/2019 (1527) PAGE 2 Signed ReportRENAL FUNCTION [id number] 14:30:00 Test Item Value Reference Range Interpretation [...] 3.3 MG/DL 2.5-4.9 N PHOS) RENAL FUNCTION [id number] 14:28:00 Test Item Value Reference Range Interpretation [...] Note Provider Source 2019-05-03 14:26:00-00:00 [facility] ([facility]) Discharge Summary REPORT#:[id number] REPORT STATUS: Signed DATE:05/03/19 TIME: 1425 PATIENT: ZAYNAB SHAW UNIT #: [id number] ROOM/BED: [place] [address] : 33 AGE: 83 SEX: F ATTEND: Greg Mercer MD ADM AUTHOR: Daly Jones AGACN P * ALL edits or amendments must be made on the el [employer]/computer document * PCP PCP PCP: PCP: No [...] w/o problems, was ambulatory with a rolling nv lker and she was medically stable for d/c home with outpatient follow up. A tertiary trauma survey w as completed and negative for missed or occult injury. Consultants: cardiology, internal medicine, neur osurgery Pt. condition on discharge: improved, stable Allergies: Allergies: promethazine (From PHENERGAN) (Coded, Severe, [facility], 05/02/19) SBIRT: completed Med Rec [...] Resp 14 05/03 1144 O2 Flow Rate 0.356402 05/01 1600 Patient Weight Weight (lb): Weight [...] (14.0 - 32.0 %) 24.4 / 0650 Charles Mix % (Auto) (4.8 - 9.0 %) 9.3 H 05/02 0650 Eos % (Auto) (0.3 - 3.7 %) 3.2 / 0650 Baso % (Auto) (0.0 - 2.0 %) 1.1 / 0650 Neut # (Auto) (2.0 - 7.6 x10 3/uL) 4.29 05/02 0650 Lymph # (Auto) (1.0 - 3.8 x10 3/uL) 1.70 / 0650 Charles Mix # (Auto) (0.1 - 0.8 x10 3/uL) [...] instructions: call for appt at 1340 RPT #:[id number] END OF REPORT 2019-05-03 12:22:00-00:00 HC[facility]L [facility] ([facility] Cardiology Progress Note REPORT#:[id number] REPORT STATUS: Signed DATE:05/03/19 TIME: 1222 PATIENT: ZAYNAB SHAW UNIT #: [id number] ROOM/BED: [place] [address] : 33 AGE: 83 SEX: F ATTEND: Greg Mercer MD ADM AUTHOR: Erendira Leone NP * ALL edits or amendments must be made on the [employer] document * Subjective Chief Complaint: Pt without [...] non-tender Lower extremity: LE assessment: no edema Neuro/CONCRETE PUDDLER: alert, oriented X 3, normal speech Psychiatry: [...] home today. Pt has appointment with established career transition specialist in a c ouple of weeks. She has been given our office information if she decides LAAO procedure is desired. Electronically Signed by Erendira Leone NP on at 1225 RPT #:[id number] END OF REPORT 2019-05-03 12:22:00-00:00 [facility] ([facility]) Cardiology Progress Note REPORT#:[id number] REPORT STATUS: Signed DATE:05/03/19 TIME: 1222 PATIENT: ZAYNAB SHAW UNIT #: [id number] ROOM/BED: [place] [address] : 33 AGE: 83 SEX: F ATTEND: Greg Mercer MD ADM AUTHOR: Erendira Leone NP * ALL edits or amendments must be made on the [employer]/computer document * Subjective Chief Complaint: Pt without [...] non-tender Lower extremity: LE assessment: no edema Neuro/CONCRETE PUDDLER: alert, oriented X 3, normal speech Psychiatry: [...] home today. Pt has appointment with established career transition specialist in a c ouple of weeks. She has been given our office information if she decides LAAO procedure is desired. Electronically Signed by Erendira Leone NP on at 1226 Electronically Signed by El Moreno MD on 05/06 at 6299 RPT #:[id number] END OF REPORT 2019-05-03 11:40:00-00:00 [facility] ([facility]) Pharmacy Prog.Note-Anticoag REPORT#:[id number] REPORT STATUS: Signed DATE:05/03/19 TIME: 1140 PATIENT: ZAYNAB SHAW UNIT #: [id number] ROOM/BED: [facility] : 33 AGE: 83 SEX: F ATTEND: Greg Mercer MD ADM AUTHOR: Latoya Lr [facility] * ALL edits or amendments must be made on the [employer]/computer document * Anticoagulation Anticoagulation Medication therapy: warfarin [...] yo F with w/PMH afib on warfarin, 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 Goal INR: 2-3 Home dose: [...] to monitor Electronically Signed by Latoya Lr [facility] on at 1143 RPT #:[id number] END OF REPORT 2019-05-03 08:32:00-00:00 [facility] RE[facility]#:[id number] REPORT STATUS: Signed DATE:05/03/19 TIME: 08 PATIENT: ZAYNAB SHAW UNIT #: [id number] ROOM/BED: [place] [address] : 33 AGE: 83 SEX: F ATTEND: Greg Mercer MD ADM AUTHOR: Dhara Sam Jr DO * ALL edits or amendments must be made on the el [employer]/computer document * Subjective Chief Complaint: pt seen/examined. [...] non-tender, soft Extremities: no clubbing, no cyanosis Neuro/CONCRETE PUDDLER: oriented X 3, CNII-XII intact Psychiatry: normal [...] Sam Jr, DO on at 0834 RPT #:[id number] END OF REPORT 2019-05-03 07:53:00-00:00 [facility] ([facility]) Trauma Progress Note REPORT#:[id number] REPORT STATUS: Signed DATE:05/03/19 TIME: 0753 PATIENT: ZAYNAB SHAW UNIT #: [id number] ROOM/BED: [facility] : 33 AGE: 83 SEX: F ATTEND: Greg Mercer MD ADM AUTHOR: Karen,Daly PRODUCTION MANAGER AGACN P * ALL edits or amendments must be made on the [employer]/computer document * Subjective Chief Complaint: 05/01/19: Fall, L1 compression fracture Pain better controlled with [place] Ambulating to the bathroom w/o problems Daughter [...] bunions/ arthritis noted to feet and hands. Neuro/CONCRETE PUDDLER: alert, oriented X 3 Skin: dry, normal [...] Dispo: Home today with daughter. Discussed at [facility] f/u with cardiology this week for coumadin testing. She will make appt in the am. Orders: Procedure Date/time Status Discharge Order With Parameter 05/03 1426 Activ e Consultants: cardiology, neurosurgery, pharmacy Plan discussed with: patient, daughter (caregive r at bedside) at 1441 RPT #:[id number] END OF REPORT 2019-05-03 07:53:00-00:00 [facility] ([facility]) Trauma Progress Note REPORT#:[id number] REPORT STATUS: Signed DATE:05/03/19 TIME: 0753 PATIENT: ZAYNAB SHAW UNIT #: [id number] ROOM/BED: [place] [address] : 33 AGE: 83 SEX: F ATTEND: Greg Mercer MD ADM AUTHOR: Daly Jones * ALL edits or amendments must be made on the [employer] document * See Addendum Subjective Chief Complaint: 05/01/19: Fall, L1 compression fracture Pain better controlled with [place] Ambulating to the bathroom w/o problems Daughter [...] bunions/ arthritis noted to feet and hands. Neuro/CONCRETE PUDDLER: alert, oriented X 3 Skin: dry, normal [...] Dispo: Home today with daughter. Discussed at [facility] f/u with cardiology this week for coumadin [...] INR followup with cardiology. at 1516 RPT #:[id number] END OF REPORT 2019-05-02 17:07:00-00:00 [facility] ([facility]) Cardiology Progress Note REPORT#:[id number] REPORT STATUS: Signed DATE:05/02/19 TIME: 1706 PATIENT: ZAYNAB SHAW UNIT #: [id number] ROOM/BED: [place] [address] : 33 AGE: 83 SEX: F ATTEND: Greg Mercer MD ADM AUTHOR: El Moreno MD * ALL edits or amendments must be made on the el [employer]computer document * Subjective Comments: Patient examined. 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 Goal INR: 2-3 Home dose: warfarin 2.5mg PO daily Potential DDI: enoxaparin 50mg sq q12h (d/c'ed ) A/P 05/02: * INR 3.2, supratherapeutic. * H/H/Plt 12.7/39.4/255 no reported s/s bleeding . * Per d/w Daly d/blul lovenox and hold warfarin today. Trend INR and resume warfarin once INR <3 * Daily INR ordered through 05/10. Pharmacy will continue to monitor Thank you Daly Jones for this consult Electronically Signed by Latoya Lr [facility] on at 1412 RPT #:[id number] END OF REPORT 2019-05-02 12:40:00-00:00 [id number] [address] PATIENT NAME: ZAYNAB SHAW ADMIT DATE: 9 ACCOUNT NO: [id number] ROOM NO: [facility] AGE: 83 REPORT TYPE: CONSULTATION REPORT SEX: F ADMITTING PHYSICIAN:Greg Mercer MD ATTENDING PHYSICIAN:Greg Mercer MD CONSULTATION DATE: CONSULTING PHYSICIAN: Dhara Bruno REASON FOR CONSULTATION: Medical management. HISTORY OF PRESENT ILLNESS: An 83-year-old femal e with a history of AFib and hypertension, who was seen i n the Emergency Department per EMS, transferred from [facility] for Trauma Surgery cons [facility]. The patient stated she was [...] is an 83-year-old female, in no ac frances distress, alert and oriented x3. HEENT: Normocephalic [...] as Trauma. PATIENT NAME: ZAYNAB SHAW 1740 [id number] [place] [address] PATIENT NAME: ZAYNAB SHAW ADMIT DATE: 9 ACCOUNT NO: [id number] ROOM NO: G.417 AGE: 83 REPORT TYPE: CONSULTATION REPORT SEX: F ADMITTING PHYSICIAN:Greg Mercer MD ATTENDING PHYSICIAN:Greg Mercer MD We will hold her Coumadin at this time. We will continue to monitor closely. Pain control. Better BP control. The patient may be discharged later on today once cleared by Trauma. Dictated By: Dhara Bruno WT: CON:JEMIMA/YANI/GM Conf#: [id number]/CHARLIE#: [id number] Authenticated by Dhara Sam DO On 05/05/2019 02:36: 27 PM Electronically Signed by Dhara Sam Jr, DO on 04/19 03/06 at 1436 PATIENT NAME: ZAYNAB SHAW 1740 2019-05-02 08:22:00-00:00 [id number] [place] [address] PATIENT NAME: ZAYNAB SHAW ADMIT DATE: 9 ACCOUNT NO: [id number] ROOM NO: G.417 AGE: 83 REPORT TYPE: eELECTROCARDIOGRAM REPORT SEX: F ADMITTING PHYSICIAN:Greg Mercer MD ATTENDING PHYSICIAN:Greg Mercer MD Order: [id number] Test Reason : Afib Test Date/Time Stamp: [...] on at 1133 PATIENT NAME: ZAYNAB SHAW [id number] 2019-05-02 07:55:00-00:00 [facility] Trauma Progress Note REPORT#:[id number] REPORT STATUS: Signed DATE:05/02/19 TIME: 0755 PATIENT: ZYANAB SHAW UNIT #: [id number] ROOM/BED: [place] [address] : 33 AGE: 83 SEX: F ATTEND: Greg Mercer MD ADM AUTHOR: Daly Jones AGACN P * ALL edits or amendments must be made on the [employer] document * Subjective Chief Complaint: 05/01/19: Fall, [...] 18 139/74 95 100 Room air 0. [id number] 05/01 1330 98.4 60 18 138/72 94 [...] bunions/ arthritis noted to feet and hands. Neuro/CONCRETE PUDDLER: alert, oriented X 3 Saqib Coma Score: Saqib Coma Score: Response Value Saqib eyes: eyes [...] % (Auto) (14.0 - 32.0 %) 24.4 Charles Mix % (Auto) (4.8 - 9.0 %) 9.3 H Eos % (Auto) (0.3 - 3.7 %) 3.2 Baso % (Auto) (0.0 - 2.0 %) 1.1 Neut # (Auto) (2.0 - 7.6 x10 3/uL) 4.29 Lymph # (Auto) (1.0 - 3.8 x10 3/uL) 1.70 [place] # (Auto) (0.1 - 0.8 x10 3/uL) [...] on today's CT lumbar spine. END IMPRESSION [id number] Impression By: AnuelRTB - Elliot Walker M.D. [...] pharmacy Plan discussed with: patient, daughter (at [facility]) at 1257 RPT #:[id number] END OF REPORT 2019-05-02 07:55:00-00:00 [facility] ([facility]) Trauma Progress Note REPORT#:[id number] REPORT STATUS: Signed DATE:05/02/19 TIME: 0755 PATIENT: ZAYNAB SHAW UNIT #: [id number] ROOM/BED: [facility]-1 : 33 AGE: 83 SEX: F ATTEND: Greg Mercer MD ADM AUTHOR: Daly Jones P * ALL edits or amendments must be made on the [employer] document * See Addendum Subjective Chief Complaint: [...] 18 139/74 95 100 Room air 0. [id number] 05/01 1330 98.4 60 18 138/72 94 [...] bunions/ arthritis noted to feet and hands. Neuro/CONCRETE PUDDLER: alert, oriented X 3 Saqib Coma Score: Saqib Coma Score: Response Value Thelma eyes: eyes open spontaneously 4 Saqib speech: [...] % (Auto) (14.0 - 32.0 %) 24.4 [place] % (Auto) (4.8 - 9.0 %) 9.3 H Eos % (Auto) (0.3 - 3.7 %) 3.2 Baso % (Auto) (0.0 - 2.0 %) 1.1 Neut # (Auto) (2.0 - 7.6 x10 3/uL) 4.29 Lymph # (Auto) (1.0 - 3.8 x10 3/uL) 1.70 [place] # (Auto) (0.1 - 0.8 x10 3/uL) [...] Report Impression - Status: SIGNED Entered: 05/01/2019 3837 IMPRESSION: 1. Moderate sigmoid diverticulosis. 2. Moderately large fluid-filled hiatal hernia. 3. 12 mm urinary bladder stone. 4. Bilateral renal cysts. 5. 10% compression of the L1 vertebral body whic h will be further described on today's CT lumbar spine. END IMPRESSION [id number] Impression By: Elie.RTB - Elliot Walker M.D. [...] maybe as an outpatient. at 1649 RPT #:[id number] END OF REPORT 2019-05-01 18:01:00-00:00 [facility] Cardiology Consultation REPORT#:[id number] REPORT STATUS: Signed DATE:05/01/19 TIME: 180 PATIENT: ZAYNAB SHAW UNIT #: [id number] ROOM/BED: [place] [address] : 33 AGE: 83 SEX: F ATTEND: Greg Mercer MD ADM AUTHOR: Erendira Leone LOAD MIXER * ALL edits or amendments must be made on the [employer] document * History of Present Illness HPI [...] imbalance. Her last follow up with her [employer] Safety Engineer , Dr. Walker in [place], was 2 months ago w [facility] plans for follow up next month. She states her last appointment was for a Coumadin check and her career transition specialist had no other concerns. History - Adult [...] assessment: no edema Musculoskeletal: decreased ROM (RUE) Neuro/CONCRETE PUDDLER: alert, oriented X 3, normal speech Skin: [...] on today's CT lumbar spine. END IMPRESSION [id number] Impression By: AnuelRTB - Elliot Walker M.D. [...] Erendira Leone NP on at 1818 RPT #:[id number] END OF REPORT 2019-05-01 18:01:00-00:00 [facility] Cardiology Consultation REPORT#:[id number] REPORT STATUS: Signed DATE:05/01/19 TIME: 1801 PATIENT: ZAYNAB SHAW UNIT #: [id number] ROOM/BED: [place] [address] : 33 AGE: 83 SEX: F ATTEND: Greg Mercer MD ADM AUTHOR: Erendira Leone NP * ALL edits or amendments must be made on the [employer] document * History of Present Illness HPI [...] imbalance. Her last follow up with her [employer] Safety Engineer , Dr. Walker in [place], was 2 months ago w dharmesh plans for follow up next month. She states her last appointment was for a Coumadin check and her career transition specialist had no other concerns. History - Adult [...] assessment: no edema Musculoskeletal: decreased ROM (RUE) Neuro/CONCRETE PUDDLER: alert, oriented X 3, normal speech Skin: [...] on today's CT lumbar spine. END IMPRESSION [id number] Impression By: AnuelRTB - Elliot Walker M.D. [...] by El Moreno MD on 05/31 at 1737 RPT #:[id number] END OF REPORT 2019-05-01 12:52:00-00:00 [facility] ([facility]) Trauma - History Physical REPORT#:[id number] REPORT STATUS: Signed DATE:05/01/19 TIME: 1252 PATIENT: ZAYNAB SHAW UNIT #: [id number] ROOM/BED: [facility] : 33 AGE: 83 SEX: F ATTEND: Greg Mercer MD ADM AUTHOR: Greg Mercer MD * ALL edits or amendments must be made on the [employer] document * History of Present Illness HPI Chief complaint: 05/01/19 Fall, L1 fracture HPI: Ms. Shaw is a 83 yo woman with multiple medical problems as listed below who comes in as a transfer from [place], [place] after a mechanical fall today and [...] (sputum ), SOB, wheezing, other. Cardiovascular: Reports: BROKOE (dyspnea on exertion). Denies: ches t pain, [...] bunions/ arthritis noted to feet and hands. Neuro/CONCRETE PUDDLER: alert, oriented X 3 Saqib Coma Score: Thelma Coma Score: Response Value Patient intubated? no Thelma eyes: eyes open spontaneously 4 Thelma speech: oriented 5 Saqib motor: obeys commands 6 Total 15 Diagnosis, [...] Dispo: Anticipate discharge home. at 1309 RPT #:[id number] END OF REPORT 2019-05-01 12:32:00-00:00 [facility] ([facility] Neurosurgical Consultation REPORT#:[id number] REPORT STATUS: Signed DATE:05/01/19 TIME: 1232 PATIENT: ZAYNAB SHAW UNIT #: [id number] ROOM/BED: [place] [address] : 33 AGE: 83 SEX: F ATTEND: Greg Mercer MD ADM AUTHOR: Yoanna Barker LOAD MIXER * ALL edits or amendments must be made on the [employer] document * Yoanna Barker 05/01/19 1232: History [...] edema (BLE), moves all, normal temp erature Neuro/CONCRETE PUDDLER: alert, oriented X 3, normal speech, n [...] on today's CT lumbar spine. END IMPRESSION [id number] Impression By: AnuelRTB - Elliot Walker M.D. [...] Valderrama DO on 05/01 at 1825 RPT #:[id number] END OF REPORT 2019-05-01 12:32:00-00:00 [facility] ([facility]) Neurosurgical Consultation REPORT#:[id number] REPORT STATUS: Signed DATE:05/01/19 TIME: 1232 PATIENT: ZAYNAB SHAW UNIT #: [id number] ROOM/BED: [place] [address] : 33 AGE: 83 SEX: F ATTEND: Greg Mercer MD ADM AUTHOR: Yoanna Barker LOAD MIXER * ALL edits or amendments must be made on the [employer] document * See Addendum Yoanna Barker 05/01/19 [...] edema (BLE), moves all, normal temp erature Neuro/CONCRETE PUDDLER: alert, oriented X 3, normal speech, n [...] on today's CT lumbar spine. END IMPRESSION [id number] Impression By: AnuelRTB - Elliot T. Brown, [...] Valderrama DO on 05/01 at 1837 RPT #:[id number] END OF REPORT 2019-05-01 12:32:00-00:00 [facility] ([facility]) Neurosurgical Consultation REPORT#:[id number] REPORT STATUS: Signed DATE:05/01/19 TIME: 1232 PATIENT: ZAYNAB SHAW UNIT #: [id number] ROOM/BED: [place] [address] : 33 AGE: 83 SEX: F ATTEND: Greg Mercer MD ADM AUTHOR: Yoanna Barker LOAD MIXER * ALL edits or amendments must be made on the [employer] document * See Addendum Yoanna Barker 05/01/19 [...] edema (BLE), moves all, normal temp erature Neuro/CONCRETE PUDDLER: alert, oriented X 3, normal speech, n [...] on today's CT lumbar spine. END IMPRESSION [id number] Impression By: AnuelRTB - Elliot Walker M.D. [...] Valderrama DO on 05/01 at 1837 RPT #:[id number] END OF REPORT 2019-05-01 12:32:00-00:00 [facility] ([facility]) Neurosurgical Consultation REPORT#:[id number] REPORT STATUS: Signed DATE:05/01/19 TIME: 1232 PATIENT: ZAYNAB SHAW UNIT #: [id number] ROOM/BED: [place] [address] : 33 AGE: 83 SEX: F ATTEND: Greg Mercre MD ADM AUTHOR: Yoanna Barker LOAD MIXER * ALL edits or amendments must be made on the [employer] document * See Addendum Yoanna Barker 05/01/19 [...] edema (BLE), moves all, normal temp erature Neuro/CONCRETE PUDDLER: alert, oriented X 3, normal speech, n [...] on today's CT lumbar spine. END IMPRESSION [id number] Impression By: AnuelRTB - Elliot Walker M.D. [...] Valderrama DO on 05/01 at 1837 RPT #:[id number] END OF REPORT 2019-05-01 12:32:00-00:00 [facility]) Neurosurgical Consultation REPORT#:[id number] REPORT STATUS: Signed DATE:05/01/19 TIME: 1232 PATIENT: ZAYNAB SHAW UNIT #: [id number] ROOM/BED: [place] [address] : 33 AGE: 83 SEX: F ATTEND: Greg Mercer MD ADM AUTHOR: Yoanna Barker LOAD MIXER * ALL edits or amendments must be made on the [employer] document * See Addendum Yoanna Barker 05/01/19 [...] edema (BLE), moves all, normal temp erature Neuro/CONCRETE PUDDLER: alert, oriented X 3, normal speech, n [...] on today's CT lumbar spine. END IMPRESSION [id number] Impression By: AnuelRTB - Elliot Walker M.D. [...] Maricruz Valderrama DO on 05/01 at 1837 [facility] #:[id number] END OF REPORT 2019-05-01 11:22:00-00:00 [facility] EMERGENCY PROVIDER REPORT REPORT#:[id number] REPORT STATUS: Signed DATE:05/01/19 TIME: 112 PATIENT: ZAYNAB SHAW UNIT #: [id number] [facility] 83 SEX: F PCP PHYS: No Primary or Family Ph ysician SERVICE AUTHOR: Charan Velasquez DO * ALL edits or amendments must be made on the [employer] document * HPI-Back Pain 40 and Over General Confirmed Patient Yes Initial Greet Date/Time 05/01/19 1102 Presentation Chief Complaint Pain, back Hx Obtained From Lumber Piler Sudden in Onset? No Onset Occurred Yesterday Symptom Duration Since onset Progression since Onset Unchanged Free Text HPI Notes Free Text HPI Notes 83 y/o F with PMHx of Afib, HTN and TIA presents to the ED per EMS. Per EMS, pt is a transfer from [facility] for trauma s urgery consult. EMS states [...] PE General/Const General/Const Awake, Alert, Well developed, Reactor Service Operator perative MS Neck Neck Supple, Full range [...] 1327 Consultation Consultation Referral/Consult Name LavelleMaricruz DO Seed Collector Called Neurology Requested Call Time 1122 Requested Call Date 05/01/19 Call Returned Call returned Call Returned Time 1122 Call Returned Date 05/01/19 Seed Collector Will see patient Portions of this section [...] Charan Velasquez DO on at 1434 RPT #:[id number] END OF REPORT
[2023-03-18] MEDS ORDERED: ACETAMINOPHEN 500 MG TAB ONE (11:56)
[2023-03-18 12:17] LABS: Absolute Lymphocytes (CBC) 1.4 K/uL (0.7-4.9); Hematocrit 38.9 % (36.0-45.0); Lymphocytes % 21.2 % (15.3-44.8); MCV 95.3 fL (80-100); MPV 7.9 fL (7.6-11.3); RBC Red Blood Cell Count 4.08 M/uL (3.86-4.86)
--- NOTE | 2023-03-18 12:17 | RAD REPORT ---
EXAM DESCRIPTION: [facility]03/18/2023 11:54 am CLINICAL HISTORY: Congestion COMPARISON: 2021 FINDINGS: Mild chronic appearing interstitial lung opacities. Lungs appear clear of acute infiltrate. Heart is mildly enlarged. A large hiatal hernia IMPRESSION: No acute abnormalities displayed
[2023-03-18 12:36] LABS: Albumin 3.6 g/dL (3.4-5.0); Bilirubin Direct 0.1 mg/dL (0-0.2); Bilirubin Indirect, Calculated 0.5 mg/dL (0.2-0.8); Bilirubin Total 0.6 mg/dL (0.2-1.0); Protein, Total 7.7 g/dL (6.4-8.2); Troponin High Sensitivity 11.5 pg/mL (<58.9)
[2023-03-18] MEDS ORDERED: DIAZEPAM 2 MG TABLET ONE (13:10)
[2023-03-18] MEDS ORDERED: FUROSEMIDE 20 MG/ 2ML VIAL ONE (13:10)
[2023-03-18] MEDS ORDERED: NITROGLYCERIN 1 GM PKT TD ONE (13:10)
--- NOTE | 2023-03-18 14:17 | ER ---
Nurse's Notes [facility] Name: Zaynab Cain Age: 87 yrs Sex: Female : 1935 Arrival Date: 03/18/2023 Time: 11:16 Bed 17 Private MD: Diagnosis: Essential (primary) hypertension;Acute systolic (congestive) heart failure;Dyspnea Presentation: 03/18 11:24 Chief complaint: Patient's son or daughter states: her BP has been running high at home, she went to her PCP and she listened to her lungs and she told her to come to ER, pt started c/o feeling bad, she has chronic UTI and she has been on Cipro and another antibiotic. Coronavirus screen: At this time, the client does not indicate any symptoms associated with coronavirus-19. Ebola Screen: Patient negative for fever greater than or equal to 101.5 degrees Fahrenheit, and additional compatible Ebola Virus Disease symptoms Patient denies exposure to infectious person. Patient denies travel to an Ebola-affected area in the 21 days before illness onset. No symptoms or risks identified at this time. Initial Sepsis Screen: Does the patient meet any 2 criteria? No. Patient's initial sepsis screen is negative. Does the patient have a suspected source of infection? No. Patient's initial sepsis screen is negative. Risk Assessment: Do you want to hurt yourself or someone else? Patient reports no desire to harm self or others. Onset of symptoms was March 18, 2023. 11:24 Method Of Arrival: Wheelchair 11:24 Acuity: AILYN 3 Triage Assessment: 14:15 Respiratory: eh3 14:15 Respiratory: Onset: The symptoms/episode began/occurred. eh3 Historical: - Allergies: 11:25 Fentanyl; iw - PMHx: 11:25 Arthritis; Hypertension; Hypothyroidism; TIA; Atrial fibrillation; iw - PSHx: 11:25 hysterectomy; iw - Immunization history:: Adult Immunizations up to date. - Social history:: Smoking status: unknown. Screenin:30 [facility] ED Fall Risk Assessment (Adult) Score/Fall Risk Level 0 - 2 = Low Risk. Abuse eh3 screen: Denies threats or abuse. Denies injuries from another. Nutritional screening: No deficits noted. Tuberculosis screening: No symptoms or risk factors identified. Assessment: 11:30 General: Appears in no apparent distress. uncomfortable, Behavior is calm, cooperative, eh3 appropriate for age. Pain: Denies pain. Neuro: Level of Consciousness is awake, alert, obeys commands, Oriented to person, place, time, situation. Cardiovascular: Capillary refill < 3 seconds Patient's skin is warm and dry. Rhythm is sinus bradycardia. Respiratory: Reports shortness of breath at rest Airway is patent Respiratory effort is even, unlabored, Breath sounds are coarse bilaterally. 11:30 GI: Abdomen is round non-distended. Derm: Skin is fragile, Skin is pink, warm \T\ dry. eh3 Musculoskeletal: Circulation, motion, and sensation intact. 12:30 Reassessment: Patient appears in no apparent distress at this time. Patient and/or eh3 family updated on plan of care and expected duration. Pain level reassessed. Patient is alert, oriented x 3, equal unlabored respirations, skin warm/dry/pink. 13:30 Reassessment: Patient appears in no apparent distress at this time. Patient and/or eh3 family updated on plan of care and expected duration. Pain level reassessed. Patient is alert, oriented x 3, equal unlabored respirations, skin warm/dry/pink. 14:30 Reassessment: Patient appears in no apparent distress at this time. Patient and/or eh3 family updated on plan of care and expected duration. Pain level reassessed. Patient is alert, oriented x 3, equal unlabored respirations, skin warm/dry/pink. Vital Signs: 11:24 BP 165 / 78; Pulse 58; Resp 16; Pulse Ox 97% on R/A; iw 11:27 Temp 98.3(O); iw 12:00 BP 161 / 99; Pulse 60; Resp 20; Pulse Ox 95% on R/A; eh3 12:30 BP 212 / 84; Pulse 58; Resp 19; Pulse Ox 97% on R/A; eh3 13:00 BP 211 / 85; Pulse 64; Resp 18; Pulse Ox 97% on R/A; eh3 14:00 BP 194 / 86; Pulse 57; Resp 20; Pulse Ox 97% on R/A; eh3 ED Course: 11:18 Patient arrived in ED. am2 11:19 Aditya Pena MD is Attending Physician. jr11 11:25 Triage completed. iw 11:26 Arm band placed on. iw 11:30 Patient has correct armband on for positive identification. Bed in low position. Call eh3 light in reach. Side rails up X2. Adult w/ patient. Client placed on continuous cardiac and pulse oximetry monitoring. NIBP monitoring applied. Door closed. Noise minimized. Warm blanket given. 11:30 Inserted saline lock: 22 gauge in left antecubital area, using aseptic technique. Blood eh3 collected. 11:47 Christine Bourne, RN is Primary Nurse. eh3 11:56 XRAY Chest (1 view) In Process Unspecified. EDMS 14:15 Provided Education on: N/A. eh3 14:15 No provider procedures requiring assistance completed. eh3 14:15 IV discontinued, intact, bleeding controlled, No redness/swelling at site. Pressure eh3 dressing applied. Administered Medications: 12:16 Drug: Acetaminophen PO 1000 mg Route: PO; eh3 13:10 Follow up: Response: No adverse reaction eh3 13:09 Drug: Furosemide IVP 20 mg Route: IVP; Site: left antecubital; eh3 14:49 Follow up: Response: No adverse reaction eh3 13:09 Drug: Diazepam PO 2 mg Route: PO; eh3 14:48 Follow up: Response: No adverse reaction eh3 13:10 Drug: Nitroglycerin Transdermal Ointment 2 % 1 inches Route: Transdermal; Site: eh3 anterior chest wall; 14:49 Follow up: Response: No adverse reaction eh3 Medication: 14:15 VIS not applicable for this client. eh3 Outcome: 14:16 Discharge ordered by MD. walker 14:59 Patient left the ED. eh3 Signatures: Dispatcher [employer] EDNC Eri Campbell RN RN iw Moreno, Amanda am2 Rosillo, Jose, MD MD jr11 Christine Bourne, RN RN eh3 Corrections: (The following items were deleted from the chart) 13:11 11:30 Respiratory: Airway is patent Respiratory effort is even, unlabored, eh3 eh3
--- NOTE | 2023-03-18 14:17 | EDPHYS ---
Physician Documentation [facility] Name: Zaynab Cain Age: 87 yrs Sex: Female : 1935 Arrival Date: 03/18/2023 Time: 11:16 Bed 17 Private MD: ED Physician Aditya Pena HPI: 03/18 11:33 This 87 yrs old Female presents to ER via Wheelchair with complaints of Breathing jr11 Difficulty, High Blood Pressure. 11:33 Patient is an 87-year-old female with history of hypertension hypothyroid atrial jr11 fibrillation here with episodes of high blood pressure per the primary care doctor. She had a systolic blood pressure around 200 and was sent in to evaluation. Per the daughter, intermittently she complains of shortness of breath, patient denies any chest pain. Patient's blood pressure at the doctor was systolic of 200. Patient denies any complaints at this time.. Historical: - Allergies: 11:25 Fentanyl; iw - PMHx: 11:25 Arthritis; Hypertension; Hypothyroidism; TIA; Atrial fibrillation; iw - PSHx: 11:25 hysterectomy; iw - Immunization history:: Adult Immunizations up to date. - Social history:: Smoking status: unknown. ROS: 11:33 All other systems are negative. jr11 Exam: 11:33 Constitutional: This is a well developed, well nourished patient who is awake, alert, jr11 and in no acute distress. Head/Face: Normocephalic, atraumatic. Eyes: Extra-ocular motions intact. Lids and lashes normal. Conjunctiva and sclera are non-icteric and not injected. Cornea within normal limits. Periorbital areas with no swelling, redness, or edema. ENT: Nares patent. No nasal discharge, no septal abnormalities noted. Oropharynx with no redness, swelling, or masses, exudates, or evidence of obstruction, uvula midline. Mucous membranes moist. Cardiovascular: irregularly irregular, no tachycardia Respiratory: diminished at the bases Back: No spinal tenderness. No costovertebral tenderness. Full range of motion. Skin: Warm, dry with normal turgor. Normal color with no rashes, no lesions, and no evidence of cellulitis. MS/ Extremity: Pulses equal, no cyanosis. Neurovascular intact. Full, normal range of motion. 11:33 Neuro: Awake and alert, GCS 15, oriented to person, place, time, and situation. No jr11 gross motor or sensory deficits. Vital Signs: 11:24 BP 165 / 78; Pulse 58; Resp 16; Pulse Ox 97% on R/A; iw 11:27 Temp 98.3(O); iw 12:00 BP 161 / 99; Pulse 60; Resp 20; Pulse Ox 95% on R/A; eh3 12:30 BP 212 / 84; Pulse 58; Resp 19; Pulse Ox 97% on R/A; eh3 13:00 BP 211 / 85; Pulse 64; Resp 18; Pulse Ox 97% on R/A; eh3 14:00 BP 194 / 86; Pulse 57; Resp 20; Pulse Ox 97% on R/A; eh3 MDM: 11:30 Patient medically screened. jr11 11:33 Differential diagnosis: Anemia Bronchitis CHF exacerbation, Chronic Obstructive jr11 Pulmonary Disease pneumonia, pulmonary edema. Data reviewed: vital signs, nurses notes. 12:57 ED course: EKG interpreted by me shows sinus bradycardia rate of 59, left axis jr11 deviation T wave inversions lead III and aVF but no acute ST changes. EKG nondiagnostic.. 14:14 ED course: Patient likely feeling slightly short of breath secondary to heart failure, jr11 per the daughter, she does not take Lasix daily only when her feet are swollen so she has not taken them in multiple days. Give a dose of Lasix, daughter to keep blood pressure log in primary to add a second agent if needed. She is only on metoprolol at this time for blood pressure. Patient otherwise not hypoxic without any florid pulmonary edema systolic blood pressure 190. Per the log, she usually runs 1 50-1 60, likely will need a second agent. Not enough information at this time to start a second agent. ER warnings given all results explained. Chest x-ray image visualized by me, does not show florid pulmonary edema.. 03/18 11:32 Order name: Basic Metabolic Panel; Complete Time: 12:37 03/18 11:32 Order name: CBC with Diff; Complete Time: 12:36 03/18 11:32 Order name: LFT's; Complete Time: 12:37 03/18 11:32 Order name: NT PRO-BNP; Complete Time: 12:37 03/18 11:32 Order name: Troponin HS; Complete Time: 12:37 03/18 11:32 Order name: XRAY Chest (1 view); Complete Time: 12:36 03/18 11:32 Order name: EKG; Complete Time: 11:33 03/18 11:32 Order name: Cardiac monitoring; Complete Time: 12:16 03/18 11:32 Order name: EKG - Nurse/Tech; Complete Time: 12:58 03/18 11:32 Order name: IV Saline Lock; Complete Time: 12:16 03/18 11:32 Order name: Labs collected and sent; Complete Time: 12:16 03/18 11:32 Order name: O2 Per Protocol; Complete Time: 12:16 03/18 11:32 Order name: O2 Sat Monitoring; Complete Time: 12:16 Administered Medications: 12:16 Drug: Acetaminophen PO 1000 mg Route: PO; eh3 13:10 Follow up: Response: No adverse reaction eh3 13:09 Drug: Furosemide IVP 20 mg Route: IVP; Site: left antecubital; eh3 14:49 Follow up: Response: No adverse reaction eh3 13:09 Drug: Diazepam PO 2 mg Route: PO; eh3 14:48 Follow up: Response: No adverse reaction eh3 13:10 Drug: Nitroglycerin Transdermal Ointment 2 % 1 inches Route: Transdermal; Site: eh3 anterior chest wall; 14:49 Follow up: Response: No adverse reaction eh3 Disposition Summary: 03/18/23 14:16 Discharge Ordered Location: Home [facility] Condition: Stable [facility] Diagnosis - Essential (primary) hypertension jr11 - Acute systolic (congestive) heart failure jr11 - Dyspnea 11 Followup: 11 - With: Private Physician - When: 2 - 3 days - Reason: Recheck today's complaints Discharge Instructions: - Discharge Summary Sheet jr11 - Hypertension, Adult jr11 - Heart Failure, Diagnosis, [id number] Forms: - Medication Reconciliation Form jr11 - Thank You Letter jr11 - Antibiotic Education jr11 - Prescription Opioid Use 11 - Patient Portal Instructions 11 Signatures: Dispatcher [employer] Eri Barriga RN RN Aditya Pena MD MD [facility] Christine Bourne RN RN eh3
[2023-03-18 15:07] VITALS: TEMP 98.3
[2023-03-18 15:10] VITALS: O2SAT 97
[2023-03-18 15:13] VITALS: BP 194/86
--- NOTE | 2023-03-20 17:42 | EKG ---
Test Date: 2023-03-18 Test Time: 12:51:47 Notch Grinder: TAYLER MEASUREMENT RESULTS: Intervals: Rate: 59 HI: 164 QRSD: 86 QT: 454 QTc: 449 [place]: P: 72 HI: 164 QRS: -22 T: 1 INTERPRETIVE STATEMENTS: Sinus bradycardia with occasional premature ventricular complexes Septal infarct, age undetermined Abnormal ECG Compared to ECG 07/19/2022 11:21:04 Ventricular premature complex(es) now present Atrial fibrillation no longer present Incomplete right bundle-branch block no longer present Left ventricular hypertrophy no longer present T-wave abnormality no longer present Possible ischemia no longer present Myocardial infarct finding still present Electronically Signed On 03-20-23 17:35:47 CDT by Blayne Yung
== END 2023-03-18 14:59 | disposition home or self-care (01) ==
LOC: ER 11:16
DX: I50.21 Acute systolic (congestive) heart failure (principal); I10 Essential (primary) hypertension; Z88.5 Allergy status to narcotic agent
CPT/HCPCS: 93005; 85025; 80048; 36415; 80076; 84484; 83880; 71045; 96374; 99284; J1940